=== PATIENT | female | born 1945 | race Caucasian/White ===

== ENCOUNTER → 2017-10-22 | Outpatient (CLI) | payer MEDICARE, OTHER, SELFPAY | PROVIDERS: Visit Provider Nurse Practitioner Family | DX: R53.83 Other fatigue (principal); E11.9 Type 2 diabetes mellitus without complications; Z79.899 Other long term (current) drug therapy; E55.9 Vitamin D deficiency, unspecified | CPT/HCPCS: 80061; 80305; 82306; 82607; 82746; 83036; 84439; 84443; 85025 ==

== ENCOUNTER 2017-11-12 12:08 | Emergency (ER) | payer MEDICARE, OTHER, SELFPAY ==
[2017-11-12 12:21] VITALS: BP 167/82; PULSE 106; RESP 18; TEMP 37.7; O2SAT 95; BMI 38.7
[2017-11-12 12:31] VITALS: BP 167/82; PULSE 106; RESP 18; TEMP 37.7; O2SAT 95; BMI 39.9
--- NOTE | 2017-11-12 13:51 | CT_ITS ---
CT head/brain wo con Ordering Physician: Sharmin Lai MD Patient Age: 72 years: Female HISTORY: ITS.REASON: FELL AND HIT HEAD . Headache. Head trauma. TECHNIQUE: Axial standard CT head. Bone and brain windows performed and submitted to PACS COMPARISON :. None available FINDINGS No acute intracranial findings. No hemorrhage. No mass. No subdural collection. No extra-axial findings. Mild diffuse cerebral atrophy age-appropriate . Vague low-density in the deep white matter cerebral hemispheres bilateral reflecting small vessel deep white matter ischemic changes of aging brain. Vague deep white matter low density. Vague low-density Deep white matter changes are most notable along the anterior aspect left basal ganglia as well as extending superior from the left basal ganglia. Minimal, physiologic calcification ganglia bilaterally. Not uncommon in aging brain Large dense calcified pineal measuring up to 11 mm x 9 mm. Upper normal size calcified pineal The posterior fossa shows no discrete acute findings. CP angles clear. The skull intact. No prominent scalp hematoma. The paranasal sinuses are clear mastoid air cells middle air and IACs unremarkable. Globes unremarkable. IMPRESSION-------- 1. No acute intracranial findings. 2. Chronic small vessel deep white matter ischemic changes slightly more evident at the left cerebral hemisphere . 3. Mild cerebral atrophy age-appropriate. 4. Prominent calcified pineal. Upper normal in size. Most likely normal but if any progressive headache or neurological findings this may warrant follow-up in 3-4 months.
--- NOTE | 2017-11-12 13:51 | XR_ITS ---
XR chest portable HISTORY: Cough and congestion ITS.REASON: POSSIBLE PNEUMONIA ORDERING PHYSICIAN: Sharmin Lai MD PATIENT AGE: 72 years COMPARISON: 06/03/2013 FINDINGS: The cardiomediastinal silhouette and pulmonary vascularity are within normal limits. The lungs are clear without infiltrates, suspicious nodules, or pleural effusions. There are low lung volumes with slightly elevated right hemidiaphragm. No acute bony abnormalities. IMPRESSION: No acute finding
--- NOTE | 2017-11-12 14:08 | PC.NURSE ---
RAD at BS for portable xray
[2017-11-12 14:19] LABS: Basophils # 0.1 K/mm3 (0-0.2); Basophils % 0.8 % (0.1-2.0); Eosinophils # 0.1 K/mm3 (0.0-0.4); Eosinophils % 0.9 % (0.1-12.0); Hematocrit 42.7 % (37.0-47.0); Hemoglobin 13.9 g/dL (12.2-16.2); Lymphocytes # 1.3 K/mm3 (0.7-4.5); Lymphocytes % 13.7 K/mm3 (10-50); Mean Corpuscular HGB Conc 32.7 g/dL (31.8-35.4); Mean Corpuscular Hemoglobin 28.5 pg (27.0-31.2); Mean Corpuscular Volume 87.4 fl (81-99); Mean Platelet Volume 9.1 fl (7.4-10.4); Monocytes # 0.6 K/mm3 (0.1-1.0); Monocytes % 6.5 % (1.7-9.3); Neutrophils # 7.6 K/mm3 (1.8-7.8); Neutrophils % 78.1 % (37.0-80.0); Platelet Count 209 K/mm3 (142-424); Red Blood Count 4.88 M/mm3 (4.20-5.40); Red Cell Distribution Width 13.4 % (11.5-17.5); White Blood Count 9.7 K/mm3 (4.8-10.8)
[2017-11-12 14:34] LABS: Alanine Aminotransferase 42 U/L (12-78); Albumin Level 3.6 gm/dL (3.4-5.0); Albumin/Globulin Ratio 0.9 (1.1-1.8); Alkaline Phosphatase 102 U/L (46-116); Aspartate Amino Transferase 57 U/L (15-37); Bilirubin,Total 0.7 mg/dL (0.2-1.0); Blood Urea Nitrogen 14 mg/dL (7-18); Calcium 8.7 mg/dL (8.5-10.1); Carbon Dioxide 28 mmol/L (21.0-32.0); Chloride 101 mmol/L (98-107); Creatinine Clearance Estimated 79 mL/min (0-300); Creatinine,Serum 1.07 mg/dL (0.55-1.02); Estimated Glomerular Filt Rate 50 ml/min (>60); GFR (African American) 61 ML/MIN (>60); Globulin 4.1 gm/dl (1.3-3.2); Glucose 148 mg/dL (74-106); Sodium 138 mmol/L (136-145); Total Protein,Serum 7.7 gm/dL (6.4-8.2)
[2017-11-12 14:38] LABS: Lactic Acid 1.1 mmol/L (0.4-2.0)
[2017-11-12 14:39] VITALS: BP 170/91; PULSE 89; RESP 20; TEMP 37.6; O2SAT 98
--- NOTE | 2017-11-12 15:09 | [facility].EDSYNC ---
ED Disposition Clinical Impression: Cough Syncope Qualifiers: Syncope type: unspecified Qualified Code(s): R55 - Syncope and collapse Disposition: Home, Self-Care Condition on Discharge: Good Instructions: Cough, DI for Syncope in Adults (Fainting) Additional Instructions: See your care provider in 1-3 days for recheck. Rx for Medrol Dosepak. And bedside commode to avoid falls in the middle of the night when going to restroom. Prescriptions: methylPREDNISolone [Medrol] 4 mg PO DAILY #1 tab.ds.pk Referrals: Jeff Jang MD [Primary Care Provider] - Time of Disposition: 16:48 - Critical Care Critical Care Time: No Attestation: On 11/12/17, the high probability of a clinically significant, sudden or life threatening deterioration of the following system(s) required my full and direct attention, intervention and personal management. The time I documented below is in addition to time spent performing reported procedures but includes the following listed in this critical care notation. Medical Decision Making Vital Signs: 11/12/17 12:21 11/12/17 12:31 11/12/17 14:39 Temperature 99.8 F H 99.8 F H 99.6 F Temperature Source Oral Oral Oral Pulse Rate Pulse Rate [Right Brachial] 106 H 106 H 89 Respiratory Rate 18 18 20 Blood Pressure Blood Pressure [Right Arm] 167/82 167/82 170/91 Blood Pressure Mean [Right Arm] 110 110 117 Blood Pressure Source Blood Pressure Source [Right Arm] Automatic Cuff Automatic Cuff Automatic Cuff Blood Pressure Position Blood Pressure Position [Right Arm] Sitting Supine Supine 02 Sat by Pulse Oximetry 95 95 98 Oxygen Delivery Method Room Air Room Air Room Air 11/12/17 16:30 11/12/17 16:32 Temperature 99.3 F 99.3 F Temperature Source Oral Oral Pulse Rate 82 Pulse Rate [Right Brachial] 82 Respiratory Rate 20 20 Blood Pressure 172/86 Blood Pressure [Right Arm] 172/86 Blood Pressure Mean [Right Arm] 114 Blood Pressure Source Automatic Cuff Blood Pressure Source [Right Arm] Automatic Cuff Blood Pressure Position Supine Blood Pressure Position [Right Arm] Supine 02 Sat by Pulse Oximetry 92 L Oxygen Delivery Method Room Air Room Air - Lab Data Lab results reviewed: Yes: I reviewed the patient's lab results. Lab Results 11/12/17 14:01: Sodium 138, Potassium 4.0, Chloride 101, Carbon Dioxide 28, Anion Gap 13.0, BUN 14, Creatinine 1.07 H, Estimated Creat Clear 79, Estimated GFR 50 L, Est GFR ( Amer) 61, Glucose 148 H, Calcium 8.7, Total Bilirubin 0.7, AST 57 H, ALT 42, Alkaline Phosphatase 102, Total Protein 7.7, Albumin 3.6, Globulin 4.1 H, Albumin/Globulin Ratio 0.9 L 11/12/17 14:05: WBC 9.7, RBC 4.88, Hgb 13.9, Hct 42.7, MCV 87.4, MCH 28.5, MCHC 32.7, RDW 13.4, Plt Count 209, MPV 9.1, Neut % (Auto) 78.1, Lymph % (Auto) 13.7, [place] % (Auto) 6.5, Eos % (Auto) 0.9, Baso % (Auto) 0.8, Neut # (Auto) 7.6, Lymph # (Auto) 1.3, [place] # (Auto) 0.6, Eos # (Auto) 0.1, Baso # (Auto) 0.1 11/12/17 14:05: Lactic Acid 1.1 11/12/17 15:40: Troponin I < 0.02 11/12/17 15:40: Influenza Type A Ag Negative, Influenza Type B Ag Negative Result diagrams: 11/12/17 14:05 11/12/17 14:01 Orders (Tests/Meds): ED MEDICATIONS Discontinued Medications Generic Name Dose Route Start Last Admin Trade Name Freq PRN Reason Stop Dose Admin Ibuprofen 600 mg 11/12/17 15:45 11/12/17 15:46 Motrin 600mg Tablet PO 11/12/17 15:46 600 mg ONCE ONE Administration Ketorolac Tromethamine 15 mg 11/12/17 15:42 11/12/17 15:49 Toradol 30mg/Ml Vial IV 11/12/17 15:43 Not Given ONCE ONE ORDERS Category Date Time Status Blood Culture Stat Micro 11/12/17 14:05 Received ECG Request by /Diego Stat Y 11/12/17 13:51 Ordered - Radiology Data #1 Image(s): Chest Image Reviewed: Yes I reviewed the patient's radiology results, Yes I have reviewed radiologist's interpretation Preliminary Findings: Normal/NAD, No Infiltrates Seen, Normal Lung Inflation
--- NOTE | 2017-11-12 15:12 | ED_ITS ---
ED Disposition Clinical Impression: Cough Syncope Qualifiers: Syncope type: unspecified Qualified Code(s): R55 - Syncope and collapse Disposition: Home, Self-Care Condition on Discharge: Good Instructions: Cough, DI for Syncope in Adults (Fainting) Additional Instructions: See your care provider in 1-3 days for recheck. Rx for Medrol Dosepak. And bedside commode to avoid falls in the middle of the night when going to restroom. Prescriptions: methylPREDNISolone [Medrol] 4 mg PO DAILY #1 tab.ds.pk Referrals: Jeff Jang MD [Primary Care Provider] - Time of Disposition: 16:48 - Critical Care Critical Care Time: No Attestation: On 11/12/17, the high probability of a clinically significant, sudden or life threatening deterioration of the following system(s) required my full and direct attention, intervention and personal management. The time I documented below is in addition to time spent performing reported procedures but includes the following listed in this critical care notation. Medical Decision Making Vital Signs: 11/12/17 12:21 11/12/17 12:31 11/12/17 14:39 Temperature 99.8 F H 99.8 F H 99.6 F Temperature Source Oral Oral Oral Pulse Rate Pulse Rate [Right Brachial] 106 H 106 H 89 Respiratory Rate 18 18 20 Blood Pressure Blood Pressure [Right Arm] 167/82 167/82 170/91 Blood Pressure Mean [Right Arm] 110 110 117 Blood Pressure Source Blood Pressure Source [Right Arm] Automatic Cuff Automatic Cuff Automatic Cuff Blood Pressure Position Blood Pressure Position [Right Arm] Sitting Supine Supine 02 Sat by Pulse Oximetry 95 95 98 Oxygen Delivery Method Room Air Room Air Room Air 11/12/17 16:30 11/12/17 16:32 Temperature 99.3 F 99.3 F Temperature Source Oral Oral Pulse Rate 82 Pulse Rate [Right Brachial] 82 Respiratory Rate 20 20 Blood Pressure 172/86 Blood Pressure [Right Arm] 172/86 Blood Pressure Mean [Right Arm] 114 Blood Pressure Source Automatic Cuff Blood Pressure Source [Right Arm] Automatic Cuff Blood Pressure Position Supine Blood Pressure Position [Right Arm] Supine 02 Sat by Pulse Oximetry 92 L Oxygen Delivery Method Room Air Room Air - Lab Data Lab results reviewed: Yes: I reviewed the patient's lab results. Lab Results 11/12/17 14:01: Sodium 138, Potassium 4.0, Chloride 101, Carbon Dioxide 28, Anion Gap 13.0, BUN 14, Creatinine 1.07 H, Estimated Creat Clear 79, Estimated GFR 50 L, Est GFR ( Amer) 61, Glucose 148 H, Calcium 8.7, Total Bilirubin 0.7, AST 57 H, ALT 42, Alkaline Phosphatase 102, Total Protein 7.7, Albumin 3.6, Globulin 4.1 H, Albumin/Globulin Ratio 0.9 L 11/12/17 14:05: WBC 9.7, RBC 4.88, Hgb 13.9, Hct 42.7, MCV 87.4, MCH 28.5, MCHC 32.7, RDW 13.4, Plt Count 209, MPV 9.1, Neut % (Auto) 78.1, Lymph % (Auto) 13.7 , [place] % (Auto) 6.5, Eos % (Auto) 0.9, Baso % (Auto) 0.8, Neut # (Auto) 7.6, Lymph # (Auto) 1.3, [place] # (Auto) 0.6, Eos # (Auto) 0.1, Baso # (Auto) 0.1 11/12/17 14:05: Lactic Acid 1.1 11/12/17 15:40: Troponin I < 0.02 11/12/17 15:40: Influenza Type A Ag Negative, Influenza Type B Ag Negative Result diagrams: 11/12/17 14:05 11/12/17 14:01 Orders (Tests/Meds): ED MEDICATIONS Discontinued Medications Generic Name Dose Route Start Last Admin Trade Na
--- NOTE | 2017-11-12 15:41 | PC.NURSE ---
lab at to draw repeat troponin
[2017-11-12 16:07] LABS: Troponin I < 0.02 ng/ml (0.00-0.06)
[2017-11-12 16:30] VITALS: BP 172/86; PULSE 82; RESP 20; TEMP 37.4; O2SAT 92
[2017-11-12 16:32] VITALS: BP 172/86; PULSE 82; RESP 20; TEMP 37.4; O2SAT 92
[2017-11-12 16:51] VITALS: BP 172/86; RESP 18; O2SAT 98
== END 2017-11-12 16:53 | disposition home or self-care (01) ==
PROVIDERS: Emergency Provider Emergency Medicine; Family Provider Emergency Medicine; PCP Emergency Medicine
DX: R05 Cough (principal); R55 Syncope and collapse; E11.65 Type 2 diabetes mellitus with hyperglycemia; Z79.84 Long term (current) use of oral hypoglycemic drugs; Z79.899 Other long term (current) drug therapy; W01.0XXA Fall on same level from slipping, tripping and stumbling without subsequent striking against object, initial encounter; Y92.019 Unspecified place in single-family (private) house as the place of occurrence of the external cause
CPT/HCPCS: 36415; 70450; 71045; 80053; 83605; 84484; 85025; 87040; 87275; 87276; 93005; 93041; 99284

== ENCOUNTER → 2018-03-27 08:40 | Outpatient (CLI) | payer MEDICARE, OTHER, SELFPAY ==
--- NOTE | 2018-03-27 08:56 | XR_ITS ---
XR knee LT 3V, XR knee RT 3V Ordering Physician: Riley Reza Patient Age: 72 years: Female HISTORY: ITS.REASON: pain Bilateral knee pain bilateral knee replacements 9 years ago TECHNIQUE: Left knee: 3 view left knee Right knee: 3 views COMPARISON : Prior Left and right knee radiograph from June 2016 ======== LEFT KNEE: 3 VIEW: Left TKA again noted and appears stable.. The components appear to be well seated with no fracture nor loosening. Grossly satisfactory stable appearance. No joint effusion When compared to 2016 is been no significant interval change at the prosthesis. Suspect there is been some weight gain by patient... RIGHT KNEE: 3 VIEWS Right TKA again noted and appear stable since 2016. Period The components appear stable with no fracture or loosening evident. Grossly Satisfactory appearance of prosthetic elements No joint effusion. Bones well mineralized bilateral. IMPRESSION: Right and left TKA , which appear stable & since 2016. Period
--- NOTE | 2018-03-27 08:56 | XR_ITS ---
XR lumbar spine 2-3V Ordering Physician: Riley Reza Patient Age: 72 years: Female HISTORY: ITS.REASON: Back Painlow back pain 5 years TECHNIQUE: 5 view lumbar spine series COMPARISON :Low back pain 5 years gradually worsening FINDINGS The lumbar vertebral bodies are intact. No compression fractures. Degenerative disc space narrowing most pronounced at at L3/4 to the right and associated with levoscoliosis of the spine in part due to disc space narrowing to the right..] Reactive Endplate Changes and marginal osteophytes most notable at this level. Mild posterior hypertrophic ridging suggested at this level may narrow spinal canal. There is also mild disc space narrowing at L4/5 with marginal osteophytes most evident to the right . Slight disc space Narrowing of L5/S1. Disc spaces throughout upper L-spine appears intact. Marginal osteophytes are seen throughout the lower thoracic spine. Also L2/3. Sacrum and SI joints unremarkable pedicles transverse processes satisfactory. AP view of hips included unremarkable IMPRESSION: Degenerative changes lower L-spine . Degenerative disc space narrowing & changes most evident rightward at L3/4.. Associated levoscoliosis Mild Degenerative disc space narrowing also seen at L4/5 & L5/S1
[2018-03-27 08:57] LABS: Basophils # 0.1 K/mm3 (0-0.2); Basophils % 0.5 % (0.1-2.0); Eosinophils # 0.6 K/mm3 (0.0-0.4); Eosinophils % 5.6 % (0.1-12.0); Hematocrit 46.9 % (37.0-47.0); Hemoglobin 14.8 g/dL (12.2-16.2); Lymphocytes # 3.4 K/mm3 (0.7-4.5); Lymphocytes % 33.9 K/mm3 (10-50); Mean Corpuscular HGB Conc 31.5 g/dL (31.8-35.4); Mean Corpuscular Hemoglobin 27.6 pg (27.0-31.2); Mean Corpuscular Volume 87.7 fl (81-99); Mean Platelet Volume 8.9 fl (7.4-10.4); Monocytes # 0.4 K/mm3 (0.1-1.0); Monocytes % 4.5 % (1.7-9.3); Neutrophils # 5.5 K/mm3 (1.8-7.8); Neutrophils % 55.5 % (37.0-80.0); Platelet Count 220 K/mm3 (142-424); Red Blood Count 5.35 M/mm3 (4.20-5.40); White Blood Count 9.9 K/mm3 (4.8-10.8)
[2018-03-27 09:11] LABS: Hemoglobin A1C 6.8 % (0.0-7.0)
[2018-03-27 10:14] LABS: Alanine Aminotransferase 36 U/L (12-78); Albumin/Globulin Ratio 1.1 (1.1-1.8); Alkaline Phosphatase 103 U/L (46-116); Anion Gap 12.7 mEq/L (5-15); Aspartate Amino Transferase 42 U/L (15-37); Bilirubin,Total 0.9 mg/dL (0.2-1.0); Blood Urea Nitrogen 24 mg/dL (7-18); Calcium 9.7 mg/dL (8.5-10.1); Carbon Dioxide 30 mmol/L (21.0-32.0); Chloride 102 mmol/L (98-107); Cholesterol 206 mg/dL (140-200); Creatinine,Serum 1.06 mg/dL (0.55-1.02); Estimated Glomerular Filt Rate 51 ml/min (>60); GFR (African American) 61 ML/MIN (>60); Globulin 3.6 gm/dl (1.3-3.2); Glucose 167 mg/dL (74-106); HDL Cholesterol 52 mg/dL (29-89); LDL Cholesterol 127 mg/dL (0-130); Potassium 3.7 mmoL/L (3.5-5.1); Sodium 141 mmol/L (136-145); T4 (Thyroxine) 9.8 ug/dl (4.7-13.3); Thyroid Stimulating Hormone 29.97 uIU/ml (0.358-3.740); Total Protein,Serum 7.6 gm/dL (6.4-8.2); Triglycerides 133 mg/dL (30-200); VLDL Cholesterol 27 mg/dL (0-40)
== END ==
PROVIDERS: Visit Provider Nurse Practitioner Family
DX: I10 Essential (primary) hypertension (principal); E11.9 Type 2 diabetes mellitus without complications; M54.9 Dorsalgia, unspecified; R53.83 Other fatigue; M25.569 Pain in unspecified knee
CPT/HCPCS: 36415; 72100; 73562; 80053; 80061; 82652; 83036; 84436; 84443; 85025

== ENCOUNTER → 2018-03-31 08:11 | Outpatient (CLI) | payer MEDICARE, OTHER, SELFPAY ==
--- NOTE | 2018-03-31 08:13 | MM_ITS ---
MM Dig screening mamm BI w/CAD CAD Screening ORDERING PHYSICIAN : Riley Reza PATIENT AGE: 72 years GENDER: Female HISTORY. Routine screening. No hormones. No new complaints. Family history. Sister with breast cancer age 58 COMPARISON: Previous mammograms: April 2011 and February 2013. TECHNIQUE: Standard CC and MLO images were obtained. R2 CAD reviewed. FINDINGS: Low-density breast with generalized fatty replacement. No dominant mass nor significant suspicious calcifications in either breast. No architectural distortion RIGHT BREAST:No significant new findings. Scattered small benign-appearing calcifications. LEFT BREAST: We again see some small benign-appearing secretory or skin calcifications or at medial left breast more so than right. On these additional slight progression but can be followed. No suspicious or branching forms. IMPRESSION: No significant new findings. . benign-appearing calcifications most evident at the medial/inferior left breast ultrasound be followed safely. Bilateral follow-up in one year recommended BI-RADS Category: 2 Benign Finding(s) RECOMMENDED FOLLOW-UP: 1YR - 1 YEAR FOLLOW-UP (A letter has been sent to the patient regarding results of the study.)
== END ==
PROVIDERS: Family Provider Emergency Medicine; PCP Nurse Practitioner Family; Visit Provider Nurse Practitioner Family
DX: Z12.31 Encounter for screening mammogram for malignant neoplasm of breast (principal)
CPT/HCPCS: 77067

== ENCOUNTER 2018-04-14 16:27 | Observation (INO) ==
--- NOTE | 2018-04-14 17:12 | Emergency Department Note ---
ED Disposition Clinical Impression: Hypokalemia, Strep tonsillitis Disposition: Still a Patient Condition on Discharge: Fair Referrals: Jeff Jang MD [Primary Care Provider] - - Critical Care Critical Care Time: No Attestation: On 04/14/18, the high probability of a clinically significant, sudden or life threatening deterioration of the following system(s) required my full and direct attention, intervention and personal management. The time I documented below is in addition to time spent performing reported procedures but includes the following listed in this critical care notation. Medical Decision Making - Bob Inquiry Pt receiving controlled substance: No Vital Signs: 04/14/18 16:36 Temperature 99.7 F H Temperature Source Oral Pulse Rate [Right Radial] 96 H Respiratory Rate 18 Blood Pressure [Right Arm] 154/77 Blood Pressure Mean [Right Arm] 102 Blood Pressure Source [Right Arm] Automatic Cuff Blood Pressure Position [Right Arm] Sitting 02 Sat by Pulse Oximetry 96 Oxygen Delivery Method Room Air - Lab Data Lab Results 04/14/18 16:57: Group A Strep Rapid Positive A 04/14/18 17:30: WBC 18.4 H, RBC 5.36, Hgb 14.6, Hct 45.2, MCV 84.3, MCH 27.3, MCHC 32.4, RDW 13.8, Plt Count 179, MPV 8.9, Neut % (Auto) 77.8, Lymph % (Auto) 15.6, [place] % (Auto) 6.1, Eos % (Auto) 0.1, Baso % (Auto) 0.4, Neut # (Auto) 14.3 H, Lymph # (Auto) 2.9, [place] # (Auto) 1.1 H, Eos # (Auto) 0.0, Baso # (Auto ) 0.1, Total Counted 100, Neutrophils % (Manual) 78 H, Lymphocytes % (Manual) 6 L, Atypical Lymphs % 9.0, Monocytes % (Manual) 7, Platelet Estimate Normal, RBC Morphology Normal 04/14/18 17:30: Sodium 140, Potassium 2.7 L*, Chloride 98, Carbon Dioxide 33 H, Anion Gap 11.7, BUN 17, Creatinine 1.08 H, Estimated Creat Clear 76, Estimated GFR 50 L, Est GFR ( Amer) 60, Glucose 156 H, Calcium 9.4 04/14/18 17:30: Lactic Acid 1.0 Result diagrams: 04/14/18 17:30 04/14/18 17:30 Orders (Tests/Meds): ED MEDICATIONS Generic Name Dose Route Start Last Admin Trade Name Freq PRN Reason Stop Dose Admin Potassium Chloride/Water 20 meq 04/14/18 17:58 Potassium Chloride 20meq/100ml Ivpb IV 04/14/18 17:59 ONCE ONE Discontinued Medications Generic Name Dose Route Start Last Admin Trade Name Freq PRN Reason Stop Dose Admin Ceftriaxone Sodium 1 gm/ 50 mls @ 100 mls/hr 04/14/18 17:53 04/14/18 18:14 Sodium Chloride IV 04/14/18 18:22 100 mls/hr ONCE ONE Administration Protocol Ibuprofen 800 mg 04/14/18 17:17 Motrin 400mg Tablet PO 04/14/18 17:18 ONCE ONE Potassium Chloride 40 meq 04/14/18 17:58 04/14/18 18:14 Klor-Con 20meq Tablet PO 04/14/18 17:59 40 meq ONCE ONE Administration Sodium Chloride 1,000 ml 04/14/18 17:17 04/14/18 17:51 Sod Chlor 0.9% 1000ml Bag IV 04/14/18 17:18 1,000 ml BOLUS ONE Administration ORDERS Category Date Time Status Chest XR 2 view (NOT portable) [XR chest 2V] Stat Exams 04/14/18 17:17 Taken UA [Urinalysis and Microscopic] Stat Lab 04/14/18 16:47 Ordered - Radiology Data #2 Image(s): Chest Image Reviewed: Yes I reviewed the patient's radiology image Elevated right diaphragm. No acute process. - Physician Consults Physician Consulted: Riley Reza NP for Dr. Jang Time: 18:50 Reason -: Admission Comment/Response: Agrees to admit the patient to the hospital. We discussed the patient's clinical information, including history, exam, laboratory and radiology results and ED course. Per hospital procedure, I will write temporary bridge inpatient orders on the patient. Specific orders requested by the admitting physician: Rocephin, IV fluids with potassium, recheck chemistry profile in the morning General Adult HPI - General Chief complaint: Headache Stated complaint: sob,sORE tHROAT,wolfe Time Seen by Provider: 04/14/18 17:00 Mode of Arrival: Ambulatory Limitations: No Limitations Description of Symptoms (Recalled from ER Triage Doc. by RN): headache, fever - History of Present Illness HPI narrative: 2 day history of sore throat, fever, bitemporal headache, productive cough, generalized weakness and malaise, poor appetite. Ears feel plugged. Rhinorrhea. Also had an episode of difficulty breathing which she describes is just feels short of air. States voice is not affected. Took ibuprofen this morning. - Related Data Home Medications Medication Instructions Recorded Confirmed Pravastatin Sodium [Pravachol 40mg 40 mg PO DAILY 11/12/17 11/12/17 Tablet] Previous Rx's Medication Instructions Recorded methylPREDNISolone [Medrol] 4 mg PO DAILY #1 tab.ds.pk 11/12/17 benzonatate 100 mg capsule 100 mg PO BIDP PRN #14 cap 11/13/17 levothyroxine 175 mcg tablet 175 mcg PO DAILY #30 tab 03/23/18 losartan 100 1 tab PO DAILY 30 Days #30 tab 03/23/18 mg-hydrochlorothiazide 25 mg tablet oxycodone 5 mg tablet 5 mg PO DAILY PRN #7 tab 03/27/18 pregabalin 25 mg capsule See Label Instructions PO DAILY 03/27/18 #14 cap Allergies Allergy/AdvReac Type Severity Reaction Status Date / Time acetaminophen [From TYLENOL] Allergy Unknown Verified 04/14/18 16:45 tramadol [TRAMADOL] Allergy Unknown Verified 04/14/18 16:45 [facility] History I have reviewed the patient's past medical history: Yes Medical History: Reports:: Diabetes Mellitus Type 2 Other Medical History: Reports: Arthritis, Thyroid Disease Laterality Cases: Bilateral: Arthroscopy Knee Other Surgeries: Yes: Other Amputation: No Fractures: No - Social History Educational Level: Completed High School Smoking Status: Never smoker Alcohol Intake: never Substance Use Type: denies use Occupational Status: retired Housing: house Household Members: family - Psychiatric History Expresses thoughts of harming self/others: None Suicide Plan Description: No Plan Family Hx:: Hypertension, Diabetes ROS Obtained: Yes All systems reviewed & no additional complaints - Constitutional Constitutional: Reports fatigue, Reports fever(s), Reports malaise, Reports weakness - ENT Ears, Nose, Mouth, and Throat: Reports nasal discharge, Reports sore throat - Respiratory Respiratory: Yes cough, Yes dyspnea, Yes excessive phlegm production - Neurologic Neurologic: Reports headache(s) Physical Exam - General General appearance: alert, in no apparent distress - Head Head exam: atraumatic, normocephalic, normal inspection - Eye Eye exam: Present: normal appearance, PERRL, EOMI - ENT ENT exam: Present: mucous membranes moist - Expanded ENT Exam Comment: Left tympanic membrane erythematous Sinuses nontender. Pharynx shows moderately enlarged tonsils with exudate. Erythema and edema of oropharynx including uvula, soft palate, and tonsils. Voice normal. No stridor. No drooling. - Neck Neck exam: Present: normal inspection, full ROM, trachea midline. Absent: meningismus, lymphadenopathy - Chest Chest inspection: Present: normal inspection, symmetric chest wall rise. Absent : tenderness - Respiratory Respiratory exam: Present: normal lung sounds bilaterally. Absent: respiratory distress - Cardiovascular Cardiovascular exam: Present: regular rate, normal rhythm. Absent: JVD - Abdominal Exam Abdominal exam: Present: soft, normal bowel sounds. Absent: distention, tenderness, guarding - Extremities Exam Extremities exam: Present: normal inspection, full ROM, normal capillary refill. Absent: calf tenderness - Back Exam Back exam: Present: normal inspection. Absent: tenderness - Neurological Exam Neurological exam: Present: alert, oriented X3 - Psychiatric Psychiatric exam: Present: normal affect, normal mood - Skin Skin exam: Present: warm, dry, intact, normal color - Lymphatic Lymphatic Findings: no adenopathy
[2018-04-14 17:52] LABS: Basophils # 0.1 K/mm3 (0-0.2); Basophils % 0.4 % (0.1-2.0); Eosinophils % 0.1 % (0.1-12.0); Hematocrit 45.2 % (37.0-47.0); Hemoglobin 14.6 g/dL (12.2-16.2); Lymphocytes # 2.9 K/mm3 (0.7-4.5); Lymphocytes % 15.6 K/mm3 (10-50); Mean Corpuscular HGB Conc 32.4 g/dL (31.8-35.4); Mean Corpuscular Hemoglobin 27.3 pg (27.0-31.2); Mean Corpuscular Volume 84.3 fl (81-99); Mean Platelet Volume 8.9 fl (7.4-10.4); Monocytes # 1.1 K/mm3 (0.1-1.0); Monocytes % 6.1 % (1.7-9.3); Neutrophils # 14.3 K/mm3 (1.8-7.8); Neutrophils % 77.8 % (37.0-80.0); Platelet Count 179 K/mm3 (142-424); Red Blood Count 5.36 M/mm3 (4.20-5.40); Red Cell Distribution Width 13.8 % (11.5-17.5); White Blood Count 18.4 K/mm3 (4.8-10.8)
[2018-04-14 17:54] LABS: Anion Gap 11.7 mEq/L (5-15); Calcium 9.4 mg/dL (8.5-10.1)
[2018-04-14 17:55] LABS: Potassium 2.7 mmoL/L (3.5-5.1)
[2018-04-14 18:24] LABS: Lymphocytes % 6 % (10-50); Monocytes % 7 % (2-9); Neutrophils % 78 % (42-76); RBC Morphology Normal; Total Cells Counted 100
[2018-04-14 19:28] LABS: Microscopic, Urine URINE MICROSCOPIC (MICROSCOPIC)
[2018-04-14 19:31] LABS: Appearance,Urine CLEAR (Clear); Bilirubin,Urine Negative (Negative); Blood, Urine TRACE-I (Negative); Color,Urine YELLOW (Yellow); Glucose,Urine (UA) Negative (Negative); Ketones,Urine Negative (Negative); Leukocyte Esterase,Urine 1+ (Negative); Protein,Urine Negative (Negative); Urobilinogen,Urine 0.2 EU/dl (0.2)
[2018-04-14 19:45] LABS: Bacteria,Urine 1+ /lpf
--- NOTE | 2018-04-14 20:40 | History & Physical Report ---
*Admission Date: 04/14/18 *Chief complaint: weakness *History of present illness: 72-year-old female presents to the ER with complaints of 2 day history of sore throat, fever, bitemporal headache, productive cough, generalized weakness, malaise, Rhinorrhea,poor appetite and ears feel plugged. Pt states she also had an episode of difficulty breathing which she describes is just feels short of air. Patient diagnosed with strep throat and hypokalemia patient admitted for potassium replacement. [facility] History I have reviewed the patient's past medical history: Yes Medical History: Reports:: Diabetes Mellitus Type 2 Other Medical History: Reports: Arthritis, Thyroid Disease Laterality Cases: Bilateral: Arthroscopy Knee Other Surgeries: Yes: Other Amputation: No Fractures: No - *Social History Educational Level: Completed High School Smoking Status: Never smoker Alcohol Intake: never Substance Use Type: denies use Occupational Status: retired Housing: house Household Members: family - Psychiatric History Expresses thoughts of harming self/others: None Suicide Plan Description: No Plan *Family Hx:: Hypertension, Diabetes Review of Systems - Constitutional Reports fever(s), Reports headache(s), Reports lack of energy, Reports malaise, Reports weakness - Eyes Denies blurry vision - ENT Reports ear pain, Reports sore throat, Denies bleeding gums, Denies throat swelling - *Cardiovascular Reports shortness of breath, Denies chest pain at rest - *Respiratory Reports chest congestion, Reports shortness of breath - *Gastrointestinal Reports nausea, Denies abdominal pain - *Genitourinary Denies abnormal vaginal bleeding, Denies urinary urgency - *Musculoskeletal Denies joint pain, Denies decreased muscle mass - Integumentary/Breasts Denies bleeding lesions - *Neurologic Reports headache(s), Reports weakness, Denies localized weakness - Psychiatric Denies anxiety - Endocrine Denies excessive sweating - Hematologic/Lymphatic Denies enlarged lymph nodes - Allergic/Immunologic Denies lip swelling Meds Home Medications Medication Instructions Recorded Confirmed Type Pravastatin Sodium [Pravachol 40mg 40 mg PO DAILY 11/12/17 11/12/17 History Tablet] Allergies Allergy/AdvReac Type Severity Reaction Status Date / Time acetaminophen [From TYLENOL] Allergy Unknown Verified 04/14/18 16:45 tramadol [TRAMADOL] Allergy Unknown Verified 04/14/18 16:45 Exam Vital signs and Labs for Last 24 Hours: Temp Pulse Resp BP Pulse Ox 99.7 F H 82 20 138/77 96 04/14/18 19:31 04/14/18 19:31 04/14/18 19:31 04/14/18 19:31 04/14/18 19:31 Laboratory Results - last 24 hr 04/14/18 16:57: Group A Strep Rapid Positive A 04/14/18 17:30: WBC 18.4 H, RBC 5.36, Hgb 14.6, Hct 45.2, MCV 84.3, MCH 27.3, MCHC 32.4, RDW 13.8, Plt Count 179, MPV 8.9, Neut % (Auto) 77.8, Lymph % (Auto) 15.6, [place] % (Auto) 6.1, Eos % (Auto) 0.1, Baso % (Auto) 0.4, Neut # (Auto) 14.3 H, Lymph # (Auto) 2.9, [place] # (Auto) 1.1 H, Eos # (Auto) 0.0, Baso # (Auto ) 0.1, Total Counted 100, Neutrophils % (Manual) 78 H, Lymphocytes % (Manual) 6 L, Atypical Lymphs % 9.0, Monocytes % (Manual) 7, Platelet Estimate Normal, RBC Morphology Normal 04/14/18 17:30: Sodium 140, Potassium 2.7 L*, Chloride 98, Carbon Dioxide 33 H, Anion Gap 11.7, BUN 17, Creatinine 1.08 H, Estimated Creat Clear 76, Estimated GFR 50 L, Est GFR ( Amer) 60, Glucose 156 H, Calcium 9.4 04/14/18 17:30: Lactic Acid 1.0 04/14/18 19:22: Urine Color Yellow, Urine Appearance Clear, Urine pH 6.0, Ur Specific [place] 1.010, Urine Protein Negative, Urine Glucose (UA) Negative, Urine Ketones Negative, Urine Blood Trace-i, Urine Nitrate Negative, Urine Bilirubin Negative, Urine Urobilinogen 0.2, Ur Leukocyte Esterase 1+ A, Urine RBC None, Urine WBC 10-20, Ur Squamous Epith Cells 10-20, Ur Transition Epith Cell 3-5, Urine Bacteria 1+ I & O for Last 24 hours: Intake & Output 04/12/18 04/13/18 04/14/18 04/15/18 11:59 11:59 11:59 11:59 Intake Total 1100 / 1100 Output Total 100 / 100 Balance 1000 / 1000 Weight 231 lb - Constitutional no acute distress - *Routine HEENT Exam Head: Present: normocephalic Eye: Present: PERRL ENT: Present: mucous membranes moist Comments: Redness with white patches on pharynx - *Routine Neck Exam Present: supple, full ROM - *Routine Respiratory Exam Present: CTA bilaterally - *Routine Cardiovascular Exam Present: RRR - *Routine Extremities Exam Present: full ROM - *Routine Skin Exam Present: intact - *Routine Neurological Exam Present: alert, oriented X3, CN II-XII intact - Routine Psychiatric Exam Present: normal affect, normal thought process H&P: Result - Labs Labs: Short CBC 04/14/18 Range/Units 17:30 WBC 18.4 H (4.8-10.8) K/mm3 Hgb 14.6 (12.2-16.2) g/dL Hct 45.2 (37.0-47.0) % Plt Count 179 (142-424) K/mm3 BMP 04/14/18 17:30 Sodium 140 Potassium 2.7 L* Chloride 98 Carbon Dioxide 33 H BUN 17 Creatinine 1.08 H Glucose 156 H Calcium 9.4 Urine 04/14/18 Range/Units 19:22 Urine Color Yellow (Yellow) Urine Appearance Clear (Clear) Urine pH 6.0 (5.0-8.5) Ur Specific [place] 1.010 (1.005-1.030) Urine Protein Negative (Negative) Urine Glucose (UA) Negative (Negative) Assessment and Plan - Assessment and plan all Dx Assessment and Plan for all problems:: Dr lai will round later, all orders per joelle
[2018-04-15 06:30] LABS: Calcium 8.7 mg/dL (8.5-10.1)
[2018-04-15 06:37] LABS: Basophils # 0.1 K/mm3 (0-0.2); Basophils % 0.3 % (0.1-2.0); Eosinophils # 0.1 K/mm3 (0.0-0.4); Eosinophils % 0.5 % (0.1-12.0); Lymphocytes # 2.7 K/mm3 (0.7-4.5); Lymphocytes % 15.2 K/mm3 (10-50); Mean Corpuscular HGB Conc 31.8 g/dL (31.8-35.4); Mean Corpuscular Hemoglobin 27.2 pg (27.0-31.2); Mean Corpuscular Volume 85.7 fl (81-99); Mean Platelet Volume 9.8 fl (7.4-10.4); Monocytes % 5.9 % (1.7-9.3); Neutrophils # 13.7 K/mm3 (1.8-7.8); Neutrophils % 78.1 % (37.0-80.0); Platelet Count 148 K/mm3 (142-424); Red Blood Count 4.77 M/mm3 (4.20-5.40); White Blood Count 17.5 K/mm3 (4.8-10.8)
[2018-04-15 06:43] LABS: Hematocrit 40.3 % (37.0-47.0); Hemoglobin 12.9 g/dL (12.2-16.2)
--- NOTE | 2018-04-15 08:38 | Pharmacy Consult Notes ---
[facility] Pharmacy VTE Monitoring - Patient Demographics Admission date: 04/14/18 Report Date: 04/15/18 Time: 08:38 Allergies/Adverse Reactions: Patient Allergies acetaminophen [From TYLENOL] Allergy (Unknown, Verified 04/14/18 16:45) tramadol [TRAMADOL] Allergy (Unknown, Verified 04/14/18 16:45) Height: 1.65 m Weight: 104.78 kg Patient Problems: Current Active Problems Hypokalemia (Acute) Strep tonsillitis (Acute) - VTE Risk Labs: VTE Related Lab Results Hgb 12.9 g/dL (12.2-16.2) D 04/15/18 05:20 Hct 40.3 % (37.0-47.0) 04/15/18 05:20 Plt Count 148 K/mm3 (142-424) 04/15/18 05:20 BUN 14 mg/dL (7-18) 04/15/18 05:20 Creatinine 0.93 mg/dL (0.55-1.02) 04/15/18 05:20 Estimated Creat Clear 82 mL/min (0-300) 04/15/18 05:20 Was VTE Risk Assessment Performed: Yes VTE Risk Level: Very Low Risk Clinical Trial Participant: No - Prophylaxis VTE Prophylaxis Ordered?: Yes Types of VTE Prophylaxis: TEDS Knee High
[2018-04-15 08:49] LABS: Eosinophils % 1 % (0-3); Lymphocytes % 14 % (10-50); Monocytes % 6 % (2-9); Neutrophils % 79 % (42-76); RBC Morphology Normal; Total Cells Counted 100
--- NOTE | 2018-04-15 12:04 | Progress Note ---
Internal Medicine - PN: Subj *Date: 04/15/18 *Time: 12:01 Interval history: pt with weakness and not feeling well with acute throat infection and low k Exam Vital signs and Labs for Last 24 Hours: Temp Pulse Resp BP Pulse Ox 99.3 F 79 20 148/87 95 04/15/18 11:10 04/15/18 11:10 04/15/18 11:10 04/15/18 11:10 04/15/18 11:10 Laboratory Results - last 24 hr 04/14/18 16:57: Group A Strep Rapid Positive A 04/14/18 17:30: WBC 18.4 H, RBC 5.36, Hgb 14.6, Hct 45.2, MCV 84.3, MCH 27.3, MCHC 32.4, RDW 13.8, Plt Count 179, MPV 8.9, Neut % (Auto) 77.8, Lymph % (Auto) 15.6, [place] % (Auto) 6.1, Eos % (Auto) 0.1, Baso % (Auto) 0.4, Neut # (Auto) 14.3 H, Lymph # (Auto) 2.9, [place] # (Auto) 1.1 H, Eos # (Auto) 0.0, Baso # (Auto ) 0.1, Total Counted 100, Neutrophils % (Manual) 78 H, Lymphocytes % (Manual) 6 L, Atypical Lymphs % 9.0, Monocytes % (Manual) 7, Platelet Estimate Normal, RBC Morphology Normal 04/14/18 17:30: Sodium 140, Potassium 2.7 L*, Chloride 98, Carbon Dioxide 33 H, Anion Gap 11.7, BUN 17, Creatinine 1.08 H, Estimated Creat Clear 76, Estimated GFR 50 L, Est GFR ( Amer) 60, Glucose 156 H, Calcium 9.4 04/14/18 17:30: Lactic Acid 1.0 04/14/18 19:22: Urine Color Yellow, Urine Appearance Clear, Urine pH 6.0, Ur Specific [place] 1.010, Urine Protein Negative, Urine Glucose (UA) Negative, Urine Ketones Negative, Urine Blood Trace-i, Urine Nitrate Negative, Urine Bilirubin Negative, Urine Urobilinogen 0.2, Ur Leukocyte Esterase 1+ A, Urine RBC None, Urine WBC 10-20, Ur Squamous Epith Cells 10-20, Ur Transition Epith Cell 3-5, Urine Bacteria 1+ 04/14/18 20:29: POC Glucose 188 H 04/15/18 05:20: WBC 17.5 H, RBC 4.77, Hgb 12.9 D, Hct 40.3, MCV 85.7, MCH 27.2 , MCHC 31.8, RDW 14.0, Plt Count 148, MPV 9.8, Neut % (Auto) 78.1, Lymph % (Auto ) 15.2, [place] % (Auto) 5.9, Eos % (Auto) 0.5, Baso % (Auto) 0.3, Neut # (Auto) 13.7 H, Lymph # (Auto) 2.7, [place] # (Auto) 1.0, Eos # (Auto) 0.1, Baso # (Auto) 0.1, Total Counted 100, Neutrophils % (Manual) 79 H, Lymphocytes % (Manual) 14, Monocytes % (Manual) 6, Eosinophils % (Manual) 1, Platelet Estimate Normal, RBC Morphology Normal 04/15/18 05:20: Sodium 140, Potassium 3.0 L, Chloride 102, Carbon Dioxide 27, Anion Gap 14.0, BUN 14, Creatinine 0.93, Estimated Creat Clear 82, Estimated GFR 59, Est GFR ( Amer) 71, Glucose 169 H, Calcium 8.7 04/15/18 06:38: POC Glucose 174 H 04/15/18 09:39: ESR 85 H 04/15/18 09:39: Potassium 3.0 L 04/15/18 10:41: POC Glucose 160 H I & O for Last 24 hours: Intake & Output 04/13/18 04/14/18 04/15/18 04/16/18 11:59 11:59 11:59 11:59 Intake Total 2446 / 2446 Output Total 100 / 100 Balance 2346 / 2346 Weight 231 lb - Constitutional no acute distress - *Routine HEENT Exam Head: Present: normocephalic Eye: Present: EOMI, PERRL ENT: Present: mucous membranes dry Comments: reddned post pharynx - *Routine Neck Exam Present: supple - *Routine Respiratory Exam Present: CTA bilaterally - *Routine Cardiovascular Exam Present: RRR - *Routine Abdominal Exam Present: soft - *Routine Extremities Exam Absent: calf tenderness - *Routine Skin Exam Present: intact - *Routine Neurological Exam Present: alert, oriented X3, CN II-XII intact - Routine Psychiatric Exam Present: normal affect Assessment and Plan (1) Elevated erythrocyte sedimentation rate Current visit: Yes Status: Acute Category: Medical Code(s): R70.0 - Elevated erythrocyte sedimentation rate (2) Hypokalemia Current visit: Yes Status: Acute Category: Medical Code(s): E87.6 - Hypokalemia (3) Strep tonsillitis Current visit: Yes Status: Acute Category: Medical Code(s): J03.00 - Acute streptococcal tonsillitis, unspecified
[2018-04-16 07:12] LABS: Basophils % 0.1 % (0.1-2.0); Hematocrit 35.6 % (37.0-47.0); Hemoglobin 12.9 g/dL (12.2-16.2); Lymphocytes # 1.9 K/mm3 (0.7-4.5); Mean Corpuscular HGB Conc 36.4 g/dL (31.8-35.4); Mean Corpuscular Hemoglobin 31.3 pg (27.0-31.2); Mean Platelet Volume 9.9 fl (7.4-10.4); Monocytes # 0.4 K/mm3 (0.1-1.0); Monocytes % 2.7 % (1.7-9.3); Neutrophils # 13.2 K/mm3 (1.8-7.8); Neutrophils % 85.2 % (37.0-80.0); Platelet Count 155 K/mm3 (142-424); Red Blood Count 4.13 M/mm3 (4.20-5.40); Red Cell Distribution Width 13.9 % (11.5-17.5); White Blood Count 15.5 K/mm3 (4.8-10.8)
[2018-04-16 07:16] LABS: Anion Gap 14.5 mEq/L (5-15); Calcium 9.4 mg/dL (8.5-10.1); Potassium 3.5 mmoL/L (3.5-5.1)
[2018-04-16 08:30] LABS: Lymphocytes % 18 % (10-50); Monocytes % 4 % (2-9); Neutrophils % 78 % (42-76); Total Cells Counted 100
[2018-04-16 08:31] LABS: RBC Morphology Normal
--- NOTE | 2018-04-16 10:07 | Discharge Summary ---
General - General Admission date:: 04/14/18 Discharge date: 04/16/18 HPI HPI: 72-year-old female presents to the ER with complaints of 2 day history of sore throat, fever, bitemporal headache, productive cough, generalized weakness, malaise, Rhinorrhea,poor appetite and ears feel plugged. Pt states she also had an episode of difficulty breathing which she describes is just feels short of air. Patient diagnosed with strep throat and hypokalemia patient admitted for potassium replacement. Hospital Course Hospital Course: Hypokalemia-potassium replacement Strep-antibiotics Patient is to follow-up in the office in 1 week and have potassium rechecked. Today's patient sitting on the side of the bed states she feels better will discharge home. Objective Vital signs: Temp Pulse Resp BP Pulse Ox 98.5 F 86 16 173/98 93 L 04/16/18 08:00 04/16/18 08:00 04/16/18 08:00 04/16/18 08:00 04/16/18 08:00 no acute distress - *Routine HEENT Exam Head: Present: normocephalic Eye: Present: PERRL ENT: Present: mucous membranes moist - *Routine Neck Exam Present: full ROM - *Routine Respiratory Exam Present: CTA bilaterally - *Routine Cardiovascular Exam Present: RRR - *Routine Abdominal Exam Present: soft, normoactive bowel sounds - *Routine Extremities Exam Present: full ROM - *Routine Skin Exam Present: intact - *Routine Neurological Exam Present: alert, oriented X3, CN II-XII intact - Routine Psychiatric Exam Present: normal affect, normal thought process Results Labs on day of discharge: Labs from last 24 hours 04/16/18 04/16/18 04/16/18 06:32 06:32 05:50 WBC 15.5 H RBC 4.13 L Hgb 12.9 Hct 35.6 L MCV 86.0 MCH 31.3 H MCHC 36.4 H RDW 13.9 Plt Count 155 MPV 9.9 Neut % (Auto) 85.2 H Lymph % (Auto) 12.0 [place] % (Auto) 2.7 Eos % (Auto) 0.0 L Baso % (Auto) 0.1 Neut # (Auto) 13.2 H Lymph # (Auto) 1.9 [place] # (Auto) 0.4 Eos # (Auto) 0.0 Baso # (Auto) 0.0 Total Counted 100 Neutrophils % (Manual) 78 H Lymphocytes % (Manual) 18 Monocytes % (Manual) 4 Platelet Estimate Normal RBC Morphology Normal ESR Sodium 138 Potassium 3.5 Chloride 102 Carbon Dioxide 25 Anion Gap 14.5 BUN 18 D Creatinine 0.92 Estimated Creat Clear 82 Estimated GFR 60 Est GFR ( Amer) 72 Glucose 239 H POC Glucose 233 H Calcium 9.4 04/15/18 04/15/18 04/15/18 20:41 16:44 10:41 WBC RBC Hgb Hct MCV MCH MCHC RDW Plt Count MPV Neut % (Auto) Lymph % (Auto) [place] % (Auto) Eos % (Auto) Baso % (Auto) Neut # (Auto) Lymph # (Auto) [place] # (Auto) Eos # (Auto) Baso # (Auto) Total Counted Neutrophils % (Manual) Lymphocytes % (Manual) Monocytes % (Manual) Platelet Estimate RBC Morphology ESR Sodium Potassium Chloride Carbon Dioxide Anion Gap BUN Creatinine Estimated Creat Clear Estimated GFR Est GFR ( Amer) Glucose POC Glucose 328 H* 267 H 160 H Calcium 04/15/18 04/15/18 09:39 09:39 WBC RBC Hgb Hct MCV MCH MCHC RDW Plt Count MPV Neut % (Auto) Lymph % (Auto) [place] % (Auto) Eos % (Auto) Baso % (Auto) Neut # (Auto) Lymph # (Auto) [place] # (Auto) Eos # (Auto) Baso # (Auto) Total Counted Neutrophils % (Manual) Lymphocytes % (Manual) Monocytes % (Manual) Platelet Estimate RBC Morphology ESR 85 H Sodium Potassium 3.0 L Chloride Carbon Dioxide Anion Gap BUN Creatinine Estimated Creat Clear Estimated GFR Est GFR ( Amer) Glucose POC Glucose Calcium - Additional Comments Rounded with Dr. Jang all orders per Suhail DS: Diagnosis - Discharge Diagnosis (1) Elevated erythrocyte sedimentation rate Status: Acute (2) Hypokalemia Status: Acute (3) Strep tonsillitis Status: Acute Discharge Plan - Patient Discharge Instructions ACTIVITY: Continue current activity DIET: continue same diet Patient Instructions: Strep Throat, Hypokalemia - Follow up Plan Follow up with: Promise Tavares APRN [Nurse Practitioner] - 04/20/18 Disposition: Home, Self-Prison Medications: Home Medications Medication Instructions Recorded Confirmed Type Pravastatin Sodium [Pravachol 40mg 40 mg PO HS 01/10/18 06/13/18 History Tablet] Levothyroxine Sodium 175 mcg PO HS 04/15/18 04/15/18 History [Levothyroxine 175mcg (0.175mg) Tab] Losartan/Hydrochlorothiazide 1 tab PO HS 04/15/18 04/15/18 History [Losartan-Hctz 100-25 mg Tab] Pregabalin [Pregabalin 25mg 25 mg PO HS 04/15/18 04/15/18 History Capsule] Prescriptions/Medication Reconciliation: New Azithromycin [Zithromax 250mg tab] 250 mg PO DIRECTED #6 tab Continue Pregabalin [Pregabalin 25mg Capsule] 25 mg PO HS Losartan/Hydrochlorothiazide [Losartan-Hctz 100-25 mg Tab] 1 tab PO HS Pravastatin Sodium [Pravachol 40mg Tablet] 40 mg PO HS Levothyroxine Sodium [Levothyroxine 175mcg (0.175mg) Tab] 175 mcg PO HS
== END 2018-04-16 10:47 | disposition home or self-care (01) ==
LOC: ER 16:27 → 2ND 16:27
PROVIDERS: ADMIT Emergency Medicine; ATTEND Emergency Medicine
CPT/HCPCS: 36415; 70491; 71020; 71046; 80048; 81001; 82962; 83605; 84132; 85007; 85025; 85651; 87040; 87086; 87430; 96365; 96367; 99284; G0378; Q9967

== ENCOUNTER → 2018-04-20 15:32 | Outpatient (REF) | payer MEDICARE, OTHER, SELFPAY ==
[2018-04-20 18:16] LABS: Alanine Aminotransferase 46 U/L (12-78); Albumin Level 3.8 gm/dL (3.4-5.0); Alkaline Phosphatase 94 U/L (46-116); Anion Gap 13.9 mEq/L (5-15); Aspartate Amino Transferase 36 U/L (15-37); Bilirubin,Total 0.7 mg/dL (0.2-1.0); Blood Urea Nitrogen 27 mg/dL (7-18); Calcium 9.6 mg/dL (8.5-10.1); Carbon Dioxide 30 mmol/L (21.0-32.0); Chloride 103 mmol/L (98-107); Creatinine,Serum 1.44 mg/dL (0.55-1.02); Estimated Glomerular Filt Rate 36 ml/min (>60); GFR (African American) 43 ML/MIN (>60); Globulin 3.7 gm/dl (1.3-3.2); Glucose 125 mg/dL (74-106); Potassium 3.9 mmoL/L (3.5-5.1); Sodium 143 mmol/L (136-145); Total Protein,Serum 7.5 gm/dL (6.4-8.2)
== END ==
LOC: LAB 15:32
PROVIDERS: Visit Provider Nurse Practitioner Family
DX: E87.6 Hypokalemia (principal)
CPT/HCPCS: 80053

== ENCOUNTER → 2018-04-30 15:18 | Outpatient (REF) | payer MEDICARE, OTHER, SELFPAY ==
[2018-05-02 09:22] LABS: Creatinine, Urine 366.8 mg/dL (Not Estab.); Microalbumin, Urine 24.7 ug/mL (Not Estab.)
== END ==
LOC: LAB 15:18
PROVIDERS: Visit Provider Nurse Practitioner Family
DX: E11.9 Type 2 diabetes mellitus without complications (principal)
CPT/HCPCS: 82043; 82570

== ENCOUNTER → 2018-09-04 09:42 | Outpatient (CLI) | payer MEDICARE, OTHER, SELFPAY ==
[2018-09-04 11:06] LABS: Basophils # 0.1 K/mm3 (0-0.2); Basophils % 0.7 % (0.1-2.0); Eosinophils # 0.4 K/mm3 (0.0-0.4); Eosinophils % 4.2 % (0.1-12.0); Hematocrit 45.4 % (37.0-47.0); Hemoglobin 14.4 g/dL (12.2-16.2); Lymphocytes # 4.1 K/mm3 (0.7-4.5); Lymphocytes % 39.6 K/mm3 (10-50); Mean Corpuscular HGB Conc 31.8 g/dL (31.8-35.4); Mean Corpuscular Hemoglobin 28.1 pg (27.0-31.2); Mean Corpuscular Volume 88.4 fl (81-99); Mean Platelet Volume 9.7 fl (7.4-10.4); Monocytes # 0.5 K/mm3 (0.1-1.0); Monocytes % 4.3 % (1.7-9.3); Neutrophils # 5.3 K/mm3 (1.8-7.8); Neutrophils % 51.2 % (37.0-80.0); Platelet Count 215 K/mm3 (142-424); Red Blood Count 5.13 M/mm3 (4.20-5.40); Red Cell Distribution Width 14.5 % (11.5-17.5); White Blood Count 10.4 K/mm3 (4.8-10.8)
[2018-09-04 13:18] LABS: Alanine Aminotransferase 27 U/L (12-78); Albumin Level 3.9 gm/dL (3.4-5.0); Albumin/Globulin Ratio 1.1 (1.1-1.8); Alkaline Phosphatase 119 U/L (46-116); Anion Gap 12.4 mEq/L (5-15); Aspartate Amino Transferase 33 U/L (15-37); Bilirubin,Total 0.7 mg/dL (0.2-1.0); Blood Urea Nitrogen 21 mg/dL (7-18); Calcium 9.1 mg/dL (8.5-10.1); Carbon Dioxide 32 mmol/L (21.0-32.0); Chloride 100 mmol/L (98-107); Chol/HDL Ratio 3.5 (1-3.5); Cholesterol 191 mg/dL (140-200); Creatinine,Serum 1.01 mg/dL (0.55-1.02); Estimated Glomerular Filt Rate 53 ml/min (>60); GFR (African American) 65 ML/MIN (>60); Globulin 3.7 gm/dl (1.3-3.2); Glucose 147 mg/dL (74-106); HDL Cholesterol 55 mg/dL (29-89); LDL Cholesterol 113 mg/dL (0-130); Potassium 3.4 mmoL/L (3.5-5.1); Sodium 141 mmol/L (136-145); T4 (Thyroxine) 11.7 ug/dl (4.7-13.3); Thyroid Stimulating Hormone 2.67 uIU/ml (0.358-3.740); Total Protein,Serum 7.6 gm/dL (6.4-8.2); Triglycerides 114 mg/dL (30-200); VLDL Cholesterol 23 mg/dL (0-40)
[2018-09-05 18:44] LABS: Vitamin D 25 Hydroxy 28.2 ng/mL (30.0-100.0)
== END ==
PROVIDERS: Visit Provider Nurse Practitioner Family
DX: R53.83 Other fatigue (principal); I10 Essential (primary) hypertension; Z29.9 Encounter for prophylactic measures, unspecified
CPT/HCPCS: 36415; 80053; 80061; 82652; 84436; 84443; 85025

== ENCOUNTER → 2018-10-30 18:14 | Outpatient (CLI) | payer MEDICARE, OTHER, SELFPAY ==
[2018-10-30 18:46] LABS: Amphetamine/Metha Screen,Urine Negative ng/mL (<1000); Barbiturates Screen,Urine Negative ng/mL (<200); Benzodiazepines Screen,Urine Negative ng/mL (<200); Cannabinoid Screen,Urine Negative ng/mL (<50); Cocaine Screen,Urine Negative ng/mL (<300); Methadone Screen,Urine Negative ng/mL (<300); Opiate Screen,Urine Negative ng/mL (<300); Phencyclidine Screen,Urine Negative ng/mL (<25)
== END ==
PROVIDERS: Visit Provider Nurse Practitioner Family
DX: Z79.899 Other long term (current) drug therapy (principal); R82.998 Other abnormal findings in urine
CPT/HCPCS: 80305; 87086

== ENCOUNTER → 2021-01-24 13:31 | Outpatient (CLI) | payer MEDICARE, OTHER, SELFPAY ==
[2021-01-24 13:33] LABS: Microscopic, Urine URINE MICROSCOPIC (MICROSCOPIC)
[2021-01-24 13:43] LABS: Basophils # 0.1 K/mm3 (0-0.2); Basophils % 0.6 % (0.1-2.0); Eosinophils # 0.3 K/mm3 (0.0-0.4); Hematocrit 45.3 % (37.0-47.0); Hemoglobin 14.8 g/dL (12.2-16.2); Lymphocytes # 3.7 K/mm3 (0.7-4.5); Lymphocytes % 26.6 % (10-50); Mean Corpuscular HGB Conc 32.6 g/dL (31.8-35.4); Mean Corpuscular Hemoglobin 27.9 pg (27.0-31.2); Mean Corpuscular Volume 85.4 fl (81-99); Mean Platelet Volume 10.4 fl (7.4-10.4); Monocytes # 0.7 K/mm3 (0.1-1.0); Monocytes % 4.7 % (1.7-9.3); Neutrophils # 9.1 K/mm3 (1.8-7.8); Platelet Count 218 K/mm3 (142-424); Red Cell Distribution Width 14.5 % (11.5-17.5); White Blood Count 13.7 K/mm3 (4.8-10.8)
[2021-01-24 13:48] LABS: Appearance,Urine CLEAR (Clear); Blood, Urine TRACE-I (Negative); Color,Urine YELLOW (Yellow); Glucose,Urine (UA) Negative (Negative); Ketones,Urine Negative (Negative); Leukocyte Esterase,Urine 1+ (Negative); Nitrate,Urine POSITIVE (Negative); PH,Urine 5.5 (5.0-8.5); Protein,Urine TRACE (Negative); Specific Gravity, Urine >= 1.030 (1.005-1.030)
[2021-01-24 13:49] LABS: Bilirubin,Urine 1+ (Negative)
[2021-01-24 13:51] LABS: Alanine Aminotransferase 19 U/L (12-78); Albumin Level 4.3 g/dl (3.5-5.0); Albumin/Globulin Ratio 1.2 (1.1-1.8); Alkaline Phosphatase 124 U/L (38-126); Anion Gap 14.2 mEq/L (5-15); Aspartate Amino Transferase 32 U/L (14-36); Bilirubin,Total 0.8 mg/dl (0.2-1.3); Blood Urea Nitrogen 22 mg/dl (7-17); Calcium 9.7 mg/dl (8.4-10.2); Carbon Dioxide 28 mmol/L (22.0-30.0); Chloride 102 mmol/L (98-107); Chol/HDL Ratio 5.2 (1-3.5); Cholesterol 270 mg/dl (140-200); Estimated Glomerular Filt Rate 54 ml/min (>60); GFR (African American) 65 ML/MIN (>60); Globulin 3.5 g/dL (1.3-3.2); Glucose 143 mg/dl (74-100); HDL Cholesterol 52 mg/dl (40-60); Potassium 4.2 mmoL/L (3.5-5.1); Sodium 140 mmol/L (136-145); Total Protein,Serum 7.8 g/dl (6.3-8.2); Triglycerides 139 mg/dl (30-150); VLDL Cholesterol 28 mg/dL (0-40)
[2021-01-24 14:03] LABS: Direct LDL Cholesterol 190.24 mg/dL (100-129)
[2021-01-24 14:07] LABS: Free T4 (Free Thyroxine) 1.07 ng/dl (0.78-2.19)
[2021-01-24 14:09] LABS: 25-OH Vitamin D, Total 15.5 ng/mL (30-100)
[2021-01-24 14:13] LABS: Creatinine,Urine Random 291 mg/dL (Not Estab.)
[2021-01-24 14:18] LABS: Bacteria,Urine 1+ /lpf
[2021-01-24 14:32] LABS: Hemoglobin A1C 7.2 % (4.0-6.0)
[2021-01-24 14:40] LABS: Vitamin B12 446 pg/mL (239-931)
[2021-01-24 14:47] LABS: Erythrocyte Sedimentation Rate 19 mm/hr (0-30)
== END ==
PROVIDERS: Visit Provider Emergency Medicine
DX: E11.9 Type 2 diabetes mellitus without complications (principal); E55.9 Vitamin D deficiency, unspecified; R82.79 Other abnormal findings on microbiological examination of urine
CPT/HCPCS: 80053; 80061; 81001; 82043; 82306; 82570; 82607; 83036; 84439; 84443; 85025; 85651; 87086; 87088; 87186

== ENCOUNTER → 2021-01-31 13:44 | Outpatient (CLI) | payer MEDICARE, OTHER, SELFPAY ==
--- NOTE | 2021-01-31 13:45 | US_ITS ---
APPROVED REPORT Exam Type: Lower Extremity Segmental Pressures Hospital Educator: Nicole Miller RVT Indications Claudication: Bilaterally Numbness/Tingling Risk Factors Hypertension Diabetes Pressures/Indices Right Indices Left Indices Brachial 161.00 mmHg Brachial 166.00 mmHg Low Thigh 163.00 mmHg 0.98 Low Thigh 169.00 mmHg 1.02 Calf 163.00 mmHg 0.98 Calf 186.00 mmHg 1.12 Ankle(PT) 163.00 mmHg 0.98 Ankle(PT) 148.00 mmHg 0.89 Ankle(DP) 130.00 mmHg 0.78 Ankle(DP) 117.00 mmHg 0.70 Digit 90.00 mmHg 0.54 Digit 68.00 mmHg 0.41 Findings RT ELHAM:0.98 LT [place]:0.89 RT TBI:0.54 LT TBI:0.41 NORMAL PULSES BILATERAL NORMAL WAVEFORMS BILATERAL Conclusion RT [place]:0.98 LT [place]:0.89 RT TBI:0.54 LT TBI:0.41 NORMAL PULSES BILATERAL NORMAL WAVEFORMS BILATERAL Normal right and mild left arterial disease Electronically signed by : Luis Felipe Brito MD 02/05/2021 16:10:25
--- NOTE | 2021-01-31 13:49 | XR_ITS ---
PROCEDURE: XR LUMBAR SPINE 2-3V CLINICAL INDICATION: back pain COMPARISON: CR SPLUMBLM XR lumbar spine 2-3V from 03/27/2018 FINDINGS: Minor levoscoliosis of the lumbar spine. Multilevel degenerative changes with endplate sclerosis, loss of disc height and facet joint arthropathy is noted. Mild osteopenia is noted. No acute fractures or traumatic subluxation. Vascular calcification of the abdominal aorta and its branches are noted. IMPRESSION: No acute fractures or traumatic subluxation. Degenerative changes of the visualized lumbar spine. Dictated by: Arminda Santos 01/31/2021 16:46 Arminda Santos in [facility] 01/31/2021 16:46
--- NOTE | 2021-01-31 13:49 | XR_ITS ---
PROCEDURE: XR THORACIC SPINE 3V CLINICAL INDICATION: back pain COMPARISON: No exams were available for comparison FINDINGS: Multilevel degenerative changes of the thoracic spine with endplate sclerosis, loss of disc height and facet joint arthropathy is noted. Mild osteopenia is noted. No acute fractures or traumatic subluxation. Paravertebral soft tissues are unremarkable. Vascular calcification is noted. Multiple surgical clips in the right upper quadrant. IMPRESSION: Degenerative changes of the thoracic spine. No acute fractures or traumatic subluxation. Dictated by: Arminda Santos 01/31/2021 16:47 Arminda Santos in [facility] 01/31/2021 16:47
== END ==
PROVIDERS: PCP Emergency Medicine; Visit Provider Emergency Medicine
DX: I73.9 Peripheral vascular disease, unspecified (principal); M54.9 Dorsalgia, unspecified
CPT/HCPCS: 72072; 72100; 93923

== ENCOUNTER → 2021-02-22 08:14 | Outpatient (CLI) | payer MEDICARE, OTHER, SELFPAY ==
--- NOTE | 2021-02-22 08:20 | MM_ITS ---
PROCEDURE INFORMATION: Exam: MG Screening 3D Mammography Exam date and time: 02/22/2021 8:20 AM Age: 75 years old Clinical indication: Screening exam; Family history of breast cancer; Additional info: Breast CA screening TECHNIQUE: Imaging protocol: Screening tomosynthesis and 2D mammography including computer-aided detection (CAD) when performed. COMPARISON: 02/18/2013. 04/25/2011. 10/10/2009. FINDINGS: MAMMOGRAPHY: Breast composition: There are scattered areas of fibroglandular density. Mass: No new suspicious masses. Architectural distortion: No suspicious distortion. Calcifications: No suspicious calcifications. Asymmetric density: None. Skin thickening: None. Axillary adenopathy: None. IMPRESSION: No mammographic evidence of malignancy. Annual screening is recommended unless otherwise clinically indicated. ASSESSMENT: BI-RADS Category 1: Negative
--- NOTE | 2021-02-22 08:20 | XR_ITS ---
PROCEDURE: XR DEXA AXIAL SKELETON CLINICAL HISTORY: back pain COMPARISON: No exams were available for comparison FINDINGS: The right hip BMD is 0.589 with a T-score of -2.3. The left hip BMD is 0.527 with a T-score of -2.9. The lumbar spine BMD is 1.079 with a T-score of 0.3. IMPRESSION: This patient is considered osteoporotic according to the World Health Organization criteria. Fracture risk is high. Treatment is advised. Based on these results a follow-up exam is recommended in 1 year. Dictated by: Luis Felipe Brito MD 02/23/2021 08:23 Luis Felipe Brito MD in [facility] 02/23/2021 08:23
== END ==
PROVIDERS: PCP Nurse Practitioner Family; Visit Provider Nurse Practitioner Family
DX: Z12.31 Encounter for screening mammogram for malignant neoplasm of breast (principal); M54.9 Dorsalgia, unspecified; M81.0 Age-related osteoporosis without current pathological fracture
CPT/HCPCS: 77063; 77067; 77080

== ENCOUNTER → 2021-02-23 08:00 | Outpatient (CLI) | payer SELFPAY ==
--- NOTE | 2021-02-23 08:10 | CT_ITS ---
PROCEDURE: CT HEART W CALCIUM SCORE CLINICAL HISTORY: dyspnea COMPARISON: No exams were available for comparison TECHNIQUE: Axial images obtained with sagittal and coronal reformats. All CT scans at the facility use one or more dose reduction, viz: automated exposure control, ma/kV adjustment per patient size (including targeted exams where dose is matched to indication, i.e. head), or iterative reconstruction technique. FINDINGS: The coronary artery calcium score is 1304. Calcification noted within the left main, lad, circumflex, and RCA. Coronary arteries arise from the aorta in the usual location. Extensive calcific plaque burden with very high cardiovascular disease risk. There is volume loss in the right middle lobe with atelectatic changes in the lower lobes IMPRESSION: Extensive calcific plaque burden with very high cardiovascular disease risk Dictated by: Luis Felipe Brito MD 02/23/2021 19:14 Luis Felipe Brito MD in [facility] 02/23/2021 19:14
[2021-02-23 08:42] LABS: Chloride 101 mmol/L (98-107); Sodium 138 mmol/L (136-145)
[2021-02-23 08:45] LABS: Blood Urea Nitrogen 20 mg/dl (7-17); Calcium 9.5 mg/dl (8.4-10.2); Carbon Dioxide 28 mmol/L (22.0-30.0); Estimated Glomerular Filt Rate 48 ml/min (>60); GFR (African American) 58 ML/MIN (>60); Glucose 184 mg/dl (74-100)
[2021-02-23 08:54] LABS: NT Pro Brain Natriuretic Pep. 58.7 pg/mL (0-450)
== END ==
PROVIDERS: PCP Nurse Practitioner Family; Visit Provider Internal Medicine Cardiovascular Disease
DX: Z13.6 Encounter for screening for cardiovascular disorders (principal); E11.69 Type 2 diabetes mellitus with other specified complication; E78.5 Hyperlipidemia, unspecified; I10 Essential (primary) hypertension; I73.9 Peripheral vascular disease, unspecified; R06.00 Dyspnea, unspecified; R68.89 Other general symptoms and signs; R94.31 Abnormal electrocardiogram [ECG] [EKG]
CPT/HCPCS: 36415; 75571; 80048; 83880; Q9967

== ENCOUNTER → 2021-02-23 08:02 | Outpatient (CLI) | payer MEDICARE, OTHER, SELFPAY ==
--- NOTE | 2021-02-23 08:11 | CT_ITS ---
Procedure: CT ANGIO ABDOMEN/FEMORAL CLINICAL HISTORY: abnormal [place]HAM, claudication Tingling left leg Hx of knee surgery Mild left, normal right COMPARISON: No exams were available for comparison TECHNIQUE: IV Contrast: 100ml Isovue 370 Axial images obtained with sagittal and coronal reformats. All CT scans at the facility use one or more dose reduction, viz: automated exposure control, ma/kV adjustment per patient size (including targeted exams where dose is matched to indication, i.e. head), or iterative reconstruction technique. FINDINGS: Mild atherosclerotic plaque involves the aorta and iliac vessels with no significant stenosis. The celiac and SMA are unremarkable. The JACQUES is patent. The renal arteries have an unremarkable appearance aside from some minimal calcific plaque without significant stenosis. The common femoral arteries are unremarkable. Scattered nonocclusive plaque is present involving the and superficial femoral arteries with no significant stenosis. The popliteal arteries are obscured by artifact from the patient's total knee prosthesis. The distal aspect of the popliteal arteries are patent. On the initial runoff images there is 2 vessel runoff. Delayed images show three-vessel filling of the lower extremities on both sides.. The anterior tibial artery on both sides is very small and poorly opacified. This could even be due to a collateral vessel There is diffuse fatty liver. There is mild right renal scarring. Colonic diverticulosis is present. No evidence of diverticulitis. There are degenerative changes in the lumbar spine. Mild osteoarthritic changes are present in the hips. Bilateral knee prosthesis noted IMPRESSION: No significant stenosis of the aorta, iliacs, common femoral or femoral arteries. Popliteal arteries are obscured by artifact from the knees. Lower popliteal arteries have an unremarkable appearance. There is tibial peroneal patency to the ankle. Anterior tibial artery initially is not identified to the ankle and is a very small vessel. Generalized atherosclerotic changes are present. Dictated by: Luis Felipe Brito MD 02/24/2021 13:33 Luis Felipe Brito MD in [facility] 02/24/2021 13:33
== END ==
PROVIDERS: PCP Nurse Practitioner Family; Visit Provider Internal Medicine Cardiovascular Disease
DX: E11.69 Type 2 diabetes mellitus with other specified complication (principal); E78.5 Hyperlipidemia, unspecified; I10 Essential (primary) hypertension; R06.00 Dyspnea, unspecified; R06.83 Snoring; R68.89 Other general symptoms and signs; R94.31 Abnormal electrocardiogram [ECG] [EKG]; I70.213 Atherosclerosis of native arteries of extremities with intermittent claudication, bilateral legs; Z79.84 Long term (current) use of oral hypoglycemic drugs
CPT/HCPCS: 36415; 75571; 75635; 80048; 83880; Q9967

== ENCOUNTER → 2021-02-26 11:17 | Outpatient (CLI) | payer MEDICARE, OTHER, SELFPAY ==
--- NOTE | 2021-02-26 11:20 | CA_ITS ---
APPROVED REPORT EXAM: Comprehensive 2D, Doppler, and color-flow Echocardiogram Chemical Laboratory Tester: Nicole Miller RVT Ht: 5 ft 4 in Wt: 227lbs BSA: 2.06 BP: 214/98 mmHg Indications: SOA,HTN,OBESITY,FATIGUE,EDEMA,HLD,DM TDS 2D Dimensions LVOT 1.69 cm (M/F) 1.5-2.5 LA Volume 41.90 mL LA Volume Index 20.33 mL/m2 (M/F) 16-34 M-Mode Dimensions RVDd 3.93 cm (0.9-2.6) LA Diam 4.74 cm (1.9-4.0) LVDd 4.11 cm (3.5-5.7) Ao Diam 2.92 cm (2.0-3.7) LVDs 2.73 cm (3.5-5.7) IVSd 0.98 cm (0.6-1.1) PWd 0.85 cm (0.6-1.1) EF (Teich) 62.80% FS 33.60% EDV (Teich) 74.70 mL TAPSE 2.14 (<1.7) ESV (Teich) 27.80 mL LV Diastology E Decel Time 200.00 (160-240 msec) E/A Ratio 0.9 MED E' 6.30 (< 7 cm/sec) E'/MED E' Ratio 10.56 (>14) LAT E' 7.40 (<10 cm/sec) E/LAT E' Ratio 8.99 (>14) Mitral Valve MV E Max Matthias. 66.00 (40-130 cm/s) MV A Velocity 73.00 (40-130 cm/s) E/A Ratio 0.91 MV Decel. Time 200.00 (160-240 ms) MV PHT 59.00 ms Pulmonary Valve PV Peak Velocity 109.00 (50-150 cm/s) Tricuspid Valve TR P. Velocity 336.00 cm/s RAP Estimate 10.00 mmHg RVSP 55.10 mmHg Left Ventricle Left atrium is mildly enlarged, left ventricle is normal size, mild concentric left ventricular hypertrophy, visually estimated ejection fraction 55% with no regional wall motion abnormality grade 1 diastolic dysfunction seen without tissue Doppler evidence of raise left atrial pressure. Right Ventricle Right atrium and right ventricle are mildly enlarged with normal contractility. Aortic Valve Aortic valve is minimally thickened and fibrosed, there is no aortic stenosis or aortic insufficiency. Mitral Valve Mitral valve is grossly normal, there is trace mitral regurgitation. Tricuspid Valve Tricuspid grossly normal, there is trace tricuspid regurgitation, tricuspid regurgitation jet velocity is inadequate for calculation of the right ventricular systolic pressure. Pulmonic Valve Pulmonic valve is poorly visualized. Great Vessels Aortic root is normal size. Pericardium No significant pericardial effusion noted. Conclusion 1. Mild biatrial enlargement, normal left ventricular size, mild concentric left ventricular hypertrophy, visually estimated ejection fraction 55% with no regional wall motion abnormality, grade 1 diastolic dysfunction seen without tissue Doppler evidence of raise left atrial pressure. 2. Mildly enlarged right ventricle with normal contractility. 3. Trace mitral and tricuspid regurgitation. 4. No significant pericardial effusion noted. Electronically signed by : Carlos Duarte, 02/26/2021 19:39:46
--- NOTE | 2021-02-26 11:20 | CA_ITS ---
APPROVED REPORT Exam: Pharmacologic Technologist: Chyna Isaacs, Ht: 5 ft 4 in Wt: 227 lbs BSA: 2.06 m2 HR: 82 bpm BP: 193/110 mmHg Medical History Medical History: HTN, Hyperlipidemia Medications: Levothyroxine,,,,, Aspirin,,,,, Metformin,,,,, Gabapentin,,,,, Losartan,,,,, Protonix,,,,, Aldactone,,,,, AtorvaASTATIN,,,,, CyclobenAPRINE,,,,, Stress Test Details Test: LEXISCAN HR Resting HR: 83 bpm Max Heart Rate (APMHR): 143 bpm Max HR Achieved: 101 bpm Target HR (85% APMHR): 121 bpm % of APMHR: 70 Recovery HR: 93 bpm BP Resting BP: 193/110 mmHg Max BP: 206/87 mmHg Recovery BP: 177.0/91.0 mmHg ECG Clinical Exercise duration: 04:36 min Highest Stage Achieved: Exercise capacity: 1.0 METs Stress ECG Conclusion During lexiscan pt experinced mild SOA, no chest pain. Arrhymias/ectopy: isolated PVC. <1.5mm ST segment changes. Electronically signed by : Carlos Duarte, 02/26/2021 19:22:25
--- NOTE | 2021-02-26 11:24 | NM_ITS ---
APPROVED REPORT Exam: Nuclear Stress Test Indication: Abnormal EKG, SOB, Fatigue, HTN, DM, High cholesterol, Family history Patient Location: Outpatient Stress Tech: Patricia Stiles [place] Tech:Alondra Ordaz, ARRT, RT (R)(N) Ht: 5 ft 2 in Wt: 222 lbs Bra Size: 42D HR: 82 bpm BP: 193/110 mmHg BSA: 2.00 m2 BMI: 40.5 History: Abnormal EKG, SOB, Fatigue, HTN, DM, High cholesterol, Family history Procedure: Patient received a 0.4 mg of intravenous Lexiscan, resting heart rate 82 bpm, resting blood pressure 193/110 mmHg, with Lexiscan maximum heart rate achived was 100 bpm which is Less than 85 % of the maximum predicted heart rate and blood pressure was 189/88 mmHg. With Lexiscan, patient denied any complaint of chest pain. Electrocardiogram Resting electrocardiogram showed sinus rhythm, with Lexiscan there is less than 1.[address] segment depression noted from the baseline EKG. The EKG portion of the Lexiscan is nondiagnostic. Cardiac Stress and Resting SPECT Images: Cardiac Stress and Resting SPECT images were obtained using technetium 99m Myoview 31.3 mCi stress and 10.01 mCi at rest. Gated SPECT for analysis of segmental wall motion and calculation of the ejection fraction also done, prone images were also obtained. Cardiac stress and resting SPECT images show uniform myocardial activity without segmental perfusion abnormality, computer derived ejection fraction is over 65% with no regional wall motion abnormality, right ventricle is normal size and contractility. Conclusion: 1. The EKG portion of the Lexiscan is nondiagnostic. 2. No scintigraphic evidence of reversible ischemia seen, computer derived ejection fraction is over 65% with no regional wall motion abnormality, right ventricle is normal size and contractility. 3. Normal Lexiscan Myoview study. Electronically signed by : Carlos Duarte, 02/26/2021 19:29:37
--- NOTE | 2021-02-26 13:19 | HMH.ITSHM ---
Current Home Medications as stated by this patient Aretha Villalta or support representative. []SPIRONOLACTONE PANTOPRAZOLE METFORMIN LOSARTAN LEVOTHYROXINE GABAPENTIN CYCLOBENZAPRINE ATORVASTATIN ASA
== END ==
PROVIDERS: PCP Nurse Practitioner Family; Visit Provider Internal Medicine Cardiovascular Disease
DX: E11.69 Type 2 diabetes mellitus with other specified complication (principal); E78.5 Hyperlipidemia, unspecified; I10 Essential (primary) hypertension; I73.9 Peripheral vascular disease, unspecified; R06.00 Dyspnea, unspecified; R68.89 Other general symptoms and signs; R94.31 Abnormal electrocardiogram [ECG] [EKG]
CPT/HCPCS: 78452; 93017; 93306; A9502; J2785

== ENCOUNTER → 2021-03-02 13:05 | Outpatient (CLI) | payer MEDICARE, OTHER, SELFPAY | PROVIDERS: PCP Nurse Practitioner Family; Visit Provider Internal Medicine Cardiovascular Disease | DX: G47.33 Obstructive sleep apnea (adult) (pediatric) (principal); R40.0 Somnolence; R06.83 Snoring | CPT/HCPCS: G0399 ==

== ENCOUNTER → 2021-03-08 17:18 | Outpatient (CLI) | payer MEDICARE, OTHER, SELFPAY ==
[2021-03-08 21:21] LABS: Barbiturates Screen,Urine Negative ng/ml (<200)
[2021-03-08 21:22] LABS: Benzodiazepines Screen,Urine Negative ng/ml (<200)
[2021-03-08 21:23] LABS: Amphetamine/Metha Screen,Urine Negative ng/ml (<1000); Cannabinoid Screen,Urine Negative ng/ml (<50)
[2021-03-08 21:24] LABS: Cocaine Screen,Urine Negative ng/ml (<300); Methadone Screen,Urine Negative ng/ml (<300)
[2021-03-08 21:25] LABS: Opiate Screen,Urine Negative ng/ml (<300)
[2021-03-08 21:26] LABS: Phencyclidine Screen,Urine Negative ng/ml (<25)
== END ==
PROVIDERS: Visit Provider Nurse Practitioner Family
DX: G62.9 Polyneuropathy, unspecified (principal); R40.0 Somnolence; Z79.899 Other long term (current) drug therapy
CPT/HCPCS: 80305

== ENCOUNTER 2021-06-29 08:49 | Day surgery (SDC) | payer MEDICARE, OTHER, SELFPAY ==
[2021-06-29] VITALS (11 sets, daily range): BP systolic 74–181; BP diastolic 44–102; PULSE 76–136; RESP 18; O2SAT 92–99; BMI 38.4
--- NOTE | 2021-06-29 07:11 | IR_ITS ---
APPROVED REPORT Patient Location: Outpatient Locksmith Helper: LIOR Mora RT (R) PROCEDURES Left heart catheterization Left ventriculogram Selective coronary INDICATION Worsening angina pectoris Informed consent was obtained prior to the procedure. COMPLICATIONS None Estimated Blood Loss: Less than 10 mls TECHNIQUE One percent lidocaine used to anesthetize the right anterior aspect of the wrist. The right radial artery was accessed via the Seldinger technique. A 6 Frisian sheath was placed in the right radial artery. 2.5 mg of verapamil, 800 mcg of nitroglycerin, 1mg Lidocaine and 5000 U Heparin were given through the arterial sheath. The trap catheter was also used to perform left heart catheterization, left ventriculogram and selective coronary angiogram. At the end of the procedure the sheath was removed good hemostasis was achieved using Traclet band, patient was transferred to the postop holding area in stable condition. ANGIOGRAPHIC RESULTS The left main artery Normal The left anterior descending artery Has proximal 10% luminal irregularities followed by a concentric 40% stenosis in the mid LAD and a vessel 2.25 mm in diameter The circumflex artery Is a nondominant yet still large vessel with proximal 10% stenoses with a 30% stenosis in the large second obtuse marginal artery and 10% stenosis in the large third obtuse marginal artery The right coronary artery Is a dominant vessel with diffuse proximal mid vessel and distal 20% stenoses The COOK ventriculogram reveals Hyperdynamic 75% The left ventricular end-diastolic pressure 15 mmHg IMPRESSION Coronary artery disease as described above Hyperdynamic ventricle Borderline elevated LVEDP New onset atrial fibrillation PLAN 1. At this point I strongly favor medical management. I believe patient's angina pectoris most likely stems from paroxysmal atrial fibrillation with rapid ventricular response. During the cardiac catheterization patient was in atrial fibrillation and mildly tachycardic. Medicines will be adjusted and Xarelto will be started. 2. Also because of the chest pain I recommend a CTA of the pulmonary arteries to evaluate for possible pulmonary embolism 3. Risk factor modification 4. Antianginal medications with attention paid on rate control 5. LDL less than 55 Electronically signed by : Danyel Luna MD 06/29/2021 10:53:29
[2021-06-29 09:37] LABS: Coronavirus 19, PCR Not Detected (NotDetected); Influenza A, PCR Not Detected (NotDetected); Influenza B, PCR Not Detected (NotDetected)
[2021-06-29 09:39] LABS: Basophils # 0.1 K/mm3 (0-0.2); Basophils % 1.1 % (0.1-2.0); Eosinophils # 0.8 K/mm3 (0.0-0.4); Eosinophils % 6.2 % (0.1-12.0); Hematocrit 45.6 % (37.0-47.0); Hemoglobin 14.9 g/dL (12.2-16.2); Lymphocytes # 4.8 K/mm3 (0.7-4.5); Lymphocytes % 36.2 % (10-50); Mean Corpuscular HGB Conc 32.7 g/dL (31.8-35.4); Mean Corpuscular Hemoglobin 28.5 pg (27.0-31.2); Mean Corpuscular Volume 87.1 fl (81-99); Mean Platelet Volume 9.6 fl (7.4-10.4); Monocytes # 0.8 K/mm3 (0.1-1.0); Monocytes % 6.2 % (1.7-9.3); Neutrophils # 6.6 K/mm3 (1.8-7.8); Neutrophils % 50.4 % (37.0-80.0); Platelet Count 270 K/mm3 (142-424); Red Blood Count 5.24 M/mm3 (4.20-5.40); White Blood Count 13.1 K/mm3 (4.8-10.8)
[2021-06-29 09:45] LABS: Chloride 105 mmol/L (98-107); Potassium 4.2 mmoL/L (3.5-5.1); Sodium 142 mmol/L (136-145)
[2021-06-29 09:48] LABS: Anion Gap 16.2 mEq/L (5-15); Blood Urea Nitrogen 15 mg/dl (7-17); Calcium 9.4 mg/dl (8.4-10.2); Carbon Dioxide 25 mmol/L (22.0-30.0); Creatinine Clearance Estimated 76 mL/min (50-200); Estimated Glomerular Filt Rate 70 ml/min (>60); GFR (African American) 84 ML/MIN (>60); Glucose 157 mg/dl (74-100)
== END 2021-06-29 13:11 | disposition home or self-care (01) ==
LOC: CATHLAB 08:53
PROVIDERS: PCP Emergency Medicine; Visit Provider Internal Medicine
DX: E78.5 Hyperlipidemia, unspecified (principal); I10 Essential (primary) hypertension; I25.118 Atherosclerotic heart disease of native coronary artery with other forms of angina pectoris; I73.9 Peripheral vascular disease, unspecified; R53.83 Other fatigue; R93.1 Abnormal findings on diagnostic imaging of heart and coronary circulation; Z79.01 Long term (current) use of anticoagulants; E11.9 Type 2 diabetes mellitus without complications; Z79.84 Long term (current) use of oral hypoglycemic drugs; I48.0 Paroxysmal atrial fibrillation; E03.9 Hypothyroidism, unspecified; Z20.822 Contact with and (suspected) exposure to COVID-19
CPT/HCPCS: 80048; 85025; 93458; 99152; C1725; C1769; J1644; Q9967; U0003

== ENCOUNTER 2021-12-10 15:43 | Emergency (ER) | payer MEDICARE, OTHER, SELFPAY ==
[2021-12-10 15:45] VITALS: BP 171/92; PULSE 91; RESP 18; TEMP 37.7; O2SAT 95; BMI 34.3
--- NOTE | 2021-12-10 16:06 | HMH.EDGENADL ---
ED Disposition Clinical Impression: Atypical pneumonia Disposition: Home, Self-Care Condition on Discharge: Good Instructions: Atypical Pneumonia Additional Instructions: follow up PCP next week, return for worse or any concerns Prescriptions: Azithromycin [Zithromax 500mg Tab Tri-Gray] 500 mg PO DAILY #3 tab Transmission Status: Pending to [facility] #[id number] Referrals: Riley Reza APRN [Primary Care Provider] - - Critical Care Critical Care Time: No Attestation: On 12/10/21, the high probability of a clinically significant, sudden or life threatening deterioration of the following system(s) required my full and direct attention, intervention and personal management. The time I documented below is in addition to time spent performing reported procedures but includes the following listed in this critical care notation. Medical Decision Making - Medical Records Medical records reviewed: Yes: I reviewed the patient's medical records. - Bob Inquiry Pt receiving controlled substance: No General Adult HPI - General Stated complaint: Cough,Sob,Diarrhea,Weakness Time Seen by Provider: 12/10/21 16:15 - History of Present Illness HPI narrative: c/o cough productive several weks, concerned for pneumonia Onset (ago): week(s) Radiation: non-radiation Severity: moderate Consistency: constant, intermittent Relieving factors: none Exacerbating factors: none Associated symptoms: cough, fever/chills - Related Data Home Medications Medication Instructions Recorded Confirmed losartan 100 1 tab PO DAILY tab 02/15/21 12/03/21 mg-hydrochlorothiazide 25 mg tablet metformin 500 mg tablet,extended 500 mg PO DAILY tab 03/08/21 12/03/21 release 24 hr blood sugar diagnostic See Rx Instructions .ROUTE 05/31/21 12/03/21 .MEDSUPPLY #10 each Alendronate Sodium [Fosamax 70mg 70 mg PO WEEKLY 06/29/21 12/03/21 Tablet] Atorvastatin Calcium [Lipitor 40mg 40 mg PO DAILY 06/29/21 12/03/21 Tab] Cholecalciferol (Vitamin D3) 25 mcg PO DAILY 06/29/21 12/03/21 [Vitamin D3 1,000 Unit Tab] Cholecalciferol (Vitamin D3) 1,250 mcg PO WEEKLY 06/29/21 12/03/21 [Vitamin D3 50,000 unit Cap] Flash Glucose Scanning [place] See Rx Instructions * .MEDSUPPLY 06/29/21 12/03/21 [FreeStyle Mag 14 Day [place]] Flash Glucose Sensor [FreeStyle See Rx Instructions * .MEDSUPPLY 06/29/21 12/03/21 Mag 14 Day Sensor] Levothyroxine Sodium 200 mcg PO DAILY 06/29/21 12/03/21 [Levothyroxine 200mcg (0.2mg) Tab] Pantoprazole Sodium 40 mg PO DAILY 06/29/21 12/03/21 Rivaroxaban [Xarelto 20mg Tablet*] 20 mg PO DAILY 06/29/21 12/03/21 Spironolactone [Spironolactone 25 mg PO DAILY 06/29/21 12/03/21 25mg Tablet] dilTIAZem HCl [Diltiazem 240mg 240 mg PO DAILY 06/29/21 12/03/21 24Hr ER Cap] Previous Rx's Medication Instructions Recorded aspirin 81 mg tablet,delayed See Rx Instructions .ROUTE 07/19/21 release .COMPLEX #30 tablet carvedilol 6.25 mg tablet 6.25 mg PO BID #180 tab 11/30/21 albuterol sulfate 2.5 mg/0.5 mL 2.5 mg INHALATION Q6H PRN #30 each 12/03/21 solution for nebulization albuterol sulfate 90 mcg/actuation 1 puff INHALATION Q6H #6.7 g 12/03/21 aerosol inhaler gabapentin 100 mg capsule 100 mg PO DAILY #30 cap 12/03/21 umeclidinium 62.5 mcg-vilanterol 1 inh INHALATION DAILY #60 each 12/03/21 25 mcg/actuation powdr for inhalation Azithromycin [Zithromax 500mg Tab 500 mg PO DAILY #3 tab 12/10/21 Tri-Gray] Allergies Allergy/AdvReac Type Severity Reaction Status Date / Time acetaminophen [From TYLENOL] Allergy Unknown Verified 12/03/21 14:07 tramadol [TRAMADOL] Allergy Unknown Verified 12/03/21 14:[address] [facility] History - Hepatitis A Screen Attestation statement:: This patient has been screened for Hepatitis A risk factors. Medical History: Reports:: Diabetes Mellitus Type 2, Hyperlipidemia, Hypertension Denies:: Cancer, Internal Pacemaker, MRSA, Seizures Other Medical History
[2021-12-10 16:45] VITALS: BP 142/88; PULSE 90; RESP 18; TEMP 37.7; O2SAT 95
== END 2021-12-10 16:50 | disposition home or self-care (01) ==
PROVIDERS: Emergency Provider Emergency Medicine; PCP Nurse Practitioner Family
DX: U07.1 COVID-19 (principal); J12.82 Pneumonia due to coronavirus disease 2019; E78.5 Hyperlipidemia, unspecified; I10 Essential (primary) hypertension; E03.9 Hypothyroidism, unspecified
CPT/HCPCS: 99282; C9803; U0003; U0005

== ENCOUNTER 2023-05-21 23:16 | Inpatient (IN) | payer OTHER, MEDICARE, SELFPAY ==
--- NOTE | 2023-05-21 23:25 | ECG_ITS ---
APPROVED REPORT Exam: Resting ECG HR:70 bpm ECG Measurements Heart Rate 70 AXES OR 205 P 76 QRSd 81 QRS 23 QT 393 T 17 QTc 413 Conclusion SINUS RHYTHM LOW QRS VOLTAGE IN PRECORDIAL LEADS [QRS DEFLECTION < 1.0 mV IN CHEST LEADS] NONSPECIFIC T-WAVE ABNORMALITY BORDERLINE ECG UNCONFIRMED REPORT Electronically signed by : Froilan Sawyer MD 05/22/2023 21:24:53
[2023-05-21 23:30] VITALS: BP 200/118; PULSE 74; RESP 16; TEMP 36.7; O2SAT 96; BMI 34.3
--- NOTE | 2023-05-21 23:39 | HMH.EDGENADL ---
Discharge Plan Disposition Patient Disposition: Admitted as Observation Clinical Impressions Clinical Impression: Weakness, Right leg weakness, Stenosis of left middle cerebral artery Discharge ED Provider: Joesph Lopez General Adult HPI General Chief complaint: Extremity Problem,Nontraumatic Stated complaint: Right leg numbness Time Seen by Provider: 05/21/23 23:20 Mode of Arrival: Ambulatory Source of Information: Patient Limitations: No Limitations Description of Symptoms (Recalled from ER Triage Doc. by RN): pt states around 1630 she stood up and her R leg gave out. pt states she is having numbness in in her RLE and pt is unable to bear weight. History of Present Illness HPI narrative: This is a 77-year-old female with history of hypertension, hyperlipidemia, COPD, PAD, diabetes with neuropathy presenting with right lower extremity weakness. Notably, patient denies taking any medications to control chronic symptoms at this time. Patient states that around 1530, 8 hours prior to arrival, on 05/21, she had right lower extremity weakness that was acute in onset. She states that she was sitting on the toilet, had bowel movement, then stood up and realized that her right leg was weak. She was unable to bear weight immediately, but was able brace herself on the sink. Because it did not resolve after few hours, she came to the ER for further evaluation by family. Denies bowel or bladder dysfunction, left lower extremity deficits, right upper extremity deficits, or any other deficits in her body. States that it is a bum leg, denies anything like this in the past. Denies any back pain, saddle anesthesia, chest pain, shortness of breath, abdominal pain, nausea or vomiting, vision changes, or any other concerns at this time. Related Data Home Medications Medication Instructions Recorded Confirmed No Known Home Medications 05/22/23 05/22/23 Allergies Allergy/AdvReac Type Severity Reaction Status Date / Time acetaminophen [From TYLENOL] Allergy Unknown Verified 05/21/23 23:35 tramadol [TRAMADOL] Allergy Unknown Verified 05/21/23 23:35 [facility] Disclaimer: The information contained in this section may have been updated after the patient was seen, as this information can be updated by other users. Medical History (Updated 05/22/23 @ 03:20 by Joaquin Mcgrath APRN) Abnormal ankle brachial index (ELHAM) Abnormal EKG Atypical angina Claudication COPD (chronic obstructive pulmonary disease) Daytime somnolence Diabetes Dyspnea HLD (hyperlipidemia) Hypertension Neuropathy Snoring Surgical History History of cholecystectomy History of total left knee replacement History of total right knee replacement History of tubal ligation Hx of appendectomy Family History (Updated 05/22/23 @ 03:10 by Shirin Wang RN) Father Diabetes Brother Brain cancer Daughter No problems noted. Sister Breast cancer Social History (Updated 05/22/23 @ 03:11 by Shirin Wang RN) Smoking Status: Never smoker second hand exposure: No alcohol intake: former substance use type: denies use current occupational status: retired Travel in the last 8 weeks: None household members: children housing: house current occupational exposures/hazards: No caffeine: No ROS Obtained: Yes All systems reviewed & no additional complaints except as documented Physical Exam General General appearance: alert and in no apparent distress Head Head exam: atraumatic and normocephalic Eye Eye exam: Present normal appearance Neck Neck exam: Present normal inspection and full ROM Chest Chest inspection: Present normal inspection and symmetric chest wall rise Respiratory Respiratory exam: Present normal lung sounds bilaterally; Absent respiratory distress, wheezes or stridor Cardiovascular Cardiovascular exam: Present regular rate and normal rhythm;
[2023-05-21 23:46] LABS: Basophils # 0.1 K/mm3 (0-0.2); Basophils % 0.6 % (0.1-2.0); Eosinophils # 0.3 K/mm3 (0.0-0.4); Eosinophils % 3.1 % (0.1-12.0); Hematocrit 41.4 % (37.0-47.0); Hemoglobin 13.2 g/dL (12.2-16.2); Lymphocytes # 4.3 K/mm3 (0.7-4.5); Lymphocytes % 38.8 % (10-50); Mean Corpuscular HGB Conc 31.9 g/dL (31.8-35.4); Mean Corpuscular Volume 87.8 fl (81-99); Mean Platelet Volume 8.3 fl (7.4-10.4); Monocytes # 0.8 K/mm3 (0.1-1.0); Monocytes % 7.2 % (1.7-9.3); Neutrophils # 5.5 K/mm3 (1.8-7.8); Neutrophils % 50.4 % (37.0-80.0); Platelet Count 213 K/mm3 (142-424); Red Blood Count 4.71 M/mm3 (4.20-5.40); Red Cell Distribution Width 14.3 % (11.5-17.5)
[2023-05-21 23:56] LABS: Alanine Aminotransferase 22 U/L (12-78); Albumin Level 4.3 g/dl (3.5-5.0); Albumin/Globulin Ratio 1.3 (1.1-1.8); Alkaline Phosphatase 80 U/L (38-126); Aspartate Amino Transferase 33 U/L (14-36); Bilirubin,Total 0.5 mg/dl (0.2-1.3); Blood Urea Nitrogen 22 mg/dl (7-17); Carbon Dioxide 28 mmol/L (22.0-30.0); Chloride 105 mmol/L (98-107); Chol/HDL Ratio 5.4 (1-3.5); Cholesterol 265 mg/dl (140-200); Creatinine Clearance Estimated 59 mL/min (50-200); Estimated Glomerular Filt Rate 48 ml/min (>60); GFR (African American) 58 ML/MIN (>60); Globulin 3.2 g/dL (1.3-3.2); Glucose 185 mg/dl (74-100); HDL Cholesterol 49 mg/dl (40-60); Sodium 141 mmol/L (136-145); Total Protein,Serum 7.5 g/dl (6.3-8.2); Triglycerides 197 mg/dl (30-150); VLDL Cholesterol 39 mg/dL (0-40)
[2023-05-22] VITALS (10 sets, daily range): BP systolic 149–225; BP diastolic 75–114; PULSE 68–87; RESP 16–20; TEMP 36.5–36.8; O2SAT 96–98; BMI 35.2
--- NOTE | 2023-05-22 | XR_ITS ---
PROCEDURE INFORMATION: Exam: XR Chest Exam date and time: 05/22/2023 12:22 AM Age: 77 years old Clinical indication: Other: Rle weak TECHNIQUE: Imaging protocol: Radiologic exam of the chest. Views: 1 view. COMPARISON: CR CXR2V XR chest 2V 04/14/2018 5:27 PM FINDINGS: Lungs: Unremarkable. No consolidation. There is no focal mass. Pleural spaces: Unremarkable. No pleural effusion. No pneumothorax. Heart/Mediastinum: Unremarkable. No cardiomegaly. Bones/joints: Unremarkable. There is no acute fracture present. IMPRESSION: No evidence for acute cardiac or pulmonary process.
--- NOTE | 2023-05-22 | CT_ITS ---
PROCEDURE INFORMATION: Exam: CTA Head With Contrast, Arteriography Exam date and time: 05/22/2023 12:20 AM Age: 77 years old Clinical indication: Weakness; Additional info: Rle numbness and weakness TECHNIQUE: Imaging protocol: Computed tomographic angiography of the head with contrast. Exam focused on the arteries. 3D rendering (Not supervised by radiologist): MIP and/or 3D reconstructed images were created by the technologist. Radiation optimization: All CT scans at this facility use at least one of these dose optimization techniques: automated exposure control; mA and/or kV adjustment per patient size (includes targeted exams where dose is matched to clinical indication); or iterative reconstruction. Contrast material: ISOVUE; Contrast volume: 100 ml; Contrast route: INTRAVENOUS (IV); REPORTING DATA: Count of CT and Cardiac NM exams in prior 12 months: This patient has received 0 known CTs and 0 known cardiac nuclear medicine studies in the 12 months prior to the current study. COMPARISON: CT HEAD/BRAIN WO CON 05/22/2023 12:17 AM FINDINGS: ANTERIOR CIRCULATION: Right internal carotid artery: Intracranial segment is patent with no significant stenosis. No aneurysm. Right middle cerebral artery: No occlusion or significant stenosis. No aneurysm. Right anterior cerebral artery: No occlusion or significant stenosis. No aneurysm. Left internal carotid artery: Intracranial segment is patent with no significant stenosis. No aneurysm. Left middle cerebral artery: Severe narrowing of the distal left sided M1 segment of the middle cerebral artery with stenosis measuring 80%. There is distal flow. Left anterior cerebral artery: No occlusion or significant stenosis. No aneurysm. POSTERIOR CIRCULATION: Right vertebral artery: No occlusion or significant stenosis. No aneurysm. Left vertebral artery: No occlusion or significant stenosis. No aneurysm. Basilar artery: No occlusion or significant stenosis. No aneurysm. Right posterior cerebral artery: No occlusion or significant stenosis. No aneurysm. Left posterior cerebral artery: No occlusion or significant stenosis. No aneurysm. Brain: No definite mass, mass effect, or midline shift. Cerebral ventricles: No ventriculomegaly. Bones/joints: Unremarkable. No acute fracture. Soft tissues: Unremarkable. IMPRESSION: 1. Severe narrowing of the distal left sided M1 segment of the middle cerebral artery with stenosis measuring 80%. There is distal flow. This is likely a cause of the patient's symptoms. 2. The remainder of the vascular structures are unremarkable. There is no other significant stenosis. There is no occlusion or aneurysm.
--- NOTE | 2023-05-22 | PC.NURSE ---
notified ER MD of critical potassium 3.0
--- NOTE | 2023-05-22 | CT_ITS ---
PROCEDURE INFORMATION: Exam: CTA Neck With Contrast Exam date and time: 05/22/2023 12:20 AM Age: 77 years old Clinical indication: Weakness; Additional info: Rle numbness and weakness TECHNIQUE: Imaging protocol: Computed tomographic angiography of the neck with contrast. 3D rendering (Not supervised by radiologist): MIP and/or 3D reconstructed images were created by the technologist. Radiation optimization: All CT scans at this facility use at least one of these dose optimization techniques: automated exposure control; mA and/or kV adjustment per patient size (includes targeted exams where dose is matched to clinical indication); or iterative reconstruction. Contrast material: ISOVUE; Contrast volume: 100 ml; Contrast route: INTRAVENOUS (IV); REPORTING DATA: Count of CT and Cardiac NM exams in prior 12 months: This patient has received 0 known CTs and 0 known cardiac nuclear medicine studies in the 12 months prior to the current study. COMPARISON: NECKW CT soft tissue neck w con 04/15/2018 5:06 PM FINDINGS: Right common carotid artery: No stenosis. No dissection or occlusion. Right internal carotid artery: No significant stenosis. No dissection or occlusion. Right external carotid artery: No occlusion or stenosis of the origin. Left common carotid artery: No stenosis. No dissection or occlusion. Left internal carotid artery: No significant stenosis. No dissection or occlusion. Left external carotid artery: No occlusion or stenosis of the origin. Right vertebral artery: No stenosis. No dissection or occlusion. Left vertebral artery: No stenosis. No dissection or occlusion. Soft tissues: Normal. No significant soft tissue swelling. Bones/joints: No acute fracture. IMPRESSION: Unremarkable examination with no significant stenosis, dissection, or occlusion. REFERENCES: NASCET CRITERIA. The degree of stenosis in the cervical segment of the internal carotid artery is based on NASCET criteria. Normal is no stenosis. Mild is less than 50% stenosis. Moderate is 50-69% stenosis. Severe is 70% to 99% stenosis. Total occlusion is no detectable patent lumen.
--- NOTE | 2023-05-22 | CT_ITS ---
PROCEDURE INFORMATION: Exam: CT Head Without Contrast Exam date and time: 05/22/2023 12:17 AM Age: 77 years old Clinical indication: Weakness, extremity; Right; Additional info: Rle weak and numb TECHNIQUE: Imaging protocol: Computed tomography of the head without contrast. Radiation optimization: All CT scans at this facility use at least one of these dose optimization techniques: automated exposure control; mA and/or kV adjustment per patient size (includes targeted exams where dose is matched to clinical indication); or iterative reconstruction. REPORTING DATA: Count of CT and Cardiac NM exams in prior 12 months: This patient has received 0 known CTs and 0 known cardiac nuclear medicine studies in the 12 months prior to the current study. COMPARISON: HEADWO CT head/brain wo con 11/12/2017 2:10 PM FINDINGS: Brain: Mild periventricular white matter disease. There is no area of intraparenchymal or extra-axial hemorrhage present. There is no focal mass. There is no midline shift. The lundberg-white matter junction is intact. Cerebral ventricles: No ventriculomegaly. Paranasal sinuses: Visualized sinuses are unremarkable. No fluid levels. Mastoid air cells: Visualized mastoid air cells are well aerated. Bones/joints: Unremarkable. No acute fracture. Soft tissues: The soft tissues are unremarkable. IMPRESSION: 1. Mild periventricular white matter disease. 2. Otherwise unremarkable examination of the brain. There is no acute intracranial abnormality.
[2023-05-22 00:07] LABS: Direct LDL Cholesterol 142.99 mg/dL (100-129)
[2023-05-22 00:11] LABS: Troponin I < 0.01 ng/ml (0.00-0.034)
[2023-05-22 00:17] LABS: POC Glucose,Bedside 196 (70-110)
[2023-05-22 00:49] LABS: Hemoglobin A1C 6.5 % (4.0-6.0)
--- NOTE | 2023-05-22 00:52 | PC.NURSE ---
Dr. Lopez at [facility] to update pt
--- NOTE | 2023-05-22 01:01 | PC.NURSE ---
[facility] on the phone at this time.
--- NOTE | 2023-05-22 01:19 | PC.NURSE ---
Dr. Lopez speaking with Dr. Brumfield
--- NOTE | 2023-05-22 01:29 | PC.NURSE ---
speaking with [facility]
--- NOTE | 2023-05-22 01:36 | PC.NURSE ---
PATIENT ADMITTED TO [facility] TO [facility]ICE [facility] THE HOSPITAL[facility] WITH DX OF RIGHT LOWER EXTREMITY WEAKNESS.
--- NOTE | 2023-05-22 02:37 | PC.NURSE ---
report given to Shantell NATION
--- NOTE | 2023-05-22 02:56 | P.HP_ITS ---
Ms. Villalta is a 77 year old female with a past medical history htn, hld, t2dm, who discontinued all her medications on her own accord approximately 2 years ago. She presented with acute onset of RLE weakness at around 3:30PM on 05/21. CTA head/neck revealed 80% stenosis of MCA M1. Brain MRI: Focus of restricted diffusion in the posterior left centrum semiovale, likely a focus of acute ischemia. Nonspecific T2 abnormality within the periventricular and subcortical white matter, and dee. Differential considerations include changes of chronic small vessel ischemia and demyelinating disease. #Acute CVA, Left centrum semiovale #intracranial stenosis, 80% stenosis of L MCA M1 #htn #hld #t2dm Will continue permissive htn until 3:30PM today, at which point will start lisinopril and norvasc. Spoke with [facility] Dr. Shipley. She believed etiology of CVA was either small vessel disease or symptomatic intracranial stenosis. Recommended treatment of DAPT x 3 months followed by aspirin indefinitely, high intensity statin, and risk factor modification, and follow up with Neurology in 2-3 months. Will order PT/OT, am lipid panel, and am a1c. History of Present Illness *Admission Date: 05/22/23 *Reason for visit:: right lower leg weakness *History of present illness: This is a 77-year-old female with history of hypertension, hyperlipidemia, COPD, PAD, diabetes with neuropathy presenting with right lower extremity weakness. Notably, patient denies taking any medications to control chronic symptoms at this time. Patient stated has not been seen with For a long time. patient states that around 1530, 8 hours prior to arrival, on 05/21, she had right lower extremity weakness that was acute in onset. She states that she was sitting on the toilet, had bowel movement, then stood up and realized that her right leg was weak. After few hours of not improving patient decided to come to the ER for evaluation per family recommendation. admitted for further work up. [facility] Disclaimer: The information contained in this section may have been updated after the patient was seen, as this information can be updated by other users. Medical History (Updated 05/22/23 @ 03:38 by Joaquin Mcgrath APRN) Abnormal ankle brachial index (ELHAM) Abnormal EKG Atypical angina Claudication COPD (chronic obstructive pulmonary disease) Daytime somnolence Diabetes Dyspnea HLD (hyperlipidemia) Hypertension Neuropathy Snoring Surgical History History of cholecystectomy History of total left knee replacement History of total right knee replacement History of tubal ligation Hx of appendectomy Family History (Updated 05/22/23 @ 03:10 by Shirin Wang RN) Father Diabetes Brother Brain cancer Daughter No problems noted. Sister Breast cancer Social History (Updated 05/22/23 @ 03:11 by Shirin Wang RN) Smoking Status: Never smoker second hand exposure: No alcohol intake: former substance use type: denies use current occupational status: retired Travel in the last 8 weeks: None household members: children housing: house current occupational exposures/hazards: No caffeine: No Review of Systems Review of Systems Review of systems:: pertinent systems reviewed and negative unless documented below Meds Home Medications and Allergies Home Medications Medication Instructions Recorded Confirmed Type No Known Home Medicati
--- NOTE | 2023-05-22 02:56 | EXP.HP ---
History of Present Illness *Admission Date: 05/22/23 *Reason for visit:: right lower leg weakness *History of present illness: This is a 77-year-old female with history of hypertension, hyperlipidemia, COPD, PAD, diabetes with neuropathy presenting with right lower extremity weakness. Notably, patient denies taking any medications to control chronic symptoms at this time. Patient stated has not been seen with For a long time. patient states that around 1530, 8 hours prior to arrival, on 05/21, she had right lower extremity weakness that was acute in onset. She states that she was sitting on the toilet, had bowel movement, then stood up and realized that her right leg was weak. After few hours of not improving patient decided to come to the ER for evaluation per family recommendation. admitted for further work up. [facility] Disclaimer: The information contained in this section may have been updated after the patient was seen, as this information can be updated by other users. Medical History (Updated 05/22/23 @ 03:38 by Joaquin Mcgrath APRN) Abnormal ankle brachial index (ELHAM) Abnormal EKG Atypical angina Claudication COPD (chronic obstructive pulmonary disease) Daytime somnolence Diabetes Dyspnea HLD (hyperlipidemia) Hypertension Neuropathy Snoring Surgical History History of cholecystectomy History of total left knee replacement History of total right knee replacement History of tubal ligation Hx of appendectomy Family History (Updated 05/22/23 @ 03:10 by Shirin Wang RN) Father Diabetes Brother Brain cancer Daughter No problems noted. Sister Breast cancer Social History (Updated 05/22/23 @ 03:11 by Shirin Wang RN) Smoking Status: Never smoker second hand exposure: No alcohol intake: former substance use type: denies use current occupational status: retired Travel in the last 8 weeks: None household members: children housing: house current occupational exposures/hazards: No caffeine: No Review of Systems Review of Systems Review of systems:: pertinent systems reviewed and negative unless documented below Meds Home Medications and Allergies Home Medications Medication Instructions Recorded Confirmed Type No Known Home Medications 05/22/23 05/22/23 History New Prescriptions to Start Prescriptions: Allergies Allergy/AdvReac Type Severity Reaction Status Date / Time acetaminophen [From TYLENOL] Allergy Unknown Verified 05/21/23 23:35 tramadol [TRAMADOL] Allergy Unknown Verified 05/21/23 23:35 Exam Data for Last 24 hours Vital signs and Labs for Last 24 Hours: Temp Pulse Resp BP Pulse Ox O2 Del Method 98.1 F 74 16 203/102 H 97 Room Air 05/22/23 02:38 05/22/23 02:38 05/22/23 02:38 05/22/23 02:38 05/22/23 00:32 05/22/23 00:32 Laboratory Results - last 24 hr 05/21/23 23:22: POC Glucose 196 H 05/21/23 23:25: WBC 11.0 H, RBC 4.71, Hgb 13.2, Hct 41.4, MCV 87.8, MCH 28.0, MCHC 31.9, RDW 14.3, Plt Count 213, MPV 8.3, Neut % (Auto) 50.4, Lymph % (Auto) 38.8, Kent % (Auto) 7.2, Eos % (Auto) 3.1, Baso % (Auto) 0.6, Neut # (Auto) 5.5, Lymph # (Auto) 4.3, Kent # (Auto) 0.8, Eos # (Auto) 0.3, Baso # (Auto) 0.1, Sodium 141, Potassium 3.0 L, Chloride 105, Carbon Dioxide 28, Anion Gap 11.0, BUN 22 H, Creatinine 1.10 H, Estimated Creat Clear 59, Estimated GFR 48 L, Est GFR ( Amer) 58 L, Glucose 185 H, Hemoglobin A1c 6.5 H, Calcium 9.0, Total Bilirubin 0.5, AST 33, ALT 22, Alkaline Phosphatase 80, Troponin I < 0.01, Total Protein 7.5, Albumin 4.3, Globulin 3.2, Albumin/Globulin Ratio 1.3, Triglycerides 197 H, Cholesterol 265 H, LDL Cholesterol Direct 142.99 H, VLDL Cholesterol 39, HDL Cholesterol 49, Cholesterol/HDL Ratio 5.4 H I & O for Last 24 hours: Intake & Output 05/19/23 05/20/23 05/21/23 05/22/23 23:59 23:59 23:59 23:59 Intake Total 1000 / 1000 Messi
--- NOTE | 2023-05-22 03:21 | PC.NURSE ---
Notified Aroldo Mcgrath NP of BP 202/101. NNO at this time.
--- NOTE | 2023-05-22 03:24 | PC.NURSE ---
pt arrived via wheelchair @[id number]
[2023-05-22 03:27] LABS: Troponin I < 0.01 ng/ml (0.00-0.034)
[2023-05-22 06:39] LABS: Troponin I < 0.01 ng/ml (0.00-0.034)
[2023-05-22 07:43] LABS: Alanine Aminotransferase 17 U/L (12-78); Albumin Level 3.8 g/dl (3.5-5.0); Albumin/Globulin Ratio 1.4 (1.1-1.8); Alkaline Phosphatase 87 U/L (38-126); Anion Gap 10.6 mEq/L (5-15); Aspartate Amino Transferase 25 U/L (14-36); Bilirubin,Total 0.4 mg/dl (0.2-1.3); Blood Urea Nitrogen 18 mg/dl (7-17); Calcium 8.6 mg/dl (8.4-10.2); Carbon Dioxide 27 mmol/L (22.0-30.0); Chloride 107 mmol/L (98-107); Creatinine Clearance Estimated 67 mL/min (50-200); Estimated Glomerular Filt Rate 60 ml/min (>60); GFR (African American) 73 ML/MIN (>60); Globulin 2.7 g/dL (1.3-3.2); Glucose 146 mg/dl (74-100); Potassium 3.6 mmoL/L (3.5-5.1); Sodium 141 mmol/L (136-145); Total Protein,Serum 6.5 g/dl (6.3-8.2)
--- NOTE | 2023-05-22 07:58 | MR_ITS ---
FINAL REPORT TECHNIQUE: Multiplanar and multisequence imaging of the brain was obtained without contrast. CLINICAL HISTORY: RIGHT LOWER EXTREMITY WEAKNESS. stroke FINDINGS: There is global atrophy. There is no mass effect or midline shift. Small foci of periventricular and subcortical white matter are nonspecific. There is also abnormal T2 signal in the dee. The ventricles are symmetric without hydrocephalus. The cerebellum and brainstem have an unremarkable appearance. There is a focus of restricted diffusion in the posterior left centrum semiovale, likely a focus of acute ischemia. Soft tissues are without acute abnormality. IMPRESSION: Focus of restricted diffusion in the posterior left centrum semiovale, likely a focus of acute ischemia. Nonspecific T2 abnormality within the periventricular and subcortical white matter, and dee. Differential considerations include changes of chronic small vessel ischemia and demyelinating disease. Reviewed, Interpreted and Dictated by Lizette Ornelas MD Transcribed by Dianna Hernandez Authenticated and [facility]
[2023-05-22 09:03] LABS: Hemoglobin 13.2 g/dL (12.2-16.2); Mean Corpuscular Hemoglobin 28.3 pg (27.0-31.2); Mean Corpuscular Volume 85.8 fl (81-99); Platelet Count 156 K/mm3 (142-424); Red Blood Count 4.66 M/mm3 (4.20-5.40); Red Cell Distribution Width 14.1 % (11.5-17.5)
[2023-05-22 09:04] LABS: Basophils % 0.3 % (0.1-2.0); Eosinophils # 0.2 K/mm3 (0.0-0.4); Eosinophils % 2.1 % (0.1-12.0); Lymphocytes # 3.3 K/mm3 (0.7-4.5); Mean Platelet Volume 12.8 fl (7.4-10.4); Monocytes # 0.8 K/mm3 (0.1-1.0); Monocytes % 8.3 % (1.7-9.3); Neutrophils # 5.8 K/mm3 (1.8-7.8); Neutrophils % 57.2 % (37.0-80.0)
--- NOTE | 2023-05-22 10:24 | PC.NURSE ---
Courtesy Round Patient sleeping with visitor at bedside. Trash and linens checked . Ice water refused by visitor at bedside stating patient doesnt like water general. Call light within reach
[2023-05-22 10:39] LABS: White Blood Count 10.2 K/mm3 (4.8-10.8)
--- NOTE | 2023-05-22 11:02 | HMH.PHAINT1 ---
Pharmacy Intervention Comments: Patient claims to have no at home medications, last pharmacy fill documented was albuterol on 12/27/21. -Christofer Wren, Pharm student
--- NOTE | 2023-05-22 13:56 | HMH.OTEV ---
OT Inpatient Evaluation Rehab OT IP Evaluation Start: 05/22/23 12:29 Freq: ONCE Status: Active Protocol: Document 05/22/23 13:49 REYNALDO (Rec: 05/22/23 13:56 REYNALDO [id number]) Rehab OT IP Assessment Subjective History Ms. Villalta is a 77 year old female with a past medical history htn, hld, t2dm, who discontinued all her medications on her own accord approximately 2 years ago. She presented with acute onset of RLE weakness at around 3:30PM on 05/21. CTA head/neck revealed 80% stenosis of MCA M1. Brain MRI: Focus of restricted diffusion in the posterior left centrum semiovale, likely a focus of acute ischemia. Nonspecific T2 abnormality within the periventricular and subcortical white matter, and dee. Differential considerations include changes of chronic small vessel ischemia and demyelinating disease. #Acute CVA, Left centrum semiovale #intracranial stenosis, 80% stenosis of L MCA M1 #htn #hld #t2dm Will continue permissive htn until 3:30PM today, at which point will start lisinopril and norvasc. Spoke with Neurology Dr. Shipley. She believed etiology of CVA was either small vessel disease or symptomatic intracranial stenosis. Recommended treatment of DAPT x 3 months followed by aspirin indefinitely, high intensity statin, and risk factor modification, and follow up with Neurology in 2-3 months. Will order PT/OT, am lipid panel, and am a1c.
--- NOTE | 2023-05-22 14:00 | SW/DCPLANNER ---
Addendum entered by Abigail Calvert 05/23/23 13:48: Patient has decided to discharge home and return to [facility] outpatient Rehab. Patient will discharge home today. Addendum entered by Abigail Calvert 05/23/23 12:51: [facility] is still reviewing patient information at this time. Original Note: I spoke with this patient regarding plans once medically stable for discharge. PT/OT evaluated patient and stated that she could return home or acute care rehab. Patient and daughter felt that patient will need rehab prior to returning home. Patient has been to [facility] in the past and would prefer to return their at time of discharge. Patient information has been faxed to [facility]. Dr Johnson stated that pending no setbacks patient will be medically stable for discharge tomorrow.
[2023-05-22 14:13] LABS: Magnesium 1.7 mg/dl (1.6-2.3)
--- NOTE | 2023-05-22 15:29 | HMH.PTEV ---
Physical Therapy Evaluation Rehab PT IP Evaluation Start: 05/22/23 12:29 Freq: ONCE Status: Active Protocol: Document 05/22/23 13:30 PHORNE (Rec: 05/22/23 15:29 PHORNE [id number]) Subjective/History History History 77 yowf adm to [facility] with sudden onset R LE weakness. She has hx of uncontrolled HTN, DM, COPD, PAD, HLD and has not been to see an MD for many years. She reports she lives with her son, 3 steps to enter the home, and she generally is independent with all mobility at baseline. Subjective Subjective She reports no c/o pain at this time and only numbness in her L hand, which has been present for many years. Rehab PT IP Eval Objective Appearance Patient Behavior Appropriate Patient Orientation Person,Place,Time Difficulty following instructions none Speech Pattern Clear Ambulation Patient Able to Ambulate Yes Ambulation Observation IP General Gait Pattern Observation Wide Based Gait,Ataxic Gait, Decrease Stride Lngth (R) Ambulation Distance (feet) 20 Ambulation Assistive Device None Ambulation Ability Minimal x 2 (25% assist) Balance Ability to Arise Able, uses arms to help Sitting Balance Steady, safe Standing Balance Unsteady Dynamic Sitting Balance Ability Good Dynamic Standing Balance Ability Poor Transfers Bed Transfer Ability Contact Guard/Hand Hold Chair Transfer Ability Minimal x 2 (25% assist) Sit to Stand Bed Transfer Ability Minimal x 2 (25% assist) Sit to Stand Chair Transfer Ability Minimal x 2 (25% assist) ROM All Extremities PT ROM Status WFL MMT RLE PT MMT ABN Abnormal MMT Grade grossly 4/5 throughout except HIP FLEX 3/5 Rehab PT IP prob,goals,plan Problems Date of Evaluation: 05/22/23 PT IP Problems Bed Mobility,Transfers,Gait Rehab Potential Rehab Potential Good Equipment Needs Assistive Devices Rolling / Wheeled Walker Plan PT Intervention Plan Bed Mobility,Transfers,Gait, Therapeutic Exercise PT Plan Frequency Daily Duration LOS Discharge Goals Bed Transfer Ability Supervision/Stand by Sit to Stand Chair Transfer Ability Minimal x 1 (25% assist) Ambulation Assistive Device
[2023-05-22 15:37] LABS: POC Glucose,Bedside 122 (70-110)
[2023-05-22 17:26] LABS: POC Glucose,Bedside 141 (70-110)
--- NOTE | 2023-05-22 19:51 | PC.NURSE ---
VS stable and patient remained on room air. Weakness noted in right lower extremity but improved per patient since admission. Patient able to ambulate with one assist. No other changes noted.
[2023-05-22 20:43] LABS: POC Glucose,Bedside 159 (70-110)
[2023-05-23] VITALS: BP 134/64; PULSE 80; PULSE 82; RESP 18; TEMP 36.8; O2SAT 93
[2023-05-23 04:00] VITALS: BP 146/80; PULSE 70; PULSE 78; RESP 18; TEMP 36.7; O2SAT 94; BMI 35.7
[2023-05-23 05:36] LABS: POC Glucose,Bedside 140 (70-110)
[2023-05-23 08:00] VITALS: BP 160/83; PULSE 66; PULSE 67; RESP 18; TEMP 36.6; O2SAT 97
[2023-05-23 11:18] VITALS: BP 144/72; PULSE 65; RESP 18; TEMP 37.2; O2SAT 97
[2023-05-23 11:29] LABS: POC Glucose,Bedside 180 (70-110)
--- NOTE | 2023-05-23 13:35 | EXP.DC.SUM ---
General Admission date:: 05/22/23 Discharge date: 05/23/23 HPI HPI HPI: This is a 77-year-old female with history of hypertension, hyperlipidemia, COPD, PAD, diabetes with neuropathy presenting with right lower extremity weakness. Notably, patient denies taking any medications to control chronic symptoms at this time. Patient stated has not been seen with For a long time. patient states that around 1530, 8 hours prior to arrival, on 05/21, she had right lower extremity weakness that was acute in onset. She states that she was sitting on the toilet, had bowel movement, then stood up and realized that her right leg was weak. After few hours of not improving patient decided to come to the ER for evaluation per family recommendation. admitted for further work up. Hospital Course Hospital Course Hospital Course: Ms. Villalta is a 77 year old female with a past medical history htn, hld, t2dm, who discontinued all her medications on her own accord approximately 2 years ago. She presented with acute onset of RLE weakness at around 3:30PM on 05/21. CTA head/neck revealed 80% stenosis of MCA M1. Brain MRI: Focus of restricted diffusion in the posterior left centrum semiovale, likely a focus of acute ischemia. Nonspecific T2 abnormality within the periventricular and subcortical white matter, and dee. Differential considerations include changes of chronic small vessel ischemia and demyelinating disease. #Acute CVA, Left centrum semiovale #intracranial stenosis, 80% stenosis of L MCA M1 #htn #hld #t2dm Spoke with [facility] Dr. Shipley. She believed etiology of CVA was either small vessel disease or symptomatic intracranial stenosis. Recommended treatment of DAPT x 3 months followed by aspirin indefinitely, high intensity statin, and risk factor modification, and follow up with Neurology in 2-3 months. We continued permissive hypertension for 24hrs from symptom onset. Subsequently we started lisinopril and norvasc. Lipid panel revealed to chol 265, triglycerides 197, ldl 142 hgb a1c was 6.5. we started metformin Strength in her RLE increased and by the day of discharge she was ambulating alone with a rolling walker. PT/OT saw her and recommended Rehab but the patient declined. She decided to go home and is to receive outpatientt physical therapy for her right lower extremity weakness. She will need to establish care with PCP in 1 week. Recommended establishing care with Neurology in 2-3 months. Exam Data for Last 24 hours Vital signs and Labs for Last 24 Hours: Temp Pulse Resp BP Pulse Ox O2 Del Method 98.9 F 65 18 144/72 H 97 Room Air 05/23/23 11:18 05/23/23 11:18 05/23/23 11:18 05/23/23 11:18 05/23/23 11:18 05/23/23 11:18 Laboratory Results - last 24 hr 05/22/23 05:50: Magnesium 1.7 05/22/23 11:51: POC Glucose 122 H 05/22/23 16:54: POC Glucose 141 H 05/22/23 20:36: POC Glucose 159 H 05/23/23 05:22: POC Glucose 140 H 05/23/23 11:18: POC Glucose 180 H I & O for Last 24 hours: Intake & Output 05/20/23 05/21/23 05/22/23 05/23/23 23:59 23:59 23:59 23:59 Intake Total 1840 / 1840 1270 / 1270 Output Total 1700 / 1700 0 / 0 Balance 140 / 140 1270 / 1270 Weight 90.718 kg 93.621 kg 94.886 kg Constitutional Constitutional: no acute distress *Routine HEENT Exam Head: Present normocephalic Eye: Present EOMI and PERRL ENT: Present mucous membranes moist *Routine Neck Exam Neck: Present supple; Absent lymphadenopathy *Routine Respiratory Exam Respiratory: Present CTA bilaterally *Routine Cardiovascular Exam Cardiovascular: Present RRR *Routine Abdominal Exam Abdominal: Present soft and normoactive bowel sounds; Absent tenderness *Routine Extremities Exam Extremities: Absent cyanosis, clubbing or edema *Routine Skin Exam Skin: Present warm; Absent rash *Routine Neurological Exam Neurological: Present alert, oriented X3, CN II-XII intact, sensory deficit (numbness in RLE) and motor deficit (strength 4/5
--- NOTE | 2023-05-23 13:53 | HMH.PHAINT1 ---
Pharmacy Intervention Comments: Discharge medications were reviewed and verified with patient and patient's family members. -amlodipine ( told to watch for peripheral edema) -aspirin (told to watch for bleeding and bruising ) -atorvastatin (told to watch for muscle pain) - lisinopril (told to watch for headaches and dizziness) - metformin (told to watch for stomach pain and N/V/D) -clopidogrel (told to watch for bleeding and bruising) Víctor Cox, PharmD student
--- NOTE | 2023-05-26 13:43 | CARE MANAGER ---
Spoke with patient daughter for post-discharge phone interview, no issues noted.
== END 2023-05-23 14:59 | disposition home or self-care (01) | DRG 65 ==
LOC: ER 23:38 → 2ND 05-22 02:39
PROVIDERS: Nurse Practitioner Family; Admitting Provider Internal Medicine; Emergency Provider Emergency Medicine; PCP Emergency Medicine; Visit Provider Internal Medicine
DX: I63.9 Cerebral infarction, unspecified (principal); N17.9 Acute kidney failure, unspecified; R29.898 Other symptoms and signs involving the musculoskeletal system; I66.02 Occlusion and stenosis of left middle cerebral artery; E87.6 Hypokalemia; I16.0 Hypertensive urgency; E11.65 Type 2 diabetes mellitus with hyperglycemia; G62.9 Polyneuropathy, unspecified; E78.5 Hyperlipidemia, unspecified; E66.9 Obesity, unspecified; Z91.199 Patient's noncompliance with other medical treatment and regimen due to unspecified reason; J44.9 Chronic obstructive pulmonary disease, unspecified; E11.40 Type 2 diabetes mellitus with diabetic neuropathy, unspecified; E11.51 Type 2 diabetes mellitus with diabetic peripheral angiopathy without gangrene; Z96.653 Presence of artificial knee joint, bilateral; Z68.35 Body mass index [BMI] 35.0-35.9, adult
CPT/HCPCS: 36415; 70450; 70496; 70498; 70551; 71045; 80053; 80061; 82962; 83036; 83735; 84484; 85025; 87081; 93005; 93041; 97163; 97165; 97530; 99285; Q9967

== ENCOUNTER 2023-06-27 15:00 | Outpatient (RCR) | payer MEDICARE, OTHER, SELFPAY ==
--- NOTE | 2023-05-28 18:01 | HMH.PTOPEV ---
PT Outpatient Evaluation Rehab PT Outpatient Evaluation Start: 05/28/23 17:43 Freq: Status: Active Protocol: Document 05/28/23 17:43 MONY (Rec: 05/28/23 18:01 MONY [id number]) E-signed By Kenneht Connor, PT Outpatient Therapy Subjective History Subjective History Patient is a 77 year old female presenting to outpatient PT with reports of acute RLE weakness S/P CVA . Patient reports that initially after the CVA the RLE was completely flacid, while now she has some volitional control of RLE. No reports of pain. Patient reports intermittent NT with sit to stand transfers. Comorbidities include hx of diabetes, B SIM, HL, HTN, L hip tumor revmoval, rodolfo and appy. Chief Complaint Pain,Weakness Symptom Type Throb Symptoms Relieved By Rest/Positioning,Prescription Meds Symptoms Aggravated By Standing,Physical Activity, Walking Prior Functional Limitations Standing,Walking Current Functional Limitations Housework,Standing,Walking, Balance Symptom Description Intermittent Level of pain today (0-10) 0 Pain scale - at its best (0-10) 0 Pain scale - at its worst (0-10) 6 Balance Eval Subjective Hx of Complaint Comment RLE weakness Prior Functional Limitations Prior Functional [place] Level Independent with all standing/ ambulatory activities and ADL' s. No AD required for ambulation. Current Functional Limitations Comment Difficulty with standing/ ambulatory activities. Hx of Falls Hx Falls No Timed Up and Go Test 1. Is the Timed Up and Go test result > yes or = to 12 seconds? Dynamic Gait Index Test Protocol Gait Level Surface Mild Impairment Query Text: Instructions: Walk at your normal speed from here to the next linda (20'). Grading: Linda the lowest category that applies. Change in Gait Speed Mild Impairment Query Text: Instructions: Begin walking at your normal pace (for 5'), when I tell you go , walk as fast as you can (for 5'). When I tell you slow , walk as slowly
== END 2023-06-27 15:05 | disposition home or self-care (01) ==
LOC: PT 15:00
PROVIDERS: PCP Emergency Medicine; Visit Provider Internal Medicine
DX: R53.1 Weakness (principal)
CPT/HCPCS: 97110; 97163; 97530

== ENCOUNTER 2023-07-17 15:08 | Observation (INO) | payer MEDICARE, OTHER, SELFPAY ==
[2023-07-17] VITALS (8 sets, daily range): BP systolic 100–145; BP diastolic 55–87; PULSE 61–103; RESP 16–21; TEMP 36.4–36.8; O2SAT 95–98; BMI 34.2; BMI 33.7
--- NOTE | 2023-07-17 15:10 | ECG_ITS ---
APPROVED REPORT Exam: Resting ECG HR:96 bpm ECG Measurements Heart Rate 96 AXES QRSd 78 QRS 61 QT 366 T 45 QTc 419 Conclusion ATRIAL FIBRILLATION ABNORMAL RHYTHM ECG UNCONFIRMED REPORT Electronically signed by : Froilan Sawyer MD 07/18/2023 16:01:34
--- NOTE | 2023-07-17 15:15 | XR_ITS ---
FINAL REPORT CLINICAL HISTORY: palpitations, afib COMPARISON: 04/14/2018 FINDINGS: SINGLE-VIEW CHEST The heart size is normal. There is elevation of the right hemidiaphragm. There is mild right base atelectasis. There is no pneumothorax. IMPRESSION: Mild right base atelectasis. Reviewed, Interpreted and Dictated by Doug Mariano III, MD Transcribed by Mona Nieto Authenticated and [facility]
[2023-07-17 15:28] LABS: Basophils # 0.1 K/mm3 (0-0.2); Basophils % 0.6 % (0.1-2.0); Eosinophils # 0.4 K/mm3 (0.0-0.4); Eosinophils % 3.2 % (0.1-12.0); Hematocrit 47.7 % (37.0-47.0); Hemoglobin 15.2 g/dL (12.2-16.2); Lymphocytes # 3.6 K/mm3 (0.7-4.5); Lymphocytes % 31.9 % (10-50); Mean Corpuscular HGB Conc 31.9 g/dL (31.8-35.4); Mean Corpuscular Hemoglobin 28.6 pg (27.0-31.2); Mean Corpuscular Volume 89.5 fl (81-99); Mean Platelet Volume 9.3 fl (7.4-10.4); Monocytes # 0.6 K/mm3 (0.1-1.0); Monocytes % 5.3 % (1.7-9.3); Neutrophils # 6.7 K/mm3 (1.8-7.8); Neutrophils % 59.1 % (37.0-80.0); Platelet Count 246 K/mm3 (142-424); Red Blood Count 5.33 M/mm3 (4.20-5.40); Red Cell Distribution Width 14.6 % (11.5-17.5); White Blood Count 11.3 K/mm3 (4.8-10.8)
[2023-07-17 15:34] LABS: Activated Partial Thrombo Time 28.8 seconds (22.8-30.6); INR 0.99 (0.9-1.1); Prothrombin Time 10.7 seconds (10.1-12.5)
--- NOTE | 2023-07-17 15:42 | HMH.EDGENADL ---
Discharge Plan Disposition Patient Disposition: Admitted Condition: Good Clinical Impressions Clinical Impression: Atrial fibrillation, new onset Discharge ED Provider: Nadia Raman General Adult HPI General Chief complaint: Arrhythmia/Palpitations Stated complaint: arrythmia Time Seen by Provider: 07/17/23 15:13 Mode of Arrival: Wheelchair Source of Information: Patient Limitations: No Limitations Description of Symptoms (Recalled from ER Triage Doc. by RN): Presents to ED from [facility] for a-fib. Patient reported going to the office today for a FU appt. for a stroke she had in June where they did an EKG that showed a-fib RVR and was instructed to come to the ED. Patient denies hx of a-fib. Patient only reports having bilateral lower extermity weakness but reports this is not new. History of Present Illness HPI narrative: This patient is a 77-year-old female with a history of hypertension, PAD, CAD, hyperlipidemia, prior CVA on aspirin and Plavix, and diabetes presenting to the emergency department for evaluation with concern for atrial flutter with RVR noted on EKG. Patient denies any history of A-fib. She reports that she has been feeling weak lately, but there is been nothing out of the ordinary. She denies any fevers, chills, chest pain, shortness of breath, cough, congestion, abdominal pain, nausea, vomiting, changes in bowel movements, rashes, or swelling. She notes that she previously had issues with lower extremity swelling, however it has been significantly improved lately. On medical record review, she was sent here from PCP office after being evaluated today for routine follow-up. She reports that her doctor spoke with Dr. Luna, who sent her over. She is not currently on anticoagulation. Related Data Previous Rx's Medication Instructions Recorded amlodipine 5 mg tablet 5 mg PO DAILY #30 tabs 05/23/23 aspirin 81 mg chewable tablet 81 mg PO DAILY #90 tabs 05/23/23 atorvastatin 40 mg tablet 40 mg PO HS #30 tabs 05/23/23 clopidogrel 75 mg tablet 75 mg PO DAILY #90 tabs 05/23/23 lisinopril 10 mg tablet 10 mg PO DAILY #30 tabs 05/23/23 metformin 500 mg tablet 500 mg PO BID #60 tabs 05/23/23 Allergies Allergy/AdvReac Type Severity Reaction Status Date / Time acetaminophen [From TYLENOL] Allergy Unknown Verified 07/17/23 13:18 tramadol [TRAMADOL] Allergy Unknown Verified 07/17/23 13:18 [facility] Disclaimer: The information contained in this section may have been updated after the patient was seen, as this information can be updated by other users. Medical History Abnormal ankle brachial index (ELHAM) Abnormal EKG Atypical angina Claudication COPD (chronic obstructive pulmonary disease) Daytime somnolence Diabetes Dyspnea HLD (hyperlipidemia) Hypertension Neuropathy Snoring Surgical History History of cholecystectomy History of total left knee replacement History of total right knee replacement History of tubal ligation Hx of appendectomy Family History Father Diabetes Brother Brain cancer Daughter No problems noted. Sister Breast cancer Social History Smoking Status: Never smoker second hand exposure: No alcohol intake: former substance use type: denies use current occupational status: retired Travel in the last 8 weeks: None household members: children housing: house current occupational exposures/hazards: No caffeine: No ROS Obtained: Yes All systems reviewed & no additional complaints except as documented Physical Exam General General appearance: alert and in no apparent distress Head Head exam: atraumatic and normocephalic Eye Eye exam: Present normal appearance, PERRL and EOMI ENT ENT exam: Present normal exam, normal
[2023-07-17 15:56] LABS: Alanine Aminotransferase 65 U/L (12-78); Albumin Level 4.4 g/dl (3.5-5.0); Albumin/Globulin Ratio 1.2 (1.1-1.8); Alkaline Phosphatase 105 U/L (38-126); Anion Gap 16.4 mEq/L (5-15); Aspartate Amino Transferase 77 U/L (14-36); Blood Urea Nitrogen 21 mg/dl (7-17); Calcium 9.5 mg/dl (8.4-10.2); Carbon Dioxide 25 mmol/L (22.0-30.0); Chloride 104 mmol/L (98-107); Creatinine Clearance Estimated 63 mL/min (50-200); Estimated Glomerular Filt Rate 53 ml/min (>60); GFR (African American) 65 ML/MIN (>60); Globulin 3.8 g/dL (1.3-3.2); Glucose 142 mg/dl (74-100); Magnesium 1.7 mg/dl (1.6-2.3); Potassium 4.4 mmoL/L (3.5-5.1); Sodium 141 mmol/L (136-145); Total Protein,Serum 8.2 g/dl (6.3-8.2)
[2023-07-17 16:09] LABS: NT Pro Brain Natriuretic Pep. 828 pg/mL (0-450)
[2023-07-17 16:14] LABS: T4 (Thyroxine) 7.6 ug/dl (5.53-11.0); Troponin I < 0.01 ng/ml (0.00-0.034)
--- NOTE | 2023-07-17 16:14 | PC.NURSE ---
V/O for 2 5mg/5mL Metoprolol IVP per
--- NOTE | 2023-07-17 16:15 | PC.NURSE ---
and RN @ BS. 1615: 1st dose of Metoprolol Tartrate 5mg IVP V/S: BP- 108/76 HR-82 irregular O2-95% RR-16 1620: 2nd dose of Metoprolol Tartrate 5mg IVP V/S: BP- 121/74 HR-77 [id number]% RR-18 1625: 3rd dose of Metoprolol Tartrate 5mg IVP V/S: BP-119/64 HR-71 irregular O2-95% RR-17
[2023-07-17 16:26] LABS: Thyroid Stimulating Hormone 6.84 uIU/mL (0.465-4.68)
--- NOTE | 2023-07-17 16:33 | ECG_ITS ---
APPROVED REPORT Exam: Resting ECG HR:78 bpm ECG Measurements Heart Rate 78 AXES QRSd 80 QRS 56 QT 397 T 46 QTc 430 Conclusion ATRIAL FIBRILLATION ABNORMAL RHYTHM ECG UNCONFIRMED REPORT Electronically signed by : Froilan Sawyer MD 07/18/2023 15:58:47
--- NOTE | 2023-07-17 16:33 | PC.NURSE ---
Repeat EKG performed per Dr. Raman request
--- NOTE | 2023-07-17 16:40 | PC.NURSE ---
on the phone with
--- NOTE | 2023-07-17 16:50 | PC.NURSE ---
Rounded on patient and family nothing needed at this time. Call light within reach
--- NOTE | 2023-07-17 17:36 | PC.NURSE ---
Rounded on patient and family; updated on plan of care. Call saavedra within reach of patient
--- NOTE | 2023-07-17 18:31 | PC.NURSE ---
Pt. on the floor at 18:30.
[2023-07-17 19:29] LABS: Troponin I < 0.01 ng/ml (0.00-0.034)
--- NOTE | 2023-07-17 19:48 | EXP.HP ---
History of Present Illness *Admission Date: 07/17/23 *Reason for visit:: afib with RVR *History of present illness: This is a 77-year-old female with PMHx of hypertension, PAD, CAD, hyperlipidemia, prior CVA with left lower leg weakness, on aspirin and Plavix, and diabetes presenting to the emergency department for evaluation with concern for atrial fibrillation with RVR noted on EKG. Patient went to PCP for follow up after recent hospitalization due to CVA. Patient was referred to hospital for abnormal EKG. Patient denies any history of A-fib. She reports that she has been feeling weak lately, but there is been nothing out of the ordinary. She denied any fevers, chills, chest pain, shortness of breath, cough, congestion, abdominal pain, nausea, vomiting, changes in bowel movements, rashes, or swelling. Admitted for observation and management. [facility] Disclaimer: The information contained in this section may have been updated after the patient was seen, as this information can be updated by other users. Medical History Abnormal ankle brachial index (ELHAM) Abnormal EKG Atypical angina Claudication COPD (chronic obstructive pulmonary disease) Daytime somnolence Diabetes Dyspnea HLD (hyperlipidemia) Hypertension Neuropathy Snoring Surgical History History of cholecystectomy History of total left knee replacement History of total right knee replacement History of tubal ligation Hx of appendectomy Family History Father Diabetes Brother Brain cancer Daughter No problems noted. Sister Breast cancer Social History (Updated 07/17/23 @ 18:43 by Benjamin Campos RN) Smoking Status: Never smoker second hand exposure: No alcohol intake: former substance use type: denies use current occupational status: retired Travel in the last 8 weeks: None household members: children housing: house current occupational exposures/hazards: No caffeine: No Review of Systems Review of Systems Review of systems:: pertinent systems reviewed and negative unless documented below Meds Home Medications and Allergies Home Medications Medication Instructions Recorded Confirmed Type amlodipine 5 mg tablet 5 mg PO DAILY BP 07/17/23 07/17/23 History aspirin 81 mg chewable tablet 81 mg PO DAILY HEART HEALTH 07/17/23 07/17/23 History atorvastatin 40 mg tablet 40 mg PO HS Cholesterol 07/17/23 07/17/23 History clopidogrel 75 mg tablet 75 mg PO DAILY HEART HEALTH 07/17/23 07/17/23 History lisinopril 10 mg tablet 10 mg PO DAILY BP 07/17/23 07/17/23 History metformin 500 mg tablet 500 mg PO BID DM 07/17/23 07/17/23 History New Prescriptions to Start Prescriptions: Allergies Allergy/AdvReac Type Severity Reaction Status Date / Time acetaminophen [From TYLENOL] Allergy Unknown Verified 07/17/23 13:18 tramadol [TRAMADOL] Allergy Unknown Verified 07/17/23 13:18 Exam Data for Last 24 hours Vital signs and Labs for Last 24 Hours: Temp Pulse Resp BP Pulse Ox O2 Del Method 97.6 F 72 16 115/65 97 Room Air 07/17/23 18:56 07/17/23 18:56 07/17/23 18:56 07/17/23 18:56 07/17/23 18:56 07/17/23 18:47 Laboratory Results - last 24 hr 07/17/23 15:14: WBC 11.3 H, RBC 5.33, Hgb 15.2, Hct 47.7 H, MCV 89.5, MCH 28.6, MCHC 31.9, RDW 14.6, Plt Count 246, MPV 9.3, Neut % (Auto) 59.1, Lymph % (Auto) 31.9, [place] % (Auto) 5.3, Eos % (Auto) 3.2, Baso % (Auto) 0.6, Neut # (Auto) 6.7, Lymph # (Auto) 3.6, [place] # (Auto) 0.6, Eos # (Auto) 0.4, Baso # (Auto) 0.1, PT 10.7, INR 0.99, APTT 28.8, Sodium 141, Potassium 4.4, Chloride 104, Carbon Dioxide 25, Anion Gap 16.4 H, BUN 21 H, Creatinine 1.00, Estimated Creat Clear 63, Estimated GFR 53 L, Est GFR ( Amer) 65, Glucose 142 H, Calcium 9.5, Magnesium 1.7, Total Bilirubin 1.0, AST 77 H, ALT 65, Alkaline Phosph
[2023-07-17 20:49] LABS: POC Glucose,Bedside 144 (70-110)
[2023-07-17 21:47] LABS: Troponin I < 0.01 ng/ml (0.00-0.034)
[2023-07-18] VITALS: BP 122/74; PULSE 80; PULSE 85; RESP 16; TEMP 36.3; O2SAT 94
[2023-07-18 04:00] VITALS: BP 114/71; PULSE 70; RESP 18; TEMP 36.8; O2SAT 98; BMI 34.2
--- NOTE | 2023-07-18 05:17 | PC.NURSE ---
Patient has rested well through the night. Has not complained of any issues. Patient has been NPO since midnight in preparation for Cardiac consult
[2023-07-18 06:00] LABS: POC Glucose,Bedside 153 (70-110)
[2023-07-18 06:05] VITALS: PULSE 60
[2023-07-18 07:00] LABS: Basophils # 0.1 K/mm3 (0-0.2); Basophils % 0.6 % (0.1-2.0); Eosinophils # 0.4 K/mm3 (0.0-0.4); Eosinophils % 4.5 % (0.1-12.0); Hematocrit 42.7 % (37.0-47.0); Hemoglobin 13.7 g/dL (12.2-16.2); Lymphocytes # 3.5 K/mm3 (0.7-4.5); Lymphocytes % 37.3 % (10-50); Mean Corpuscular Hemoglobin 28.7 pg (27.0-31.2); Mean Corpuscular Volume 89.6 fl (81-99); Mean Platelet Volume 9.4 fl (7.4-10.4); Monocytes # 0.6 K/mm3 (0.1-1.0); Monocytes % 6.7 % (1.7-9.3); Neutrophils # 4.8 K/mm3 (1.8-7.8); Platelet Count 231 K/mm3 (142-424); Red Blood Count 4.77 M/mm3 (4.20-5.40); Red Cell Distribution Width 14.8 % (11.5-17.5); White Blood Count 9.4 K/mm3 (4.8-10.8)
[2023-07-18 07:11] LABS: Alanine Aminotransferase 52 U/L (12-78); Albumin Level 3.6 g/dl (3.5-5.0); Albumin/Globulin Ratio 1.2 (1.1-1.8); Alkaline Phosphatase 77 U/L (38-126); Anion Gap 12.4 mEq/L (5-15); Aspartate Amino Transferase 55 U/L (14-36); Bilirubin,Total 0.5 mg/dl (0.2-1.3); Blood Urea Nitrogen 23 mg/dl (7-17); Calcium 8.9 mg/dl (8.4-10.2); Carbon Dioxide 25 mmol/L (22.0-30.0); Chloride 108 mmol/L (98-107); Chol/HDL Ratio 4.8 (1-3.5); Cholesterol 144 mg/dl (140-200); Creatinine Clearance Estimated 65 mL/min (50-200); Estimated Glomerular Filt Rate 69 ml/min (>60); GFR (African American) 84 ML/MIN (>60); Glucose 137 mg/dl (74-100); HDL Cholesterol 30 mg/dl (40-60); Magnesium 1.6 mg/dl (1.6-2.3); Potassium 3.4 mmoL/L (3.5-5.1); Sodium 142 mmol/L (136-145); Total Protein,Serum 6.6 g/dl (6.3-8.2); Triglycerides 147 mg/dl (30-150); VLDL Cholesterol 29 mg/dL (0-40)
[2023-07-18 07:21] LABS: Direct LDL Cholesterol 80.68 mg/dL (100-129)
[2023-07-18 07:47] VITALS: O2SAT 97
[2023-07-18 08:00] VITALS: BP 135/80; PULSE 80; PULSE 84; RESP 18; TEMP 36.7; O2SAT 95
--- NOTE | 2023-07-18 08:30 | EXP.PN ---
Subjective *Date: 07/18/23 *Time: 10:36 Interval history: The patient is seen and examined at bedside today. I am accompanied by nursing staff. They report that she remains afebrile with improved heart rate stable blood pressures and saturating appropriately on room air. She reports that she is feeling better. Her daughter is at bedside. Her morning labs have been reviewed, discussed and personally interpreted as follows: CBC which is normal, low potassium with normal sodium and low magnesium. Normal creatinine. Her 2020 echocardiogram identified EF 55%. She is tolerating her medication therapy with no adverse events and cardiology is due to see the patient. Exam Data for Last 24 hours Vital signs and Labs for Last 24 Hours: Temp Pulse Resp BP Pulse Ox O2 Del Method 98.1 F 84 18 135/80 95 Room Air 07/18/23 08:00 07/18/23 08:00 07/18/23 08:00 07/18/23 08:00 07/18/23 08:00 07/18/23 08:00 Laboratory Results - last 24 hr 07/17/23 15:14: WBC 11.3 H, RBC 5.33, Hgb 15.2, Hct 47.7 H, MCV 89.5, MCH 28.6, MCHC 31.9, RDW 14.6, Plt Count 246, MPV 9.3, Neut % (Auto) 59.1, Lymph % (Auto) 31.9, [place] % (Auto) 5.3, Eos % (Auto) 3.2, Baso % (Auto) 0.6, Neut # (Auto) 6.7, Lymph # (Auto) 3.6, [place] # (Auto) 0.6, Eos # (Auto) 0.4, Baso # (Auto) 0.1, PT 10.7, INR 0.99, APTT 28.8, Sodium 141, Potassium 4.4, Chloride 104, Carbon Dioxide 25, Anion Gap 16.4 H, BUN 21 H, Creatinine 1.00, Estimated Creat Clear 63, Estimated GFR 53 L, Est GFR ( Amer) 65, Glucose 142 H, Calcium 9.5, Magnesium 1.7, Total Bilirubin 1.0, AST 77 H, ALT 65, Alkaline Phosphatase 105, Troponin I < 0.01, NT-Pro-B Natriuret Pep 828 H, Total Protein 8.2 D, Albumin 4.4, Globulin 3.8 H, Albumin/Globulin Ratio 1.2, TSH 6.84 H, Thyroxine (T4) 7.6 07/17/23 18:45: Troponin I < 0.01 07/17/23 20:27: POC Glucose 144 H 07/17/23 21:15: Troponin I < 0.01 07/18/23 05:51: POC Glucose 153 H 07/18/23 06:19: WBC 9.4, RBC 4.77, Hgb 13.7, Hct 42.7, MCV 89.6, MCH 28.7, MCHC 32.0, RDW 14.8, Plt Count 231, MPV 9.4, Neut % (Auto) 51.0, Lymph % (Auto) 37.3, [place] % (Auto) 6.7, Eos % (Auto) 4.5, Baso % (Auto) 0.6, Neut # (Auto) 4.8, Lymph # (Auto) 3.5, [place] # (Auto) 0.6, Eos # (Auto) 0.4, Baso # (Auto) 0.1, Sodium 142, Potassium 3.4 L D, Chloride 108 H, Carbon Dioxide 25, Anion Gap 12.4, BUN 23 H, Creatinine 0.80, Estimated Creat Clear 65, Estimated GFR 69, Est GFR ( Amer) 84 D, Glucose 137 H, Calcium 8.9, Magnesium 1.6, Total Bilirubin 0.5, AST 55 H D, ALT 52, Alkaline Phosphatase 77, Total Protein 6.6, Albumin 3.6 D, Globulin 3.0, Albumin/Globulin Ratio 1.2, Triglycerides 147, Cholesterol 144, LDL Cholesterol Direct 80.68 L, VLDL Cholesterol 29, HDL Cholesterol 30 L, Cholesterol/HDL Ratio 4.8 H I & O for Last 24 hours: Intake & Output 07/15/23 07/16/23 07/17/23 07/18/23 23:59 23:59 23:59 23:59 Output Total 0 / 0 Balance 0 / 0 Weight 89.018 kg 90.917 kg Constitutional Constitutional: no acute distress and cooperative *Routine HEENT Exam Head: Present normocephalic *Routine Neck Exam Neck: Present supple *Routine Respiratory Exam Respiratory: Present rhonchi, normal respiratory effort and symmetric chest movement *Routine Cardiovascular Exam Cardiovascular: Present RRR *Routine Extremities Exam Extremities: Present full ROM; Absent edema *Routine Skin Exam Skin: Present warm *Routine Neurological Exam Neurological: Present alert, oriented X3, moving all extremities, vision grossly intact, hearing grossly intact and normal speech; Absent sensory deficit or motor deficit Routine Psychiatric Exam Psychiatric: Present normal affect, normal thought process, cooperative, good insight and good judgment Assessment and Plan *Assessment and plan (1) Atrial fibrillation, new onset: Status: Acute Category: Medical Code(s): I48.91 - Unspecified atrial fibrillation (2) CVA (cerebral vascular accident): Status: Acute Qualifiers: CVA
--- NOTE | 2023-07-18 08:38 | CA_ITS ---
APPROVED REPORT EXAM: Comprehensive 2D, Doppler, and color-flow Echocardiogram Licensing Officer: GORDON Arevalo, RVS Ht: 5 ft 4 in Wt: 200lbs BSA: 1.96 BP: 115/65 mmHg Indications: CAD, PAD, Afib, Murmur, COPD, prior CVA Lt sided weakness Echo Enhancing Agent Comments: Limited windows due body habitus and lung impedence 2D Dimensions Aortic Root 2.79 cm F: 2.7 - 3.3 LA Volume 69.50 mL Left Atrium 4.17 cm F: 2.7 - 3.8 LA Volume Index 35.46 mL/m2 (M/F) 16-34 LVOT 2.13 cm (M/F) 1.5-2.5 M-Mode Dimensions RVDd 4.21 cm (0.9-2.6) LA Diam 4.56 cm (1.9-4.0) LVDd 4.12 cm (3.5-5.7) Ao Diam 2.98 cm (2.0-3.7) LVDs 3.06 cm (3.5-5.7) IVSd 1.02 cm (0.6-1.1) PWd 0.72 cm (0.6-1.1) EF (Teich) 51.10% EPSs 0.43 cm FS 25.70% EDV (Teich) 75.10 mL TAPSE 1.37 (<1.7) ESV (Teich) 36.70 mL LV Diastology E Decel Time 180.00 (160-240 msec) E/A Ratio 2.14 MED E' 7.50 (< 7 cm/sec) MED A' 3.30 cm/s E'/MED E' Ratio 10.93 (>14) LAT E' 12.00 (<10 cm/sec) LAT A' 2.70 cm/s E/LAT E' Ratio 6.83 (>14) Aortic Valve LVOT Max 78.00 (70-110 cm/s) LVOT VTI 15.87 cm AoV Peak Matthias. 118.00 (50-130 cm/s) AO Peak GR. 5.60 mmHg AO Mean GR. 2.90 (<5 mmHg) AO VTI 21.50 (18-25 cm) WILIAN (VTI) 2.63 (2.5-4.5 cm2) Mitral Valve MV A Velocity 38.00 (40-130 cm/s) E/A Ratio 2.14 MV Decel. Time 180.00 (160-240 ms) Pulmonary Valve PV Peak Velocity 103.00 (50-150 cm/s) SC End VMAX 150.00 cm/s Left Ventricle The left ventricle is normal size. The left ventricular systolic function is normal. The left ventricular ejection fraction is within the normal range. There is normal left ventricular wall thickness. There is normal LV segmental wall motion. The left ventricular diastolic function is normal. LVEF is 60%. Right Ventricle The right ventricle is normal size. The right ventricular systolic function is normal. Atria The left atrium size mildly dilated. The right atrium size is normal. There is no Doppler evidence of interatrial shunt. Aortic Valve The aortic valve is mildly thickened. There is no aortic valvular stenosis. Trace aortic regurgitation. Mitral Valve The mitral valve is mildly thickened. No evidence of mitral valve stenosis. Mild mitral regurgitation. Tricuspid Valve The tricuspid valve leaflets are thin and pliable. Trace tricuspid regurgitation. There is insufficient TR jet to estimate RVSP. Pulmonic Valve The pulmonary valve is normal in structure. Trace pulmonic regurgitation. Great Vessels The aortic root is normal in size. The ascending aorta is normal in size. IVC is normal in size and collapses >50% with inspiration. Pericardium There is no pericardial effusion. Other Information Study Quality: Technically Difficult Conclusion This was a technically difficult study in the setting of poor acoustic windows. Normal biventricular systolic function. Mild LA enlargement. No significant valvular stenosis or regurgitation. Electronically signed by : Ce Estrada, 07/22/2023 20:40:53
--- NOTE | 2023-07-18 09:11 | EXP.CARD.CON ---
History of Present Illness History of Present Illness Consult date: 07/18/23 Requesting physician: Lawson Brewer Consult reason: atrial fibrillation Chief complaint: afib History of present illness: 77-year-old female with PMHx of hypertension, PAD, CAD, hyperlipidemia, prior CVA with left lower leg weakness, on aspirin and Plavix, and diabetes presenting to the emergency department for evaluation with concern for atrial fibrillation with RVR noted on EKG. Patient went to PCP for follow up after recent hospitalization due to CVA. Patient was referred to hospital for abnormal EKG. Patient denies any history of A-fib. She reports that she has been feeling weak lately, but there is been nothing out of the ordinary. She denied any fevers, chills, chest pain, shortness of breath, cough, congestion, abdominal pain, nausea, vomiting, changes in bowel movements, rashes, or swelling. Admitted for observation and management. Was given metoprolol and is currently A-fib rate controlled. Labs as follow: WBC 9.4, hemoglobin 13.7, sodium 142, potassium 3.4, creatinine 0.8, serial troponins negative. Chest x-ray shows right base atelectasis This morning patient remains in A-fib but rate controlled in the 70s with no complaints [facility] Disclaimer: The information contained in this section may have been updated after the patient was seen, as this information can be updated by other users. Medical History Abnormal ankle brachial index (ELHAM) Abnormal EKG Atypical angina Claudication COPD (chronic obstructive pulmonary disease) Daytime somnolence Diabetes Dyspnea HLD (hyperlipidemia) Hypertension Neuropathy Snoring Surgical History History of cholecystectomy History of total left knee replacement History of total right knee replacement History of tubal ligation Hx of appendectomy Family History Father Diabetes Brother Brain cancer Daughter No problems noted. Sister Breast cancer Social History (Updated 07/17/23 @ 18:43 by Benjamin Campos RN) Smoking Status: Never smoker second hand exposure: No alcohol intake: former substance use type: denies use current occupational status: retired Travel in the last 8 weeks: None household members: children housing: house current occupational exposures/hazards: No caffeine: No Review of Systems Review of Systems Review of systems:: pertinent systems reviewed and negative unless documented below *Cardiovascular Cardiovascular: Denies chest pain and Denies dyspnea *Respiratory Respiratory: Denies dyspnea Exam Data for Last 24 hours Vital signs and Labs for Last 24 Hours: Temp Pulse Resp BP Pulse Ox O2 Del Method 98.1 F 84 18 135/80 95 Room Air 07/18/23 08:00 07/18/23 08:00 07/18/23 08:00 07/18/23 08:00 07/18/23 08:00 07/18/23 08:00 Laboratory Results - last 24 hr 07/17/23 15:14: WBC 11.3 H, RBC 5.33, Hgb 15.2, Hct 47.7 H, MCV 89.5, MCH 28.6, MCHC 31.9, RDW 14.6, Plt Count 246, MPV 9.3, Neut % (Auto) 59.1, Lymph % (Auto) 31.9, [place] % (Auto) 5.3, Eos % (Auto) 3.2, Baso % (Auto) 0.6, Neut # (Auto) 6.7, Lymph # (Auto) 3.6, [place] # (Auto) 0.6, Eos # (Auto) 0.4, Baso # (Auto) 0.1, PT 10.7, INR 0.99, APTT 28.8, Sodium 141, Potassium 4.4, Chloride 104, Carbon Dioxide 25, Anion Gap 16.4 H, BUN 21 H, Creatinine 1.00, Estimated Creat Clear 63, Estimated GFR 53 L, Est GFR ( Amer) 65, Glucose 142 H, Calcium 9.5, Magnesium 1.7, Total Bilirubin 1.0, AST 77 H, ALT 65, Alkaline Phosphatase 105, Troponin I < 0.01, NT-Pro-B Natriuret Pep 828 H, Total Protein 8.2 D, Albumin 4.4, Globulin 3.8 H, Albumin/Globulin Ratio 1.2, TSH 6.84 H, Thyroxine (T4) 7.6 07/17/23 18:45: Troponin I < 0.01 07/17/23 20:27: POC Glucose 144 H 07/17/23 21:15: Troponin I < 0.01 07/18/23 05:51: POC Glucose 153 H 07/18/23 06
--- NOTE | 2023-07-18 10:09 | HMH.PTEV ---
Physical Therapy Evaluation Rehab PT IP Evaluation Start: 07/18/23 03:06 Freq: ONCE Status: Active Protocol: Document 07/18/23 10:07 CY (Rec: 07/18/23 10:09 CY [id number]) Subjective/History History History 77 yowf adm to [facility] with a-fib. Hx of CAD, PAD, HLD, CVA. She lives with family, 1 step to enter the home, and she is independent with all mobility using a RW. Subjective Subjective Pt with no c/o this am. Agrees to mobility assessment. New diagnosis of cancer in past 12 No months? Rehab PT IP Eval Objective Appearance Patient Behavior Appropriate Patient Orientation Person,Place,Time Difficulty following instructions none Speech Pattern Clear Ambulation Patient Able to Ambulate Yes Ambulation Observation IP General Gait Pattern Observation Wide Based Gait Ambulation Distance (feet) 50 Ambulation Assistive Device Rolling Walker Ambulation Ability Supervision/Stand by Balance Ability to Arise Able, uses arms to help Sitting Balance Steady, safe Standing Balance Steady, wide stance Dynamic Sitting Balance Ability Good Dynamic Standing Balance Ability Fair Transfers Bed Transfer Ability Supervision/Stand by Chair Transfer Ability Supervision/Stand by Sit to Stand Bed Transfer Ability Supervision/Stand by Sit to Stand Chair Transfer Ability Supervision/Stand by Rehab PT IP prob,goals,plan Problems Date of Evaluation: 07/18/23 Discharge Plan PT Discharge Plan Pt is appropriate to return hoem once medically stable for d/c. Eval Complexity Eval Charge Codes 05956 - High Complexity PHYSICIAN CERTIFICATION: I certify the specified therapy services for Aretha Villalta are required, authorized, and reviewed every 30 days.
--- NOTE | 2023-07-18 10:10 | HMH.OTEV ---
OT Inpatient Evaluation Rehab OT IP Evaluation Start: 07/18/23 03:06 Freq: ONCE Status: Active Protocol: Document 07/18/23 10:03 REYNALDO (Rec: 07/18/23 10:10 REYNALDO [id number]) Rehab OT IP Assessment Subjective History This is a 77-year-old female with PMHx of hypertension, PAD , CAD, hyperlipidemia, prior CVA with left lower leg weakness, on aspirin and Plavix, and diabetes presenting to the emergency department for evaluation with concern for atrial fibrillation with RVR noted on EKG. Patient went to PCP for follow up after recent hospitalization due to CVA. Patient was referred to hospital for abnormal EKG. Patient denies any history of A-fib. She reports that she has been feeling weak lately, but there is been nothing out of the ordinary. She denied any fevers, chills, chest pain , shortness of breath, cough, congestion, abdominal pain, nausea, vomiting, changes in bowel movements, rashes, or swelling. Admitted for observation and management. Patient lives with family in mobile home with 1STE. Patient uses a RW to ambulate within the home. Independent with all ADLs and fx'l mobility. Subjective Sadaf already been up to the bathroom. Instructed Patient on proper hand and foot placement to complete supine->sit @ EOB-> stand with usage of RW. Patient ambulated within the room and hallways >75ft with RW SBA. No LOB noted. Patient completed LB drsg I. Left Patient upright in bed with needs met at end of session. Objective Patient Orientation Person,Place,Age,Year Upper Extremity Gross ROM WFL Bed Mobility
--- NOTE | 2023-07-18 10:28 | HMH.PHAINT1 ---
Pharmacy Intervention Comments: MEDICATION RECONCILIATION COMPLETE USING EXTERNAL PHARMACY FILL HISTORY AND MOST RECENT MD OFFICE VISIT (07/2023).
--- NOTE | 2023-07-18 10:46 | EXP.DC.SUM ---
General Admission date:: 07/17/23 Discharge date: 07/18/23 HPI HPI HPI: This is a 77-year-old female with PMHx of hypertension, PAD, CAD, hyperlipidemia, prior CVA with left lower leg weakness, on aspirin and Plavix, and diabetes presenting to the emergency department for evaluation with concern for atrial fibrillation with RVR noted on EKG. Patient went to PCP for follow up after recent hospitalization due to CVA. Patient was referred to hospital for abnormal EKG. Patient denies any history of A-fib. She reports that she has been feeling weak lately, but there is been nothing out of the ordinary. She denied any fevers, chills, chest pain, shortness of breath, cough, congestion, abdominal pain, nausea, vomiting, changes in bowel movements, rashes, or swelling. Admitted for observation and management. Hospital Course Hospital Course Hospital Course: The patient was admitted to the telemetry unit with cardiology consultation. Her labs and inflammatory markers were trended. Problems addressed as follows: Atrial fibrillation RVR resolved Elevated CHADS2 score with previous history of stroke Telemetry monitoring Cardiology consult Beta-shweta therapy Eliquis 5 mg twice daily Coronary artery disease Telemetry monitoring P2Y12 inhibitor therapy Avoiding aspirin with age and concerns with triple anticoagulation therapy Beta-shweta therapy HUONG inhibitor therapy Statin therapy Diabetes Routine blood sugar monitoring Carbohydrate controlled diet Outpatient medications under reconciliation Hypertension Routine blood pressure monitoring Discontinue amlodipine Beta-shweta therapy HUONG inhibitor therapy Thiazide diuretic therapy Previous stroke with residual P2Y12 inhibitor therapy Statin therapy On discharge we discussed elevated LVEDP and low-dose hydrochlorothiazide added to regimen. She will discontinue amlodipine and continue with HUONG inhibitor therapy, beta-shweta therapy and HCTZ. The patient identified improvement and she was evaluated by cardiology. She received potassium and magnesium replacement therapy. Cardiology recommended an echocardiogram to compare to her previous echocardiogram 2020 which identified an EF of 55%. Cardiology recommended a 2-week event monitor to assess rhythm. Her medications were adjusted to include beta-shweta therapy and Eliquis therapy secondary to her elevated CHADS2 score and previous stroke. Her daughter was at bedside for discharge planning. The patient and her daughter voiced understanding concerning the importance of medication compliance, routine blood pressure evaluations and follow-up with consultants as scheduled. I spent 35 minutes in [id number] time with the patient, daughter at bedside and nursing staff concerning the discharge process. We discussed the admitting diagnoses and hospital course. We discussed identified improvement and the patient's desire to be discharged. We reviewed inpatient studies and imaging. 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 The patient plans to be compliant with the medication regimen prescribed and follow-up appointments. She understands that she can return to the emergency department with any sudden changes or concerns. Exam Data for Last 24 hours Vital signs and Labs for Last 24 Hours: Temp Pulse Resp BP Pulse Ox O2 Del Method 98.1 F 84 18 135/80 95 Room Air 07/18/23 08:00 07/18/23 08:00 07/18/23 08:00 07/18/23 08:00 07/18/23 08:00 07/18/23 08:00 Laboratory Results - last 24 hr 07/17/23 15:14: WBC 11.3 H, RBC 5.33, Hgb 15.2, Hct 47.7 H, MCV 89.5, MCH 28.6, MCHC 31.9, RDW 14.6, Plt Count 246, MPV 9.3, Neut % (Auto) 59.1, Lymph % (Auto) 31.9, [place] % (Auto) 5.3, Eos % (Auto) 3.2, Baso % (Auto) 0.6, Neut # (Auto) 6.7, Lymph # (Auto) 3.6, [place] # (Auto) 0.6, Eos # (Auto) 0.4, Baso # (Auto) 0.1, PT 10.7, INR 0.99, APTT 28.8, Sodium 141, Potassium 4.4, C
--- NOTE | 2023-07-21 15:09 | CARE MANAGER ---
Contacted patient's daughter related to hospital discharge. She states patient is weak but doing well. Denies questions or concerns. Picked up new medications and stopped others. Aware of follow up appointment. RIOS Chua
== END 2023-07-18 11:30 | disposition home or self-care (01) ==
LOC: ER 16:46 → 2ND 17:04
PROVIDERS: Nurse Practitioner Family; Admitting Provider Family Medicine; Emergency Provider Emergency Medicine; Visit Provider Family Medicine
DX: I48.91 Unspecified atrial fibrillation (principal); I25.10 Atherosclerotic heart disease of native coronary artery without angina pectoris; I10 Essential (primary) hypertension; E11.69 Type 2 diabetes mellitus with other specified complication; E78.5 Hyperlipidemia, unspecified; E66.9 Obesity, unspecified; I73.9 Peripheral vascular disease, unspecified; Z79.899 Other long term (current) drug therapy; I69.354 Hemiplegia and hemiparesis following cerebral infarction affecting left non-dominant side; R06.9 Unspecified abnormalities of breathing; Z79.84 Long term (current) use of oral hypoglycemic drugs
CPT/HCPCS: 36415; 71045; 80053; 80061; 82962; 83735; 83880; 84436; 84443; 84484; 85025; 85610; 85730; 93005; 93306; 97163; 97165; 99291; G0378; J3475

== ENCOUNTER → 2023-07-31 15:44 | Outpatient (CLI) | payer MEDICARE, OTHER, SELFPAY | PROVIDERS: PCP Family Medicine; Visit Provider Nurse Practitioner | DX: I48.91 Unspecified atrial fibrillation (principal) | CPT/HCPCS: 93270 ==

== ENCOUNTER 2023-11-30 23:40 | Inpatient (IN) | payer MEDICARE, OTHER, SELFPAY ==
--- NOTE | 2023-11-30 23:49 | XR_ITS ---
PROCEDURE INFORMATION: Exam: XR Chest Exam date and time: 11/30/2023 11:55 PM Age: 78 years old Clinical indication: Pain; Chest pressure; Additional info: Cp TECHNIQUE: Imaging protocol: Radiologic exam of the chest. Views: 1 view. COMPARISON: CR XR CHEST PORTABLE 07/17/2023 3:43 PM FINDINGS: Lungs: Lung volumes are low. Pleural spaces: Unremarkable. No pleural effusion. No pneumothorax. Heart/Mediastinum: Unremarkable. No cardiomegaly. Diaphragm: There is elevation of the right hemidiaphragm. Bones/joints: Unremarkable. IMPRESSION: Low lung volumes and elevation of the right hemidiaphragm. And
--- NOTE | 2023-11-30 23:52 | P.HP_ITS ---
History of Present Illness *Admission Date: 11/30/23 *Reason for visit:: CP/ Afib w/RVR. *History of present illness: This is a 78-year-old female with PMHx of hypertension, PAD, CAD, hyperlipidemia, prior CVA with left lower leg weakness, on aspirin and Plavix, and diabetes presenting to [facility] emergency department for evaluation of chest palpitation, that was documented as pain and SOB. Atrial fibrillation with RVR noted on EKG.Patient was referred to our hospital for cardiology evaluation and treatment. patient been admitted before for same reason. Upon arrival EKG was obtained, rhythm was confirm to still afib with RVR. Per report obatained form ED HR initially in the lowers 100s'. Metoprolol IV given. pain resolved. Patient's rhythms converted to SR. Patient hemodinamically stable. eleveted troponin. no chest pain. Discussed for admission. Cardiology consulted for further management. [facility] Disclaimer: The information contained in this section may have been updated after the patient was seen, as this information can be updated by other users. Medical History Abnormal ankle brachial index (ELHAM) Abnormal EKG Atypical angina Claudication COPD (chronic obstructive pulmonary disease) Daytime somnolence Diabetes Dyspnea HLD (hyperlipidemia) Hypertension Neuropathy Snoring Surgical History History of cholecystectomy History of total left knee replacement History of total right knee replacement History of tubal ligation Hx of appendectomy Family History Father Diabetes Brother Brain cancer Daughter No problems noted. Sister Breast cancer Social History Smoking Status: Never smoker second hand exposure: No alcohol intake: former substance use type: denies use current occupational status: retired Travel in the last 8 weeks: None household members: children housing: house current occupational exposures/hazards: No caffeine: No Review of Systems Review of Systems Review of systems:: pertinent systems reviewed and negative unless documented below Meds Home Medications and Allergies Home Medications Medication Instructions Recorded Confirmed Type atorvastatin 40 mg tablet 40 mg PO HS Cholesterol #30 tabs 09/17/23 12/01/23 Rx lisinopril 10 mg tablet 10 mg PO DAILY High Blood Pressure 09/17/23 12/01/23 Rx #30 tabs metformin 500 mg tablet 500 mg PO BID Diabetes #30 tabs 09/17/23 12/01/23 Rx apixaban 5 mg tablet (Eliquis) 5 mg PO BID Blood Thinner/Afib 12/01/23 12/01/23 History clopidogrel 75 mg tablet 75 mg PO DAILY Platelet Inhibitor 12/01/23 12/01/23 History hydrochlorothiazide 12.5 mg capsule 12.5 mg PO DAILY Fluid 12/01/23 12/01/23 History metoprolol succinate 25 mg 25 mg PO DAILY High Blood Pressure 12/01/23 12/01/23 History tablet,extended release 24 hr pantoprazole 40 mg tablet,delayed 40 mg PO DAILY Acid Reflux 12/01/23 12/01/23 History release New Prescriptions to Start Prescriptions: Allergies Allergy/AdvReac Type Severity Reaction Status Date / Time acetaminophen [From TYLENOL] Allergy Unknown Verified 07/31/23 15:12 tramadol [TRAMADOL] Allergy Unknown Verified 07/31/23 15:12 Exam Data for Last 24 hours Vital signs and Labs for Last 24 Hours: Temp Pulse Resp BP Pulse Ox O2 Del Method 97.6 F 72 16 115/65 97 Room Air 07/17/23 18:56 07/17/23 18:56 07/17/23 18:56 07/17/23 18:56 07/17/23 18:56 07/17/23 18:47 Laboratory Results - last 24 hr 07/17/23 15:14: WBC 11.3 H, RBC 5.33, Hgb 15.2, Hct 47.7 H, MCV 89.5, MCH 28.6, MCHC 31.9, RDW 14.6, Plt Count 246, MPV 9.3, Neut % (Auto) 59.1, Lymph % (Auto) 31.9, [place] % (Auto) 5.3, Eos % (Auto) 3.2, Baso % (Auto) 0.6, Neut # (Auto) 6.7, Lymph # (Auto) 3.6, [place] # (Auto) 0.6, Eos # (Auto) 0.4, Baso # (Auto) 0.1, PT 10.7, INR 0.99, APTT 28.8, Sodium 141, Potassium 4.4, Chloride 104, Carbon Dioxide 25, Anion Gap 16.4 H, BUN 21 H, Creatinine 1.00, Estimated Creat Clear 63, Estimated GFR 53 L, Est GFR ( Amer) 65, Glucose 142 H, Calcium 9.5, Magnesium 1.7, Total Bilirubin 1.0, AST 77 H, ALT 65, Alkaline Phosphatase 105, Troponin I < 0.01, NT-Pro-B Natriuret Pep 828 H, Total Protein 8.2 D, Albumin 4.4, Globulin 3.8 H, Albumin/Globulin Ratio 1.2, TSH 6.84 H, Thyroxine (T4) 7.6 07/17/23 18:45: Troponin I < 0.01 I & O for Last 24 hours: Intake & Output 07/14/23 07/15/23 07/16/23 07/17/23 23:59 23:59 23:59 23:59 Weight 89.018 kg Constitutional Constitutional: no acute distress and cooperative *Routine HEENT Exam Head: Present normocephalic and atraumatic Eye: Present EOMI, PERRL and normal accommodation ENT: Present mucous membranes moist *Routine Neck Exam Neck: Present supple, full ROM and trachea midline *Routine Respiratory Exam Respiratory: Present normal respiratory effort, able to speak in complete sentences and symmetric chest movement *Routine Cardiovascular Exam Cardiovascular: Present Normal S1, Normal S2, tachycardia and irregular rhythm *Routine Abdominal Exam Abdominal: Present soft, normoactive bowel sounds and obese; Absent organomegaly *Routine Rectal Exam Rectal:: other *Routine Genitalia Exam Genitalia:: other *Routine Extremities Exam Extremities: Present full ROM, pulses intact and normal capillary refill *Routine Skin Exam Skin: Present intact, dry and warm *Routine Neurological Exam Neurological: Present alert, oriented X3, normal reflexes, moving all extremities and normal speech Routine Psychiatric Exam Psychiatric: Present cooperative, good insight and good judgment H&P: Result Imaging and Cardiology EKG: Status: image reviewed by me and Preliminary report Chest x-ray: Status: image reviewed by me, Preliminary report and final report Assessment and Plan *Assessment and plan (1) Atrial fibrillation with RVR: Status: Acute Category: Medical Code(s): I48.91 - Unspecified atrial fibrillation (2) NSTEMI (non-ST elevated myocardial infarction): Status: Acute Category: Medical Code(s): I21.4 - Non-ST elevation (NSTEMI) myocardial infarction (3) CAD (coronary artery disease): Problem Comment: Coronary calcium score 1304 Status: Chronic Qualifiers: Associated angina: unspecified whether angina present Coronary Disease- Associated Artery/Lesion type: unspecified vessel or lesion type [place] vs. transplanted heart: [place] heart Qualified Code(s): I25.10 - Atherosclerotic heart disease of [place] coronary artery without angina pectoris Category: Medical Code(s): I25.10 - Atherosclerotic heart disease of [place] coronary artery without angina pectoris (4) NUZHAT (acute kidney injury): Status: Resolved Category: Medical Code(s): N17.9 - Acute kidney failure, unspecified (5) Leukocytosis: Status: Acute Qualifiers: Leukocytosis type: unspecified Qualified Code(s): D72.829 - Elevated white blood cell count, unspecified Category: Medical Code(s): D72.829 - Elevated white blood cell count, unspecified (6) Hypertension: Status: Chronic Qualifiers: Hypertension type: essential hypertension Qualified Code(s): I10 - Essential (primary) hypertension Category: Medical Code(s): I10 - Essential (primary) hypertension (7) Diabetes: Status: Chronic Qualifiers: Diabetes mellitus complication status: with other specified complication 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: without regional intermodal truck driver use Diabetes mellitus type: type 2 Qualified Code(s): E11.69 - Type 2 diabetes mellitus with other specified complication Category: Medical Code(s): E11.9 - Type 2 diabetes mellitus without complications (8) HLD (hyperlipidemia): Status: Acute Qualifiers: Hyperlipidemia type: unspecified Qualified Code(s): E78.5 - Hyperlipidemia, unspecified Category: Medical Code(s): E78.5 - Hyperlipidemia, unspecified (9) CVA (cerebral vascular accident): Status: Acute Qualifiers: CVA mechanism: occlusion Laterality of affected vessel: left Precerebral and cerebral artery: posterior cerebral artery Qualified Code(s): I63.532 - Cerebral infarction due to unspecified occlusion or stenosis of left posterior cerebral artery Category: Medical Code(s): I63.9 - Cerebral infarction, unspecified Plan 78-year-old female with PMHx of hypertension, PAD, CAD, hyperlipidemia, prior CVA with left lower leg weakness, on aspirin and Plavix, and diabetes presenting to [facility] emergency department for evaluation of chest palpitation that was documented as pain and SOB. Atrial fibrillation with RVR noted on EKG.Patient was referred to our hospital for cardiology evaluation and treatment. patient been admitted before for same reason. Upon arrival EKG was obtained, rhythm was confirmed went back to afib with RVR. Patient hemodinamically stable. eleveted troponin. no chest pain. Cardiology consulted for further management. Plan as follow: -Atrial fibrillation with RVR: Initially with RVR, coverted to SR after metoprolol 5mg IV push. Arriving with RVR. Admission for cardiac telemetry. Dispo stepdown cardizem 10mg IV push started on continuos infusion EKG was reviewed. CXR ordered Cardiology consult. We will continue monitor. CBC/CMP/troponin. PT/INR/ Lactic acid ordered -NSTEMI: elevated troponin. Cont serial drawn aspirin 325mg monitor for CP. nitro SL p.r.n last cath 2020. recommended medical management -Leukocytocis: CXR ordered showed elevated right hemidiaphram to rule out PNA started on ceft 2g IV BID D-dimer ordered -NUZHAT: Presumed CI-NUZHAT: continue IV hydration monitor CMP daily watch for Cr -Others chronic conditions: CAD, hypertension, hyperlipidemia. Suspected non complaint. Patient missed f/u appt for out patient cardiology. Stated does not recall it. records reviews shows she is on lisinopril. HTCZ, and amlodipine, metoprolol. patient stated that does know what she currently taking or not. nursing to reconcile medication -diabetes. reconcile and resume home meds. Home metformin previuos CVA. recovered on plavix; eliquis SCd for DVT ppx. on protonix for GI protection. Full code Rounded on patient after nurse practitioner. Personally examined and interviewed patient. Agree with exam findings and care plan as documented.
[2023-12-01] VITALS (21 sets, daily range): BP systolic 107–174; BP diastolic 58–99; PULSE 60–141; RESP 16–24; TEMP 36.4–37.6; O2SAT 91–99; BMI 34.0; BMI 34.2
--- NOTE | 2023-12-01 | ECG_ITS ---
APPROVED REPORT Exam: Resting ECG HR:135 bpm ECG Measurements Heart Rate 135 AXES QRSd 76 QRS 55 QT 320 T -3 QTc 399 Conclusion ATRIAL FIBRILLATION WITH RAPID VENTRICULAR RESPONSE NONSPECIFIC ST & T-WAVE ABNORMALITY ABNORMAL RHYTHM ECG UNCONFIRMED REPORT Electronically signed by : Froilan Sawyer MD 12/02/2023 16:43:07
[2023-12-01] MEDS: dilTIAZem HCL 100 MG in 0.9 % SODIUM CHLORIDE 100 ML 10 MG IV (00:13)
[2023-12-01] MEDS: dilTIAZem 25MG/5ML VIAL 10 MG IV (00:14)
[2023-12-01 00:33] LABS: POC Glucose,Bedside 148 (70-110)
[2023-12-01 00:49] LABS: Chloride 102 mmol/L (98-107); Potassium 3.8 mmoL/L (3.5-5.1); Sodium 137 mmol/L (136-145)
[2023-12-01 00:51] LABS: Blood Urea Nitrogen 19 mg/dl (7-17); Creatinine Clearance Estimated 51 mL/min (50-200); Estimated Glomerular Filt Rate 43 ml/min (>60); GFR (African American) 52 ML/MIN (>60)
[2023-12-01 00:52] LABS: Alanine Aminotransferase 20 U/L (12-78); Albumin Level 3.7 g/dl (3.5-5.0); Alkaline Phosphatase 102 U/L (38-126); Anion Gap 10.8 mEq/L (5-15); Aspartate Amino Transferase 31 U/L (14-36); Bilirubin,Total 0.8 mg/dl (0.2-1.3); Carbon Dioxide 28 mmol/L (22.0-30.0); Globulin 3.8 g/dL (1.3-3.2); INR 1.01 (0.9-1.1); Prothrombin Time 10.9 seconds (10.1-12.5); Total Protein,Serum 7.5 g/dl (6.3-8.2)
[2023-12-01 00:53] LABS: Calcium 8.5 mg/dl (8.4-10.2); Glucose 154 mg/dl (74-100); Lactic Acid 1.4 mmol/L (0.7-2.1)
[2023-12-01 00:57] LABS: Basophils # 0.1 K/mm3 (0-0.2); Basophils % 0.3 % (0.1-2.0); Eosinophils % 0.1 % (0.1-12.0); Hematocrit 41.9 % (37.0-47.0); Hemoglobin 14.2 g/dL (12.2-16.2); Lymphocytes # 2.6 K/mm3 (0.7-4.5); Mean Corpuscular HGB Conc 33.9 g/dL (31.8-35.4); Mean Corpuscular Hemoglobin 29.6 pg (27.0-31.2); Mean Corpuscular Volume 87.2 fl (81-99); Mean Platelet Volume 9.9 fl (7.4-10.4); Monocytes # 1.1 K/mm3 (0.1-1.0); Monocytes % 5.5 % (1.7-9.3); Neutrophils % 81.2 % (37.0-80.0); Platelet Count 250 K/mm3 (142-424); Red Cell Distribution Width 13.6 % (11.5-17.5); White Blood Count 19.7 K/mm3 (4.8-10.8)
[2023-12-01 00:58] LABS: MANUAL DIFFERENTIAL MANUAL DIFFERENTIAL (MANUAL DIFF)
[2023-12-01] MEDS: 0.9 % SODIUM CHLORIDE 1000ML 1,000 ML 50 ML IV ×2 (00:58→21:26)
[2023-12-01 01:08] LABS: Troponin I 0.06 ng/ml (0.00-0.034)
[2023-12-01 01:33] LABS: Lymphocytes % 23 % (10-50); Neutrophils % 77 % (42-76); Platelet Estimate Normal; RBC Morphology Normal; Total Cells Counted 100
[2023-12-01 03:51] LABS: Troponin I 0.05 ng/ml (0.00-0.034)
[2023-12-01] MEDS: NITROGLYCERIN 0.4MG SL TABLET 0.400000000000000022 MG SL ×3 (05:35→15:37)
[2023-12-01] MEDS: MORPHINE 2MG/ML SYRINGE 2 MG IV (05:38)
--- NOTE | 2023-12-01 05:41 | ECG_ITS ---
APPROVED REPORT Exam: Resting ECG HR:94 bpm ECG Measurements Heart Rate 94 AXES QRSd 86 QRS 48 QT 375 T -1 QTc 427 Conclusion ATRIAL FIBRILLATION LOW QRS VOLTAGE IN PRECORDIAL LEADS [QRS DEFLECTION < 1.0 mV IN CHEST LEADS] NONSPECIFIC T-WAVE ABNORMALITY ABNORMAL RHYTHM ECG UNCONFIRMED REPORT Electronically signed by : Froilan Sawyer MD 12/02/2023 16:43:01
--- NOTE | 2023-12-01 05:43 | PC.NURSE ---
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
[2023-12-01] MEDS: ASPIRIN 325MG TABLET 325 MG PO (05:50)
[2023-12-01] MEDS: CEFTRIAXONE SODIUM 2 GM in 0.9 % SODIUM CHLORIDE 100 ML IV (06:07)
--- NOTE | 2023-12-01 06:09 | PC.NURSE ---
@0550 PT STATED CHEST PAIN IS AT A 10 AGAIN; NITRO X1 GIVEN; CP IS NOW A 7
[2023-12-01 06:27] LABS: Basophils # 0.1 K/mm3 (0-0.2); Basophils % 0.5 % (0.1-2.0); Eosinophils # 0.1 K/mm3 (0.0-0.4); Eosinophils % 0.4 % (0.1-12.0); Hematocrit 41.4 % (37.0-47.0); Hemoglobin 13.9 g/dL (12.2-16.2); Lymphocytes % 22.2 % (10-50); Mean Corpuscular HGB Conc 33.5 g/dL (31.8-35.4); Mean Corpuscular Hemoglobin 29.1 pg (27.0-31.2); Mean Corpuscular Volume 86.9 fl (81-99); Mean Platelet Volume 9.8 fl (7.4-10.4); Monocytes # 1.4 K/mm3 (0.1-1.0); Monocytes % 7.6 % (1.7-9.3); Neutrophils # 12.5 K/mm3 (1.8-7.8); Neutrophils % 69.4 % (37.0-80.0); Platelet Count 256 K/mm3 (142-424); Red Blood Count 4.77 M/mm3 (4.20-5.40); Red Cell Distribution Width 13.7 % (11.5-17.5)
[2023-12-01 06:30] LABS: Cholesterol 156 mg/dl (140-200); HDL Cholesterol 31 mg/dl (40-60); Triglycerides 106 mg/dl (30-150); VLDL Cholesterol 21 mg/dL (0-40)
[2023-12-01 06:35] LABS: D-Dimer 0.77 ug/mL (0.0-0.5)
[2023-12-01 06:41] LABS: Direct LDL Cholesterol 91.48 mg/dL (100-129)
[2023-12-01 06:43] LABS: Troponin I 0.05 ng/ml (0.00-0.034)
--- NOTE | 2023-12-01 07:00 | CT_ITS ---
PROCEDURE INFORMATION: Exam: CTA Chest With Contrast Exam date and time: 12/01/2023 9:18 AM Age: 78 years old Clinical indication: Other: Chest pain; Additional info: Cp TECHNIQUE: Imaging protocol: Computed tomographic angiography of the chest with contrast. Exam focused on the arteries. 3D rendering (Not supervised by radiologist): MIP and/or 3D reconstructed images were created by the technologist. Radiation optimization: All CT scans at this facility use at least one of these dose optimization techniques: automated exposure control; mA and/or kV adjustment per patient size (includes targeted exams where dose is matched to clinical indication); or iterative reconstruction. Contrast material: ISOVUE; Contrast volume: 50 ml; Contrast route: INTRAVENOUS (IV); COMPARISON: CR XR CHEST PORTABLE 11/30/2023 11:55 PM FINDINGS: Pulmonary arteries: Normal. No pulmonary emboli. Aorta: Unremarkable. No aortic aneurysm. No aortic dissection. Thyroid: Bilateral thyroid nodules are identified which are unchanged when compared with the CT scan from 05/22/2023. Lungs: There is multifocal bibasilar atelectasis most notable in the right middle lobe. Pleural spaces: Unremarkable. No pneumothorax. No pleural effusion. Heart: Unremarkable. No cardiomegaly. No pericardial effusion. Coronary arteries: Moderate coronary artery calcifications are identified. Lymph nodes: Unremarkable. No enlarged lymph nodes. Bones/joints: Unremarkable. No acute fracture. Soft tissues: Unremarkable. IMPRESSION: 1. No evidence of pulmonary embolism. 2. Moderate coronary artery calcifications. 3. Multifocal bibasilar atelectasis.
--- NOTE | 2023-12-01 08:00 | HMH.PHAINT1 ---
Pharmacy Intervention Comments: MEDICATION RECONCILIATION COMPLETED ON PATIENT USING EXTERNAL FILL HISTORY FROM PHARMACY AND LIST FROM CARDIOLOGY. MOST MEDICATIONS LAST FILL WAS 09/17/23 FOR A 30 DAY SUPPLY. SUSPECT NON-COMPLIANCE. -JOSE HENNESSYD
[2023-12-01] MEDS: PANTOPRAZOLE 40MG TABLET 40 MG PO (08:31)
--- NOTE | 2023-12-01 08:55 | P.CONCA_ITS ---
History of Present Illness History of Present Illness Consult date: 12/01/23 Requesting physician: Preet Vee Consult reason: chest pain, atrial fibrillation and shortness of breath Chief complaint: SOA, chest pain Additional Medical History:: 1. History of atrial fibrillation, newly diagnosed at time of cardiac catheterization in 2020 A. Anticoagulation with Eliquis B. [id number] score of at least 8 2. CAD, mild, left heart catheterization, 2020 A. Medical therapy with Plavix, statin, metoprolol 3. PAD, medical therapy, 2020 4. Diabetes mellitus 5. Hyperlipidemia 6. CVA, 05/2023 A. Right lower extremity weakness 7. Hypertension A. Echocardiogram, 07/2023, normal biventricular systolic function with mild LAE. No significant valve disease. History of present illness: This is a 78-year-old female with PMHx of hypertension, PAD, CAD, hyperlipidemia, prior CVA with left lower leg weakness, on aspirin and Plavix, and diabetes presenting to [facility] emergency department for evaluation of chest palpitation, that was documented as pain and SOB. Atrial fibrillation with RVR noted on EKG.Patient was referred to our hospital for cardiology evaluation and treatment. patient been admitted before for same reason. Upon arrival EKG was obtained, rhythm was confirm to still afib with RVR. Per report obatained form ED HR initially in the lowers 100s'. Metoprolol IV given. pain resolved. Patient's rhythms converted to SR. Patient hemodinamically stable. eleveted troponin. no chest pain. Discussed for admission. Cardiology consulted for further management. The above per HEMANT Kaminski historian but confirms events as noted above. No complaints except some right sided chest, neck and upper back area discomfort worse with cough. Unsure of home meds. CTA of chest pending due to elevated D-Dimer. Heart rate currently controlled on IV diltiazem. Will start heparin gtt. Mild elevated troponin at 0.06, 0.05 and 0.05 [facility] Disclaimer: The information contained in this section may have been updated after the patient was seen, as this information can be updated by other users. Medical History Abnormal ankle brachial index (ELHAM) Abnormal EKG Atypical angina Claudication COPD (chronic obstructive pulmonary disease) Daytime somnolence Diabetes Dyspnea HLD (hyperlipidemia) Hypertension Neuropathy Snoring Surgical History History of cholecystectomy History of total left knee replacement History of total right knee replacement History of tubal ligation Hx of appendectomy Family History Father Diabetes Brother Brain cancer Daughter No problems noted. Sister Breast cancer Social History Smoking Status: Never smoker second hand exposure: No alcohol intake: former substance use type: denies use current occupational status: retired Travel in the last 8 weeks: None household members: children housing: house current occupational exposures/hazards: No caffeine: No Review of Systems Review of Systems Review of systems:: pertinent systems reviewed and negative unless documented below *Cardiovascular Cardiovascular: Reports chest pain and Reports dyspnea *Respiratory Respiratory: Reports dyspnea Exam Data for Last 24 hours Vital signs and Labs for Last 24 Hours: Temp Pulse Resp BP Pulse Ox O2 Del Method O2 Flow Rate 99.1 F 103 H 24 127/73 93 L Nasal Cannula 4 12/01/23 07:43 12/01/23 06:00 12/01/23 06:00 12/01/23 06:12 12/01/23 06:00 12/01/23 06:58 12/01/23 06:58 Laboratory Results - last 24 hr 11/30/23 00:15: Troponin I 0.06 H 12/01/23 00:15: WBC 19.7 H, RBC 4.80, Hgb 14.2, Hct 41.9, MCV 87.2, MCH 29.6, MCHC 33.9, RDW 13.6, Plt Count 250, MPV 9.9, Neut % (Auto) 81.2 H, Lymph % (Auto) 13.0, [place] % (Auto) 5.5, Eos % (Auto) 0.1, Baso % (Auto) 0.3, Neut # (Auto) 16.0 H, Lymph # (Auto) 2.6, [place] # (Auto) 1.1 H, Eos # (Auto) 0.0, Baso # (Auto) 0.1, Total Counted 100, Neutrophils % (Manual) 77 H, Lymphocytes % (Manual) 23, Platelet Estimate Normal, RBC Morphology Normal, PT 10.9, INR 1.01, Sodium 137, Potassium 3.8, Chloride 102, Carbon Dioxide 28, Anion Gap 10.8, BUN 19 H, Creatinine 1.20 H, Estimated Creat Clear 51, Estimated GFR 43 L, Est GFR ( Amer) 52 L, Glucose 154 H, Lactate 1.4, Calcium 8.5, Total Bilirubin 0.8, AST 31, ALT 20, Alkaline Phosphatase 102, Total Protein 7.5, Albumin 3.7, Globulin 3.8 H, Albumin/Globulin Ratio 1.0 L 12/01/23 00:16: POC Glucose 148 H 12/01/23 03:15: Troponin I 0.05 H 12/01/23 05:56: WBC 18.0 H, RBC 4.77, Hgb 13.9, Hct 41.4, MCV 86.9, MCH 29.1, MCHC 33.5, RDW 13.7, Plt Count 256, MPV 9.8, Neut % (Auto) 69.4, Lymph % (Auto) 22.2, [place] % (Auto) 7.6, Eos % (Auto) 0.4, Baso % (Auto) 0.5, Neut # (Auto) 12.5 H, Lymph # (Auto) 4.0, [place] # (Auto) 1.4 H, Eos # (Auto) 0.1, Baso # (Auto) 0.1, D-Dimer 0.77 H, Magnesium 2.0, Troponin I 0.05 H, Triglycerides 106, Cholesterol 156, LDL Cholesterol Direct 91.48 L, VLDL Cholesterol 21, HDL Cholesterol 31 L, Cholesterol/HDL Ratio 5.0 H I & O for Last 24 hours: Intake & Output 11/28/23 11/29/23 11/30/23 12/01/23 11:59 11:59 11:59 11:59 Intake Total 488.333 / 488.333 Output Total 0 / 0 Balance 488.333 / 488.333 Weight 193 lb Constitutional Constitutional: no acute distress *Routine Respiratory Exam Respiratory: Present decreased breath sounds and diminished air movement; Absent wheezes *Routine Cardiovascular Exam Cardiovascular: Present irregularly irregular; Absent murmur, gallop or rubs *Routine Extremities Exam Extremities: Absent edema *Routine Neurological Exam Neurological: Present alert, oriented X3 and CN II-XII intact Meds Home Medications and Allergies Home Medications Medication Instructions Recorded Confirmed Type atorvastatin 40 mg tablet 40 mg PO HS Cholesterol #30 tabs 09/17/23 12/01/23 Rx lisinopril 10 mg tablet 10 mg PO DAILY High Blood Pressure 09/17/23 12/01/23 Rx #30 tabs metformin 500 mg tablet 500 mg PO BID Diabetes #30 tabs 09/17/23 12/01/23 Rx apixaban 5 mg tablet (Eliquis) 5 mg PO BID Blood Thinner/Afib 12/01/23 12/01/23 History clopidogrel 75 mg tablet 75 mg PO DAILY Platelet Inhibitor 12/01/23 12/01/23 History hydrochlorothiazide 12.5 mg capsule 12.5 mg PO DAILY Fluid 12/01/23 12/01/23 History metoprolol succinate 25 mg 25 mg PO DAILY High Blood Pressure 12/01/23 12/01/23 History tablet,extended release 24 hr pantoprazole 40 mg tablet,delayed 40 mg PO DAILY Acid Reflux 12/01/23 12/01/23 History release New Prescriptions to Start Prescriptions: Allergies Allergy/AdvReac Type Severity Reaction Status Date / Time acetaminophen [From TYLENOL] Allergy Unknown Verified 07/31/23 15:12 tramadol [TRAMADOL] Allergy Unknown Verified 07/31/23 15:12 Assessment and Plan *Assessment and plan (1) Atrial fibrillation with RVR: Status: Acute Category: Medical Code(s): I48.91 - Unspecified atrial fibrillation (2) NSTEMI (non-ST elevated myocardial infarction): Status: Acute Category: Medical Code(s): I21.4 - Non-ST elevation (NSTEMI) myocardial infarction (3) Paroxysmal A-fib: Status: Acute Category: Medical Code(s): I48.0 - Paroxysmal atrial fibrillation (4) Nonadherence to medical treatment: Status: Acute Category: Medical Code(s): Z91.199 - Patient's noncompliance with other medical treatment and regimen due to unspecified reason (5) CVA (cerebral vascular accident): Status: Acute Qualifiers: CVA mechanism: occlusion Laterality of affected vessel: left Precerebral and cerebral artery: posterior cerebral artery Qualified Code(s): I63.532 - Cerebral infarction due to unspecified occlusion or stenosis of left posterior cerebral artery Category: Medical Code(s): I63.9 - Cerebral infarction, unspecified (6) Hypertensive urgency: Status: Acute Category: Medical Code(s): I16.0 - Hypertensive urgency (7) CAD (coronary artery disease): Problem Comment: Coronary calcium score 1304 Status: Chronic Qualifiers: Associated angina: unspecified whether angina present Coronary Disease- Associated Artery/Lesion type: unspecified vessel or lesion type [place] vs. transplanted heart: [place] heart Qualified Code(s): I25.10 - Atherosclerotic heart disease of [place] coronary artery without angina pectoris Category: Medical Code(s): I25.10 - Atherosclerotic heart disease of [place] coronary artery without angina pectoris (8) PAD (peripheral artery disease): Status: Chronic Category: Medical Code(s): I73.9 - Peripheral vascular disease, unspecified (9) Diabetes: Status: Chronic Qualifiers: Diabetes mellitus complication status: with other specified complication Diabetes mellitus correction insulin use: without welding pantograph operator use Diabetes mellitus type: type 2 Qualified Code(s): E11.69 - Type 2 diabetes mellitus with other specified complication Category: Medical Code(s): E11.9 - Type 2 diabetes mellitus without complications (10) HLD (hyperlipidemia): Status: Acute Qualifiers: Hyperlipidemia type: unspecified Qualified Code(s): E78.5 - Hyperlipidemia, unspecified Category: Medical Code(s): E78.5 - Hyperlipidemia, unspecified Plan 1. A-fib, RVR on admission -Improved control with combo of beta-shweta IV and IV diltiazem on admission -Continue heparin gtt for now -Restart oral metoprolol and continue IV diltiazem 2. Elevated D-dimer -CTA of the chest negative for PE 3. History of hypertension -Obtain limited echo to reassess LV function in setting of chest pain/non- STEMI with A-fib -resume oral metoprolol 4. Non-STEMI -Likely related to A-fib -Mild CAD by left heart catheterization 2020 -Resume Plavix therapy 5. Diabetes mellitus -defer to Dr. Vee 6. Elevated white count with infiltrates on CTA -On ceftriaxone 7. Peripheral arterial disease -Continue Plavix therapy 8. Hyperlipidemia -Restart statin therapy 9. Concern for medication noncompliance which will affect plan of care 10. History of CVA, 05/2023, with RLE weakness Consider JERRY with cardioversion in 1-2 days if WBC improving and clinically better if she doesn't convert prior. Limited echo today pending Pt admits to missing medication frequently. She is unable to commit to consistently taking meds as directed at this time. This limits options for treatment, like cardioversion and cardiac cath. Will pursue conservatively management at this time but will continue to encourage medication compliance. Will continue heparin gtt for now and switch to Xarelto prior to discharge. She states she can only remember to take meds once daily but still forgets at times.
--- NOTE | 2023-12-01 09:08 | CA_ITS ---
APPROVED REPORT EXAM: Limited 2D Echocardiogram [employer]: Micaela Alvarez CRT Ht: 5 ft 2 in Wt: 193lbs BSA: 1.88 BP: 127/73 mmHg Indications: Atrial Fibrillation I48.0, [place] STEMI I21.3 M-Mode Dimensions RVDd 4.40 cm (0.9-2.6) LA Diam 4.31 cm (1.9-4.0) LVDd 3.06 cm (3.5-5.7) LVDs 1.95 cm (3.5-5.7) IVSd 1.58 cm (0.6-1.1) PWd 1.01 cm (0.6-1.1) EF (Teich) 67.60% FS 36.30% EDV (Teich) 36.70 mL ESV (Teich) 11.90 mL Other Information Study Quality: Technically Difficult Conclusion This is a limited TTE to evaluate for LVEF. Limited windows were obtained. Techically difficult study due to poor accoustic windows. The left ventricle is normal in size. There is normal LV systolic function. There is mild hypokinesis of the basal inferoseptal LV wall. LVEF is 55-60%. The RV is normal in size and function. The AV and MV leaflets open well (cannot evaluate stenosis or regurgitation due to absence of color and spectral Doppler in this study). No pericardial effusions. Of note, the patient is in atrial fibrillation during the acquisition of the study images. Electronically signed by : Ce Estrada MD 12/02/2023 17:27:37
--- NOTE | 2023-12-01 09:16 | P.CONPHA_ITS ---
[facility] Pharmacy Heparin Dosing Demographic Data Admission date:: 11/30/23 Date: 12/01/23 Time: 09:16 Allergies Allergy/AdvReac Type Severity Reaction Status Date / Time acetaminophen [From TYLENOL] Allergy Unknown Verified 07/31/23 15:12 tramadol [TRAMADOL] Allergy Unknown Verified 07/31/23 15:12 Height: 1.6 m Weight: 87.543 kg Indication Medication therapy:: Heparin Current Indications:: NSTEMI - LOW DOSE PROTOCOL Current Active Problems (Updated 12/01/23 @ 06:03 by Joaquin Mcgrath APRN) Leukocytosis (Acute) NSTEMI (non-ST elevated myocardial infarction) (Acute) Atrial fibrillation with RVR (Acute) Paroxysmal A-fib (Acute) CVA (cerebral vascular accident) (Acute) Nonadherence to medical treatment (Acute) Hypertensive urgency (Acute) CAD (coronary artery disease) (Chronic) PAD (peripheral artery disease) (Chronic) HLD (hyperlipidemia) (Acute) Hypertension (Chronic) Diabetes (Chronic) CVA?: No Bleeding problem?: No Kidney disease?: No [place]?: Yes Additional History:: COPD, A FIB WITH RVR, CEREBRAL VASCULAR ACCIDENT, DIABETES, CORONARY ARTERY DISEASE, OBESITY, HYPERLIPIDEMIA Desired PTT range:: 50-75 seconds Labs Anticoagulation Lab Results:: 12/01/23 12/01/23 00:15 05:56 Hgb 14.2 13.9 Hct 41.9 41.4 Plt Count 250 256 Monitoring Dose Monitor 1: Date: 12/01/23 Time: 09:21 PTT Result:: 33.0 SECONDS Infusion Rate:: START HEPARIN DRIP AT 1000 UNITS/HOUR = 20 ML/HOUR AND BOLUS 4000 UNITS HEPARIN IV ONCE. Comment:: PLATELET COUNT = 256,000 Core Measures Is INR > or = 2 at discharge?: No Most Recent Labs:: Laboratory Results - last 24 hr 11/30/23 00:15: Troponin I 0.06 H 12/01/23 00:15: WBC 19.7 H, RBC 4.80, Hgb 14.2, Hct 41.9, MCV 87.2, MCH 29.6, MCHC 33.9, RDW 13.6, Plt Count 250, MPV 9.9, Neut % (Auto) 81.2 H, Lymph % (Auto) 13.0, [place] % (Auto) 5.5, Eos % (Auto) 0.1, Baso % (Auto) 0.3, Neut # (Auto) 16.0 H, Lymph # (Auto) 2.6, [place] # (Auto) 1.1 H, Eos # (Auto) 0.0, Baso # (Auto) 0.1, Total Counted 100, Neutrophils % (Manual) 77 H, Lymphocytes % (Manual) 23, Platelet Estimate Normal, RBC Morphology Normal, PT 10.9, INR 1.01, Sodium 137, Potassium 3.8, Chloride 102, Carbon Dioxide 28, Anion Gap 10.8, BUN 19 H, Creatinine 1.20 H, Estimated Creat Clear 51, Estimated GFR 43 L, Est GFR ( Amer) 52 L, Glucose 154 H, Lactate 1.4, Calcium 8.5, Total Bilirubin 0.8, AST 31, ALT 20, Alkaline Phosphatase 102, Total Protein 7.5, Albumin 3.7, Globulin 3.8 H, Albumin/Globulin Ratio 1.0 L 12/01/23 00:16: POC Glucose 148 H 12/01/23 03:15: Troponin I 0.05 H 12/01/23 05:56: WBC 18.0 H, RBC 4.77, Hgb 13.9, Hct 41.4, MCV 86.9, MCH 29.1, MCHC 33.5, RDW 13.7, Plt Count 256, MPV 9.8, Neut % (Auto) 69.4, Lymph % (Auto) 22.2, [place] % (Auto) 7.6, Eos % (Auto) 0.4, Baso % (Auto) 0.5, Neut # (Auto) 12.5 H, Lymph # (Auto) 4.0, [place] # (Auto) 1.4 H, Eos # (Auto) 0.1, Baso # (Auto) 0.1, D-Dimer 0.77 H, Magnesium 2.0, Troponin I 0.05 H, Triglycerides 106, Cholesterol 156, LDL Cholesterol Direct 91.48 L, VLDL Cholesterol 21, HDL Cholesterol 31 L, Cholesterol/HDL Ratio 5.0 H If INR was < than 2.0 why was therapy stopped?: CHANGED TO ELIQUIS Were Heparin and Warfarin started on the same day?: No If not, why?: STARTED ON ELIQUIS
[2023-12-01] MEDS: IOPAMIDOL-370 (76%);100ML BOTTLE 50 ML IV (09:33)
[2023-12-01] MEDS: 0.9 % SODIUM CHLORIDE 50 ML VIAL IV (09:33)
[2023-12-01] MEDS: SODIUM CHLORIDE 0.9% 10ML SYR (RAD ONLY) 10 ML IV (09:33)
[2023-12-01] MEDS: HEPARIN SODIUM,PORCINE/D5W 500 ML 20 UNIT IV (10:51)
[2023-12-01] MEDS: CLOPIDOGREL 75MG TAB 75 MG PO (10:52)
[2023-12-01] MEDS: METOPROLOL SUCCINATE XL 25MG TABLET 25 MG PO (10:52)
[2023-12-01] MEDS: HEPARIN SODIUM 5,000 UNIT/ML VIAL 4000 UNIT IV (10:53)
--- NOTE | 2023-12-01 11:42 | P.PN_ITS ---
Subjective *Date: 12/01/23 *Time: 18:44 Interval history: Patient with improving symptoms this morning. Denies any chest pain. Continuing to require oxygen weaning today, currently on 2 L this morning on rounds. Heart rate better controlled on diltiazem drip. No nausea or vomiting. Afebrile Medical Exam Vital signs and Labs for Last 24 Hours: Vital Signs Temp Pulse Pulse Resp BP Pulse Ox O2 Del Method 12/01/23 11:11 97.6 F 12/01/23 08:00 80 12/01/23 07:43 99.1 F 12/01/23 06:12 127/73 12/01/23 05:44 124/73 12/01/23 05:32 143/84 H 12/01/23 04:00 73 22 109/62 L Nasal Cannula 12/01/23 04:00 98.3 F 12/01/23 00:00 99.6 F 12/01/23 00:00 Room Air 12/01/23 01:00 Room Air 12/01/23 00:00 99.2 F 141 H 16 145/80 H 94 L Room Air 12/01/23 06:58 Nasal Cannula 12/01/23 06:00 103 H 24 155/82 H 93 L Nasal Cannula 12/01/23 05:00 Room Air 12/01/23 04:00 Room Air 12/01/23 03:00 Room Air 12/01/23 02:00 86 16 129/71 91 L Room Air O2 Flow Rate 12/01/23 11:11 12/01/23 08:00 12/01/23 07:43 12/01/23 06:12 12/01/23 05:44 12/01/23 05:32 12/01/23 04:00 2 12/01/23 04:00 12/01/23 00:00 12/01/23 00:00 12/01/23 01:00 12/01/23 00:00 12/01/23 06:58 4 12/01/23 06:00 4 12/01/23 05:00 12/01/23 04:00 12/01/23 03:00 12/01/23 02:00 Intake and Output 11/30/23 12/01/23 12/01/23 23:59 07:59 15:59 Intake Total 488.333 / 488.333 Output Total 0 / 0 Balance 488.333 / 488.333 Intake: Intake, Oral Amount 480 / 480 Intake, Total IV Amount 8.333 / 8.333 Output: Output, Urine Amount 0 / 0 Other: Number of Unmeasured Voids 1 Number of Bowel Movements 1 Weight 87.543 kg 87.543 kg Patient Weight 12/01/23 23:59 Weight 87.543 kg Laboratory Results - last 24 hr 11/30/23 00:15: Troponin I 0.06 H 12/01/23 00:15: WBC 19.7 H, RBC 4.80, Hgb 14.2, Hct 41.9, MCV 87.2, MCH 29.6, MCHC 33.9, RDW 13.6, Plt Count 250, MPV 9.9, Neut % (Auto) 81.2 H, Lymph % (Auto) 13.0, [place] % (Auto) 5.5, Eos % (Auto) 0.1, Baso % (Auto) 0.3, Neut # (Auto) 16.0 H, Lymph # (Auto) 2.6, [place] # (Auto) 1.1 H, Eos # (Auto) 0.0, Baso # (Auto) 0.1, Total Counted 100, Neutrophils % (Manual) 77 H, Lymphocytes % (Manual) 23, Platelet Estimate Normal, RBC Morphology Normal, PT 10.9, INR 1.01, Sodium 137, Potassium 3.8, Chloride 102, Carbon Dioxide 28, Anion Gap 10.8, BUN 19 H, Creatinine 1.20 H, Estimated Creat Clear 51, Estimated GFR 43 L, Est GFR ( Amer) 52 L, Glucose 154 H, Lactate 1.4, Calcium 8.5, Total Bilirubin 0.8, AST 31, ALT 20, Alkaline Phosphatase 102, Total Protein 7.5, Albumin 3.7, Globulin 3.8 H, Albumin/Globulin Ratio 1.0 L 12/01/23 00:16: POC Glucose 148 H 12/01/23 03:15: Troponin I 0.05 H 12/01/23 05:56: WBC 18.0 H, RBC 4.77, Hgb 13.9, Hct 41.4, MCV 86.9, MCH 29.1, MCHC 33.5, RDW 13.7, Plt Count 256, MPV 9.8, Neut % (Auto) 69.4, Lymph % (Auto) 22.2, [place] % (Auto) 7.6, Eos % (Auto) 0.4, Baso % (Auto) 0.5, Neut # (Auto) 12.5 H, Lymph # (Auto) 4.0, [place] # (Auto) 1.4 H, Eos # (Auto) 0.1, Baso # (Auto) 0.1, APTT 33.0, D-Dimer 0.77 H, Magnesium 2.0, Troponin I 0.05 H, Triglycerides 106, Cholesterol 156, LDL Cholesterol Direct 91.48 L, VLDL Cholesterol 21, HDL Cholesterol 31 L, Cholesterol/HDL Ratio 5.0 H I & O for Labs for Last 24 Hours: Intake & Output 11/28/23 11/29/23 11/30/23 12/01/23 23:59 23:59 23:59 23:59 Intake Total 488.333 / 488.333 Output Total 0 / 0 Balance 488.333 / 488.333 Weight 87.543 kg Constitutional: Present no acute distress, obese and chronically ill appearing Head: Present atraumatic and normocephalic ENT: Present normal exam Respiratory: Present normal respiratory effort; Absent rhonchi, wheezes or crackles Cardiac: Present Regular Rate Comment:: Irregular rhythm GI: Present soft and normal bowel sounds; Absent distention or tenderness Extremities: Present normal inspection and full ROM Skin: Present intact; Absent erythema Neuro: Present Grossly Intact, alert, awake, oriented x 3 and moves all extremities Assessment and Plan *Assessment and plan (1) Atrial fibrillation with RVR: Status: Acute Category: Medical Code(s): I48.91 - Unspecified atrial fibrillation (2) NSTEMI (non-ST elevated myocardial infarction): Status: Acute Category: Medical Code(s): I21.4 - Non-ST elevation (NSTEMI) myocardial infarction (3) Paroxysmal A-fib: Status: Acute Category: Medical Code(s): I48.0 - Paroxysmal atrial fibrillation (4) Nonadherence to medical treatment: Status: Acute Category: Medical Code(s): Z91.199 - Patient's noncompliance with other medical treatment and regimen due to unspecified reason (5) CVA (cerebral vascular accident): Status: Acute Qualifiers: CVA mechanism: occlusion Laterality of affected vessel: left Precerebral and cerebral artery: posterior cerebral artery Qualified Code(s): I63.532 - Cerebral infarction due to unspecified occlusion or stenosis of left posterior cerebral artery Category: Medical Code(s): I63.9 - Cerebral infarction, unspecified (6) Hypertensive urgency: Status: Acute Category: Medical Code(s): I16.0 - Hypertensive urgency (7) CAD (coronary artery disease): Problem Comment: Coronary calcium score 1304 Status: Chronic Qualifiers: Associated angina: unspecified whether angina present Coronary Disease- Associated Artery/Lesion type: unspecified vessel or lesion type [place] vs. transplanted heart: [place] heart Qualified Code(s): I25.10 - Atherosclerotic heart disease of [place] coronary artery without angina pectoris Category: Medical Code(s): I25.10 - Atherosclerotic heart disease of [place] coronary artery without angina pectoris (8) PAD (peripheral artery disease): Status: Chronic Category: Medical Code(s): I73.9 - Peripheral vascular disease, unspecified (9) Diabetes: Status: Chronic Qualifiers: Diabetes mellitus complication status: with other specified complication Diabetes mellitus group home insulin use: without buttermaker use Diabetes mellitus type: type 2 Qualified Code(s): E11.69 - Type 2 diabetes mellitus with other specified complication Category: Medical Code(s): E11.9 - Type 2 diabetes mellitus without complications (10) HLD (hyperlipidemia): Status: Acute Qualifiers: Hyperlipidemia type: unspecified Qualified Code(s): E78.5 - Hyperlipidemia, unspecified Category: Medical Code(s): E78.5 - Hyperlipidemia, unspecified (11) NUZHAT (acute kidney injury): Status: Resolved Category: Medical Code(s): N17.9 - Acute kidney failure, unspecified (12) Leukocytosis: Status: Acute Qualifiers: Leukocytosis type: unspecified Qualified Code(s): D72.829 - Elevated white blood cell count, unspecified Category: Medical Code(s): D72.829 - Elevated white blood cell count, unspecified Plan 78-year-old female with PMHx of hypertension, PAD, CAD, hyperlipidemia, prior CVA with left lower leg weakness, on aspirin and Plavix, and diabetes presenting to [facility] emergency department for evaluation of chest palpitation that was documented as pain and SOB. Atrial fibrillation with RVR noted on EKG.Patient was referred to our hospital for cardiology evaluation and treatment. patient been admitted before for same reason. Upon arrival EKG was obtained, rhythm was confirmed went back to afib with RVR. Patient hemodinamically stable. eleveted troponin. no chest pain. Cardiology consulted for further management. Rate controlled this morning on diltiazem drip. Continues to require inpatient management. Problems as follows: A-fib with RVR on admission Hypertension NSTEMI PAD Hyperlipidemia -Improved rate control with IV diltiazem drip. Initiate heparin drip -Cardiology consulted, appreciate their recommendations. Resume oral metoprolol. If patient continues to have chest pain, anticipate left heart cath tomorrow -Monitor on continuous telemetry -Troponin stable at 0.05 with serial monitoring. No ischemic changes on telemetry or EKGs, personally reviewed. -Monitor CBC, CMP, magnesium, PT/INR/PTT, labs ordered for the morning. -Nitro sublingual for chest pain -Loaded with aspirin, continue 81 mg daily -Plavix 75 mg daily; Lipitor 40 mg nightly -Echo obtained, results pending. Leukocytocis: - Chest x-ray with no focal consolidation, right hemidiaphragm elevated. CTA of the chest obtained, atelectasis right middle lobe but no focal consolidation, negative for PE. Differential includes pneumonia, viral illness, UTI. -Urinalysis abnormal with elevated leuk esterase and trace bacteria -Continue ceftriaxone 1 g daily, blood culture and urine culture pending. NUZHAT: Baseline appears to be 0.8-1. Above baseline at 1.2. Repeat labs in the morning. Caution with nephrotoxins. Diabetes: A1c pending, continue sliding scale insulin with fingersticks ACHS. History of CVA, 05/2023, with RLE weakness Full code Heparin drip Protonix, GI prophylaxis Cardiac diet, n.p.o. at midnight
[2023-12-01 12:31] LABS: POC Glucose,Bedside 126 (70-110)
--- NOTE | 2023-12-01 13:07 | SW/DCPLANNER ---
Addendum entered by Abigail Calvert 12/03/23 13:25: Kobi rogers/ [facility] stated that services will begin this week for this patient. Addendum entered by Abigail Calvert 12/03/23 11:25: Patient information/order has been faxed to Kobi rogers/ [employer] [facility]. The plan for this patient is to discharge home today. Original Note: I spoke w/ this patient regarding plans once medically stable for discharge. Dr Vee has recommended home health services for medication management for this patient. Patient is agreeable to home health services and prefers to use which agency will start the soonest. Patient is fine w/ using [facility]: patient information/order will be faxed at time of discharge. Discharge date is unknown at this time.
[2023-12-01] MEDS: dilTIAZem HCL 100 MG in 0.9 % SODIUM CHLORIDE 100 ML IV (14:15)
[2023-12-01 15:21] LABS: PTT Heparin (inpatient only) 64.1 Seconds (23.6-34.0)
[2023-12-01 15:35] LABS: Microscopic, Urine URINE MICROSCOPIC (MICROSCOPIC)
[2023-12-01 15:47] LABS: Appearance,Urine CLEAR (Clear); Bilirubin,Urine Negative (Negative); Blood, Urine Negative (Negative); Color,Urine YELLOW (Yellow); Glucose,Urine (UA) Negative (Negative); Ketones,Urine Negative (Negative); Leukocyte Esterase,Urine 1+ (Negative); Nitrate,Urine Negative (Negative); Protein,Urine Negative (Negative); Specific Gravity, Urine <= 1.005 (1.005-1.030)
--- NOTE | 2023-12-01 15:48 | PC.NURSE ---
1235 notified by hyacinth spivey and Dr Estrada to stop pt eiliquis, med to be changed to xarelto. notified hyacinth spivey that pt was currently still on heparin drip as new med had not been admin yet. per hyacinth spivey keep pt on heparin drip until this evening when xarelto is started. 1530 Assisted pt to restroom with help of SRNA. upon return to bed pt c/o pain in back of neck. upon further questioning, pt mentioned that pain was in same place as this am. including chest, back of neck and under right collar bone. pt states pain is 7/10 and makes her feel short of breath. notified hyacinth spivey of pt pain. pt medicated with nitro tablet. per hyacinth spivey, if pt responds to nitro and pain returns again, place 1 inch of nitro paste on pt. hyacinth spivey previously stated to this RN that pt was to start xarelto. addressed with michaela that new med had not been ordered as of yet. per hyacinth spivey pt has potential for heart cath. xarelto will not be ordered. reminded pt is currently on heparin drip at this time. asked for clarification if drip is to be stopped or continued. per hyacinth spivey continue/reorder heparin drip 1542 called and spoke with chris in pharmacy. notified that heparin drip is to be restarted. chris notified RN at this time that ptt results just returned. drip to be continued at current rate. 1000units/hr. pt/ptt to be drawn again at 1900.
--- NOTE | 2023-12-01 16:02 | PC.NURSE ---
4331 called and spoke with chris in pharmacy. notified PTT result of 33.0. heparin drip dosed by pharmacy.
[2023-12-01 16:03] LABS: RBC,Urine Occasional #/hpf (0-3); WBC,Urine Occasional #/hpf (0-3)
[2023-12-01 16:04] LABS: Bacteria,Urine Trace /lpf; Squamous Epithelial Cell,Urine Occasional #/hpf (0-5)
[2023-12-01 17:19] LABS: POC Glucose,Bedside 145 (70-110)
[2023-12-01] MEDS: NITROGLYCERIN 1 GM OINTMENT TD (18:09)
[2023-12-01 18:17] LABS: Coronavirus 19, PCR Not Detected (NotDetected); Influenza A, PCR Not Detected (NotDetected); Influenza B, PCR Not Detected (NotDetected)
[2023-12-01 19:05] LABS: Troponin I 0.04 ng/ml (0.00-0.034)
[2023-12-01 20:08] LABS: PTT Heparin (inpatient only) 107.7 Seconds (23.6-34.0)
[2023-12-01 21:19] LABS: POC Glucose,Bedside 142 (70-110)
[2023-12-01] MEDS: HEPARIN SODIUM,PORCINE/D5W 500 ML 15 UNIT IV (21:25)
[2023-12-01] MEDS: ATORVASTATIN 40MG TABLET 40 MG PO (21:26)
[2023-12-01 23:28] LABS: PTT Heparin (inpatient only) 44.6 Seconds (23.6-34.0)
[2023-12-02] VITALS (27 sets, daily range): BP systolic 135–168; BP diastolic 66–95; PULSE 70–112; RESP 14–28; TEMP 36.6–37.6; O2SAT 92–98; BMI 35.3
[2023-12-02] MEDS: HEPARIN SODIUM,PORCINE/D5W 500 ML 18 UNIT IV
--- NOTE | 2023-12-02 | IR_ITS ---
APPROVED REPORT Patient Location: Inpatient PROCEDURES Left heart catheterization Left ventriculogram Selective coronary angiogram INDICATION Acute non-ST elevation myocardial infarction Informed consent was obtained prior to the procedure. COMPLICATIONS None Estimated Blood Loss: Less than 10 mls TECHNIQUE One percent lidocaine used to anesthetize the right anterior aspect of the wrist. The right radial artery was accessed via the Seldinger technique. A 6 Sinhala sheath was placed in the right radial artery. 2.5 mg of Verapamil, 800 mcg of nitroglycerin, 1mg Lidocaine and 5000 U Heparin were given through the arterial sheath. The papa catheter was also used to perform left heart catheterization, left ventriculogram and selective coronary angiogram. At the end of the procedure the sheath was removed good hemostasis was achieved using Traclet band, patient was transferred to the postop holding area in stable condition. ANGIOGRAPHIC RESULTS The left main artery Normal The left anterior descending artery Is proximally normal and has mid vessel 20 to 30% atheromatous plaque with remaining vessel having 10 to 20% stenoses along tortuous bends. Distally the vessel tapers into a small caliber vessel. A large first diagonal artery has a proximal hazy 40% stenosis. The circumflex artery Is nondominant and has proximal and mid vessel 10 to 20% luminal irregularities The right coronary artery Is dominant and has proximal mid vessel and distal diffuse 20 to 30% stenoses The COOK ventriculogram reveals Normal 65% The left ventricular end-diastolic pressure 10 mmHg IMPRESSION Coronary disease as described above which is best managed medically Normal ejection fraction Normal LVEDP Patient likely experienced a type II myocardial infarction PLAN 1. Treatment of underlying lung disease 2. Treatment of atrial fibrillation 3. Risk factor modification Electronically signed by : Danyel Luna MD 12/02/2023 12:26:48
[2023-12-02] MEDS: NITROGLYCERIN 1 GM OINTMENT TD ×2 (01:58→10:53)
[2023-12-02 06:18] LABS: POC Glucose,Bedside 130 (70-110)
[2023-12-02 06:39] LABS: Basophils # 0.1 K/mm3 (0-0.2); Basophils % 0.4 % (0.1-2.0); Eosinophils # 0.2 K/mm3 (0.0-0.4); Hematocrit 39.8 % (37.0-47.0); Hemoglobin 13.5 g/dL (12.2-16.2); Lymphocytes # 3.3 K/mm3 (0.7-4.5); Lymphocytes % 23.2 % (10-50); Mean Corpuscular HGB Conc 33.8 g/dL (31.8-35.4); Mean Corpuscular Hemoglobin 29.4 pg (27.0-31.2); Mean Corpuscular Volume 86.9 fl (81-99); Mean Platelet Volume 10.6 fl (7.4-10.4); Monocytes % 7.3 % (1.7-9.3); Neutrophils # 9.7 K/mm3 (1.8-7.8); Neutrophils % 68.1 % (37.0-80.0); Platelet Count 250 K/mm3 (142-424); Red Blood Count 4.58 M/mm3 (4.20-5.40); Red Cell Distribution Width 13.8 % (11.5-17.5); White Blood Count 14.2 K/mm3 (4.8-10.8)
[2023-12-02 06:42] LABS: Alanine Aminotransferase 15 U/L (12-78); Albumin Level 3.2 g/dl (3.5-5.0); Albumin/Globulin Ratio 0.9 (1.1-1.8); Alkaline Phosphatase 85 U/L (38-126); Anion Gap 7.7 mEq/L (5-15); Aspartate Amino Transferase 24 U/L (14-36); Bilirubin,Total 0.6 mg/dl (0.2-1.3); Blood Urea Nitrogen 13 mg/dl (7-17); Calcium 8.2 mg/dl (8.4-10.2); Carbon Dioxide 28 mmol/L (22.0-30.0); Chloride 104 mmol/L (98-107); Creatinine Clearance Estimated 64 mL/min (50-200); Estimated Glomerular Filt Rate 60 ml/min (>60); GFR (African American) 73 ML/MIN (>60); Globulin 3.5 g/dL (1.3-3.2); Glucose 136 mg/dl (74-100); Potassium 3.7 mmoL/L (3.5-5.1); Sodium 136 mmol/L (136-145); Total Protein,Serum 6.7 g/dl (6.3-8.2)
[2023-12-02 07:16] LABS: PTT Heparin (inpatient only) 38.9 Seconds (23.6-34.0)
[2023-12-02] MEDS: HEPARIN SODIUM 5,000 UNIT/ML VIAL 4000 UNIT IV (07:28)
[2023-12-02] MEDS: PANTOPRAZOLE 40MG TABLET 40 MG PO (08:50)
[2023-12-02] MEDS: METOPROLOL SUCCINATE XL 25MG TABLET 25 MG PO ×2 (08:50→10:47)
[2023-12-02] MEDS: CEFTRIAXONE 1 GM 1 GM in 0.9 % SODIUM CHLORIDE 50 ML IV (08:50)
[2023-12-02 09:53] LABS: Hemoglobin A1C 6.1 % (4.0-6.0)
--- NOTE | 2023-12-02 10:38 | EXP.CARD.PN ---
Subjective Subjective Date: 12/02/23 Time: 10:38 Principal diagnosis: chest pain, CAD, A. fib Interval history: 78-year-old white female in bed in no acute distress. Still with productive cough along with upper chest, neck and shoulder discomfort. Initially some relief with nitroglycerin now on Nitropaste she is having recurrent symptoms. Long discussion with the patient and the daughters regarding need for compliance with medication if she were to receive coronary stenting and all have agreed to help the patient be more compliant with her medications. Heart rate is in the 80 and 90 bpm range. Blood pressure elevated in the 160s Will increase metoprolol to 50 mg daily and try to discontinue diltiazem IV. Telemetry still shows atrial fibrillation with controlled ventricular rate. Patient continues on heparin drip. Exam Data for Last 24 hours Vital signs and Labs for Last 24 Hours: Temp Pulse Resp BP Pulse Ox O2 Del Method O2 Flow Rate 98.6 F 86 16 167/83 H 94 L Nasal Cannula 2 12/02/23 07:44 12/02/23 10:00 12/02/23 10:00 12/02/23 10:00 12/02/23 10:00 12/02/23 10:00 12/02/23 10:00 Laboratory Results - last 24 hr 12/01/23 12:13: POC Glucose 126 H 12/01/23 15:00: APTT 64.1 H* 12/01/23 15:25: Urine Color Yellow, Urine Appearance Clear, Urine pH 6.0, Ur Specific [place] <= 1.005, Urine Protein Negative, Urine Glucose (UA) Negative, Urine Ketones Negative, Urine Blood Negative, Urine Nitrate Negative, Urine Bilirubin Negative, Urine Urobilinogen 1.0, Ur Leukocyte Esterase 1+ A, Urine RBC Occasional, Urine WBC Occasional, Ur Squamous Epith Cells Occasional, Urine Bacteria Trace 12/01/23 17:10: POC Glucose 145 H 12/01/23 18:08: SARS-CoV-2 (PCR) Not detected, Influenza A Untype (PCR) Not detected, Influenza Type B (PCR) Not detected 12/01/23 18:30: Troponin I 0.04 H 12/01/23 19:28: APTT 107.7 H* 12/01/23 21:11: POC Glucose 142 H 12/01/23 22:50: APTT 44.6 H 12/02/23 05:59: WBC 14.2 H, RBC 4.58, Hgb 13.5, Hct 39.8, MCV 86.9, MCH 29.4, MCHC 33.8, RDW 13.8, Plt Count 250, MPV 10.6 H, Neut % (Auto) 68.1, Lymph % (Auto) 23.2, [place] % (Auto) 7.3, Eos % (Auto) 1.0, Baso % (Auto) 0.4, Neut # (Auto) 9.7 H, Lymph # (Auto) 3.3, [place] # (Auto) 1.0, Eos # (Auto) 0.2, Baso # (Auto) 0.1, APTT 38.9 H, Sodium 136, Potassium 3.7, Chloride 104, Carbon Dioxide 28, Anion Gap 7.7, BUN 13 D, Creatinine 0.90 D, Estimated Creat Clear 64, Estimated GFR 60, Est GFR ( Amer) 73 D, Glucose 136 H, Hemoglobin A1c 6.1 H, Calcium 8.2 L, Magnesium 2.0, Total Bilirubin 0.6, AST 24, ALT 15, Alkaline Phosphatase 85, Total Protein 6.7, Albumin 3.2 L D, Globulin 3.5 H, Albumin/Globulin Ratio 0.9 L 12/02/23 06:00: POC Glucose 130 H I & O for Last 24 hours: Intake & Output 11/29/23 11/30/23 12/01/23 12/02/23 11:59 11:59 11:59 11:59 Intake Total 488.333 / 105.491 3100.833 / 2358.833 Output Total 0 / 0 600 / 600 Balance 488.333 / 543.236 8165.833 / 1758.833 Weight 192 lb 15.988 oz 199 lb 4.8 oz Constitutional Constitutional: no acute distress *Routine Respiratory Exam Respiratory: Present rhonchi *Routine Cardiovascular Exam Cardiovascular: Present irregularly irregular *Routine Extremities Exam Extremities: Absent edema *Routine Neurological Exam Neurological: Present alert and oriented X3 Progress Note: A&P Assessment and plan (1) Atrial fibrillation with RVR: Status: Acute (2) NSTEMI (non-ST elevated myocardial infarction): Status: Acute (3) Paroxysmal A-fib: Status: Acute (4) Nonadherence to medical treatment: Status: Acute (5) CVA (cerebral vascular accident): Status: Acute (6) Hypertensive urgency: Status: Acute (7) CAD (coronary artery disease): Problem details: Coronary calcium score 1304 Status: Chronic (8) PAD (peripheral artery disease): Status: Chronic (9) Diabetes: Status: Chronic (10) HLD (hyperlipidemia): Status: Acute (11) NUZHAT (acute kidney injury): Status: Resolved (12) Leukocytosis: Status: Acute Assessment and Plan Assessment and Plan for All Diagnoses:: 1. A-fib, RVR on admission -Now off diltiazem IV -Continue metoprolol succinate 50 mg daily -Will discontinue heparin and switch to Xarelto 20 mg daily 2. Elevated D-dimer -CTA of the chest negative for PE 3. History of hypertension -Echo results pending -increase metoprolol for BP and HR control 4. Non-STEMI -Likely related to A-fib -Mild CAD by left heart catheterization 2020 -Resume Plavix therapy 5. Diabetes mellitus -defer to Hospitalist 6. Elevated white count with infiltrates on CTA, Improving -On ceftriaxone 7. Peripheral arterial disease -Continue Plavix therapy 8. Hyperlipidemia -Restarted statin therapy 9. Concern for medication noncompliance which will affect plan of care -pt and family are now committing to help pt take meds as directed 10. History of CVA, 05/2023, with RLE weakness -On Plavix Proceed with [facility] today due to continued chest pain Switch to oral Xarelto 20 mg daily for A. fib after cath and discontinue heparin Discussed JERRY/cardioversion tomorrow. Patient and family are leaning towards not having this procedure performed and just going with medical therapy for rate control. Likely stable for discharge in AM from Cardiac standpoint.
[2023-12-02 11:08] LABS: POC Glucose,Bedside 174 (70-110)
--- NOTE | 2023-12-02 11:25 | P.PN_ITS ---
Subjective *Date: 12/02/23 *Time: 11:25 Interval history: patient was seen and evaluated at the bedside. No reported acute events overnight, denies chest pain, shortness of breath, nausea, vomiting, abdominal pain. Exam Data for Last 24 hours Vital signs and Labs for Last 24 Hours: Temp Pulse Resp BP Pulse Ox O2 Del Method O2 Flow Rate 98.6 F 86 16 167/83 H 94 L Nasal Cannula 2 12/02/23 07:44 12/02/23 10:00 12/02/23 10:00 12/02/23 10:00 12/02/23 10:00 12/02/23 11:00 12/02/23 11:00 Laboratory Results - last 24 hr 12/01/23 12:13: POC Glucose 126 H 12/01/23 15:00: APTT 64.1 H* 12/01/23 15:25: Urine Color Yellow, Urine Appearance Clear, Urine pH 6.0, Ur Specific [place] <= 1.005, Urine Protein Negative, Urine Glucose (UA) Negative, Urine Ketones Negative, Urine Blood Negative, Urine Nitrate Negative, Urine Bi lirubin Negative, Urine Urobilinogen 1.0, Ur Leukocyte Esterase 1+ A, Urine RBC Occasional, Urine WBC Occasional, Ur Squamous Epith Cells Occasional, Urine Bacteria Trace 12/01/23 17:10: POC Glucose 145 H 12/01/23 18:08: SARS-CoV-2 (PCR) Not detected, Influenza A Untype (PCR) Not detected, Influenza Type B (PCR) Not detected 12/01/23 18:30: Troponin I 0.04 H 12/01/23 19:28: APTT 107.7 H* 12/01/23 21:11: POC Glucose 142 H 12/01/23 22:50: APTT 44.6 H 12/02/23 05:59: WBC 14.2 H, RBC 4.58, Hgb 13.5, Hct 39.8, MCV 86.9, MCH 29.4, MCHC 33.8, RDW 13.8, Plt Count 250, MPV 10.6 H, Neut % (Auto) 68.1, Lymph % (Auto) 23.2, [place] % (Auto) 7.3, Eos % (Auto) 1.0, Baso % (Auto) 0.4, Neut # (Auto) 9.7 H, Lymph # (Auto) 3.3, [place] # (Auto) 1.0, Eos # (Auto) 0.2, Baso # (Auto) 0.1, APTT 38.9 H, Sodium 136, Potassium 3.7, Chloride 104, Carbon Dioxide 28, Anion Gap 7.7, BUN 13 D, Creatinine 0.90 D, Estimated Creat Clear 64, Estimated GFR 60, Est GFR ( Amer) 73 D, Glucose 136 H, Hemoglobin A1c 6.1 H, Calcium 8.2 L, Magnesium 2.0, Total Bilirubin 0.6, AST 24, ALT 15, A lkaline Phosphatase 85, Total Protein 6.7, Albumin 3.2 L D, Globulin 3.5 H, Albumin/Globulin Ratio 0.9 L 12/02/23 06:00: POC Glucose 130 H 12/02/23 10:53: POC Glucose 174 H I & O for Last 24 hours: Intake & Output 11/29/23 11/30/23 12/01/23 12/02/23 23:59 23:59 23:59 23:59 Intake Total 1944.166 / 1944.166 903 / 903 Output Total 300 / 300 300 / 300 Balance 1644.166 / 1644.166 603 / 603 Weight 87.543 kg 90.401 kg Constitutional Constitutional: no acute distress *Routine HEENT Exam Head: Present normocephalic Eye: Present EOMI and PERRL ENT: Present mucous membranes moist *Routine Neck Exam Neck: Present supple; Absent lymphadenopathy *Routine Respiratory Exam Respiratory: Present CTA bilaterally *Routine Cardiovascular Exam Cardiovascular: Present RRR *Routine Abdominal Exam Abdominal: Present soft and normoactive bowel sounds; Absent tenderness *Routine Extremities Exam Extremities: Absent cyanosis, clubbing or edema *Routine Skin Exam Skin: Present warm; Absent rash *Routine Neurological Exam Neurological: Present alert and oriented X3 Assessment and Plan *Assessment and plan (1) Atrial fibrillation with RVR: Status: Acute Category: Medical Code(s): I48.91 - Unspecified atrial fibrillation (2) NSTEMI (non-ST elevated myocardial infarction): Status: Acute Category: Medical Code(s): I21.4 - Non-ST elevation (NSTEMI) myocardial infarction (3) Paroxysmal A-fib: Status: Acute Category: Medical Code(s): I48.0 - Paroxysmal atrial fibrillation (4) Nonadherence to medical treatment: Status: Acute Category: Medical Code(s): Z91.199 - Patient's noncompliance with other medical treatment and regimen due to unspecified reason (5) CVA (cerebral vascular accident): Status: Acute Qualifiers: CVA mechanism: occlusion Precerebral and cerebral artery: posterior cerebral artery Laterality of affected vessel: left Qualified Code(s): I63.532 - Cerebral infarction due to unspecified occlusion or stenosis of left posterior cerebral artery Category: Medical Code(s): I63.9 - Cerebral infarction, unspecified (6) Hypertensive urgency: Status: Acute Category: Medical Code(s): I16.0 - Hypertensive urgency (7) CAD (coronary artery disease): Problem Comment: Coronary calcium score 1304 Status: Chronic Qualifiers: Coronary Disease-Associated Artery/Lesion type: unspecified vessel or lesion type [place] vs. transplanted heart: pala heart Associated angina: unspecified whether angina present Qualified Code(s): I25.10 - Atherosclerotic heart disease of [place] coronary artery without angina pectoris Category: Medical Code(s): I25.10 - Atherosclerotic heart disease of [place] coronary artery without angina pectoris (8) PAD (peripheral artery disease): Status: Chronic Category: Medical Code(s): I73.9 - Peripheral vascular disease, unspecified (9) Diabetes: Status: Chronic Qualifiers: Diabetes mellitus type: type 2 Diabetes mellitus [facility] insulin use: without [facility] use Diabetes mellitus complication status: with other specified complication Qualified Code(s): E11.69 - Type 2 diabetes mellitus with other specified complication Category: Medical Code(s): E11.9 - Type 2 diabetes mellitus without complications (10) HLD (hyperlipidemia): Status: Acute Qualifiers: Hyperlipidemia type: unspecified Qualified Code(s): E78.5 - Hyperlipidemia, unspecified Category: Medical Code(s): E78.5 - Hyperlipidemia, unspecified (11) NUZHAT (acute kidney injury): Status: Resolved Category: Medical Code(s): N17.9 - Acute kidney failure, unspecified (12) Leukocytosis: Status: Acute Qualifiers: Leukocytosis type: unspecified Qualified Code(s): D72.829 - Elevated white blood cell count, unspecified Category: Medical Code(s): D72.829 - Elevated white blood cell count, unspecified Plan 78-year-old female with PMHx of hypertension, PAD, CAD, hyperlipidemia, prior CVA with left lower leg weakness, on aspirin and Plavix, and diabetes presenting to [facility] emergency department for evaluation of chest palpitation that was documented as pain and SOB. Atrial fibrillation with RVR noted on EKG.Patient was referred to our hospital for cardiology evaluation and treatment. patient been admitted before for same reason. Upon arrival EKG was obtained, rhythm was confirmed went back to afib with RVR. Patient hemodinamically stable. eleveted troponin. no chest pain. Cardiology consulted for further management. Rate controlled this morning on diltiazem drip. A-fib with RVR on admission Hypertension NSTEMI PAD Hyperlipidemia -Improved rate control with IV diltiazem drip. Initiate heparin drip -Cardiology consulted, appreciate their recommendations. Resume oral metoprolol. Plan for Heart cath today per cardiology -Monitor on continuous telemetry - on IV heparin -Nitro sublingual for chest pain -Loaded with aspirin, continue 81 mg daily -Plavix 75 mg daily; Lipitor 40 mg nightly -Echo obtained Leukocytocis: - Chest x-ray with no focal consolidation, right hemidiaphragm elevated. - CTA of the chest obtained, atelectasis right middle lobe but no focal consolidation, negative for PE. Differential includes pneumonia, viral illness, UTI -Urinalysis abnormal with elevated leuk esterase and trace bacteria -Continue ceftriaxone 1 g daily, blood culture and urine culture pending. NUZHAT: Diabetes: A1c pending, continue sliding scale insulin with fingersticks ACHS. History of CVA, 05/2023, with RLE weakness Full code Heparin drip Protonix, GI prophylaxis Cardiac diet
[2023-12-02] MEDS: MORPHINE 2MG/ML SYRINGE 2 MG IV (11:28)
[2023-12-02 11:30] LABS: NT Pro Brain Natriuretic Pep. 3390 pg/mL (0-450)
--- NOTE | 2023-12-02 11:46 | PC.NURSE ---
Additional Metoprolol Succinate 25 mg administered. Diltiazem gtt stopped an hour after. 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
[2023-12-02] MEDS: LIDOCAINE 1% 10ML MDV 20 ML IJ (11:56)
[2023-12-02] MEDS: HEPARIN 1,000 UNITS/ML 10ML VIAL (CATH LAB) 10000 UNIT IV (11:56)
[2023-12-02] MEDS: HEPARIN 1,000 UNITS/500ML NS (CATH LAB) 3000 UNIT IV (11:56)
[2023-12-02] MEDS: 0.9 % SODIUM CHLORIDE 500 ML 25 ML IV (11:56)
[2023-12-02] MEDS: NITROGLYCERIN 800MCG/8ML SYR (CATH LAB) 800 MCG IA (11:57)
[2023-12-02] MEDS: VERAPAMIL 2.5MG/ML 2ML VIAL 2.5 MG IV (11:57)
[2023-12-02] MEDS: FENTANYL 100MCG/2ML VIAL 25 MCG IV (12:16)
[2023-12-02] MEDS: MIDAZOLAM HCL 1MG/1ML 5ML VIAL 1 MG IV (12:16)
[2023-12-02] MEDS: IOPAMIDOL-370 (76%);100ML BOTTLE 50 ML IV (12:41)
[2023-12-02 15:25] LABS: PTT Heparin (inpatient only) 157.2 Seconds (23.6-34.0)
[2023-12-02] MEDS: RIVAROXABAN 10MG TABLET 20 MG PO (16:42)
[2023-12-02 16:45] LABS: POC Glucose,Bedside 158 (70-110)
--- NOTE | 2023-12-02 18:10 | PC.NURSE ---
patient has had no issues since returning from the [facility], fluids discontinued per MD order. Radial band removed at 1550, no issues.
--- NOTE | 2023-12-02 18:37 | PC.NURSE ---
Pt c/o shoulder pain. MD Deras contacted. New order placed for toradol 15 mg IV once.
[2023-12-02] MEDS: KETOROLAC 30MG/ML VIAL 15 MG IV (18:47)
[2023-12-02] MEDS: ATORVASTATIN 40MG TABLET 40 MG PO (20:32)
[2023-12-03 00:13] VITALS: PULSE 68
[2023-12-03 04:00] VITALS: BP 143/69; PULSE 88; PULSE 93; RESP 20; TEMP 36.4; O2SAT 98; BMI 35.4
[2023-12-03 05:42] LABS: POC Glucose,Bedside 102 (70-110)
[2023-12-03 05:42] LABS: POC Glucose,Bedside 145 (70-110)
[2023-12-03 07:37] VITALS: BP 152/83; PULSE 119; RESP 20; TEMP 37.1; O2SAT 94
[2023-12-03 07:54] LABS: Alanine Aminotransferase 14 U/L (12-78); Albumin Level 3.2 g/dl (3.5-5.0); Albumin/Globulin Ratio 0.9 (1.1-1.8); Alkaline Phosphatase 63 U/L (38-126); Anion Gap 7.1 mEq/L (5-15); Aspartate Amino Transferase 28 U/L (14-36); Bilirubin,Total 0.5 mg/dl (0.2-1.3); Blood Urea Nitrogen 13 mg/dl (7-17); Calcium 8.2 mg/dl (8.4-10.2); Carbon Dioxide 28 mmol/L (22.0-30.0); Chloride 107 mmol/L (98-107); Creatinine Clearance Estimated 64 mL/min (50-200); Estimated Glomerular Filt Rate 60 ml/min (>60); GFR (African American) 73 ML/MIN (>60); Globulin 3.4 g/dL (1.3-3.2); Glucose 111 mg/dl (74-100); Potassium 4.1 mmoL/L (3.5-5.1); Sodium 138 mmol/L (136-145); Total Protein,Serum 6.6 g/dl (6.3-8.2)
[2023-12-03 08:00] VITALS: PULSE 100; O2SAT 95
[2023-12-03] MEDS: CLOPIDOGREL 75MG TAB 75 MG PO (08:26)
[2023-12-03] MEDS: METOPROLOL SUCCINATE XL 50MG TABLET 50 MG PO ×2 (08:26→10:34)
[2023-12-03] MEDS: PANTOPRAZOLE 40MG TABLET 40 MG PO (08:26)
[2023-12-03] MEDS: CEFTRIAXONE 1 GM 1 GM in 0.9 % SODIUM CHLORIDE 50 ML IV (08:27)
--- NOTE | 2023-12-03 09:07 | EXP.CARD.PN ---
Subjective Subjective Date: 12/03/23 Time: 09:07 Principal diagnosis: chest pain, CAD, A. fib Interval history: 78-year-old white female in bed in no acute distress. Still with productive cough. She has decided she does not want to proceed with cardioversion. Heart rate still around 100 at times with blood pressure still mildly elevated. Exam Data for Last 24 hours Vital signs and Labs for Last 24 Hours: Temp Pulse Resp BP Pulse Ox O2 Del Method O2 Flow Rate 98.8 F 119 H 20 152/83 H 94 L Room Air 2 12/03/23 07:37 12/03/23 07:37 12/03/23 07:37 12/03/23 07:37 12/03/23 07:37 12/03/23 07:37 12/03/23 07:00 Laboratory Results - last 24 hr 12/02/23 05:59: Hemoglobin A1c 6.1 H 12/02/23 06:59: NT-Pro-B Natriuret Pep 3390 H 12/02/23 10:53: POC Glucose 174 H 12/02/23 14:20: APTT 157.2 H* 12/02/23 16:37: POC Glucose 158 H 12/02/23 20:28: POC Glucose 145 H 12/03/23 05:34: POC Glucose 102 12/03/23 07:15: Sodium 138, Potassium 4.1, Chloride 107, Carbon Dioxide 28, Anion Gap 7.1, BUN 13, Creatinine 0.90, Estimated Creat Clear 64, Estimated GFR 60, Est GFR ( Amer) 73, Glucose 111 H, Calcium 8.2 L, Total Bilirubin 0.5, AST 28, ALT 14, Alkaline Phosphatase 63, Total Protein 6.6, Albumin 3.2 L, Globulin 3.4 H, Albumin/Globulin Ratio 0.9 L I & O for Last 24 hours: Intake & Output 11/30/23 12/01/23 12/02/23 12/03/23 11:59 11:59 11:59 11:59 Intake Total 488.333 / 606.663 8038.833 / 2358.833 721 / 721 Output Total 0 / 0 1000 / 1000 0 / 0 Balance 488.333 / 756.698 4940.833 / 1358.833 721 / 721 Weight 192 lb 15.988 oz 199 lb 4.8 oz 200 lb Constitutional Constitutional: no acute distress *Routine Respiratory Exam Respiratory: Present rhonchi *Routine Cardiovascular Exam Cardiovascular: Present tachycardia and irregularly irregular Progress Note: A&P Assessment and plan (1) Atrial fibrillation with RVR: Status: Acute (2) NSTEMI (non-ST elevated myocardial infarction): Status: Acute (3) Paroxysmal A-fib: Status: Acute (4) Nonadherence to medical treatment: Status: Acute (5) CVA (cerebral vascular accident): Status: Acute (6) Hypertensive urgency: Status: Acute (7) CAD (coronary artery disease): Problem details: Coronary calcium score 1304 Status: Chronic (8) PAD (peripheral artery disease): Status: Chronic (9) Diabetes: Status: Chronic (10) HLD (hyperlipidemia): Status: Acute (11) NUZHAT (acute kidney injury): Status: Resolved (12) Leukocytosis: Status: Acute Assessment and Plan Assessment and Plan for All Diagnoses:: 1. A-fib, RVR on admission -Continue metoprolol succinate but increase to 100 mg daily -On Xarelto 20 mg daily 2. Elevated D-dimer -CTA of the chest negative for PE 3. History of hypertension -Echo EF 55-60%. Mild hypokinesis of the basal inferoseptal LV wall. -increase metoprolol for BP and HR control 4. Non-STEMI -Likely related to A-fib -Mild CAD by left heart catheterization 2020 -Resume Plavix therapy 5. Diabetes mellitus -defer to Hospitalist 6. Elevated white count with infiltrates on CTA, Improving -On ceftriaxone 7. Peripheral arterial disease -Continue Plavix therapy 8. Hyperlipidemia -Restarted statin therapy 9. Concern for medication noncompliance which will affect plan of care -pt and family are now committing to help pt take meds as directed 10. History of CVA, 05/2023, with RLE weakness -On Plavix Clinically stable from a cardiac standpoint for discharge home. Home medication recommendations: Plavix 75 mg daily Xarelto 20 mg daily Metoprolol succinate 100 mg daily Lipitor 40 mg daily Follow-up in our office in 1 to 2 weeks
--- NOTE | 2023-12-03 10:40 | PC.NURSE ---
Pt requests to have new PCP from either [place] or [place].
--- NOTE | 2023-12-03 10:41 | HMH.PHAINT1 ---
Pharmacy Intervention Comments: DISCHARGE MEDICATION COUNSELING PROVIDED. DISCUSSED STOPPING METOPROLOL SUCCINATE 25 MG AND ELIQUIS. START THE FOLLOWING: -XARELTO (BLOOD THINNER, DAILY, TAKE WITH DINNER, BLEED/BRUISE RISK, BLEED LOCATION/APPEARANCE, BUMP HEAD = GO TO ER). 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 NO QUESTIONS AT THIS TIME.
--- NOTE | 2023-12-03 12:18 | P.DS_ITS ---
General Admission date:: 11/30/23 Discharge date: 12/03/23 HPI HPI HPI: This is a 78-year-old female with PMHx of hypertension, PAD, CAD, hyperlipidemia, prior CVA with left lower leg weakness, on aspirin and Plavix, and diabetes presenting to [facility] emergency department for evaluation of chest palpitation, that was documented as pain and SOB. Atrial fibrillation with RVR noted on EKG.Patient was referred to our hospital for cardiology evaluation and treatment. patient been admitted before for same reason. Upon arrival EKG was obtained, rhythm was confirm to still afib with RVR. Per report obatained form ED HR initially in the lowers 100s'. Metoprolol IV given. pain resolved. Patient's rhythms converted to SR. Patient hemodinamically stable. eleveted troponin. no chest pain. Discussed for admission. Cardiology consulted for further management. Hospital Course Hospital Course Hospital Course: Patient was seen and evaluated at the bedside on the day of discharge. Patient is stable for discharge. Patient wishes to be discharged. All patient questions were answered and patient was given time to ask questions. Patient was discharged in stable condition. Patient understands that she can return to ER in case of any sudden changes in health. Total time spent on DC - 38 mins 78-year-old female with PMHx of hypertension, PAD, CAD, hyperlipidemia, prior CVA with left lower leg weakness, on aspirin and Plavix, and diabetes presenting to [facility] emergency department for evaluation of chest palpitation that was documented as pain and SOB. Atrial fibrillation with RVR noted on EKG.Patient was referred to our hospital for cardiology evaluation and treatment. patient been admitted before for same reason. Upon arrival EKG was obtained, rhythm was confirmed went back to afib with RVR. Patient hemodinamically stable. eleveted troponin. no chest pain. Cardiology consulted for further management. Rate controlled this morning on diltiazem drip. A-fib with RVR on admission - improved Hypertension NSTEMI PAD Hyperlipidemia Leukocytocis: - Chest x-ray with no focal consolidation, right hemidiaphragm elevated. - CTA of the chest obtained, atelectasis right middle lobe but no focal consolidation, negative for PE. Differential includes pneumonia, viral illness, UTI -Urinalysis abnormal with elevated leuk esterase and trace bacteria -Continue ceftriaxone 1 g daily, blood culture and urine culture pending. DC on doxycycline NUZHAT: - resolved Exam Data for Last 24 hours Vital signs and Labs for Last 24 Hours: Temp Pulse Resp BP Pulse Ox O2 Del Method O2 Flow Rate 98.8 F 100 H 20 152/83 H 95 Room Air 2 12/03/23 07:37 12/03/23 08:00 12/03/23 07:37 12/03/23 07:37 12/03/23 08:00 12/03/23 09:00 12/03/23 07:00 Laboratory Results - last 24 hr 12/02/23 14:20: APTT 157.2 H* 12/02/23 16:37: POC Glucose 158 H 12/02/23 20:28: POC Glucose 145 H 12/03/23 05:34: POC Glucose 102 12/03/23 07:15: Sodium 138, Potassium 4.1, Chloride 107, Carbon Dioxide 28, Anion Gap 7.1, BUN 13, Creatinine 0.90, Estimated Creat Clear 64, Estimated GFR 60, Est GFR ( Amer) 73, Glucose 111 H, Calcium 8.2 L, Total Bilirubin 0.5, AST 28, ALT 14, Alkaline Phosphatase 63, Total Protein 6.6, Albumin 3.2 L, Globulin 3.4 H, Albumin/Globulin Ratio 0.9 L I & O for Last 24 hours: Intake & Output 11/30/23 12/01/23 12/02/23 12/03/23 23:59 23:59 23:59 23:59 Intake Total 1944.166 / 8272.602 0595 / 1624 Output Total 300 / 300 700 / 700 200 / 200 Balance 1644.166 / 1644.166 924 / 924 -200 / -200 Weight 87.543 kg 90.401 kg 90.718 kg Constitutional Constitutional: no acute distress *Routine HEENT Exam Head: Present normocephalic Eye: Present EOMI and PERRL ENT: Present mucous membranes moist *Routine Neck Exam Neck: Present supple; Absent lymphadenopathy *Routine Respiratory Exam Respiratory: Present CTA bilaterally *Routine Cardiovascular Exam Cardiovascular: Present RRR *Routine Abdominal Exam Abdominal: Present soft and normoactive bowel sounds; Absent tenderness *Routine Extremities Exam Extremities: Absent cyanosis, clubbing or edema *Routine Skin Exam Skin: Present warm; Absent rash *Routine Neurological Exam Neurological: Present alert and oriented X3 Results Data Completed and Pending Labs on day of discharge: Labs from last 24 hours 12/03/23 12/03/23 12/02/23 07:15 05:34 20:28 APTT Sodium 138 Potassium 4.1 Chloride 107 Carbon Dioxide 28 Anion Gap 7.1 BUN 13 Creatinine 0.90 Estimated Creat Clear 64 Estimated GFR 60 Est GFR ( Amer) 73 Glucose 111 H POC Glucose 102 145 H Calcium 8.2 L Total Bilirubin 0.5 AST 28 ALT 14 Alkaline Phosphatase 63 Total Protein 6.6 Albumin 3.2 L Globulin 3.4 H Albumin/Globulin Ratio 0.9 L 12/02/23 12/02/23 16:37 14:20 APTT 157.2 H* Sodium Potassium Chloride Carbon Dioxide Anion Gap BUN Creatinine Estimated Creat Clear Estimated GFR Est GFR ( Amer) Glucose POC Glucose 158 H Calcium Total Bilirubin AST ALT Alkaline Phosphatase Total Protein Albumin Globulin Albumin/Globulin Ratio DS: Diagnosis Discharge Diagnosis (1) Atrial fibrillation with RVR: Status: Acute Code(s): I48.91 - Unspecified atrial fibrillation (2) NSTEMI (non-ST elevated myocardial infarction): Status: Acute Code(s): I21.4 - Non-ST elevation (NSTEMI) myocardial infarction (3) Paroxysmal A-fib: Status: Acute Code(s): I48.0 - Paroxysmal atrial fibrillation (4) Nonadherence to medical treatment: Status: Acute Code(s): Z91.199 - Patient's noncompliance with other medical treatment and regimen due to unspecified reason (5) CVA (cerebral vascular accident): Status: Acute Code(s): I63.9 - Cerebral infarction, unspecified Qualifiers: CVA mechanism: occlusion Precerebral and cerebral artery: posterior cerebral artery Laterality of affected vessel: left Qualified Code(s): I63.532 - Cerebral infarction due to unspecified occlusion or stenosis of left posterior cerebral artery (6) Hypertensive urgency: Status: Acute Code(s): I16.0 - Hypertensive urgency (7) CAD (coronary artery disease): Status: Chronic Code(s): I25.10 - Atherosclerotic heart disease of [place] coronary artery without angina pectoris Qualifiers: Coronary Disease-Associated Artery/Lesion type: unspecified vessel or lesion type [place] vs. transplanted heart: [place] heart Associated angina: unspecified whether angina present Qualified Code(s): I25.10 - Atherosclerotic heart disease of [place] coronary artery without angina pectoris Problem details: Coronary calcium score 1304 (8) PAD (peripheral artery disease): Status: Chronic Code(s): I73.9 - Peripheral vascular disease, unspecified (9) Diabetes: Status: Chronic Code(s): E11.9 - Type 2 diabetes mellitus without complications Qualifiers: Diabetes mellitus type: type 2 Diabetes mellitus chcf insulin use: without oil heaterman use Diabetes mellitus complication status: with other specified complication Qualified Code(s): E11.69 - Type 2 diabetes mellitus with other specified complication (10) HLD (hyperlipidemia): Status: Acute Code(s): E78.5 - Hyperlipidemia, unspecified Qualifiers: Hyperlipidemia type: unspecified Qualified Code(s): E78.5 - Hyperlipidemia, unspecified (11) NUZHAT (acute kidney injury): Status: Resolved Code(s): N17.9 - Acute kidney failure, unspecified (12) Leukocytosis: Status: Acute Code(s): D72.829 - Elevated white blood cell count, unspecified Qualifiers: Leukocytosis type: unspecified Qualified Code(s): D72.829 - Elevated white blood cell count, unspecified Meds Home Medications and Allergies Home Medications Medication Instructions Recorded Confirmed Type atorvastatin 40 mg tablet 40 mg PO HS Cholesterol #30 tabs 09/17/23 12/01/23 Rx lisinopril 10 mg tablet 10 mg PO DAILY High Blood Pressure 09/17/23 12/01/23 Rx #30 tabs metformin 500 mg tablet 500 mg PO BID Diabetes #30 tabs 09/17/23 12/01/23 Rx clopidogrel 75 mg tablet 75 mg PO DAILY Platelet Inhibitor 12/01/23 12/01/23 History hydrochlorothiazide 12.5 mg capsule 12.5 mg PO DAILY Fluid 12/01/23 12/01/23 History pantoprazole 40 mg tablet,delayed 40 mg PO DAILY Acid Reflux 12/01/23 12/01/23 History release metoprolol succinate 100 mg 100 mg PO DAILY 30 days #30 tabs 12/03/23 Rx tablet,extended release 24 hr nicotine 21 mg/24 hr daily 21 mg transdermal DAILYP PRN 12/03/23 Rx transdermal patch Nicotine Cravings 30 days #30 ea rivaroxaban 10 mg tablet (Xarelto) 20 mg PO QPMWITHMEAL 30 days #60 01/31/24 Rx tabs New Prescriptions to Start Prescriptions: metoprolol succinate Loida Deras nicotine Braeden,Loida rivaroxaban [Xarelto] Loida Deras Allergies Allergy/AdvReac Type Severity Reaction Status Date / Time acetaminophen [From TYLENOL] Allergy Unknown Verified 07/31/23 15:12 tramadol [TRAMADOL] Allergy Unknown Verified 07/31/23 15:12 Discharge Plan Disposition Patient Disposition: Home Health Service Condition: Good Discharge Order Discharge Orders: Discharge Order (Routine); Ordered 12/03/23 Ordered By: Loida Deras Follow up Plan Follow up with: Danyel Luna MD [Staff Physician] - 12/09/23 10:45 am Rohan Evans MD [Primary Care Provider] - 12/12/23 1:15 pm Prescriptions/Medication Reconciliation: New metoprolol succinate 100 mg Tablet Extended Release 24 Hr 100 mg PO DAILY 30 Days Qty: 30 0RF Xarelto 10 mg Tablet 20 mg PO QPMWITHMEAL 30 Days Qty: 60 0RF nicotine 21 mg/24 hr Patch 24 Hour 21 mg transdermal DAILYP PRN (Reason: Nicotine Cravings) 30 Days Qty: 30 0RF Continued atorvastatin 40 mg tablet 40 mg PO HS Qty: 30 2RF lisinopril 10 mg tablet 10 mg PO DAILY Qty: 30 0RF metformin 500 mg tablet 500 mg PO BID Qty: 30 0RF clopidogrel 75 mg tablet 75 mg PO DAILY pantoprazole 40 mg tablet,delayed release (DR/EC) 40 mg PO DAILY hydrochlorothiazide 12.5 mg capsule 12.5 mg PO DAILY Discontinued metoprolol succinate 25 mg tablet extended release 24 hr 25 mg PO DAILY Eliquis 5 mg tablet 5 mg PO BID Problem Reconciliation Problems Reviewed?: Yes Patient Discharge Instructions ACTIVITY: Ambulate as tolerated DIET: advance to your usual diet Patient Instructions: DI for Heart Attack, DI for Cardiac Catheterization, DI for Atrial Fibrillation, DI for Surgical Site Infection Providers Primary Care Provider: Rohan Evans Admit Provider: Preet Vee Attending Provider: Preet Vee
--- NOTE | 2023-12-05 12:48 | CARE MANAGER ---
Contacted patient's daughter related to hospital discharge. She states she is doing well and denies any questions or concerns. RIOS Chua
== END 2023-12-03 12:09 | disposition home health service (06) | DRG 281 ==
PROVIDERS: Internal Medicine; Nurse Practitioner Family; Physician Assistant; Admitting Provider Internal Medicine Adolescent Medicine; PCP Family Medicine; Visit Provider Internal Medicine Adolescent Medicine
PROC: 4A023N7 Measurement of Cardiac Sampling and Pressure, Left Heart, Percutaneous Approach (ICD-10-PCS; principal; 2023-12-02 13:15)
DX: I21.4 Non-ST elevation (NSTEMI) myocardial infarction; I69.351 Hemiplegia and hemiparesis following cerebral infarction affecting right dominant side; N17.9 Acute kidney failure, unspecified; I48.0 Paroxysmal atrial fibrillation; I25.10 Atherosclerotic heart disease of native coronary artery without angina pectoris; I10 Essential (primary) hypertension; E78.5 Hyperlipidemia, unspecified; E11.40 Type 2 diabetes mellitus with diabetic neuropathy, unspecified; J44.9 Chronic obstructive pulmonary disease, unspecified; Z96.653 Presence of artificial knee joint, bilateral; Z79.01 Long term (current) use of anticoagulants; E11.51 Type 2 diabetes mellitus with diabetic peripheral angiopathy without gangrene; Z91.199 Patient's noncompliance with other medical treatment and regimen due to unspecified reason; I16.0 Hypertensive urgency; Z79.84 Long term (current) use of oral hypoglycemic drugs
CPT/HCPCS: 93452; 36415; 71045; 71275; 80053; 80061; 81001; 82962; 83036; 83605; 83735; 83880; 84484; 85007; 85025; 85378; 85610; 85730; 87040; 87086; 87636; 93005; 93308; 93458; 99152; C1725; C1769; J0696; J1644; Q9967

== ENCOUNTER 2024-04-22 21:38 | Emergency (ER) | payer MEDICARE, OTHER, SELFPAY ==
[2024-04-22 21:39] VITALS: BP 187/105; PULSE 105; RESP 16; TEMP 37; O2SAT 98; BMI 30.9
--- NOTE | 2024-04-22 21:44 | ED_ITS ---
<Statement entered by Octavia Ramires MD - 04/22/24 23:07> I was consulted by the RASHIDA, and we discussed the complexity of the problems being addressed. I approved the treatment and management plan for this patient's care in the emergency department, thus performing a substantive portion of the medical decision making. Octavia Ramires MD, VIOLETTA, FACEP Discharge Plan Disposition Patient Disposition: Home, Self-Care Condition: Good Prescriptions Prescriptions: No Action atorvastatin 40 mg tablet 40 mg PO HS Qty: 90 3RF clopidogrel 75 mg tablet 75 mg PO DAILY Qty: 90 3RF hydrochlorothiazide 12.5 mg capsule 12.5 mg PO DAILY Qty: 90 3RF lisinopril 10 mg tablet 10 mg PO DAILY Qty: 90 3RF metformin 500 mg tablet 500 mg PO BID Qty: 30 0RF metoprolol succinate 100 mg tablet extended release 24 hr 100 mg PO DAILY 30 Days Qty: 90 3RF pantoprazole 40 mg tablet,delayed release (DR/EC) 40 mg PO DAILY Qty: 90 3RF Xarelto 20 mg tablet 20 mg PO DAILY Qty: 90 3RF nicotine 21 mg/24 hr Patch 24 Hour 21 mg transdermal DAILYP PRN (Reason: Nicotine Cravings) 30 Days Qty: 30 0RF doxycycline hyclate 100 mg capsule 100 mg PO BID 5 Days Qty: 20 0RF Referrals Follow up/Referrals: Doug Landeros MD [Staff Physician] - See instructions Prem Saldaña MD [Primary Care Provider] - See instructions Activity Restrictions/Add. Instructions Additional Instructions/Restrictions: Please call make an appointment with the general surgeon tomorrow for follow-up of your breast abscess. Turn to ER for any worsening signs or symptoms as needed Clinical Impressions Clinical Impression: Abscess or cellulitis of chest wall Instructions Patient Instructions: DI for Skin Abscess Discharge ED Provider: Octavia Ramires General Adult HPI General Chief complaint: Skin/Abscess/Foreign Body Stated complaint: poss bite on chest Time Seen by Provider: 04/22/24 21:44 History of Present Illness HPI narrative: Patient presents for evaluation of a bug bite at the top of her left breast. Patient states that she was bit while she was sleeping at the top of her left breast 7 days ago. It has been itching and she has been scratching it and is continued to get bigger and more painful. She denies fever chills hemoptysis hematochezia melena nausea vomit diarrhea. She states the wound has not drained Related Data Previous Rx's Medication Instructions Recorded doxycycline hyclate 100 mg capsule 100 mg PO BID 5 days #20 caps 12/03/23 nicotine 21 mg/24 hr daily 21 mg transdermal DAILYP PRN 12/03/23 transdermal patch Nicotine Cravings 30 days #30 ea atorvastatin 40 mg tablet 40 mg PO HS Cholesterol #90 tabs 01/21/24 clopidogrel 75 mg tablet 75 mg PO DAILY Platelet Inhibitor 01/21/24 #90 tabs hydrochlorothiazide 12.5 mg capsule 12.5 mg PO DAILY Fluid #90 caps 01/21/24 lisinopril 10 mg tablet 10 mg PO DAILY High Blood Pressure 01/21/24 #90 tabs metformin 500 mg tablet 500 mg PO BID Diabetes #30 tabs 01/21/24 metoprolol succinate 100 mg 100 mg PO DAILY 30 days #90 tabs 01/21/24 tablet,extended release 24 hr pantoprazole 40 mg tablet,delayed 40 mg PO DAILY Acid Reflux #90 tabs 01/21/24 release rivaroxaban 20 mg tablet (Xarelto) 20 mg PO DAILY #90 tabs 01/21/24 Allergies Allergy/AdvReac Type Severity Reaction Status Date / Time acetaminophen [From TYLENOL] Allergy Unknown Verified 12/12/23 14:43 tramadol [TRAMADOL] Allergy Unknown Verified 12/12/23 14:43 [facility] Disclaimer: The information contained in this section may have been updated after the patient was seen, as this information can be updated by other users. Medical History Abnormal ankle brachial index (ELHAM) Abnormal EKG Acquired hammer toe of right foot Atrial fibrillation with RVR Atrial fibrillation, new onset Atypical angina CAD (coronary artery disease) Coronary calcium score 1304 Claudication COPD (chronic obstructive pulmonary disease) Coronary artery calcification seen on CAT scan CVA (cerebral vascular accident) Daytime somnolence Diabetes Diastolic dysfunction Dyspnea HLD (hyperlipidemia) Hypertension Hypertensive urgency Leukocytosis Neuropathy Nonadherence to medical treatment NSTEMI (non-ST elevated myocardial infarction) Obesity (BMI 30-39.9) Onychodystrophy PAD (peripheral artery disease) Pain in both feet Paroxysmal A-fib Snoring Uncontrolled diabetes mellitus Weakness of right lower extremity Surgical History History of cholecystectomy History of total left knee replacement History of total right knee replacement History of tubal ligation Hx of appendectomy Family History Father Diabetes Brother Brain cancer Daughter No problems noted. Sister Breast cancer Social History Smoking Status: Current every day smoker second hand exposure: No alcohol intake: former substance use type: denies use current occupational status: retired Travel in the last 8 weeks: None household members: children housing: house current occupational exposures/hazards: No caffeine: No ROS Obtained: Yes Systems reviewed as appropriate & no additional complaints except as documented Physical Exam General General appearance: alert and in no apparent distress Chest Chest inspection: Present symmetric chest wall rise, tenderness and abscess (12 o'clock position of the left breast); Absent normal inspection (Is an abscess at the 12 o'clock position of her left breast) Respiratory Respiratory exam: Present normal lung sounds bilaterally Cardiovascular Cardiovascular exam: Present regular rate Neurological Exam Neurological exam: Present alert and oriented X3 Expanded Skin Exam Type of lesion: Present abscess Distribution: chest (12 o'clock position left breast) Medical Decision Making Medical Records Medical records reviewed: Yes I reviewed the patient's medical records. Bob Inquiry Pt receiving controlled substance: No Vital Signs: 04/22/24 21:39 Temperature 98.6 F Temperature Source Oral Pulse Rate [Left] 105 H Respiratory Rate 16 Blood Pressure [Right Arm] 187/105 H Blood Pressure Mean [Right Arm] 132 02 Sat by Pulse Oximetry 98 Lab Data Lab results reviewed: Yes I reviewed the patient's lab results. Lab Results 04/22/24 21:54: WBC 9.2, RBC 4.63, Hgb 13.2, Hct 41.9, MCV 90.4, MCH 28.6, MCHC 31.6 L, RDW 14.3, Plt Count 299, MPV 9.3, Neut % (Auto) 64.8, Lymph % (Auto) 24.5, [place] % (Auto) 5.8, Eos % (Auto) 4.1, Baso % (Auto) 0.8, Neut # (Auto) 6.0, Lymph # (Auto) 2.3, [place] # (Auto) 0.5, Eos # (Auto) 0.4, Baso # (Auto) 0.1 04/22/24 21:54 Orders (Tests/Meds): ED MEDICATIONS Discontinued Medications Generic Name Dose Route Start Last Admin Trade Name Angelito PRN Reason Stop Dose Admin Dalbavancin 1,500 mg/ Dextrose 250 mls @ 500 mls/hr 04/22/24 21:50 04/22/24 22:22 IV 04/22/24 21:51 500 mls/hr ONCE ONE Administration Lidocaine HCl 5 ml 04/22/24 21:50 04/22/24 22:21 Lidocaine 1% 10ml Mdv SQ 04/22/24 21:51 5 ml ONCE ONE Administration ORDERS Category Date Time Status BMP [Basic Metabolic Panel] Stat Lab 04/22/24 21:54 Received CBC w/Auto Diff [Complete Blood Count Auto Diff] Stat Lab 04/22/24 21:54 Completed Magnesium Stat Lab 04/22/24 21:54 Received Trop I [Troponin I] Stat Lab 04/22/24 21:54 Received Troponin I Q3H Lab 04/23/24 01:00 Ordered Troponin I Q3H Lab 04/23/24 04:00 Ordered Wound Culture and Gram Stain Stat Micro 04/22/24 21:50 Ordered Medical Decision Narrative: In summary patient is a 78-year-old female who presents to the emergency department for evaluation of abscess. Patient is hypertensive with a rapid heart rate on arrival of 105 upon arrival, afebrile. Physical exam shows a fluctuant approximately 5 cm area at the 12 o'clock position of her left breast that looks ecchymotic in the center with a erythematous ring. It is not indurated. Nothing is expressed currently. Additionally patient was noted to have a fairly fast heart rate and given her previous history of A-fib was concerned that she would be in A-fib RVR. However at the time of her EKG her heart rate is only 93. She is chronically in A-fib and is chronically on anticoagulation. Remainder physical exam is nonfocal and unremarkable. Differential diagnosis includes superficial abscess versus deep breast abscess versus malignancy. Initial workup will be conducted with hematologic labs wound culture. Initial interventions include Toradol Tylenol and oxycodone. Initial workup reviewed by me shows her hematologic labs are nonactionable.. Upon repeat evaluation after I&D patient reports significant improvement in her discomfort.. Given this patient was given an infusion of Dalvance and discharge with referral to general surgery for follow-up of her abscess. Procedures Abscess I/D Site: chest (12 o'clock position left breast) Side (if applicable): left Local Anesthetic: lidocaine 1% Amount of anesthesia used (mL): 10 Technique: incised with #11 blade Amount of fluid expressed (mL): 5 Irrigation: Yes Packing used?: plain Critical Care Critical Care Time Critical Care Time: No
--- NOTE | 2024-04-22 22:01 | ECG_ITS ---
APPROVED REPORT Exam: Resting ECG HR:93 bpm ECG Measurements Heart Rate 93 AXES QRSd 80 QRS 53 QT 372 T 50 QTc 423 Conclusion ATRIAL FIBRILLATION LOW QRS VOLTAGE IN PRECORDIAL LEADS [QRS DEFLECTION < 1.0 mV IN CHEST LEADS] ABNORMAL RHYTHM ECG UNCONFIRMED REPORT Electronically signed by : Preet Ramires, 04/22/2024 23:14:49
[2024-04-22 22:14] LABS: Basophils # 0.1 K/mm3 (0-0.2); Basophils % 0.8 % (0.1-2.0); Eosinophils # 0.4 K/mm3 (0.0-0.4); Eosinophils % 4.1 % (0.1-12.0); Hematocrit 41.9 % (37.0-47.0); Hemoglobin 13.2 g/dL (12.2-16.2); Lymphocytes # 2.3 K/mm3 (0.7-4.5); Lymphocytes % 24.5 % (10-50); Mean Corpuscular HGB Conc 31.6 g/dL (31.8-35.4); Mean Corpuscular Hemoglobin 28.6 pg (27.0-31.2); Mean Corpuscular Volume 90.4 fl (81-99); Mean Platelet Volume 9.3 fl (7.4-10.4); Monocytes # 0.5 K/mm3 (0.1-1.0); Monocytes % 5.8 % (1.7-9.3); Neutrophils % 64.8 % (37.0-80.0); Platelet Count 299 K/mm3 (142-424); Red Blood Count 4.63 M/mm3 (4.20-5.40); Red Cell Distribution Width 14.3 % (11.5-17.5); White Blood Count 9.2 K/mm3 (4.8-10.8)
[2024-04-22] MEDS: LIDOCAINE 1% 10ML MDV 5 ML SQ (22:21)
[2024-04-22] MEDS: DALBAVANCIN HCL 1,500 MG in DEXTROSE 5 % IN WATER 250 ML 500 MG IV (22:22)
[2024-04-22 22:26] VITALS: BP 175/112; PULSE 85; RESP 18; O2SAT 95
--- NOTE | 2024-04-22 22:27 | PC.NURSE ---
No adverse reaction to current infusing medication
[2024-04-22 22:32] VITALS: BP 157/85; PULSE 83; RESP 18; O2SAT 97
[2024-04-22 22:34] LABS: Chloride 112 mmol/L (98-107); Potassium 3.6 mmoL/L (3.5-5.1); Sodium 144 mmol/L (136-145)
[2024-04-22 22:37] LABS: Anion Gap 12.6 mEq/L (5-15); Blood Urea Nitrogen 18 mg/dl (7-17); Calcium 9.2 mg/dl (8.4-10.2); Carbon Dioxide 23 mmol/L (22.0-30.0); Creatinine Clearance Estimated 48 mL/min (50-200); Estimated Glomerular Filt Rate 43 ml/min (>60); GFR (African American) 52 ML/MIN (>60); Glucose 132 mg/dl (74-100)
[2024-04-22 22:38] LABS: Magnesium 1.8 mg/dl (1.6-2.3)
[2024-04-22 22:55] LABS: Troponin I < 0.01 ng/ml (0.00-0.034)
[2024-04-22] MEDS: OXYCODONE 5MG IMMEDIATE RELEASE TABLET 5 MG PO (23:05)
[2024-04-22 23:16] VITALS: BP 174/86; PULSE 89; RESP 18; TEMP 36.6; O2SAT 95
--- NOTE | 2024-04-23 15:18 | PC.NURSE ---
DISCUSSED WOUND CULTURE WITH DR FRANCE, NO NEW ORDERS
--- NOTE | 2024-04-24 12:54 | PC.NURSE ---
reviewed wound culture with Herlinda, pt received lexvance; no action needed
== END 2024-04-22 23:16 | disposition home or self-care (01) ==
PROVIDERS: Physician Assistant; Emergency Provider Student in an Organized Health Care Education/Training Program; PCP Family Medicine
DX: L02.213 Cutaneous abscess of chest wall; B95.62 Methicillin resistant Staphylococcus aureus infection as the cause of diseases classified elsewhere; L03.313 Cellulitis of chest wall; F17.210 Nicotine dependence, cigarettes, uncomplicated; I48.0 Paroxysmal atrial fibrillation; Z79.01 Long term (current) use of anticoagulants; J44.9 Chronic obstructive pulmonary disease, unspecified; E11.9 Type 2 diabetes mellitus without complications; E78.5 Hyperlipidemia, unspecified; I73.9 Peripheral vascular disease, unspecified; I11.9 Hypertensive heart disease without heart failure; I25.119 Atherosclerotic heart disease of native coronary artery with unspecified angina pectoris; Z79.84 Long term (current) use of oral hypoglycemic drugs
CPT/HCPCS: 10060; 80048; 83735; 84484; 85025; 87070; 87077; 87186; 87205; 93005; 96374; 99284; J0875; J7060

== ENCOUNTER 2024-09-13 11:10 | Outpatient (CLI) | payer MEDICARE, OTHER, SELFPAY ==
[2024-09-13 18:40] LABS: Basophils # 0.1 K/mm3 (0-0.2); Basophils % 0.5 % (0.1-2.0); Eosinophils # 0.2 K/mm3 (0.0-0.4); Eosinophils % 2.1 % (0.1-12.0); Hematocrit 43.1 % (37.0-47.0); Hemoglobin 14.4 g/dL (12.2-16.2); Lymphocytes # 2.8 K/mm3 (0.7-4.5); Lymphocytes % 28.1 % (10-50); Mean Corpuscular HGB Conc 33.3 g/dL (31.8-35.4); Mean Corpuscular Hemoglobin 28.6 pg (27.0-31.2); Mean Corpuscular Volume 85.7 fl (81-99); Mean Platelet Volume 11.6 fl (7.4-10.4); Monocytes # 0.6 K/mm3 (0.1-1.0); Monocytes % 6.1 % (1.7-9.3); Neutrophils # 6.2 K/mm3 (1.8-7.8); Neutrophils % 63.2 % (37.0-80.0); Platelet Count 231 K/mm3 (142-424); Red Blood Count 5.03 M/mm3 (4.20-5.40); Red Cell Distribution Width 14.7 % (11.5-17.5); White Blood Count 9.8 K/mm3 (4.8-10.8)
[2024-09-13 19:16] LABS: Erythrocyte Sedimentation Rate 47 mm/hr (0-30)
[2024-09-13 19:55] LABS: Alanine Aminotransferase 13 U/L (12-78); Albumin Level 4.4 g/dl (3.5-5.0); Albumin/Globulin Ratio 1.5 (1.1-1.8); Alkaline Phosphatase 86 U/L (38-126); Anion Gap 15.4 mEq/L (5-15); Aspartate Amino Transferase 26 U/L (14-36); Blood Urea Nitrogen 19 mg/dl (7-17); Calcium 9.2 mg/dl (8.4-10.2); Carbon Dioxide 26 mmol/L (22.0-30.0); Chloride 104 mmol/L (98-107); Chol/HDL Ratio 3.8 (1-3.5); Cholesterol 248 mg/dl (140-200); Estimated Glomerular Filt Rate 60 ml/min (>60); GFR (African American) 73 ML/MIN (>60); Glucose 94 mg/dl (74-100); HDL Cholesterol 66 mg/dl (40-60); Potassium 4.4 mmoL/L (3.5-5.1); Sodium 141 mmol/L (136-145); Total Protein,Serum 7.4 g/dl (6.3-8.2); Triglycerides 78 mg/dl (30-150); Uric Acid 4.9 mg/dl (2.5-6.2); VLDL Cholesterol 16 mg/dL (0-40)
[2024-09-13 20:01] LABS: HIV (1&2) Antibody Rapid NONREACTIVE (NONREACTIVE)
[2024-09-13 20:05] LABS: Microalbumin/Creatinine Ratio 154.1
[2024-09-13 20:06] LABS: Creatinine,Urine Random 85 mg/dL (Not Estab.)
[2024-09-13 20:08] LABS: Direct LDL Cholesterol 172.25 mg/dL (100-129)
[2024-09-13 22:34] LABS: Hemoglobin A1C 6.3 % (4.0-6.0)
[2024-09-15 07:54] LABS: HCV Ab Non Reactive (Non Reactive)
[2024-09-15 08:21] LABS: RA Latex Turbid. 12.2 IU/mL (<14.0)
[2024-09-29 09:07] LABS: Antinuclear Antibodies, IFA POSITIVE
== END 2024-09-13 23:59 | disposition home or self-care (01) ==
LOC: LAB.DROPOF 09-14 09:22
PROVIDERS: PCP Nurse Practitioner; Visit Provider Nurse Practitioner
DX: E78.5 Hyperlipidemia, unspecified (principal); I10 Essential (primary) hypertension; E11.69 Type 2 diabetes mellitus with other specified complication; I25.10 Atherosclerotic heart disease of native coronary artery without angina pectoris; E66.9 Obesity, unspecified; J44.9 Chronic obstructive pulmonary disease, unspecified; K21.9 Gastro-esophageal reflux disease without esophagitis; Z13.0 Encounter for screening for diseases of the blood and blood-forming organs and certain disorders involving the immune mechanism; Z68.26 Body mass index [BMI] 26.0-26.9, adult
CPT/HCPCS: 80053; 80061; 82043; 82570; 83036; 84443; 84550; 85025; 85651; 86038; 86431; 86803; 87389

== ENCOUNTER 2024-09-27 08:21 | Outpatient (POV) | payer MEDICARE, OTHER, SELFPAY ==
[2024-09-27 08:56] VITALS: BP 108/71; PULSE 89; RESP 16; O2SAT 98; BMI 33.6
--- NOTE | 2024-09-27 09:21 | A.OFFVIS_ITS ---
HPI Data of Consult Patient: new to practice Consult date: 09/27/24 Requesting Physician: Nadia Benites APRN Primary Care Provider: Rohan Evans MD Consult Narrative Reason for consult: Bilateral knee pain, left shoulder pain, low back, right hip pain History of present illness: Ms. Villalta is a 79 year old female who presents today as a new patient. She is a referral from [facility] [place] in [place]. Today she rates her pain a 8 out of 10. Patient states that the bulk of her pain is related to her bilateral knees and that this is been going on for at least 2 years if not longer. Patient does say this is a constant throbbing sensation that is worse with increased activity or certain positions. She does state that she had both her knees replaced in the past and did have injection therapy in the past prior to her surgery that did help. Patient states that her left shoulder she has had injections from orthopedics and that that has helped. She does state the low back and right hip has just started over the last couple of days. Patient denies any recent falls or injuries. Patient has tried oral medications, heat and ice and multiple topicals including Voltaren with no additional improvement. Patient has also had physical therapy and continued at home stretching exercise for longer than 12 weeks with no additional relief. Patient does have a longstanding history of heart related issues, copd and diabetes.Patient is not on any scheduled medications her Bob has been reviewed and is appropriate. CC: Nadia Benites APRN [facility] Disclaimer: The information contained in this section may have been updated after the patient was seen, as this information can be updated by other users. Medical History (Updated 09/27/24 @ 09:25 by Nadia Benites APRN) MARYURI positive Acquired hypothyroidism Screening for blood disease COPD (chronic obstructive pulmonary disease) Obesity (BMI 30-39.9) CAD (coronary artery disease) HLD (hyperlipidemia) Hypertension Diabetes GERD (gastroesophageal reflux disease) Bilateral shoulder pain Bilateral knee pain Leukocytosis NSTEMI (non-ST elevated myocardial infarction) Atrial fibrillation with RVR Paroxysmal A-fib Atrial fibrillation, new onset CVA (cerebral vascular accident) Nonadherence to medical treatment Uncontrolled diabetes mellitus Hypertensive urgency Weakness of right lower extremity Atypical angina PAD (peripheral artery disease) Onychodystrophy Acquired hammer toe of right foot Pain in both feet Coronary artery calcification seen on CAT scan Diastolic dysfunction Daytime somnolence Snoring Dyspnea Abnormal ankle brachial index (ELHAM) Claudication Abnormal EKG Neuropathy Surgical History History of tubal ligation History of total left knee replacement History of total right knee replacement History of cholecystectomy Hx of appendectomy Family History Father Diabetes Brother Brain cancer Daughter No problems noted. Sister Breast cancer Social History Smoking Status: Current every day smoker second hand exposure: No alcohol intake: former substance use type: denies use current occupational status: retired household members: children housing: house current occupational exposures/hazards: No caffeine: No Review of Systems Review of Systems Review of systems:: pertinent systems reviewed and negative unless documented below Review of systems (narrative): Review of Systems: General: No recent weight changes, no fever, no sleep disturbances Respiratory: No cough, no shortness of air, no recurring pulmonary infections Cardiovascular/peripheral vascular: No chest pain, no palpitations, no edema, no shortness of breath Gastrointestinal: No new onset incontinence, normal bowel movements reported Genitourinary: No new onset incontinence Musculoskeletal: Low back pain, bilateral knee pain, left shoulder pain, right hip pain Psychiatric: [Normal mood/affect] Neurological: [Denies weakness in extremities], [denies balance issues] Meds Home Medications and Allergies Home Medications ?Medication ?Instructions ?Recorded ?Confirmed ?Type cetirizine 10 mg tablet 10 mg PO DAILY #30 tabs 09/13/24 09/27/24 Rx diclofenac sodium 75 mg 75 mg PO BID #60 tabs 09/13/24 09/27/24 Rx tablet,delayed release hydrochlorothiazide 12.5 mg capsule 12.5 mg PO DAILY Fluid #90 caps 09/13/24 09/27/24 Rx lisinopril 10 mg tablet 10 mg PO DAILY High Blood Pressure 09/13/24 09/27/24 Rx #90 tabs metformin 500 mg tablet 500 mg PO BID Diabetes #180 tabs 09/13/24 09/27/24 Rx metoprolol succinate 100 mg 100 mg PO DAILY #90 tabs 09/13/24 09/27/24 Rx tablet,extended release 24 hr pantoprazole 40 mg tablet,delayed 40 mg PO DAILY Acid Reflux #90 tabs 09/13/24 09/27/24 Rx release rivaroxaban 20 mg tablet (Xarelto) 20 mg PO DAILY #90 tabs 09/13/24 09/27/24 Rx blood sugar diagnostic #50 ea 09/14/24 09/27/24 Rx blood-glucose meter #1 ea 09/14/24 09/27/24 Rx lancets 31 gauge #100 ea 09/14/24 09/27/24 Rx atorvastatin 40 mg tablet 40 mg PO HS Cholesterol #90 tabs 09/17/24 09/27/24 Rx levothyroxine 50 mcg tablet 50 mcg PO DAILY #90 tabs 09/17/24 09/27/24 Rx New Prescriptions to Start Prescriptions: Allergies Allergy/AdvReac Type Severity Reaction Status Date / Time acetaminophen (From TYLENOL) Allergy Unknown Verified 09/13/24 09:30 tramadol (TRAMADOL) Allergy Unknown Verified 09/13/24 09:30 Objective Vital signs: Pulse Resp BP Pulse Ox O2 Del Method 89 16 108/71 L 98 Room Air 09/27/24 08:56 09/27/24 08:56 09/27/24 08:56 09/27/24 08:56 09/27/24 08:56 Narrative: Physical Exam: General: Alert and oriented x3, no acute distress, pleasant and cooperative Lungs: Respirations even and unlabored, symmetrical chest expansion Eyes: PERRL Musculoskeletal: Flexion and extension of bilateral knees somewhat guarded secondary to pain, [antalgic gait noted], point tenderness along right SI with a positive right Sky's Neurological: Speech clear, no gross sensory deficit Assessment and Plan *Assessment and plan (1) Bilateral knee pain: Status: Acute Category: Medical Code(s): M25.561 - Pain in right knee; M25.562 - Pain in left knee (2) Bilateral shoulder pain: Status: Acute Category: Medical Code(s): M25.511 - Pain in right shoulder; M25.512 - Pain in left shoulder (3) Low back pain: Status: Acute Category: Medical Code(s): M54.50 - Low back pain, unspecified (4) Sacroiliitis: Status: Acute Category: Medical Code(s): M46.1 - Sacroiliitis, not elsewhere classified Plan Patient is experiencing worsening pain in her bilateral knees with limited range of motion. Patient has had 2 previous knee replacements and cannot have intra- articular injections. I did discuss with the patient that I do believe she would benefit from bilateral infrapatellar nerve blocks. Risk and benefits were discussed with patient and she would like to proceed forward with this plan of care. Patient has tried and failed conservative therapy including continued at home stretching exercise for longer than 12 weeks. I will order the patient a compounded cream. I did also discuss with the patient that she did have a positive right SI exam during today's visit however since this is just started over the last couple of days I would wait and see if the knee injections do also provide improvement across the low back. Patient agrees with this plan of care. Patient will be scheduled for bilateral infrapatellar nerve blocks. Patient has been instructed to contact the clinic with any concerns before the next appointment. Dr. Freeman has reviewed this note and agrees with this plan of care. This note was dictated using voice recognition software and make contain errors or omissions. All injections are used with Lidocaine or Bupivacaine and Depo Medrol.
== END 2024-09-27 23:59 | disposition home or self-care (01) ==
LOC: SC.PAIN 08:23
PROVIDERS: PCP Family Medicine; Visit Provider Nurse Practitioner Family
DX: M25.561 Pain in right knee (principal); M25.562 Pain in left knee; M25.511 Pain in right shoulder; M25.512 Pain in left shoulder; M54.50 Low back pain, unspecified; M46.1 Sacroiliitis, not elsewhere classified; Z96.653 Presence of artificial knee joint, bilateral; F17.210 Nicotine dependence, cigarettes, uncomplicated; Z79.01 Long term (current) use of anticoagulants
CPT/HCPCS: 99202; G0463

== ENCOUNTER 2024-10-05 08:53 | Day surgery (SDC) | payer MEDICARE, OTHER, SELFPAY ==
[2024-10-05 09:09] VITALS: BP 173/106; PULSE 73; RESP 16; O2SAT 97; BMI 33.6
[2024-10-05] MEDS: methylPREDNISolone ACETATE 80MG/ML VIAL 80 MG (09:24)
[2024-10-05] MEDS: LIDOCAINE 1% 5ML PF VIAL 5 ML (09:24)
[2024-10-05] MEDS: BUPIVACAINE 0.25% 10ML INJ 25 MG IJ (09:24)
--- NOTE | 2024-10-05 09:30 | EXP.PAIN.PRO ---
Procedure Date: 10/05/24 Time: 09:15 Anesthesiologist:: Victor M Azul CRNA Complications:: None Pre-procedure Diagnosis:: Chronic bilateral knee pain. Patient status post bilateral TKA. Post-procedure Diagnosis:: Same. Indications for Procedure:: Patient is a very pleasant 79-year-old female who comes to clinic today for bilateral infrapatellar nerve block. Patient status post bilateral TKA. Patient reports having bilateral knee pain since surgery. She reports pain intensifies with ambulation. Standing increases pain. She rates her pain today 7/10. Procedure Details:: Details of the procedure explained to the patient. The patient taken procedure and placed in the sitting position. The area over the knees was cleansed using chlorhexidine as a cleansing solution. Using a 25-gauge inch and half needle the right infrapatellar nerve was located with ease. After negative aspiration 7 cc of 1% lidocaine and 40 mg of Depo-Medrol was injected. The same procedure was carried out over the left infrapatellar nerve. Patient tolerated procedure without difficulty. There are no complications. Plan and Disposition:: Patient was discharged without incident.
[2024-10-05 09:31] VITALS: BP 195/97; PULSE 97; RESP 16; O2SAT 98
--- NOTE | 2024-10-05 09:31 | PC.NURSE ---
0931- PT WAS ADVISED TO F/U WITH PCP FOR ELEVATED BP. PT DENIES ANY SYMPTOMS AND STATES HER BP IS NORMALLY FINE. PT WAS REEVALUATED PRIOR TO D/C
== END 2024-10-05 09:31 | disposition home or self-care (01) ==
PROVIDERS: PCP Family Medicine; Visit Provider Nurse Anesthetist, Certified Registered
DX: M25.561 Pain in right knee (principal); M25.562 Pain in left knee; G89.29 Other chronic pain; Z96.653 Presence of artificial knee joint, bilateral
CPT/HCPCS: 64450; J1010

== ENCOUNTER 2025-03-08 22:30 | Inpatient (IN) | payer OTHER, SELFPAY ==
[2025-03-08] VITALS (8 sets, daily range): BP systolic 165–229; BP diastolic 102–144; PULSE 80–138; RESP 14–24; TEMP 36.7; O2SAT 94–98; BMI 30.2
--- NOTE | 2025-03-08 22:45 | ECG_ITS ---
APPROVED REPORT Exam: Resting ECG HR:125 bpm ECG Measurements Heart Rate 125 AXES QRSd 79 QRS 67 QT 243 T 21 QTc 317 Conclusion ATRIAL FIBRILLATION WITH RAPID VENTRICULAR RESPONSE NONSPECIFIC ST & T-WAVE ABNORMALITY ABNORMAL RHYTHM ECG UNCONFIRMED REPORT Electronically signed by : JAMIA HARRIS, 03/10/2025 00:24:35
--- NOTE | 2025-03-08 22:59 | [facility].EDGENADL ---
Discharge Plan Disposition Patient Disposition: Admitted Chief Complaint: Neck Pain/Injury Prescriptions Prescriptions: No Action diclofenac sodium 75 mg tablet,delayed release (DR/EC) 75 mg PO BID Qty: 60 0RF hydrochlorothiazide 12.5 mg capsule 12.5 mg PO DAILY Qty: 90 3RF lisinopril 10 mg tablet 10 mg PO DAILY Qty: 90 3RF metformin 500 mg tablet 500 mg PO BID Qty: 180 3RF metoprolol succinate 100 mg tablet extended release 24 hr 100 mg PO DAILY Qty: 90 3RF pantoprazole 40 mg tablet,delayed release (DR/EC) 40 mg PO DAILY Qty: 90 3RF Xarelto 20 mg tablet 20 mg PO DAILY Qty: 90 3RF cetirizine 10 mg tablet 10 mg PO DAILY Qty: 30 5RF levothyroxine [Synthroid] 75 mcg tablet 75 mcg PO DAILY Qty: 90 3RF (DME) blood-glucose meter Kit See Rx Instructions .MEDSUPPLY Qty: 1 0RF Rx Instructions: Use to check blood sugar daily and prn (DME) blood sugar diagnostic Strip See Rx Instructions .MEDSUPPLY Qty: 50 3RF Rx Instructions: Use to check blood sugar daily and prn (DME) lancets 31 gauge misc See Rx Instructions .Route Qty: 100 0RF Rx Instructions: Use to check blood sugar daily and prn atorvastatin 40 mg tablet 40 mg PO HS Qty: 90 3RF Clinical Impressions Clinical Impression: Hypertensive emergency, Renal artery stenosis, Acute UTI Print Language Print Language: [place] Islander Discharge ED Provider: Erick Pugh General Adult HPI <Joesph Lopez MD - Last Filed: 03/08/25 23:06> General Chief complaint: Neck Pain/Injury Stated complaint: neck pain radiating up in back of head Time Seen by Provider: 03/08/25 22:38 Mode of Arrival: Ambulatory Source of Information: Patient and Relative Description of Symptoms (Recalled from ER Triage Doc. by RN): Pt presents with c/o neck pain that radiates into her head that began a couple days ago Pt denies any injury, denies chest pain, soa. Pt presents with family to report that patient is non compliant with her medication, known A-fib HX. Pt denies numbness or tingling to ext. History of Present Illness HPI narrative: Please note that above description of symptoms, in this electronic medical record under categorization of recalled from ER triage doctor by RN are reflective of an initial nursing assessment, however, is not reflective of my full history and physical exam that was personally taken and clarified. Consequentially, this preceding description of symptoms, which may include the patient's categorized chief complaint in the EMR, do not reflect my personal clinical impression, and the ultimate description of history of present illness and patient stated complaints should be deferred to this section of the note. Unless stated otherwise or congruent with this section of the note, additional signs, symptoms, or incongruence should be interpreted as inaccurate with my clinical impression. Related Data Previous Rx's ?Medication ?Instructions ?Recorded cetirizine 10 mg tablet 10 mg PO DAILY #30 tabs 09/13/24 diclofenac sodium 75 mg 75 mg PO BID #60 tabs 09/13/24 tablet,delayed release hydrochlorothiazide 12.5 mg capsule 12.5 mg PO DAILY Fluid #90 caps 09/13/24 lisinopril 10 mg tablet 10 mg PO DAILY High Blood Pressure 09/13/24 #90 tabs metformin 500 mg tablet 500 mg PO BID Diabetes #180 tabs 09/13/24 metoprolol succinate 100 mg 100 mg PO DAILY #90 tabs 09/13/24 tablet,extended release 24 hr pantoprazole 40 mg tablet,delayed 40 mg PO DAILY Acid Reflux #90 tabs 09/13/24 release rivaroxaban 20 mg tablet (Xarelto) 20 mg PO DAILY #90 tabs 09/13/24 blood sugar diagnostic #50 ea 09/14/24 blood-glucose meter #1 ea 09/14/24 lancets 31 gauge #100 ea 09/14/24 atorvastatin 40 mg tablet 40 mg PO HS Cholesterol #90 tabs 09/17/24 levothyroxine 75 mcg tablet 75 mcg PO DAILY #90 tabs 10/11/24 (Synthroid) Allergies Allergy/AdvReac Type Severity Reaction Status Date / Time acetaminophen (From TYLENOL) Allergy Unknown Verified 10/11/24 10:36 tramadol (TRAMADOL) Allergy Unknown Verified 10/11/24 10:36 [facility] <Joesph Lopez MD - Last Filed: 03/08/25 23:06> [facility] Disclaimer: The information contained in this section may have been updated after the patient was seen, as this information can be updated by other users. Medical History MARYURI positive Acquired hypothyroidism Screening for blood disease COPD (chronic obstructive pulmonary disease) Obesity (BMI 30-39.9) CAD (coronary artery disease) Coronary calcium score 1304 HLD (hyperlipidemia) Hypertension Diabetes GERD (gastroesophageal reflux disease) Bilateral shoulder pain Bilateral knee pain Leukocytosis NSTEMI (non-ST elevated myocardial infarction) Atrial fibrillation with RVR Paroxysmal A-fib Atrial fibrillation, new onset CVA (cerebral vascular accident) Nonadherence to medical treatment Uncontrolled diabetes mellitus Hypertensive urgency Weakness of right lower extremity Atypical angina PAD (peripheral artery disease) Onychodystrophy Acquired hammer toe of right foot Pain in both feet Coronary artery calcification seen on CAT scan Diastolic dysfunction Daytime somnolence Snoring Dyspnea Abnormal ankle brachial index (ELHAM) Claudication Abnormal EKG Neuropathy Surgical History History of tubal ligation History of total left knee replacement History of total right knee replacement History of cholecystectomy Hx of appendectomy Family History Brain cancer Brother Diabetes Father Breast cancer Sister Social History Smoking Status: Former smoker second hand exposure: No alcohol intake: former substance use type: denies use current occupational status: retired Travel in the last 8 weeks?: None household members: children housing: house current occupational exposures/hazards: No caffeine: No Have you lived/traveled outside [place] in past 30 days?: No Contact w/someone who lives/traveled outside US past 30 days?: No Exposure to someone with infectious disease in past 14 days?: No Do you have a fever (greater than 100.4 F or 38 C)?: No Have you tested positive for COVID-19?: No Exposed to someone with COVID-19 in past 14 days?: No Do you have a sore throat?: No Do you have a cough?: No Do you have any weakness?: No Do you have any diarrhea?: No Are you experiencing any unusual bleeding?: No Do you have any muscle aches/pain?: No Do you have any abdominal pain?: No Are you experiencing loss of taste or smell?: No Other Medical History Have you received the Flu Vaccine for this season: No Have you received the Pneumonia Vaccine: Yes <Joesph Lopez MD - Last Filed: 03/08/25 23:06> ROS Obtained: Yes All systems reviewed & no additional complaints except as documented Physical Exam <Joesph Lopez MD - Last Filed: 03/08/25 23:06> General General appearance: alert Head Head exam: atraumatic and normocephalic Eye Eye exam: Present normal appearance, PERRL and EOMI Neck Neck exam: Present trachea midline Chest Chest inspection: Present normal inspection and symmetric chest wall rise Respiratory Respiratory exam: Present normal lung sounds bilaterally; Absent respiratory distress, wheezes, stridor, accessory muscle use or prolonged expiratory phase Cardiovascular Cardiovascular exam: Present tachycardia, irregular rhythm and other (Pulses equal and symmetric in upper and lower extremities) Abdominal Exam Abdominal exam: Present soft; Absent distention, tenderness or pulsatile mass Extremities Exam Extremities exam: Present edema Neurological Exam Neurological exam: Present alert, oriented X3 and CN II-XII intact Skin Skin exam: Present warm and dry; Absent cyanosis, diaphoresis or pallor Medical Decision Making <Joesph Lopez MD - Last Filed: 03/08/25 23:06> Medical Records Medical records reviewed: Yes I reviewed the patient's medical records. Screening: Per USPSTF and CDC recommendations, given the prevalence of disease in our region, it is our hospital?s policy to screen for HIV and viral Hepatitis for all patients aged 18 and over and those with ongoing risk factors. Bob Inquiry Pt receiving controlled substance: No Bob was queried for this patient: No Vital Signs: 03/08/25 22:42 03/08/25 22:45 03/08/25 22:54 Temperature 98.1 F Temperature Source Oral Pulse Rate 138 H 132 H Pulse Rate [Radial] 126 H Respiratory Rate 16 34 H Blood Pressure 215/134 H 227/144 H Blood Pressure [Right Arm] 215/134 H Blood Pressure Mean [Right Arm] 161 Blood Pressure Source Blood Pressure Position [Right Arm] Sitting 02 Sat by Pulse Oximetry 95 95 96 Oxygen Delivery Method Room Air 03/08/25 23:02 03/08/25 23:19 03/08/25 23:25 Temperature Temperature Source Pulse Rate 120 H 89 Pulse Rate [Radial] Respiratory Rate 44 H 16 Blood Pressure 229/134 H 220/130 H 165/120 H Blood Pressure [Right Arm] Blood Pressure Mean [Right Arm] Blood Pressure Source Manual Cuff/ Auscultation Blood Pressure Position [Right Arm] 02 Sat by Pulse Oximetry 96 98 Oxygen Delivery Method 03/08/25 23:30 03/08/25 23:36 03/09/25 00:06 Temperature Temperature Source Pulse Rate 86 80 95 H Pulse Rate [Radial] Respiratory Rate 16 14 17 Blood Pressure 184/110 H 181/102 H 200/103 H Blood Pressure [Right Arm] Blood Pressure Mean [Right Arm] Blood Pressure Source Blood Pressure Position [Right Arm] 02 Sat by Pulse Oximetry 98 94 L 95 Oxygen Delivery Method 03/09/25 00:20 03/09/25 00:25 Temperature Temperature Source Pulse Rate 111 H 93 H Pulse Rate [Radial] Respiratory Rate 22 19 Blood Pressure 157/106 H 174/110 H Blood Pressure [Right Arm] Blood Pressure Mean [Right Arm] Blood Pressure Source Blood Pressure Position [Right Arm] 02 Sat by Pulse Oximetry 96 97 Oxygen Delivery Method Lab Data Lab Results 03/08/25 22:38: Lactate 1.0 03/08/25 22:55: WBC 11.6 H, RBC 5.19, Hgb 14.3, Hct 44.1, MCV 85.0, MCH 27.6, MCHC 32.4, RDW 14.4, Plt Count 212, MPV 11.6 H, Neut % (Auto) 68.4, Lymph % (Auto) 21.9, [place] % (Auto) 7.1, Eos % (Auto) 2.0, Baso % (Auto) 0.3, Neut # (Auto) 7.9 H, Lymph # (Auto) 2.5, [place] # (Auto) 0.8, Eos # (Auto) 0.2, Baso # (Auto) 0.0, PT 10.3, INR 0.91, APTT 27.1, Sodium 140, Potassium 3.6, Chloride 107, Carbon Dioxide 24, Anion Gap 12.6, BUN 20 H, Creatinine 0.90, Estimated Creat Clear 58, Estimated GFR 60, Est GFR ( Amer) 73, Glucose 142 H, Hemoglobin A1c 5.9, Calcium 9.1, Magnesium 1.6, Total Bilirubin 0.8, AST 28, ALT 14, Alkaline Phosphatase 94, Troponin I < 0.01, NT-Pro-B Natriuret Pep 2680 H, Total Protein 7.4, Albumin 4.3, Globulin 3.1, Albumin/Globulin Ratio 1.4, Triglycerides 116, Cholesterol 202 H, LDL Cholesterol Direct 111.92, VLDL Cholesterol 23, HDL Cholesterol 58, Cholesterol/HDL Ratio 3.5, TSH 12.00 H, Thyroxine (T4) 7.1 03/09/25 00:16: Urine Color Yellow, Urine Appearance Clear, Urine pH 6.0, Ur Specific [place] 1.015, Urine Protein 1+ A, Urine Glucose (UA) Negative, Urine Ketones Negative, Urine Blood Negative, Urine Nitrate Positive A, Urine Bilirubin Negative, Urine Urobilinogen 0.2, Ur Leukocyte Esterase Negative, Urine RBC 20-50, Urine WBC 10-20, Ur Squamous Epith Cells 3-5, Urine Bacteria 4+, Urine Opiates Screen Negative, Urine Methadone Screen Negative, Ur Barbituates Screen Negative, Ur Phencyclidine Scrn Negative, Ur Amphetamines Screen Negative, U Benzodiazepines Scrn Negative, Urine Cocaine Screen Negative, U Marijuana (THC) Screen Negative 03/08/25 22:55 03/08/25 22:55 Orders (Tests/Meds): ED MEDICATIONS Discontinued Medications Generic Name Dose Route Start Last Admin Trade Name Angelito PRN Reason Stop Dose Admin Aspirin 324 mg 03/08/25 23:19 03/08/25 23:23 Aspirin 81mg Chewable Tablet PO 03/08/25 23:20 324 mg ONCE ONE Administration Hydromorphone HCl 0.5 mg 03/08/25 23:00 03/08/25 23:09 Hydromorphone 2mg/Ml Syringe IV 03/08/25 23:01 0.5 mg ONCE ONE Administration Iopamidol 160 ml 03/09/25 00:06 03/09/25 00:08 Iopamidol-370 (76%);100ml Bottle IV 03/09/25 00:07 160 ml ONCE ONE Administration Metoprolol Tartrate 5 mg 03/08/25 23:00 03/08/25 23:09 Metoprolol Tartrate 5mg/5ml Vial IV 03/08/25 23:01 5 mg ONCE ONE Administration Ondansetron HCl 4 mg 03/08/25 23:00 03/08/25 23:09 Ondansetron 4mg/2ml Vial IV 03/08/25 23:01 4 mg ONCE ONE Administration Sodium Chloride 50 ml 03/09/25 00:06 03/09/25 00:08 0.9 % Sodium Chloride 50 Ml Vial IV 03/09/25 00:07 50 ml ONCE ONE Administration Sodium Chloride 10 ml 03/09/25 00:06 03/09/25 00:08 Sodium Chloride 0.9% 10ml Syr (Rad Only) IV 03/09/25 00:07 10 ml ONCE ONE Administration ORDERS Category Date Time Status CT angio abdomen pelvis Stat Cat Scan 03/08/25 23:[address] angio head Stat Cat Scan 03/08/25 23:[address] angio neck Stat Cat Scan 03/08/25 23:[address] head/brain wo con Stat Cat Scan 03/08/25 23:20 Completed CTA Chest [CT angio chest - dissection] Stat Cat Scan 03/08/25 23:20 Completed Cardiology Consult [Consult to Cardiology] [CONS] Cons 03/09/25 01:12 Active Routine XR chest portable Stat Exams 03/08/25 23:20 Completed Complete Blood Count Auto Diff Stat Lab 03/08/25 22:55 Completed Comprehensive Metabolic Panel Stat Lab 03/08/25 22:55 Completed Drug Screen,Urine Stat Lab 03/09/25 00:16 Completed Hemoglobin A1C Stat Lab 03/08/25 22:55 Completed Lactic Acid Stat Lab 03/08/25 22:38 Completed Lipid Panel Stat Lab 03/08/25 22:55 Completed Magnesium Stat Lab 03/08/25 22:55 Completed NT Pro Brain Natriuretic Pep. Stat Lab 03/08/25 22:55 Completed PT INR [Prothrombin Time INR] Stat Lab 03/08/25 22:55 Completed PTT [Activated Partial Thrombo Time] Stat Lab 03/08/25 22:55 Completed T4 (Thyroxine) Stat Lab 03/08/25 22:55 Completed TSH [Thyroid Stimulating Hormone] Stat Lab 03/08/25 22:55 Completed Troponin I Q3H Lab 03/09/25 02:30 Ordered Troponin I Q3H Lab 03/09/25 05:30 Ordered Troponin I Stat Lab 03/08/25 22:55 Completed Urinalysis and Microscopic Stat Lab 03/09/25 00:16 Completed Urine Culture Stat Micro 03/09/25 00:16 Received Medical Decision Narrative: Medically noncompliant 79-year-old female with history of hypertension, hyperlipidemia, atrial fibrillation, diabetes, hypothyroidism presenting with neck pain. States that she had not been taking her medications for months, pick them up a couple days ago and started taking them again, these include hydrochlorothiazide, atorvastatin, levothyroxine, lisinopril, metformin, metoprolol, rivaroxaban, among others. States that for the last day and a half she has had severe pain in the back of her neck that is been crescendo in nature. Bilateral, radiates upward toward her head. No vision changes. No weakness in arms or legs. Mentating appropriately, no confusion. No chest pain, shortness of breath, nausea, vomiting, diaphoresis, or any other changes from baseline she does state that she has had some swelling in her legs it has been getting a little worse, but other than that no symptoms. History was obtained via conversation with patient and family. On arrival, patient hemodynamically stable, alert, oriented x4, appropriate, GCS 15, moving all extremities spontaneously, pupils equal and reactive to light. Full physical exam performed and significant for hypertensive in no acute distress. Speaking full sentences, states that she mostly came at the behest of her family. Intermittently having what appear to be flareups of the pain in her neck and holding her neck. She is tachycardic with irregular rhythm, right upper sternal border murmur consistent with aortic stenosis. 1+ lower extremity pitting edema in bilateral legs. Abdomen is soft, nontender, nondistended. She is neurologically intact including cranial nerves, cerebellar, motor and sensory exams. She is also ambulatory. Differential includes medication noncompliance, hypertensive urgency, hypertensive emergency, aortic dissection, vertebral dissection, intracranial hemorrhage, among others. Patient placed on continuous cardiac monitoring and continuous pulse ox with initial blood pressure 215/134, heart rate 126, saturation 95% on room air. Independent interpretation of EKG shows atrial fibrillation with RVR. 125 bpm with QRS 79, QTc 317. Normal axis and no obvious acute ischemic change. She does have nonspecific ST and T wave changes with no reciprocal changes. Patient was given 5 IV metoprolol, 0.5 mg Dilaudid, Zofran for symptomatic management and correction of underlying abnormalities. Just after arrival and prior to workup, care handed off to oncoming physician. Health And Safety Trainer disclaimer Much of this encounter note is an electronic applied behavior science specialist spoken language to printed text. Electronic applied behavior science specialist of the spoken language may permit errors. Although I have reviewed the note, some errors may still exist. <Erick Pugh MD - Last Filed: 03/09/25 01:19> Vital Signs: 03/08/25 22:42 03/08/25 22:45 03/08/25 22:54 Temperature 98.1 F Temperature Source Oral Pulse Rate 138 H 132 H Pulse Rate [Radial] 126 H Respiratory Rate 16 34 H Blood Pressure 215/134 H 227/144 H Blood Pressure [Right Arm] 215/134 H Blood Pressure Mean [Right Arm] 161 Blood Pressure Source Blood Pressure Position [Right Arm] Sitting 02 Sat by Pulse Oximetry 95 95 96 Oxygen Delivery Method Room Air 03/08/25 23:02 03/08/25 23:19 03/08/25 23:25 Temperature Temperature Source Pulse Rate 120 H 89 Pulse Rate [Radial] Respiratory Rate 44 H 16 Blood Pressure 229/134 H 220/130 H 165/120 H Blood Pressure [Right Arm] Blood Pressure Mean [Right Arm] Blood Pressure Source Manual Cuff/ Auscultation Blood Pressure Position [Right Arm] 02 Sat by Pulse Oximetry 96 98 Oxygen Delivery Method 03/08/25 23:30 03/08/25 23:36 03/09/25 00:06 Temperature Temperature Source Pulse Rate 86 80 95 H Pulse Rate [Radial] Respiratory Rate 16 14 17 Blood Pressure 184/110 H 181/102 H 200/103 H Blood Pressure [Right Arm] Blood Pressure Mean [Right Arm] Blood Pressure Source Blood Pressure Position [Right Arm] 02 Sat by Pulse Oximetry 98 94 L 95 Oxygen Delivery Method 03/09/25 00:20 03/09/25 00:25 Temperature Temperature Source Pulse Rate 111 H 93 H Pulse Rate [Radial] Respiratory Rate 22 19 Blood Pressure 157/106 H 174/110 H Blood Pressure [Right Arm] Blood Pressure Mean [Right Arm] Blood Pressure Source Blood Pressure Position [Right Arm] 02 Sat by Pulse Oximetry 96 97 Oxygen Delivery Method Lab Data Lab Results 03/08/25 22:38: Lactate 1.0 03/08/25 22:55: WBC 11.6 H, RBC 5.19, Hgb 14.3, Hct 44.1, MCV 85.0, MCH 27.6, MCHC 32.4, RDW 14.4, Plt Count 212, MPV 11.6 H, Neut % (Auto) 68.4, Lymph % (Auto) 21.9, [place] % (Auto) 7.1, Eos % (Auto) 2.0, Baso % (Auto) 0.3, Neut # (Auto) 7.9 H, Lymph # (Auto) 2.5, [place] # (Auto) 0.8, Eos # (Auto) 0.2, Baso # (Auto) 0.0, PT 10.3, INR 0.91, APTT 27.1, Sodium 140, Potassium 3.6, Chloride 107, Carbon Dioxide 24, Anion Gap 12.6, BUN 20 H, Creatinine 0.90, Estimated Creat Clear 58, Estimated GFR 60, Est GFR ( Amer) 73, Glucose 142 H, Hemoglobin A1c 5.9, Calcium 9.1, Magnesium 1.6, Total Bilirubin 0.8, AST 28, ALT 14, Alkaline Phosphatase 94, Troponin I < 0.01, NT-Pro-B Natriuret Pep 2680 H, Total Protein 7.4, Albumin 4.3, Globulin 3.1, Albumin/Globulin Ratio 1.4, Triglycerides 116, Cholesterol 202 H, LDL Cholesterol Direct 111.92, VLDL Cholesterol 23, HDL Cholesterol 58, Cholesterol/HDL Ratio 3.5, TSH 12.00 H, Thyroxine (T4) 7.1 03/09/25 00:16: Urine Color Yellow, Urine Appearance Clear, Urine pH 6.0, Ur Specific [place] 1.015, Urine Protein 1+ A, Urine Glucose (UA) Negative, Urine Ketones Negative, Urine Blood Negative, Urine Nitrate Positive A, Urine Bilirubin Negative, Urine Urobilinogen 0.2, Ur Leukocyte Esterase Negative, Urine RBC 20-50, Urine WBC 10-20, Ur Squamous Epith Cells 3-5, Urine Bacteria 4+, Urine Opiates Screen Negative, Urine Methadone Screen Negative, Ur Barbituates Screen Negative, Ur Phencyclidine Scrn Negative, Ur Amphetamines Screen Negative, U Benzodiazepines Scrn Negative, Urine Cocaine Screen Negative, U Marijuana (THC) Screen Negative Orders (Tests/Meds): ED MEDICATIONS Discontinued Medications Generic Name Dose Route Start Last Admin Trade Name Freq PRN Reason Stop Dose Admin Aspirin 324 mg 03/08/25 23:19 03/08/25 23:23 Aspirin 81mg Chewable Tablet PO 03/08/25 23:20 324 mg ONCE ONE Administration Hydromorphone HCl 0.5 mg 03/08/25 23:00 03/08/25 23:09 Hydromorphone 2mg/Ml Syringe IV 03/08/25 23:01 0.5 mg ONCE ONE Administration Iopamidol 160 ml 03/09/25 00:06 03/09/25 00:08 Iopamidol-370 (76%);100ml Bottle IV 03/09/25 00:07 160 ml ONCE ONE Administration Metoprolol Tartrate 5 mg 03/08/25 23:00 03/08/25 23:09 Metoprolol Tartrate 5mg/5ml Vial IV 03/08/25 23:01 5 mg ONCE ONE Administration Ondansetron HCl 4 mg 03/08/25 23:00 03/08/25 23:09 Ondansetron 4mg/2ml Vial IV 03/08/25 23:01 4 mg ONCE ONE Administration Sodium Chloride 50 ml 03/09/25 00:06 03/09/25 00:08 0.9 % Sodium Chloride 50 Ml Vial IV 03/09/25 00:07 50 ml ONCE ONE Administration Sodium Chloride 10 ml 03/09/25 00:06 03/09/25 00:08 Sodium Chloride 0.9% 10ml Syr (Rad Only) IV 03/09/25 00:07 10 ml ONCE ONE Administration ORDERS Category Date Time Status CT angio abdomen pelvis Stat Cat Scan 03/08/25 23:[address] angio head Stat Cat Scan 03/08/25 23:[address] angio neck Stat Cat Scan 03/08/25 23:[address] head/brain wo con Stat Cat Scan 03/08/25 23:20 Completed CTA Chest [CT angio chest - dissection] Stat Cat Scan 03/08/25 23:20 Completed Cardiology Consult [Consult to Cardiology] [CONS] Cons 03/09/25 01:12 Active Routine XR chest portable Stat Exams 03/08/25 23:20 Completed Complete Blood Count Auto Diff Stat Lab 03/08/25 22:55 Completed Comprehensive Metabolic Panel Stat Lab 03/08/25 22:55 Completed Drug Screen,Urine Stat Lab 03/09/25 00:16 Completed Hemoglobin A1C Stat Lab 03/08/25 22:55 Completed Lactic Acid Stat Lab 03/08/25 22:38 Completed Lipid Panel Stat Lab 03/08/25 22:55 Completed Magnesium Stat Lab 03/08/25 22:55 Completed NT Pro Brain Natriuretic Pep. Stat Lab 03/08/25 22:55 Completed PT INR [Prothrombin Time INR] Stat Lab 03/08/25 22:55 Completed PTT [Activated Partial Thrombo Time] Stat Lab 03/08/25 22:55 Completed T4 (Thyroxine) Stat Lab 03/08/25 22:55 Completed TSH [Thyroid Stimulating Hormone] Stat Lab 03/08/25 22:55 Completed Troponin I Q3H Lab 03/09/25 02:30 Ordered Troponin I Q3H Lab 03/09/25 05:30 Ordered Troponin I Stat Lab 03/08/25 22:55 Completed Urinalysis and Microscopic Stat Lab 03/09/25 00:16 Completed Urine Culture Stat Micro 03/09/25 00:16 Received Medical Decision Narrative: Medically noncompliant 79-year-old female with history of hypertension, hyperlipidemia, atrial fibrillation, diabetes, hypothyroidism presenting with neck pain. States that she had not been taking her medications for months, pick them up a couple days ago and started taking them again, these include hydrochlorothiazide, atorvastatin, levothyroxine, lisinopril, metformin, metoprolol, rivaroxaban, among others. States that for the last day and a half she has had severe pain in the back of her neck that is been crescendo in nature. Bilateral, radiates upward toward her head. No vision changes. No weakness in arms or legs. Mentating appropriately, no confusion. No chest pain, shortness of breath, nausea, vomiting, diaphoresis, or any other changes from baseline she does state that she has had some swelling in her legs it has been getting a little worse, but other than that no symptoms. History was obtained via conversation with patient and family. On arrival, patient hemodynamically stable, alert, oriented x4, appropriate, GCS 15, moving all extremities spontaneously, pupils equal and reactive to light. Full physical exam performed and significant for hypertensive in no acute distress. Speaking full sentences, states that she mostly came at the behest of her family. Intermittently having what appear to be flareups of the pain in her neck and holding her neck. She is tachycardic with irregular rhythm, right upper sternal border murmur consistent with aortic stenosis. 1+ lower extremity pitting edema in bilateral legs. Abdomen is soft, nontender, nondistended. She is neurologically intact including cranial nerves, cerebellar, motor and sensory exams. She is also ambulatory. Differential includes medication noncompliance, hypertensive urgency, hypertensive emergency, aortic dissection, vertebral dissection, intracranial hemorrhage, among others. Patient placed on continuous cardiac monitoring and continuous pulse ox with initial blood pressure 215/134, heart rate 126, saturation 95% on room air. Independent interpretation of EKG shows atrial fibrillation with RVR. 125 bpm with QRS 79, QTc 317. Normal axis and no obvious acute ischemic change. She does have nonspecific ST and T wave changes with no reciprocal changes. Patient was given 5 IV metoprolol, 0.5 mg Dilaudid, Zofran for symptomatic management and correction of underlying abnormalities. Just after arrival and prior to workup, care handed off to oncoming physician. Health And Safety Trainer disclaimer Much of this encounter note is an electronic applied behavior science specialist spoken language to printed text. Electronic applied behavior science specialist of the spoken language may permit errors. Although I have reviewed the note, some errors may still exist. Lexy OLSEN: I assumed care of the patient at the time of handoff from the prior provider. On reassessment patient reports improvement in neck pain but it remains there. Patient's blood pressure was significantly improved after prior interventions, now in the 160s over 100s. Heart rate improved to the 80s, remains in A-fib on quality assurance monitor chassis. Labs independently turbid by me show normal renal function, no significant electrolyte derangement, negative initial troponin. Urinalysis with protein, micro was concerning for infection. CT head, CTA head and neck, CTA chest abdomen pelvis were obtained and independently interpreted by me, significant for right-sided renal artery stenosis at approximately 95%. Interactive succussion was had with clinique counter manager on-call who reports he will evaluate the patient for stenting. Interact discussion was had with the hospitalist on-call for admission. He reports he will put in medication for the urinary tract infection. Critical Care <Joesph Lopez MD - Last Filed: 03/08/25 23:06> Critical Care Time Critical Care Time: No <Erick Pugh MD - Last Filed: 03/09/25 01:19> Critical Care Time Critical Care Time: Yes Attestation: On 03/08/25, the high probability of a clinically significant, sudden or life threatening deterioration of the following system(s) required my full and direct attention, intervention and personal management. The time I documented below is in addition to time spent performing reported procedures but includes the following listed in this critical care notation. Total Time Total Critical Care Time: 40
[2025-03-08] MEDS: ONDANSETRON 4MG/2ML VIAL 4 MG IV (23:09)
[2025-03-08] MEDS: METOPROLOL TARTRATE 5MG/5ML VIAL 5 MG IV (23:09)
[2025-03-08] MEDS: HYDROMORPHONE 2MG/ML SYRINGE 0.5 MG IV (23:09)
--- NOTE | 2025-03-08 23:20 | XR_ITS ---
PROCEDURE INFORMATION: Exam: XR Chest Exam date and time: 03/09/2025 12:00 AM Age: 79 years old Clinical indication: Other: HTN, tachy; Additional info: HTN swelling, tachy TECHNIQUE: Imaging protocol: Radiologic exam of the chest. Views: 1 view. COMPARISON: CT ANGIO CHEST 03/08/2025 11:54 PM FINDINGS: Lungs: Unremarkable. No consolidation. Pleural spaces: Unremarkable. No pleural effusion. No pneumothorax. Heart/Mediastinum: Unremarkable. No cardiomegaly. Vasculature: The aorta is tortuous and calcified. Diaphragm: There is stable elevation of the right hemidiaphragm. Bones/joints: Degenerative changes at the left shoulder. IMPRESSION: No acute cardiopulmonary abnormality.
--- NOTE | 2025-03-08 23:20 | CT_ITS ---
PROCEDURE INFORMATION: Exam: CTA Neck With Contrast Exam date and time: 03/08/2025 11:50 PM Age: 79 years old Clinical indication: Pain; Headache; Additional info: HTN, BONILLA, murmur, rule out dissection TECHNIQUE: Imaging protocol: Computed tomographic angiography of the neck with contrast. Exam focused on the cervical segments of the vasculature. 3D rendering (Not supervised by radiologist): MIP and/or 3D reconstructed images were created by the technologist. Radiation optimization: All CT scans at this facility use at least one of these dose optimization techniques: automated exposure control; mA and/or kV adjustment per patient size (includes targeted exams where dose is matched to clinical indication); or iterative reconstruction. Contrast material: ISOVUE; Contrast volume: 80 ml; Contrast route: INTRAVENOUS (IV); COMPARISON: CT ANGIO NECK 05/22/2023 12:20 AM FINDINGS: Right common carotid artery: No stenosis. No dissection or occlusion. Right internal carotid artery: No stenosis of the extracranial segment. No dissection or occlusion. Right external carotid artery: No occlusion or stenosis of the origin. Left common carotid artery: No stenosis. No dissection or occlusion. Left internal carotid artery: No stenosis of the extracranial segment. No dissection or occlusion. Left external carotid artery: No occlusion or stenosis of the origin. Right vertebral artery: No stenosis. No dissection or occlusion. Left vertebral artery: Normal variant origin of the left vertebral artery from the aortic arch. The left vertebral artery is diffusely hypoplastic. Thyroid: There are cysts or nodules throughout the thyroid, measuring up to 1.8 cm on the left. Soft tissues: Normal. No significant soft tissue swelling. Bones/joints: No acute fracture. Lungs: Groundglass density throughout both upper lungs consistent with probable pulmonary edema versus pneumonitis. IMPRESSION: No acute vascular abnormality. Probable pulmonary edema versus pneumonitis in the upper lungs. Thyroid cysts or nodules. COMMENTS: Consistent with the [employer]'s Incidental Findings Committee white paper (J Am [employer]if[employer]io Radiol 2015): In patients aged 35 years and older with an incidental thyroid nodule equal to or greater than 1.[address], MRI or extrathyroidal US, further evaluation with dedicated thyroid US is recommended for patients with normal life expectancy and without comorbidities. For smaller nodules without suspicious features, no further evaluation or follow up is recommended. REFERENCES: NASCET CRITERIA. The degree of stenosis in the cervical segment of the internal carotid artery is based on NASCET criteria. Normal is no stenosis. Mild is less than 50% stenosis. Moderate is 50-69% stenosis. Severe is 70% to 99% stenosis. Total occlusion is no detectable patent lumen.
--- NOTE | 2025-03-08 23:20 | CT_ITS ---
PROCEDURE INFORMATION: Exam: CTA Chest With Contrast Exam date and time: 03/08/2025 11:54 PM Age: 79 years old Clinical indication: Other: HTN; Additional info: HTN, BONILLA, murmur, rule out dissection TECHNIQUE: Imaging protocol: Computed tomographic angiography of the chest with contrast. Exam focused on the arteries. 3D rendering (Not supervised by radiologist): MIP and/or 3D reconstructed images were created by the technologist. Radiation optimization: All CT scans at this facility use at least one of these dose optimization techniques: automated exposure control; mA and/or kV adjustment per patient size (includes targeted exams where dose is matched to clinical indication); or iterative reconstruction. Contrast material: ISOVUE; Contrast volume: 80 ml; Contrast route: INTRAVENOUS (IV); COMPARISON: CT ANGIO CHEST PE PROTOCOL 12/01/2023 9:18 AM FINDINGS: Pulmonary arteries: Normal. No pulmonary emboli. Aorta: Unremarkable. No aortic aneurysm. No aortic dissection. Lungs: Air trapping and atelectasis bilaterally. No consolidation. No masses. Pleural spaces: Unremarkable. No pneumothorax. No pleural effusion. Heart: Unremarkable. No cardiomegaly. No pericardial effusion. Lymph nodes: Unremarkable. No enlarged lymph nodes. Thyroid: Hypodense lesion in the left lobe of the thyroid 1.6 cm. Bones/joints: Unremarkable. No acute fracture. Soft tissues: Unremarkable. IMPRESSION: No acute cardiopulmonary findings. Thyroid lesion. Recommend outpatient nonemergent ultrasound
--- NOTE | 2025-03-08 23:20 | CT_ITS ---
PROCEDURE INFORMATION: Exam: CTA Head With Contrast, Arteriography Exam date and time: 03/08/2025 11:50 PM Age: 79 years old Clinical indication: Pain; Headache; Additional info: HTN, BONILLA, murmur, rule out dissection TECHNIQUE: Imaging protocol: Computed tomographic angiography of the head with contrast. Exam focused on the arteries. 3D rendering (Not supervised by radiologist): MIP and/or 3D reconstructed images were created by the technologist. Radiation optimization: All CT scans at this facility use at least one of these dose optimization techniques: automated exposure control; mA and/or kV adjustment per patient size (includes targeted exams where dose is matched to clinical indication); or iterative reconstruction. Contrast material: ISOVUE; Contrast volume: 80 ml; Contrast route: INTRAVENOUS (IV); COMPARISON: CT ANGIO HEAD 05/22/2023 12:20 AM FINDINGS: ANTERIOR CIRCULATION: Right internal carotid artery: Intracranial segment is patent with no significant stenosis. No aneurysm. Right middle cerebral artery: No occlusion or significant stenosis. No aneurysm. Right anterior cerebral artery: No occlusion or significant stenosis. No aneurysm. Left internal carotid artery: Intracranial segment is patent with no significant stenosis. No aneurysm. Left middle cerebral artery: No occlusion or significant stenosis. No aneurysm. Left anterior cerebral artery: No occlusion or significant stenosis. No aneurysm. POSTERIOR CIRCULATION: Right vertebral artery: No occlusion or significant stenosis. No aneurysm. Left vertebral artery: There is a PICA termination the left vertebral artery. Basilar artery: No occlusion or significant stenosis. No aneurysm. Right posterior cerebral artery: No occlusion or significant stenosis. No aneurysm. Left posterior cerebral artery: There is a origin left SERVICE COORDINATOR. No occlusion or significant stenosis. No aneurysm. Brain: No definite mass, mass effect, or midline shift. Cerebral ventricles: No ventriculomegaly. Bones/joints: Unremarkable. No acute fracture. Soft tissues: Unremarkable. IMPRESSION: No acute vascular abnormality.
--- NOTE | 2025-03-08 23:20 | CT_ITS ---
PROCEDURE INFORMATION: Exam: CT Head Without Contrast Exam date and time: 03/08/2025 11:48 PM Age: 79 years old Clinical indication: Pain; Headache; Additional info: HTN, BONILLA, murmur, rule out dissection TECHNIQUE: Imaging protocol: Computed tomography of the head without contrast. Radiation optimization: All CT scans at this facility use at least one of these dose optimization techniques: automated exposure control; mA and/or kV adjustment per patient size (includes targeted exams where dose is matched to clinical indication); or iterative reconstruction. COMPARISON: MR HEAD/BRAIN WO CON 05/22/2023 10:02 AM FINDINGS: Brain: Age appropriate atrophy and small vessel ischemic change. No evidence of intracranial hemorrhage, mass effect, midline shift or extra-axial fluid collections. Midline structures are normal. Fish-white matter differentiation is normal. Cerebral ventricles: No ventriculomegaly. Paranasal sinuses: Visualized sinuses are unremarkable. No fluid levels. Mastoid air cells: Visualized mastoid air cells are well aerated. Bones: Unremarkable. No acute fracture. Soft tissues: Unremarkable. Vasculature: Carotid and vertebral artery atherosclerotic calcification. IMPRESSION: No acute intracranial abnormality.
--- NOTE | 2025-03-08 23:20 | CT_ITS ---
PROCEDURE INFORMATION: Exam: CTA Abdomen and Pelvis With Contrast Exam date and time: 03/08/2025 11:54 PM Age: 79 years old Clinical indication: Pain; Other: R/O dissection; Additional info: HTN, BONILLA, murmur, rule out dissection TECHNIQUE: Imaging protocol: Computed tomographic angiography of the abdomen and pelvis with contrast. Exam focused on the arteries. 3D rendering (Not supervised by radiologist): MIP and/or 3D reconstructed images were created by the technologist. Radiation optimization: All CT scans at this facility use at least one of these dose optimization techniques: automated exposure control; mA and/or kV adjustment per patient size (includes targeted exams where dose is matched to clinical indication); or iterative reconstruction. Contrast material: ISOVUE; Contrast volume: 80 ml; Contrast route: INTRAVENOUS (IV); COMPARISON: CT ANGIO ABDOMEN/FEMORAL 02/23/2021 9:01 AM FINDINGS: Aorta: No aortic aneurysm. No aortic dissection. Celiac trunk and mesenteric arteries: No occlusion or significant stenosis. Renal arteries: No occlusion . High-grade stenosis proximal right renal artery. Right iliac arteries: No occlusion or significant stenosis. Left iliac arteries: No occlusion or significant stenosis. Liver: No mass. Gallbladder and biliary ducts: Cholecystectomy. No ductal dilation. Pancreas: Unremarkable. No mass. No ductal dilation. Spleen: Unremarkable. No splenomegaly. Adrenal glands: Unremarkable. No mass. Kidneys and ureters: Unremarkable. No solid mass. No hydronephrosis. Stomach and bowel: Diverticulosis in the rectosigmoid and descending colon without diverticulitis. No obstruction. No mucosal thickening. Appendix: No evidence of appendicitis. Intraperitoneal space: Unremarkable. No free air. No significant fluid collection. Lymph nodes: Unremarkable. No enlarged lymph nodes. Urinary bladder: Unremarkable. No mass. Reproductive: Unremarkable as visualized. Bones/joints: No acute fracture. Soft tissues: Unremarkable. IMPRESSION: High-grade stenosis proximal right renal artery greater than 95%. No occlusion. No aortic aneurysm or dissection Diverticulosis without diverticulitis.
[2025-03-08] MEDS: ASPIRIN 81MG CHEWABLE TABLET 324 MG PO (23:23)
[2025-03-08 23:27] LABS: Basophils % 0.3 % (0.1-2.0); Eosinophils # 0.2 Kmm3 (0.0-0.4); Hematocrit 44.1 % (37.0-47.0); Hemoglobin 14.3 g/dL (12.2-16.2); Immature Granulocytes # 0.03 10^3uL; Immature Granulocytes % 0.3 %; Lymphocytes # 2.5 K/mm3 (0.7-4.5); Lymphocytes % 21.9 % (10-50); Mean Corpuscular HGB Conc 32.4 g/dL (31.8-35.4); Mean Corpuscular Hemoglobin 27.6 pg (27.0-31.2); Mean Platelet Volume 11.6 fl (7.4-10.4); Monocytes # 0.8 K/mm3 (0.1-1.0); Monocytes % 7.1 % (1.7-9.3); Neutrophils # 7.9 K/mm3 (1.8-7.8); Neutrophils % 68.4 % (37.0-80.0); Nucleated Red Blood Cells # 0 10^3/uL; Nucleated Red Blood Cells % 0 %; Platelet Count 212 K/mm3 (142-424); Red Blood Count 5.19 M/mm3 (4.20-5.40); Red Cell Distribution Width 14.4 % (11.5-17.5); Red Cell Distribution Width-SD 44.7 fL; White Blood Count 11.6 K/mm3 (4.8-10.8)
[2025-03-08 23:32] LABS: Chloride 107 mmol/L (98-107); Potassium 3.6 mmoL/L (3.5-5.1); Sodium 140 mmol/L (136-145)
[2025-03-08 23:35] LABS: Activated Partial Thrombo Time 27.1 seconds (22.8-30.6); Alanine Aminotransferase 14 U/L (12-78); Alkaline Phosphatase 94 U/L (38-126); Anion Gap 12.6 mEq/L (5-15); Aspartate Amino Transferase 28 U/L (14-36); Bilirubin,Total 0.8 mg/dl (0.2-1.3); Blood Urea Nitrogen 20 mg/dl (7-17); Carbon Dioxide 24 mmol/L (22.0-30.0); Cholesterol 202 mg/dl (140-200); Creatinine Clearance Estimated 58 mL/min (50-200); Estimated Glomerular Filt Rate 60 ml/min (>60); GFR (African American) 73 ML/MIN (>60); HDL Cholesterol 58 mg/dl (40-60); Magnesium 1.6 mg/dl (1.6-2.3); Total Protein,Serum 7.4 g/dl (6.3-8.2); Triglycerides 116 mg/dl (30-150); VLDL Cholesterol 23 mg/dL (0-40)
[2025-03-08 23:36] LABS: Calcium 9.1 mg/dl (8.4-10.2); Glucose 142 mg/dl (74-100); INR 0.91 (0.9-1.1); Prothrombin Time 10.3 seconds (10.1-12.5)
--- NOTE | 2025-03-08 23:40 | PC.NURSE ---
lactic acid drawn and sent to the lab
--- NOTE | 2025-03-08 23:41 | PC.NURSE ---
Patient is gone to CT.
[2025-03-08 23:44] LABS: NT Pro Brain Natriuretic Pep. 2680 pg/mL (0-450)
[2025-03-08 23:47] LABS: Direct LDL Cholesterol 111.92 mg/dL (100-129)
[2025-03-08 23:50] LABS: Troponin I < 0.01 ng/ml (0.00-0.034)
[2025-03-08 23:53] LABS: T4 (Thyroxine) 7.1 ug/dl (5.53-11.0)
[2025-03-08 23:56] LABS: Albumin Level 4.3 g/dl (3.5-5.0); Albumin/Globulin Ratio 1.4 (1.1-1.8); Globulin 3.1 g/dL (1.3-3.2)
[2025-03-09] VITALS (31 sets, daily range): BP systolic 103–200; BP diastolic 60–120; PULSE 68–111; RESP 14–22; TEMP 36.7–37.1; O2SAT 90–100; BMI 32.1
--- NOTE | 2025-03-09 00:02 | PC.NURSE ---
pt back from scans
[2025-03-09 00:03] LABS: Hemoglobin A1C 5.9 % (4.0-6.0)
--- NOTE | 2025-03-09 00:04 | PC.NURSE ---
Patient is back from CT.
[2025-03-09] MEDS: 0.9 % SODIUM CHLORIDE 50 ML VIAL IV (00:08)
[2025-03-09] MEDS: SODIUM CHLORIDE 0.9% 10ML SYR (RAD ONLY) 10 ML IV (00:08)
[2025-03-09] MEDS: IOPAMIDOL-370 (76%);100ML BOTTLE 160 ML IV (00:08)
[2025-03-09 00:18] LABS: Chol/HDL Ratio 3.5 (1-3.5)
--- NOTE | 2025-03-09 00:20 | PC.NURSE ---
pt assisted to [facility] with assistance at this time. urine collected and sent to lab.
[2025-03-09 00:23] LABS: Microscopic, Urine URINE MICROSCOPIC (MICROSCOPIC)
[2025-03-09 00:43] LABS: Appearance,Urine CLEAR (Clear); Bilirubin,Urine Negative (Negative); Blood, Urine Negative (Negative); Color,Urine YELLOW (Yellow); Glucose,Urine (UA) Negative (Negative); Ketones,Urine Negative (Negative); Leukocyte Esterase,Urine Negative (Negative); Nitrate,Urine POSITIVE (Negative); Protein,Urine 1+ (Negative); Specific Gravity, Urine 1.015 (1.005-1.030); Urobilinogen,Urine 0.2 EU/dl (0.2)
[2025-03-09 00:54] LABS: RBC,Urine 20-50 #/hpf (0-3)
[2025-03-09 00:55] LABS: Bacteria,Urine 4+ /lpf
[2025-03-09 00:56] LABS: Benzodiazepines Screen,Urine Negative ng/ml (<200)
[2025-03-09 00:57] LABS: Amphetamine/Metha Screen,Urine Negative ng/ml (<1000); Barbiturates Screen,Urine Negative ng/ml (<200)
[2025-03-09 00:58] LABS: Cannabinoid Screen,Urine Negative ng/ml (<50); Cocaine Screen,Urine Negative ng/ml (<300)
[2025-03-09 00:59] LABS: Methadone Screen,Urine Negative ng/ml (<300)
[2025-03-09 01:00] LABS: Opiate Screen,Urine Negative ng/ml (<300); Phencyclidine Screen,Urine Negative ng/ml (<25)
--- NOTE | 2025-03-09 01:01 | PC.NURSE ---
MD Pugh spoke with MD Luna and Mack MARCOS. Pt being admitted to hospital for renal artery stenosis and hypertensive emergency
--- NOTE | 2025-03-09 01:25 | P.HP_ITS ---
<Statement entered by Raymond Perez MD - 03/12/25 13:00> I personally evaluated the patient and agree with the plan of care as outlined by the GAMING CASHIER. History of Present Illness *Admission Date: 03/09/25 *Reason for visit:: Neck pain *History of present illness: This is an 79-year-old female who has a past medical history significant for hypothyroidism, COPD, obesity, coronary artery disease, hyperlipidemia, hypertension, diabetes, GERD, leukocytosis, NSTEMI, atrial fibrillation with rapid ventricular response (currently prescribed Xarelto), CVA, angina, peripheral artery disease, diastolic dysfunction, and neuropathy who presents with a chief complaint of neck pain. Due to patient's symptoms, she presented to the emergency room for evaluation. While in the emergency room, patient's systolic blood pressure was greater than 200 and her diastolic blood pressure was greater than 120. Patient's heart rate was in the 130s and her presenting rhythm was atrial fibrillation with a rapid ventricular response. CT of the head and neck was negative for any acute vascular abnormality. CT scan of the head was negative for any acute intracranial process. CT scan of the abdomen and pelvis revealed high-grade stenosis proximal right renal artery greater than 95%, no aortic aneurysm or dissection, diverticulosis without diverticulitis. And CT scan of the chest revealed no evidence of pulmonary embolism, moderate coronary artery calcifications, and multifocal bibasilar atelectasis. Due to these findings, patient has been admitted for further management. During my evaluation of the patient, patient states she has been without her prescribed medications for greater than 8 months. Recently, approximately 1 week ago patient retrieved her prescriptions and resumed her medications. Approximately 2-3 days later she started to experience neck pain rated 10 out of 10 and with radiation to the occipital portion of the head. Since being in emergency room, patient states her neck pain has improved but it has been intermittent and not constant as it was before in the past. She is currently denying any chest pain, diplopia, blurry vision, lateral gaze deficit, slurring of speech, focal upper or lower extremity deficit, nausea, vomiting, shortness of breath, dyspnea, PND, orthopnea, burning with urination, painful urination, nuclear rigidity, frequency of urination, incontinence, or diarrhea. Additional pertinent labs obtained include a white blood cell count 11.6, BUN of 20, blood glucose 142, BNP of 2680, TSH of 12, T4 of 7.1, and nitrates were positive urinalysis/20-50 red blood cell/10-20 white blood cell/3-5 squamous epithelial cells/4+ bacteria PFSH PFS Disclaimer: The information contained in this section may have been updated after the patient was seen, as this information can be updated by other users. Medical History MARYURI positive Acquired hypothyroidism Screening for blood disease COPD (chronic obstructive pulmonary disease) Obesity (BMI 30-39.9) CAD (coronary artery disease) Coronary calcium score 1304 HLD (hyperlipidemia) Hypertension Diabetes GERD (gastroesophageal reflux disease) Bilateral shoulder pain Bilateral knee pain Leukocytosis NSTEMI (non-ST elevated myocardial infarction) Atrial fibrillation with RVR Paroxysmal A-fib Atrial fibrillation, new onset CVA (cerebral vascular accident) Nonadherence to medical treatment Uncontrolled diabetes mellitus Hypertensive urgency Weakness of right lower extremity Atypical angina PAD (peripheral artery disease) Onychodystrophy Acquired hammer toe of right foot Pain in both feet Coronary artery calcification seen on CAT scan Diastolic dysfunction Daytime somnolence Snoring Dyspnea Abnormal ankle brachial index (ELHAM) Claudication Abnormal EKG Neuropathy Surgical History History of tubal ligation History of total left knee replacement History of total right knee replacement History of cholecystectomy Hx of appendectomy Family History Brain cancer Brother Diabetes Father Breast cancer Sister Social History Smoking Status: Former smoker second hand exposure: No alcohol intake: former substance use type: denies use current occupational status: retired Travel in the last 8 weeks?: None household members: children housing: house current occupational exposures/hazards: No caffeine: No Have you lived/traveled outside [place] in past 30 days?: No Contact w/someone who lives/traveled outside US past 30 days?: No Exposure to someone with infectious disease in past 14 days?: No Do you have a fever (greater than 100.4 F or 38 C)?: No Have you tested positive for COVID-19?: No Exposed to someone with COVID-19 in past 14 days?: No Do you have a sore throat?: No Do you have a cough?: No Do you have any weakness?: No Do you have any diarrhea?: No Are you experiencing any unusual bleeding?: No Do you have any muscle aches/pain?: No Do you have any abdominal pain?: No Are you experiencing loss of taste or smell?: No Other Medical History Have you received the Flu Vaccine for this season: No Have you received the Pneumonia Vaccine: Yes Review of Systems Review of Systems Review of systems:: pertinent systems reviewed and negative unless documented below Constitutional Constitutional: Reports headache(s) Eyes Eyes: Reports system reviewed and no additional complaints, except as documented ENT Ears, Nose, Mouth, and Throat: Reports system reviewed and no additional complaints, except as documented and Reports headache(s) *Cardiovascular Cardiovascular: Reports system reviewed and no additional complaints, except as documented *Respiratory Respiratory: Reports system reviewed and no additional complaints, except as documented *Gastrointestinal Gastrointestinal: Reports system reviewed and no additional complaints, except as documented *Genitourinary Genitourinary: Reports system reviewed and no additional complaints, except as documented *Musculoskeletal Comments: - Neck pain close dentist Integumentary/Breasts Skin/Breast: Reports system reviewed and no additional complaints, except as documented *Neurologic Neurologic: Reports system reviewed and no additional complaints, except as documented and Reports headache(s) Psychiatric Psychiatric: Reports system reviewed and no additional complaints, except as documented Endocrine Endocrine: Reports system reviewed and no additional complaints, except as documented Hematologic/Lymphatic Hematologic/Lymphatic: Reports system reviewed and no additional complaints, except as documented Allergic/Immunologic Allergic/Immunologic: Reports system reviewed and no additional complaints, except as documented Meds Home Medications and Allergies Home Medications ?Medication ?Instructions ?Recorded ?Confirmed ?Type cetirizine 10 mg tablet 10 mg PO DAILY #30 tabs 09/13/24 10/05/24 Rx diclofenac sodium 75 mg 75 mg PO BID #60 tabs 09/13/24 10/05/24 Rx tablet,delayed release hydrochlorothiazide 12.5 mg capsule 12.5 mg PO DAILY Fluid #90 caps 09/13/24 10/05/24 Rx lisinopril 10 mg tablet 10 mg PO DAILY High Blood Pressure 09/13/24 10/05/24 Rx #90 tabs metformin 500 mg tablet 500 mg PO BID Diabetes #180 tabs 09/13/24 10/05/24 Rx metoprolol succinate 100 mg 100 mg PO DAILY #90 tabs 09/13/24 10/05/24 Rx tablet,extended release 24 hr pantoprazole 40 mg tablet,delayed 40 mg PO DAILY Acid Reflux #90 tabs 09/13/24 10/05/24 Rx release rivaroxaban 20 mg tablet (Xarelto) 20 mg PO DAILY #90 tabs 09/13/24 10/05/24 Rx blood sugar diagnostic #50 ea 09/14/24 10/05/24 Rx blood-glucose meter #1 ea 09/14/24 10/05/24 Rx lancets 31 gauge #100 ea 09/14/24 10/05/24 Rx atorvastatin 40 mg tablet 40 mg PO HS Cholesterol #90 tabs 09/17/24 10/05/24 Rx levothyroxine 75 mcg tablet 75 mcg PO DAILY #90 tabs 10/11/24 10/11/24 Rx (Synthroid) New Prescriptions to Start Prescriptions: Allergies Allergy/AdvReac Type Severity Reaction Status Date / Time acetaminophen (From TYLENOL) Allergy Unknown Verified 10/11/24 10:36 tramadol (TRAMADOL) Allergy Unknown Verified 10/11/24 10:36 Exam Data for Last 24 hours Vital signs and Labs for Last 24 Hours: Temp Pulse Resp BP Pulse Ox O2 Del Method 98.1 F 93 H 19 174/110 H 97 Room Air 03/08/25 22:45 03/09/25 00:25 03/09/25 00:25 03/09/25 00:25 03/09/25 00:25 03/08/25 22:45 Laboratory Results - last 24 hr 03/08/25 22:38: Lactate 1.0 03/08/25 22:55: WBC 11.6 H, RBC 5.19, Hgb 14.3, Hct 44.1, MCV 85.0, MCH 27.6, MCHC 32.4, RDW 14.4, Plt Count 212, MPV 11.6 H, Neut % (Auto) 68.4, Lymph % (Auto) 21.9, [place]herty % (Auto) 7.1, Eos % (Auto) 2.0, Baso % (Auto) 0.3, Neut # (Auto) 7.9 H, Lymph # (Auto) 2.5, [place] # (Auto) 0.8, Eos # (Auto) 0.2, Baso # (Auto) 0.0, PT 10.3, INR 0.91, APTT 27.1, Sodium 140, Potassium 3.6, Chloride 107, Carbon Dioxide 24, Anion Gap 12.6, BUN 20 H, Creatinine 0.90, Estimated Creat Clear 58, Estimated GFR 60, Est GFR ( Amer) 73, Glucose 142 H, Hemoglobin A1c 5.9, Calcium 9.1, Magnesium 1.6, Total Bilirubin 0.8, AST 28, ALT 14, Alkaline Phosphatase 94, Troponin I < 0.01, NT-Pro-B Natriuret Pep 2680 H, Total Protein 7.4, Albumin 4.3, Globulin 3.1, Albumin/Globulin Ratio 1.4, Triglycerides 116, Cholesterol 202 H, LDL Cholesterol Direct 111.92, VLDL Cholesterol 23, HDL Cholesterol 58, Cholesterol/HDL Ratio 3.5, TSH 12.00 H, Thyroxine (T4) 7.1 03/09/25 00:16: Urine Color Yellow, Urine Appearance Clear, Urine pH 6.0, Ur Specific [place] 1.015, Urine Protein 1+ A, Urine Glucose (UA) Negative, Urine Ketones Negative, Urine Blood Negative, Urine Nitrate Positive A, Urine Bilirubin Negative, Urine Urobilinogen 0.2, Ur Leukocyte Esterase Negative, Urine RBC 20-50, Urine WBC 10-20, Ur Squamous Epith Cells 3-5, Urine Bacteria 4+, Urine Opiates Screen Negative, Urine Methadone Screen Negative, Ur Barbituates Screen Negative, Ur Phencyclidine Scrn Negative, Ur Amphetamines Screen Negative, U Benzodiazepines Scrn Negative, Urine Cocaine Screen Negative, U Marijuana (THC) Screen Negative I & O for Last 24 hours: Intake & Output 03/06/25 03/07/25 03/08/25 03/09/25 23:59 23:59 23:59 23:59 Weight 82.554 kg Constitutional Constitutional: no acute distress and cooperative *Routine HEENT Exam Head: Present normocephalic and atraumatic Eye: Present EOMI and PERRL ENT: Present mucous membranes moist *Routine Neck Exam Neck: Present supple, full ROM and trachea midline *Routine Respiratory Exam Respiratory: Present wheezes and diminished air movement *Routine Cardiovascular Exam Cardiovascular: Present tachycardia and irregular rhythm *Routine Abdominal Exam Abdominal: Present soft and normoactive bowel sounds *Routine Rectal Exam Rectal:: deferred *Routine Genitalia Exam Genitalia:: deferred *Routine Extremities Exam Extremities: Present full ROM, pulses intact and normal capillary refill Routine Back/Spine/Pelvis Exam Back/Spine: Present full ROM *Routine Skin Exam Skin: Present intact, warm and normal turgor *Routine Neurological Exam Neurological: Present alert, oriented X3, CN II-XII intact, moving all extremities and normal speech Routine Psychiatric Exam Psychiatric: Present normal affect, normal thought process, cooperative, good insight and good judgment H&P: Result Impressions 79-year-old female who has known coronary artery disease presents with neck pain found to have severe renal artery stenosis and was in atrial fibrillation with rapid ventricular response coupled with blood pressures exceeding 200 systolically and 100 diastolically. Patient has been without her scheduled medications for greater than 8 months with recent starting of her medications approximately 1 weeks ago Assessment and Plan *Assessment and plan (1) Renal artery stenosis: Status: Acute Category: Medical Code(s): I70.1 - Atherosclerosis of renal artery (2) Hypertensive emergency: Status: Acute Category: Medical Code(s): I16.1 - Hypertensive emergency (3) Acute UTI: Status: Acute Category: Medical Code(s): N39.0 - Urinary tract infection, site not specified (4) CAD (coronary artery disease): Problem Comment: Coronary calcium score 1304 Status: Acute Qualifiers: Associated angina: unspecified whether angina present Coronary Disease- Associated Artery/Lesion type: unspecified vessel or lesion type Kaw vs. transplanted heart: craig heart Qualified Code(s): I25.10 - Atherosclerotic heart disease of craig coronary artery without angina pectoris Category: Medical Code(s): I25.10 - Atherosclerotic heart disease of craig coronary artery without angina pectoris (5) Afib: Status: Acute Qualifiers: Atrial fibrillation type: unspecified Qualified Code(s): I48.91 - Unspecified atrial fibrillation Category: Medical Code(s): I48.91 - Unspecified atrial fibrillation (6) Hyperglycemia due to diabetes mellitus: Status: Acute Category: Medical Code(s): E11.65 - Type 2 diabetes mellitus with hyperglycemia (7) Elevated brain natriuretic peptide (BNP) level: Status: Acute Category: Medical Code(s): R79.89 - Other specified abnormal findings of blood chemistry (8) Cervicalgia: Status: Acute Category: Medical Code(s): M54.2 - Cervicalgia (9) Noncompliance: Status: Acute Category: Medical Code(s): Z91.199 - Patient's noncompliance with other medical treatment and regimen due to unspecified reason Plan Assessment: Renal artery stenosis-incidental finding - Cardiology has been consulted for consideration of stenting - Once medication reconciliation has been updated we will continue patient's statin - Will keep patient n.p.o. until evaluated by senior enterprise architect Hypertensive emergency - Will give 20 mg of hydralazine IV push every 8 hours as needed systolic blood pressure greater than 180 or diastolic blood pressure greater than 110 - Will restart patient's home medications once medication reconciliation has been updated -Most likely in the setting of secondary causes of hypertension from renal artery stenosis Possible urinary tract infection - Patient is currently denying any urinary tract infection symptoms - Nonetheless we will start Rocephin IV daily - Will monitor patient's urine culture - Will obtain blood cultures x 2 - Obtain procalcitonin - Once culture sensitivity is posted we will tailor antibiotics geared towards sensitivity Coronary artery disease - GERD medication list is absent DAPT therapy -Patient may benefit from 81 mg aspirin daily and possible 75 mg of Plavix-May be discussed with cardiology given patient has new renal artery stenosis Atrial fibrillation with rapid ventricular response - Once medication reconciliation is updated we will continue patient's Xarelto -Will give 2.5 mg of metoprolol IV push as needed heart rate greater than 110 sustained Hyperglycemia - Sliding scale insulin every 6 hours with mild scale coverage -Will hold metformin since recent administration of IV contrast Elevated BNP -Patient does not appear to be hypervolemic Cervicalgia -Current imaging is without any acute findings - If patient continues to have neck pain will consider MRI of the brain without contrast and MRI of the cervical spine without contrast - Currently my suspicion is low for meningeal irritation-meningitis - However, will consider LP if symptomology worsens, patient has fever, or confusion Noncompliance - Discussed the importance of adhering to medication regimen as an outpatient with patient Plan: Admit patient to the stepdown unit in a observation status Cardiac monitoring Vital signs every 2 hours Consult cardiology Keep patient n.p.o. CBC/BMP daily Patient did receive 325 mg of aspirin while in the emergency room 30 mg of Toradol IV push every 6 hours as needed moderate pain 2 mg morphine IV push every 4 hours as needed severe pain 4 mg Zofran IV push. Hours pain nausea vomiting/full code I will discuss this case with attending physician Dr. Perez and I look forward to more input
--- NOTE | 2025-03-09 01:30 | PC.NURSE ---
report called to Audrey Hobbs RN
--- NOTE | 2025-03-09 01:46 | PC.NURSE ---
Patient arrived to floor via stretcher from ED at 01:45.
[2025-03-09] MEDS: MORPHINE 2MG/ML SYRINGE 2 MG IV (02:09)
[2025-03-09] MEDS: HYDRALAZINE 20MG/ML VIAL 20 MG IV ×2 (02:10→14:23)
[2025-03-09] MEDS: CEFTRIAXONE SODIUM 1 GM in 0.9 % SODIUM CHLORIDE 50 ML IV (02:52)
[2025-03-09 03:00] LABS: POC Glucose,Bedside 180 (70-110)
[2025-03-09] MEDS: humaLOG 100 UNITS/ML 10ML VIAL (SSI) SUBCUT ×2 (03:08→21:15)
[2025-03-09 03:48] LABS: Troponin I < 0.01 ng/ml (0.00-0.034)
[2025-03-09 05:53] LABS: Basophils % 0.3 % (0.1-2.0); Hematocrit 40.5 % (37.0-47.0); Immature Granulocytes # 0.05 10^3uL; Immature Granulocytes % 0.4 %; Lymphocytes # 1.5 K/mm3 (0.7-4.5); Lymphocytes % 10.9 % (10-50); Mean Corpuscular HGB Conc 31.6 g/dL (31.8-35.4); Mean Corpuscular Hemoglobin 27.4 pg (27.0-31.2); Mean Corpuscular Volume 86.7 fl (81-99); Mean Platelet Volume 12.8 fl (7.4-10.4); Monocytes # 0.6 K/mm3 (0.1-1.0); Monocytes % 4.3 % (1.7-9.3); Neutrophils # 11.2 K/mm3 (1.8-7.8); Neutrophils % 84.1 % (37.0-80.0); Nucleated Red Blood Cells # 0 10^3/uL; Nucleated Red Blood Cells % 0 %; Platelet Count 147 K/mm3 (142-424); Red Blood Count 4.67 M/mm3 (4.20-5.40); Red Cell Distribution Width 14.6 % (11.5-17.5); Red Cell Distribution Width-SD 46.5 fL; White Blood Count 13.4 K/mm3 (4.8-10.8)
[2025-03-09 05:56] LABS: Hemoglobin 12.9 g/dL (12.2-16.2)
[2025-03-09 06:02] LABS: Chloride 107 mmol/L (98-107); Potassium 3.8 mmoL/L (3.5-5.1); Sodium 135 mmol/L (136-145)
[2025-03-09 06:05] LABS: Anion Gap 9.8 mEq/L (5-15); Blood Urea Nitrogen 20 mg/dl (7-17); Calcium 8.7 mg/dl (8.4-10.2); Carbon Dioxide 22 mmol/L (22.0-30.0); Creatinine Clearance Estimated 61 mL/min (50-200); Estimated Glomerular Filt Rate 60 ml/min (>60); GFR (African American) 73 ML/MIN (>60); Glucose 139 mg/dl (74-100)
[2025-03-09 06:17] LABS: Troponin I < 0.01 ng/ml (0.00-0.034)
[2025-03-09 06:25] LABS: Procalcitonin 0.081 ng/mL (0.0-2.0)
[2025-03-09 08:44] LABS: Free T4 (Free Thyroxine) 0.82 ng/dl (0.78-2.19)
[2025-03-09] MEDS: LEVOTHYROXINE 50MCG (0.05MG) TAB 50 MCG PO (08:57)
--- NOTE | 2025-03-09 08:59 | IR_ITS ---
APPROVED REPORT Patient Location: Inpatient PROCEDURES Bilateral selective renal angiogram Bare-metal balloon mounted stent deployment to the ostial proximal right renal artery Bare-metal balloon mounted stent deployment to the ostial proximal left renal artery INDICATION Abnormal renal duplex, Critical renal artery stenosis, Malignant hypertension, Renovascular hypertension Informed consent was obtained prior to the procedure. COMPLICATIONS NONE Estimated Blood Loss: LESS THAN 10 ML TECHNIQUE 1% lidocaine used to anesthetize the right femoral groin. The right femoral artery was accessed via the Seldinger technique. A 4 Croatian sheath was placed in the right femoral artery. The JR4 catheter was used to selectively intubate each renal artery. At the end of the diagnostic angiogram 4 Croatian sheath was exchanged for a 6 Croatian sheath and a short ALLRED guide catheter was placed in the right renal artery followed by Choice PT extra-support wire. A 6 mm x 15 mm Herculink stent was deployed at 18 abdoluaye reducing the critical stenosis to 0%. This was repeated in the left renal artery using a 6 mm x 15 mm Herculink stent at 12 abdoulaye. After achieving excellent angiographic results the apparatus was removed the groin is reprepped closure change sheath was removed and hemostasis was achieved using Perclose device patient was transferred to the postop putting in stable condition ANGIOGRAPHIC RESULTS Right renal artery singular and has a proximal greater than 90% focal stenosis Left renal artery is singular and has a proximal 70% stenosis IMPRESSION Severe and critical bilateral renal artery stenosis Successful stenting of the bilateral renal arteries severe and critical disease reduced to 0% with 1 bare-metal balloon mounted stent placed in the ostial proximal segment of each renal artery PLAN 1. Plavix and aspirin is reasonable for the next month 2. Continue monitoring overnight watching for hypertension and hypotension 3. Chemistry panel in the morning 4. Evaluate for ischemic heart disease based on the critical nature of the renal artery stenosis 5. Also recommend carotid artery stenosis evaluation as the high correlation between renal artery disease and carotid artery disease exists 6. Treatment of hyperlipidemia with high intensity statin Electronically signed by : Danyel Luna MD 03/09/2025 10:50:00
--- NOTE | 2025-03-09 09:58 | PC.NURSE ---
pt going down to [employer] at this time.
[2025-03-09] MEDS: HEPARIN 1,000 UNITS/ML 10ML VIAL (CATH LAB) 5000 UNIT IV (10:32)
[2025-03-09] MEDS: diphenhydrAMINE 50MG/ML VIAL 50 MG IV (10:32)
[2025-03-09] MEDS: LIDOCAINE 1% 10ML MDV 10 ML IJ (10:32)
[2025-03-09] MEDS: MIDAZOLAM HCL 1MG/ML 5ML VIAL 1 MG IV (10:42)
[2025-03-09] MEDS: FENTANYL 100MCG/2ML VIAL 50 MCG IV (10:43)
[2025-03-09] MEDS: CLOPIDOGREL 300MG TABLET 600 MG PO (10:55)
[2025-03-09] MEDS: KETOROLAC 30MG/ML VIAL 30 MG IV ×2 (11:51→20:07)
--- NOTE | 2025-03-09 12:00 | PC.NURSE ---
Dr. Perez [facility] [place]. notified of pt's BP since return from [facility]. Pt treated per jan for neck pain and continue to watch BP.
--- NOTE | 2025-03-09 12:09 | EXP.CARD.CON ---
History of Present Illness History of Present Illness Consult date: 03/09/25 Requesting physician: Raymond Perez Chief complaint: neck pain History of present illness: This is an 79-year-old female who presented to the emergency department with complaints of neck pain. She has a past medical history of coronary artery disease, hypertension, hyperlipidemia, diabetes, GERD, atrial fibrillation,, CVA and peripheral arterial disease. Upon arrival to the emergency department the patient was found to have a systolic blood pressure greater than 200 mmHg and a diastolic blood pressure greater than 120 mmHg. She was also in atrial fibrillation with RVR, rate in the 130s. The patient has not taken any of her medications for approximately 8 months. She restarted her medicines about a week ago and then 2 to 3 days ago she started having severe neck pain. She rates this a 10 out of 10 in intensity. She states that it is a sharp pain and radiates to the occipital portion of her head. The patient states that the neck pain is intermittent and nothing really elicits the pain and just occurs randomly. She denies any chest pain or pressure. She denies any shortness of breath or edema. She denies any fever, chills, nausea, vomiting, diarrhea, PND or orthopnea. The patient had a CT of the abdomen pelvis and it revealed a high-grade stenosis of the right renal artery and she is scheduled to undergo renal angiogram today. This morning her blood pressure is ranging from 110-[address] [facility] Disclaimer: The information contained in this section may have been updated after the patient was seen, as this information can be updated by other users. Medical History MARYURI positive Acquired hypothyroidism Screening for blood disease COPD (chronic obstructive pulmonary disease) Obesity (BMI 30-39.9) CAD (coronary artery disease) Coronary calcium score 1304 HLD (hyperlipidemia) Hypertension Diabetes GERD (gastroesophageal reflux disease) Bilateral shoulder pain Bilateral knee pain Leukocytosis NSTEMI (non-ST elevated myocardial infarction) Atrial fibrillation with RVR Paroxysmal A-fib Atrial fibrillation, new onset CVA (cerebral vascular accident) Nonadherence to medical treatment Uncontrolled diabetes mellitus Hypertensive urgency Weakness of right lower extremity Atypical angina PAD (peripheral artery disease) Onychodystrophy Acquired hammer toe of right foot Pain in both feet Coronary artery calcification seen on CAT scan Diastolic dysfunction Daytime somnolence Snoring Dyspnea Abnormal ankle brachial index (ELHAM) Claudication Abnormal EKG Neuropathy Surgical History History of tubal ligation History of total left knee replacement History of total right knee replacement History of cholecystectomy Hx of appendectomy Family History Brain cancer Brother Diabetes Father Breast cancer Sister Social History (Updated 03/09/25 @ 02:28 by Maida Caal RN) Smoking Status: Former smoker second hand exposure: No alcohol intake: former substance use type: denies use current occupational status: retired Travel in the last 8 weeks?: None household members: children housing: house current occupational exposures/hazards: No caffeine: No Have you lived/traveled outside [place] in past 30 days?: No Contact w/someone who lives/traveled outside [place] past 30 days?: No Exposure to someone with infectious disease in past 14 days?: No Do you have a fever (greater than 100.4 F or 38 C)?: No Have you tested positive for COVID-19?: No Exposed to someone with COVID-19 in past 14 days?: No Do you have a sore throat?: No Do you have a cough?: No Do you have any weakness?: No Are you experiencing any nausea/vomitting?: No Do you have any diarrhea?: No Are you experiencing any unusual bleeding?: No Do you have any muscle aches/pain?: No Do you have any abdominal pain?: No Are you experiencing loss of taste or smell?: No Review of Systems Review of Systems Review of systems:: pertinent systems reviewed and negative unless documented below Constitutional Constitutional: Reports system reviewed and no additional complaints, except as documented and Reports headache(s) Eyes Eyes: Reports system reviewed and no additional complaints, except as documented and Denies blurry vision ENT Ears, Nose, Mouth, and Throat: Reports system reviewed and no additional complaints, except as documented, Reports headache(s) and Reports neck pain *Cardiovascular Cardiovascular: Reports system reviewed and no additional complaints, except as documented, Denies chest pain and Denies dyspnea *Respiratory Respiratory: Reports system reviewed and no additional complaints, except as documented and Denies dyspnea *Gastrointestinal Gastrointestinal: Reports system reviewed and no additional complaints, except as documented *Genitourinary Genitourinary: Reports system reviewed and no additional complaints, except as documented *Musculoskeletal Musculoskeletal: Reports system reviewed and no additional complaints, except as documented and Reports neck pain Integumentary/Breasts Skin/Breast: Reports system reviewed and no additional complaints, except as documented *Neurologic Neurologic: Reports system reviewed and no additional complaints, except as documented and Reports headache(s) Psychiatric Psychiatric: Reports system reviewed and no additional complaints, except as documented Endocrine Endocrine: Reports system reviewed and no additional complaints, except as documented Hematologic/Lymphatic Hematologic/Lymphatic: Reports system reviewed and no additional complaints, except as documented Allergic/Immunologic Allergic/Immunologic: Reports system reviewed and no additional complaints, except as documented Exam Data for Last 24 hours Vital signs and Labs for Last 24 Hours: Temp Pulse Resp BP Pulse Ox O2 Del Method O2 Flow Rate 98.8 F 95 H 18 190/102 H 94 L Room Air 6 03/09/25 04:00 03/09/25 12:00 03/09/25 12:00 03/09/25 12:00 03/09/25 12:00 03/09/25 12:00 03/09/25 10:57 Laboratory Results - last 24 hr 03/08/25 22:38: Lactate 1.0 03/08/25 22:55: WBC 11.6 H, RBC 5.19, Hgb 14.3, Hct 44.1, MCV 85.0, MCH 27.6, MCHC 32.4, RDW 14.4, Plt Count 212, MPV 11.6 H, Neut % (Auto) 68.4, Lymph % (Auto) 21.9, Stephens % (Auto) 7.1, Eos % (Auto) 2.0, Baso % (Auto) 0.3, Neut # (Auto) 7.9 H, Lymph # (Auto) 2.5, Stephens # (Auto) 0.8, Eos # (Auto) 0.2, Baso # (Auto) 0.0, PT 10.3, INR 0.91, APTT 27.1, Sodium 140, Potassium 3.6, Chloride 107, Carbon Dioxide 24, Anion Gap 12.6, BUN 20 H, Creatinine 0.90, Estimated Creat Clear 58, Estimated GFR 60, Est GFR ( Amer) 73, Glucose 142 H, Hemoglobin A1c 5.9, Calcium 9.1, Magnesium 1.6, Total Bilirubin 0.8, AST 28, ALT 14, Alkaline Phosphatase 94, Troponin I < 0.01, NT-Pro-B Natriuret Pep 2680 H, Total Protein 7.4, Albumin 4.3, Globulin 3.1, Albumin/Globulin Ratio 1.4, Triglycerides 116, Cholesterol 202 H, LDL Cholesterol Direct 111.92, VLDL Cholesterol 23, HDL Cholesterol 58, Cholesterol/HDL Ratio 3.5, TSH 12.00 H, Thyroxine (T4) 7.1 03/09/25 00:16: Urine Color Yellow, Urine Appearance Clear, Urine pH 6.0, Ur Specific Sylvester 1.015, Urine Protein 1+ A, Urine Glucose (UA) Negative, Urine Ketones Negative, Urine Blood Negative, Urine Nitrate Positive A, Urine Bilirubin Negative, Urine Urobilinogen 0.2, Ur Leukocyte Esterase Negative, Urine RBC 20-50, Urine WBC 10-20, Ur Squamous Epith Cells 3-5, Urine Bacteria 4+, Urine Opiates Screen Negative, Urine Methadone Screen Negative, Ur Barbituates Screen Negative, Ur Phencyclidine Scrn Negative, Ur Amphetamines Screen Negative, U Benzodiazepines Scrn Negative, Urine Cocaine Screen Negative, U Marijuana (THC) Screen Negative 03/09/25 02:07: POC Glucose 180 H 03/09/25 02:51: Troponin I < 0.01 03/09/25 05:21: WBC 13.4 H, RBC 4.67, Hgb 12.9, Hct 40.5, MCV 86.7, MCH 27.4, MCHC 31.6 L, RDW 14.6, Plt Count 147 D, MPV 12.8 H, Neut % (Auto) 84.1 H, Lymph % (Auto) 10.9, Stephens % (Auto) 4.3, Eos % (Auto) 0.0 L, Baso % (Auto) 0.3, Neut # (Auto) 11.2 H, Lymph # (Auto) 1.5, Stephens # (Auto) 0.6, Eos # (Auto) 0.0, Baso # (Auto) 0.0, Sodium 135 L, Potassium 3.8, Chloride 107, Carbon Dioxide 22, Anion Gap 9.8, BUN 20 H, Creatinine 0.90, Estimated Creat Clear 61, Estimated GFR 60, Est GFR ( Amer) 73, Glucose 139 H, Calcium 8.7, Troponin I < 0.01, Procalcitonin 0.081, Free T4 0.82 I & O for Last 24 hours: Intake & Output 03/06/25 03/07/25 03/08/25 03/09/25 23:59 23:59 23:59 23:59 Output Total 300 / 300 Balance -300 / -300 Weight 182 lb 192 lb 10.944 oz Microbiology Reports for the Last 24 Hours: Microbiology 03/09/25 00:16 Urine,Clean Catch Urine Culture - Preliminary Gram Negative Rods Constitutional Constitutional: no acute distress and average body habitus *Routine HEENT Exam Head: Present normocephalic and atraumatic ENT: Present mucous membranes moist *Routine Neck Exam Neck: Present supple, full ROM and normal carotid upstroke; Absent JVD, carotid bruit or lymphadenopathy *Routine Respiratory Exam Respiratory: Present CTA bilaterally, normal respiratory effort, able to speak in complete sentences and symmetric chest movement *Routine Cardiovascular Exam Cardiovascular: Present Normal S1, Normal S2 and irregularly irregular; Absent murmur or gallop *Routine Abdominal Exam Abdominal: Present soft and normoactive bowel sounds; Absent tenderness, distended or organomegaly *Routine Extremities Exam Extremities: Present full ROM, pulses intact and normal capillary refill; Absent cyanosis, clubbing or edema *Routine Skin Exam Skin: Present intact and warm; Absent erythema *Routine Neurological Exam Neurological: Present alert, oriented X3 and CN II-XII intact; Absent sensory deficit or motor deficit Routine Psychiatric Exam Psychiatric: Present normal affect Meds Home Medications and Allergies Home Medications ?Medication ?Instructions ?Recorded ?Confirmed ?Type cetirizine 10 mg tablet 10 mg PO DAILY #30 tabs 09/13/24 03/09/25 Rx hydrochlorothiazide 12.5 mg capsule 12.5 mg PO DAILY Fluid #90 caps 09/13/24 03/09/25 Rx lisinopril 10 mg tablet 10 mg PO DAILY High Blood Pressure 09/13/24 03/09/25 Rx #90 tabs rivaroxaban 20 mg tablet (Xarelto) 20 mg PO DAILY #90 tabs 09/13/24 03/09/25 Rx blood sugar diagnostic #50 ea 09/14/24 03/09/25 Rx blood-glucose meter #1 ea 09/14/24 03/09/25 Rx lancets 31 gauge #100 ea 09/14/24 03/09/25 Rx atorvastatin 40 mg tablet 40 mg PO HS 03/09/25 03/09/25 History levothyroxine 50 mcg tablet 50 mcg PO DAILY 03/09/25 03/09/25 History metformin 500 mg tablet 500 mg PO DAILY Diabetes 03/09/25 03/09/25 History New Prescriptions to Start Prescriptions: Allergies Allergy/AdvReac Type Severity Reaction Status Date / Time acetaminophen (From TYLENOL) Allergy Unknown Verified 10/11/24 10:36 tramadol (TRAMADOL) Allergy Unknown Verified 10/11/24 10:36 Assessment and Plan *Assessment and plan (1) Hypertensive emergency: Status: Acute Category: Medical Code(s): I16.1 - Hypertensive emergency (2) Renal artery stenosis: Status: Acute Category: Medical Code(s): I70.1 - Atherosclerosis of renal artery (3) Noncompliance: Status: Acute Category: Medical Code(s): Z91.199 - Patient's noncompliance with other medical treatment and regimen due to unspecified reason (4) Cervicalgia: Status: Acute Category: Medical Code(s): M54.2 - Cervicalgia (5) Elevated brain natriuretic peptide (BNP) level: Status: Acute Category: Medical Code(s): R79.89 - Other specified abnormal findings of blood chemistry (6) Afib: Status: Acute Qualifiers: Atrial fibrillation type: unspecified Qualified Code(s): I48.91 - Unspecified atrial fibrillation Category: Medical Code(s): I48.91 - Unspecified atrial fibrillation (7) CAD (coronary artery disease): Problem Comment: Coronary calcium score 1304 Status: Acute Qualifiers: Associated angina: unspecified whether angina present Coronary Disease-Associated Artery/Lesion type: unspecified vessel or lesion type [place] vs. 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 The patient presented to the emergency department with neck pain. She was found to have a blood pressure greater than 200 mmHg systolic and greater than 120 mmHg diastolic. The patient had a CT of the abdomen which showed high-grade stenosis of the right renal artery greater than 95%. The patient will undergo renal angiogram today for further evaluation of her renal artery stenosis due to her hypertensive emergency and renal artery stenosis on CT. 2. The patient has been educated on the risks and benefits of proceeding with renal angiogram with possible intervention. The patient verbalizes understanding and is agreeable in proceeding with the procedure. 3. The patient will be n.p.o. in preparation for renal angiogram. 4. The patient's blood pressure is acceptable at this time. Will discuss antihypertensive medications once she has undergone a renal angiogram with possible stenting. 5. The patient is medically noncompliant. She has not taken any of her medications for the last 8 months and just got her medications refilled approximately a week ago. I had a long discussion with the patient about being compliant with her medications and she verbalized understanding. 6. Coronary artery disease is present. She does have a negative troponin. No plans for left cardiac catheterization at this time. 7. Her LDL goal is less than 55. Her LDL is 111. Will restart her Lipitor today. 8. The patient is diabetic. She will need aggressive control of her diabetes. Will defer this to the hospitalist. 9. The patient does have a history of atrial fibrillation. On admission she was in A-fib with RVR. We will get her restarted on her beta-shweta for rate control. 10. She is on Xarelto for long-term anticoagulation secondary to her atrial fibrillation. 11. Further recommendations will be made pending the patient's response to treatment and the results of her renal angiogram today. Thank you for the opportunity to have participate in the care of this patient. The recommendations and orders are per Dr. Estrada. Addendum: [facility] shows: Severe and critical bilateral renal artery stenosis Successful stenting of the bilateral renal arteries severe and critical disease reduced to 0% with 1 bare-metal balloon mounted stent placed in the ostial proximal segment of each renal artery PLAN 1. Plavix and aspirin is reasonable for the next month 2. Continue monitoring overnight watching for hypertension and hypotension 3. Chemistry panel in the morning 4. Evaluate for ischemic heart disease based on the critical nature of the renal artery stenosis 5. Also recommend carotid artery stenosis evaluation as the high correlation between renal artery disease and carotid artery disease exists 6. Treatment of hyperlipidemia with high intensity statin Start nadolol 40 mg p.o. daily for better blood pressure control and to suppress her atrial fibrillation. Start Xarelto 20 mg p.o. nightly for anticoagulation secondary to atrial fibrillation. Lasix 20 mg IV x 1 dose due to pulmonary edema seen on chest x-ray and elevated BNP. Dual antiplatelet therapy with aspirin 81 mg daily and Plavix 75 mg daily due to bilateral renal stenting.
[2025-03-09 12:19] LABS: CATHL Activated Clotting Time 330 SEC (74-125)
--- NOTE | 2025-03-09 12:45 | PC.NURSE ---
purewick placed on patient while pt has to lay flat and receive Lasix.
[2025-03-09] MEDS: NADOLOL 20MG TABLET 40 MG PO (12:59)
[2025-03-09] MEDS: FUROSEMIDE 20 MG/2 ML VIAL IV (13:00)
--- NOTE | 2025-03-09 13:38 | PC.NURSE ---
physical therapy came to work with patient, pt refused.
[2025-03-09] MEDS: IOPAMIDOL-370 (76%);100ML BOTTLE 85 ML IV (14:05)
--- NOTE | 2025-03-09 14:35 | PC.NURSE ---
Dr. Perez at bedside.
--- NOTE | 2025-03-09 14:37 | PC.NURSE ---
bp recheck after Hydralazine 149/80, prior to Hydralazine 185/105.
[2025-03-09] MEDS: CYCLOBENZAPRINE 10MG TABLET 10 MG PO ×2 (15:07→21:15)
--- NOTE | 2025-03-09 15:07 | [facility].PTWOUND ---
Rehab Inpt Wound Evaluation Rehab IP Wound Evaluation Start: 03/09/25 07:49 Freq: ONCE Status: Active Protocol: Document 03/09/25 15:05 CY (Rec: 03/09/25 15:07 CY [id number]) Rehab PT Wound Assessment Subjective Subjective 79-year-old female who has a past medical history significant for hypothyroidism, COPD, obesity, coronary artery disease, hyperlipidemia, hypertension, diabetes, GERD, leukocytosis, NSTEMI, atrial fibrillation with rapid ventricular response (currently prescribed Xarelto), CVA, angina, peripheral artery disease, diastolic dysfunction, and neuropathy who presents with a chief complaint of neck pain. Based on pt with low Ashwin score upon admission a PT wound consult was entered per protocol. Pt has no current wounds and has no needs for PT inpatient wound care at this time. Nsg staff is performing pressure relief as appropriate at this time per hospital policy. Plan/Recommendation Comment No further wound care needs at this time. Thank you for involving the wound care team in the care of this patient. PHYSICIAN CERTIFICATION: I certify the specified therapy services for Aretha Villalta are required, authorized, and reviewed every 30 days.
[2025-03-09] MEDS: RIVAROXABAN 10MG TABLET 20 MG PO (17:00)
--- NOTE | 2025-03-09 17:14 | PC.NURSE ---
pt alert and oriented. pt lung sounds diminished. abdomen soft, nontender, bowel sounds active. pt went to cathlab this shift and got bilateral renal stents. pt has been resting since return to room. dressing noted to right groin, c/d/i no hematoma noted. pt did have medication changes this shift for heart rate and bp. pt has c/o neck pain when moving her neck and has been medicated per MD delphine aware. family at bedside. call light w/i reach. bed alarm in place.
--- NOTE | 2025-03-09 17:42 | PC.NURSE ---
report given to RIOS Doran
[2025-03-10] VITALS (7 sets, daily range): BP systolic 101–162; BP diastolic 56–81; PULSE 62–88; RESP 14–18; TEMP 36.2–37.1; O2SAT 92–99; BMI 32.6
[2025-03-10] MEDS: CEFTRIAXONE SODIUM 1 GM in 0.9 % SODIUM CHLORIDE 50 ML IV (01:25)
[2025-03-10 03:08] LABS: POC Glucose,Bedside 116 (70-110)
--- NOTE | 2025-03-10 05:31 | PC.NURSE ---
Pt. is alert and orientated x 4. Pt. is on room air. Pt. has done well this shift. Pt. has a purewick in place. draining well. Pt. recieved antibiotics per IV overnight. Pt,. c/o neck pain. Pain not too bad when laying still. neck hurts to move. Pt. was medicated per MAR for the pain. After medicating for pain, pt. fell asleep. Pt. slept well overnight. right groin with a gauze and tegaderm dressing is clean, dry, intact. During the night the patients purewick leaked, Pt. cleaned up and bed linens changed. Pt. states that she was feeling much better. Personal items and call saavedra in reach.
[2025-03-10 06:16] LABS: Basophils # 0.1 K/mm3 (0-0.2); Basophils % 0.6 % (0.1-2.0); Eosinophils # 0.2 Kmm3 (0.0-0.4); Eosinophils % 1.8 % (0.1-12.0); Hematocrit 38.9 % (37.0-47.0); Hemoglobin 12.4 g/dL (12.2-16.2); Immature Granulocytes # 0.03 10^3uL; Immature Granulocytes % 0.4 %; Lymphocytes # 2.1 K/mm3 (0.7-4.5); Lymphocytes % 25.1 % (10-50); Mean Corpuscular HGB Conc 31.9 g/dL (31.8-35.4); Mean Corpuscular Hemoglobin 27.7 pg (27.0-31.2); Mean Corpuscular Volume 86.8 fl (81-99); Mean Platelet Volume 11.6 fl (7.4-10.4); Monocytes # 0.8 K/mm3 (0.1-1.0); Monocytes % 9.2 % (1.7-9.3); Neutrophils # 5.3 K/mm3 (1.8-7.8); Neutrophils % 62.9 % (37.0-80.0); Nucleated Red Blood Cells # 0 10^3/uL; Nucleated Red Blood Cells % 0 %; Platelet Count 231 K/mm3 (142-424); Red Blood Count 4.48 M/mm3 (4.20-5.40); Red Cell Distribution Width-SD 48.3 fL; White Blood Count 8.4 K/mm3 (4.8-10.8)
[2025-03-10 06:27] LABS: Anion Gap 6.5 mEq/L (5-15); Blood Urea Nitrogen 26 mg/dl (7-17); Calcium 8.8 mg/dl (8.4-10.2); Carbon Dioxide 26 mmol/L (22.0-30.0); Chloride 108 mmol/L (98-107); Creatinine Clearance Estimated 48 mL/min (50-200); Estimated Glomerular Filt Rate 39 ml/min (>60); GFR (African American) 48 ML/MIN (>60); Glucose 97 mg/dl (74-100); Potassium 3.5 mmoL/L (3.5-5.1); Sodium 137 mmol/L (136-145)
[2025-03-10] MEDS: LEVOTHYROXINE 50MCG (0.05MG) TAB 50 MCG PO (07:10)
[2025-03-10] MEDS: NADOLOL 20MG TABLET 40 MG PO (08:31)
[2025-03-10] MEDS: ASPIRIN EC 81MG TABLET 81 MG PO (08:31)
[2025-03-10] MEDS: CLOPIDOGREL 75MG TAB 75 MG PO (08:31)
[2025-03-10] MEDS: CYCLOBENZAPRINE 10MG TABLET 10 MG PO (08:31)
[2025-03-10] MEDS: humaLOG 100 UNITS/ML 10ML VIAL (SSI) SUBCUT ×2 (08:43→14:36)
[2025-03-10 08:45] LABS: POC Glucose,Bedside 233 (70-110)
--- NOTE | 2025-03-10 10:42 | EXP.CARD.PN ---
Subjective Subjective Date: 03/10/25 Time: 08:30 Principal diagnosis: malignant HTN, CONCETTA Interval history: This is an 79-year-old female who presented to the emergency department complaints of neck pain. She was found to have a malignantly elevated blood pressure and had renal artery stenosis on CT. She underwent renal angiogram yesterday with stenting to the bilateral renal arteries. She tolerated the procedure well. She will be on aspirin and Plavix for dual antiplatelet therapy. This morning she states that her headache has resolved. She states that her neck pain is better and only hurting on the right side, the left side has resolved. She denies any chest pain or pressure. She denies any shortness of breath or edema. She denies any fever, chills, nausea, vomiting, diarrhea, PND orthopnea. She states that she is ready to be discharged home. Exam Data for Last 24 hours Vital signs and Labs for Last 24 Hours: Temp Pulse Resp BP Pulse Ox O2 Del Method O2 Flow Rate 98.4 F 79 16 128/67 93 L Room Air 6 03/10/25 08:00 03/10/25 08:00 03/10/25 08:00 03/10/25 08:00 03/10/25 08:00 03/10/25 09:00 03/09/25 10:57 Laboratory Results - last 24 hr 03/09/25 10:22: Activated Clotting Time 330 H* 03/10/25 03:01: POC Glucose 116 H 03/10/25 05:56: WBC 8.4 D, RBC 4.48, Hgb 12.4, Hct 38.9, MCV 86.8, MCH 27.7, MCHC 31.9, RDW 15.0, Plt Count 231 D, MPV 11.6 H, Neut % (Auto) 62.9, Lymph % (Auto) 25.1, [place] % (Auto) 9.2, Eos % (Auto) 1.8, Baso % (Auto) 0.6, Neut # (Auto) 5.3, Lymph # (Auto) 2.1, [place] # (Auto) 0.8, Eos # (Auto) 0.2, Baso # (Auto) 0.1, Sodium 137, Potassium 3.5, Chloride 108 H, Carbon Dioxide 26, Anion Gap 6.5, BUN 26 H D, Creatinine 1.30 H D, Estimated Creat Clear 48, Estimated GFR 39 L, Est GFR ( Amer) 48 L D, Glucose 97, Calcium 8.8 03/10/25 08:30: POC Glucose 233 H I & O for Last 24 hours: Intake & Output 03/07/25 03/08/25 03/09/25 03/10/25 23:59 23:59 23:59 23:59 Intake Total 290 / 340 320 / 320 Output Total 750 / 950 400 / 400 Balance -460 / -610 -80 / -80 Weight 182 lb 192 lb 10.944 oz 195 lb 15.855 oz Microbiology Reports for the Last 24 Hours: Microbiology 03/09/25 00:16 Urine,Clean Catch Urine Culture - Final Klebsiella pneumoniae 03/09/25 01:40 Blood Blood Culture - Preliminary NO GROWTH AFTER 24 HOURS 03/09/25 01:39 Blood Blood Culture - Preliminary NO GROWTH AFTER 24 HOURS Constitutional Constitutional: no acute distress and average body habitus *Routine HEENT Exam Head: Present normocephalic and atraumatic ENT: Present mucous membranes moist *Routine Neck Exam Neck: Present supple, full ROM and normal carotid upstroke; Absent JVD, carotid bruit or lymphadenopathy *Routine Respiratory Exam Respiratory: Present CTA bilaterally, normal respiratory effort, able to speak in complete sentences and symmetric chest movement *Routine Cardiovascular Exam Cardiovascular: Present Normal S1, Normal S2 and irregularly irregular; Absent murmur or gallop *Routine Abdominal Exam Abdominal: Present soft and normoactive bowel sounds; Absent tenderness, distended or organomegaly *Routine Extremities Exam Extremities: Present full ROM, pulses intact and normal capillary refill; Absent cyanosis, clubbing or edema *Routine Skin Exam Skin: Present intact and warm; Absent erythema *Routine Neurological Exam Neurological: Present alert, oriented X3 and CN II-XII intact; Absent sensory deficit or motor deficit Routine Psychiatric Exam Psychiatric: Present normal affect Progress Note: A&P Assessment and plan (1) Hypertensive emergency: Status: Acute (2) Renal artery stenosis: Status: Acute (3) Noncompliance: Status: Acute (4) Cervicalgia: Status: Acute (5) Elevated brain natriuretic peptide (BNP) level: Status: Acute (6) Afib: Status: Acute (7) CAD (coronary artery disease): Problem details: Coronary calcium score 1304 Status: Acute (8) HLD (hyperlipidemia): Status: Acute (9) Diabetes: Status: Acute (10) Hypertension: Status: Acute (11) Acute UTI: Status: Acute Assessment and Plan Assessment and Plan for All Diagnoses:: Plan: 1. The patient presented to the emergency department with neck pain. She was found to have a blood pressure greater than 200 mmHg systolic and greater than 120 mmHg diastolic. The patient had a CT of the abdomen which showed high-grade stenosis of the right renal artery greater than 95%. The patient underwent renal angiogram yesterday and was found to have critical renal artery stenosis. She had a bilateral renal artery stenting. She will remain on aspirin and Plavix for dual antiplatelet therapy. 2. Her blood pressure is under much better control today. Continue nadolol. 3. The patient is medically noncompliant. She has not taken any of her medications for the last 8 months and just got her medications refilled approximately a week ago. I had a long discussion with the patient about being compliant with her medications and she verbalized understanding. 4. Coronary artery disease is present. She does have a negative troponin. No plans for left cardiac catheterization at this time. 5. Her LDL goal is less than 55. Her LDL is 111. She is on a statin. 6. The patient is diabetic. She will need aggressive control of her diabetes. Will defer this to the hospitalist. 7. The patient does have a history of atrial fibrillation. On admission she was in A-fib with RVR. Today she is rate controlled. 8. She is on Xarelto for long-term anticoagulation secondary to her atrial fibrillation. 9. The patient can be discharged home today from a cardiac standpoint with follow-up in cardiology clinic next week. 10. The patient can be discharged on the following cardiac medications: Aspirin 81 mg daily, Plavix 75 mg daily, nadolol 40 mg daily, Xarelto 20 mg p.o. nightly, Lipitor 40 mg p.o. nightly Thank you for the opportunity to have participate in the care of this patient. The recommendations and orders are per Dr. Estrada.
[2025-03-10] MEDS: MORPHINE 2MG/ML SYRINGE 2 MG IV (13:23)
--- NOTE | 2025-03-10 14:08 | HMH.OTEV ---
OT Inpatient Evaluation Rehab OT IP Evaluation Start: 03/10/25 11:58 Freq: ONCE Status: Active Protocol: Document 03/10/25 14:03 RONY (Rec: 03/10/25 14:08 [facility] [id number]) Rehab OT IP Assessment Subjective History Pt oriented x 3 on arrival. Pt agreeable to engage in therapy evaluation. Pt admitted on 03/09/25 due to renal artery stenosis and hypertensive emergency. History and physical: This is an 79-year-old female who has a past medical history significant for hypothyroidism , COPD, obesity, coronary artery disease, hyperlipidemia , hypertension, diabetes, GERD , leukocytosis, NSTEMI, atrial fibrillation with rapid ventricular response ( currently prescribed Xarelto), CVA, angina, peripheral artery disease, diastolic dysfunction, and neuropathy who presents with a chief complaint of neck pain. Due to patient's symptoms, she presented to the emergency room for evaluation. While in the emergency room, patient's systolic blood pressure was greater than 200 and her diastolic blood pressure was greater than 120. Patient's heart rate was in the 130s and her presenting rhythm was atrial fibrillation with a rapid ventricular response. CT of the head and neck was negative for any acute vascular abnormality. CT scan of the head was negative for any acute intracranial process . CT scan of the abdomen and pelvis revealed high-grade stenosis proximal right renal artery greater than 95%, no aortic aneurysm or dissection, diverticulosis without diverticulitis. And CT scan of the chest revealed no evidence of pulmonary embolism , moderate coronary artery calcifications, and multifocal bibasilar atelectasis. Due to these findings, patient has been admitted for further management. During my evaluation of the patient, patient states she has been without her prescribed medications for greater than 8 months. Recently, approximately 1 week ago patient retrieved her prescriptions and resumed her medications. Approximately 2- 3 days later she started to experience neck pain rated 10 out of 10 and with radiation to the occipital portion of the head. Since being in emergency room, patient states her neck pain has improved but it has been intermittent and not constant as it was before in the past. She is currently denying any chest pain, diplopia, blurry vision, lateral gaze deficit, slurring of speech, focal upper or lower extremity deficit, nausea, vomiting, shortness of breath, dyspnea, PND, orthopnea, burning with urination, painful urination, nuclear rigidity, frequency of urination, incontinence, or diarrhea. Additional pertinent labs obtained include a white blood cell count 11.6, BUN of 20, blood glucose 142, BNP of 2680, TSH of 12, T4 of 7.1, and nitrates were positive urinalysis/20- 50 red blood cell/10-20 white blood cell/3-5 squamous epithelial cells/4+ bacteria Subjective I am having a lot of pain in my groin. Pt reports 8/10 pain in her groin area when she attempts to stand or sit up to eob. Prior to being in the hospital , pt lived with her son. Pt claims she is normally independent with all ADLs or IADLs. She does use a rolling walker in the community for safety with functional transfers. Pt did still drive intermittently. Objective Patient Orientation Person,Place,Birthday Right Upper Extremity Gross ROM WFL Left Upper Extremity Gross ROM WFL Bed Mobility bed mobility-scooting,bed mobility - supine/sit Assist Level Minimal x 1 (25% assist) Transfer Training Sit/Stand Transfer Assist Level Minimal x 1 (25% assist) Lower Body Dressing Ability Moderate Assistance Rehab OT IP prob,goals,plan Problems Date of Evaluation: 03/10/25 OT IP Problems Bed Mobility,Transfers,Balance ,Self care,Safety Rehab Potential Rehab Potential Good Equipment Needs Assistive Devices Rolling / Wheeled Walker Plan OT intervention Plan Bed Mobility,Transfers,Balance ,Self care,Safety,Therapeutic Exercise OT Plan Frequency Daily Duration LOS Discharge Goals Bed Mobility Ability Standby Assistance Sit to Stand Chair Transfer Ability Supervision/Stand by Chair Transfer Ability Supervision/Stand by Chair Transfer Technique Sit to/from Ambulatory Chair Transfer Assistive Devices Rolling Walker Feeding Ability Assist with Tray Set Up Lower Body Dressing Ability Minimal Assistance Upper Body Dressing Ability Contact Guard Bathing Ability Moderate Assistance Performing Toilet Hygiene Ability Minimal Assistance Overall Commode/Toilet Transfer Ability Contact Guard Commode/Toilet Transfer Technique Sit to/from Ambulatory Discharge Plan OT Discharge Plan Pt will continue to be seen for OT services while at [facility]. At this time, pt would benefit most from short term rehab at [facility]. However, if patients pain improves and she is able to complete functional transfers with more independence she could possibly return home. Continued skilled therapy is important in order for patient to improve strength, safety, endurance, ADL independence, and functional transfers to reach [facility]. Eval Complexity Eval Charge Codes 22918 - Moderate Complexity PHYSICIAN CERTIFICATION: I certify the specified therapy services for Aretha Khan Pawan are required, authorized, and reviewed every 30 days.
--- NOTE | 2025-03-10 14:19 | SW/DCPLANNER ---
Addendum entered by Abigail Calvert 03/11/25 14:36: Due to patient not having Med A she is not a candidate for SNF. Patient is not interested in [facility] placement. Patient and family prefer to return home w/ home health services. Patient has also requested a wheelchair from [facility]. Addendum entered by Abigail Calvert 03/11/25 13:46: Per patient is now requiring placement SNF level of care and will not discharge till tomorrow. Patient is agreeable to [facility]. I will fax patient information to both facilities today. Patient will be medically stable for discharge tomorrow pending placement. Addendum entered by Patricia Dixon 03/11/25 08:39: [facility] has accepted patient. Wade Lockhart Addendum entered by Patricia Dixon 03/10/25 15:10: Faxed patients info to [facility]. Will update when i hear back from [facility] if they can accept patient. Wade Lockhart Original Note: I spoke w/ this patient regarding plans once medically stable for discharge. PT/OT evaluated patient and recommended SNF level of care. I spoke w/ patient and her daughter regarding SNF. Per MD patient is medically stable for discharge today. Due to being ready for discharge patient will not have qualify stay for Medicare coverage of SNF. Patient does have Medicaid and benefit has been explained. I also offered home health services if interested. Patient is not interested in placement under Medicaid at this time. Patient prefers to return home w/ home health services (no preference) once medically stable for discharge. CM will arrange home health services. Patient stated that she has all appropriate DME at home.
[2025-03-10] MEDS: LIDOCAINE 5% TRANSDERMAL PATCH 1 EACH TD (14:27)
[2025-03-10 14:37] LABS: POC Glucose,Bedside 183 (70-110)
--- NOTE | 2025-03-10 14:43 | P.DS_ITS ---
General Admission date:: 03/09/25 HPI HPI HPI: This is an 79-year-old female who has a past medical history significant for hypothyroidism, COPD, obesity, coronary artery disease, hyperlipidemia, hypertension, diabetes, GERD, leukocytosis, NSTEMI, atrial fibrillation with rapid ventricular response (currently prescribed Xarelto), CVA, angina, peripheral artery disease, diastolic dysfunction, and neuropathy who presents with a chief complaint of neck pain. Due to patient's symptoms, she presented to the emergency room for evaluation. While in the emergency room, patient's systolic blood pressure was greater than 200 and her diastolic blood pressure was greater than 120. Patient's heart rate was in the 130s and her presenting rhythm was atrial fibrillation with a rapid ventricular response. CT of the head and neck was negative for any acute vascular abnormality. CT scan of the head was negative for any acute intracranial process. CT scan of the abdomen and pelvis revealed high-grade stenosis proximal right renal artery greater than 95%, no aortic aneurysm or dissection, diverticulosis without diverticulitis. And CT scan of the chest revealed no evidence of pulmonary embolism, moderate coronary artery calcifications, and multifocal bibasilar atelectasis. Due to these findings, patient has been admitted for further management. During my evaluation of the patient, patient states she has been without her prescribed medications for greater than 8 months. Recently, approximately 1 week ago patient retrieved her prescriptions and resumed her medications. Approximately 2-3 days later she started to experience neck pain rated 10 out of 10 and with radiation to the occipital portion of the head. Since being in emergency room, patient states her neck pain has improved but it has been intermittent and not constant as it was before in the past. She is currently denying any chest pain, diplopia, blurry vision, lateral gaze deficit, slurring of speech, focal upper or lower extremity deficit, nausea, vomiting, shortness of breath, dyspnea, PND, orthopnea, burning with urination, painful urination, nuclear rigidity, frequency of urination, incontinence, or diarrhea. Additional pertinent labs obtained include a white blood cell count 11.6, BUN of 20, blood glucose 142, BNP of 2680, TSH of 12, T4 of 7.1, and nitrates were positive urinalysis/20-50 red blood cell/10-20 white blood cell/3-5 squamous epithelial cells/4+ bacteria Hospital Course Hospital Course Hospital Course: PT recommended SNF, but patient opted for home health. Total time spent on discharge: 32 minutes on chart review, counseling, documentation, and direct care with patient. Exam Data for Last 24 hours Vital signs and Labs for Last 24 Hours: Temp Pulse Resp BP Pulse Ox O2 Del Method O2 Flow Rate 97.1 F L 85 18 162/81 H 92 L Room Air 6 03/10/25 12:00 03/10/25 12:00 03/10/25 12:00 03/10/25 12:00 03/10/25 12:00 03/10/25 12:00 03/09/25 10:57 Laboratory Results - last 24 hr 03/10/25 03:01: POC Glucose 116 H 03/10/25 05:56: WBC 8.4 D, RBC 4.48, Hgb 12.4, Hct 38.9, MCV 86.8, MCH 27.7, MCHC 31.9, RDW 15.0, Plt Count 231 D, MPV 11.6 H, Neut % (Auto) 62.9, Lymph % (Auto) 25.1, [place] % (Auto) 9.2, Eos % (Auto) 1.8, Baso % (Auto) 0.6, Neut # (Auto) 5.3, Lymph # (Auto) 2.1, [place] # (Auto) 0.8, Eos # (Auto) 0.2, Baso # (Auto) 0.1, Sodium 137, Potassium 3.5, Chloride 108 H, Carbon Dioxide 26, Anion Gap 6.5, BUN 26 H D, Creatinine 1.30 H D, Estimated Creat Clear 48, Estimated GFR 39 L, Est GFR ( Amer) 48 L D, Glucose 97, Calcium 8.8 03/10/25 08:30: POC Glucose 233 H 03/10/25 14:25: POC Glucose 183 H I & O for Last 24 hours: Intake & Output 03/07/25 03/08/25 03/09/25 03/10/25 23:59 23:59 23:59 23:59 Intake Total 290 / 340 440 / 440 Output Total 750 / 950 400 / 400 Balance -460 / -610 40 / 40 Weight 82.554 kg 87.4 kg 88.9 kg Microbiology Reports for the Last 24 Hours: Microbiology 03/09/25 00:16 Urine,Clean Catch Urine Culture - Final Klebsiella pneumoniae 03/09/25 01:40 Blood Blood Culture - Preliminary NO GROWTH AFTER 24 HOURS 03/09/25 01:39 Blood Blood Culture - Preliminary NO GROWTH AFTER 24 HOURS Results Data Completed and Pending Labs on day of discharge: Labs from last 24 hours 03/10/25 03/10/25 03/10/25 14:25 08:30 05:56 WBC 8.4 D RBC 4.48 Hgb 12.4 Hct 38.9 MCV 86.8 MCH 27.7 MCHC 31.9 RDW 15.0 Plt Count 231 D MPV 11.6 H Neut % (Auto) 62.9 Lymph % (Auto) 25.1 [place] % (Auto) 9.2 Eos % (Auto) 1.8 Baso % (Auto) 0.6 Neut # (Auto) 5.3 Lymph # (Auto) 2.1 [place] # (Auto) 0.8 Eos # (Auto) 0.2 Baso # (Auto) 0.1 Sodium 137 Potassium 3.5 Chloride 108 H Carbon Dioxide 26 Anion Gap 6.5 BUN 26 H D Creatinine 1.30 H D Estimated Creat Clear 48 Estimated GFR 39 L Est GFR ( Amer) 48 L D Glucose 97 POC Glucose 183 H 233 H Calcium 8.8 03/10/25 03:01 WBC RBC Hgb Hct MCV MCH MCHC RDW Plt Count MPV Neut % (Auto) Lymph % (Auto) [place] % (Auto) Eos % (Auto) Baso % (Auto) Neut # (Auto) Lymph # (Auto) [place] # (Auto) Eos # (Auto) Baso # (Auto) Sodium Potassium Chloride Carbon Dioxide Anion Gap BUN Creatinine Estimated Creat Clear Estimated GFR Est GFR ( Amer) Glucose POC Glucose 116 H Calcium Preliminary micro results at discharge 03/09/25 01:40 Blood Culture - Preliminary Blood NO GROWTH AFTER 24 HOURS 03/09/25 01:39 Blood Culture - Preliminary Blood NO GROWTH AFTER 24 HOURS DS: Diagnosis Discharge Diagnosis (1) Hypertensive emergency: Status: Acute Code(s): I16.1 - Hypertensive emergency (2) Renal artery stenosis: Status: Acute Code(s): I70.1 - Atherosclerosis of renal artery (3) Noncompliance: Status: Acute Code(s): Z91.199 - Patient's noncompliance with other medical treatment and regimen due to unspecified reason (4) Cervicalgia: Status: Acute Code(s): M54.2 - Cervicalgia (5) Elevated brain natriuretic peptide (BNP) level: Status: Acute Code(s): R79.89 - Other specified abnormal findings of blood chemistry (6) Afib: Status: Acute Code(s): I48.91 - Unspecified atrial fibrillation Qualifiers: Atrial fibrillation type: unspecified Qualified Code(s): I48.91 - Unspecified atrial fibrillation (7) CAD (coronary artery disease): Status: Acute Code(s): I25.10 - Atherosclerotic heart disease of [place] coronary artery without angina pectoris Qualifiers: Associated angina: unspecified whether angina present Coronary Disease- Associated Artery/Lesion type: unspecified vessel or lesion type [place] vs. transplanted heart: [place] heart Qualified Code(s): I25.10 - Atherosclerotic heart disease of [place] coronary artery without angina pectoris Problem details: Coronary calcium score 1304 (8) HLD (hyperlipidemia): Status: Acute Code(s): E78.5 - Hyperlipidemia, unspecified Qualifiers: Hyperlipidemia type: unspecified Qualified Code(s): E78.5 - Hyperlipidemia, unspecified (9) Diabetes: Status: Acute Code(s): E11.9 - Type 2 diabetes mellitus without complications Qualifiers: Diabetes mellitus complication status: with other specified complication Diabetes mellitus drug abuse social worker insulin use: without mcc use Diabetes mellitus type: type 2 Qualified Code(s): E11.69 - Type 2 diabetes mellitus with other specified complication (10) Hypertension: Status: Acute Code(s): I10 - Essential (primary) hypertension Qualifiers: Hypertension type: essential hypertension Qualified Code(s): I10 - Essential (primary) hypertension (11) Acute UTI: Status: Acute Code(s): N39.0 - Urinary tract infection, site not specified Meds Home Medications and Allergies Home Medications ?Medication ?Instructions ?Recorded ?Confirmed ?Type cetirizine 10 mg tablet 10 mg PO DAILY #30 tabs 09/13/24 03/09/25 Rx rivaroxaban 20 mg tablet (Xarelto) 20 mg PO DAILY #90 tabs 09/13/24 03/09/25 Rx blood sugar diagnostic #50 ea 09/14/24 03/09/25 Rx blood-glucose meter #1 ea 09/14/24 03/09/25 Rx lancets 31 gauge #100 ea 09/14/24 03/09/25 Rx atorvastatin 40 mg tablet 40 mg PO HS 03/09/25 03/09/25 History levothyroxine 50 mcg tablet 50 mcg PO DAILY 03/09/25 03/09/25 History metformin 500 mg tablet 500 mg PO DAILY Diabetes 03/09/25 03/09/25 History aspirin 81 mg tablet,delayed 81 mg PO DAILY 30 days #30 tabs 03/10/25 Rx release clopidogrel 75 mg tablet 75 mg PO DAILY 30 days #30 tabs 03/10/25 Rx cyclobenzaprine 10 mg tablet 5 mg (1/2 x 10 mg) PO BID PRN Neck 03/10/25 Rx pain 5 days #10 tabs nadolol 20 mg tablet 40 mg (2 x 20 mg) PO DAILY 30 days 03/10/25 Rx #60 tabs New Prescriptions to Start Prescriptions: aspirin Ana,Raymond clopidogrel Ana,Raymond cyclobenzaprine Ana,Raymond nadolol Ana,Raymond Allergies Allergy/AdvReac Type Severity Reaction Status Date / Time acetaminophen (From TYLENOL) Allergy Unknown Verified 10/11/24 10:36 tramadol (TRAMADOL) Allergy Unknown Verified 10/11/24 10:36 Discharge Plan Disposition Patient Disposition: Home Health Service Condition: Fair Discharge Order Discharge Orders: Discharge Order (Routine); Ordered 03/10/25 Ordered By: Raymond Perez Follow up Plan Follow up with: Rohan Evans MD [Primary Care Provider] - 03/18/25 9:20 am Prescriptions/Medication Reconciliation: New cyclobenzaprine 10 mg Tablet 5 mg PO BID PRN (Reason: Neck pain) 5 Days Qty: 10 0RF clopidogrel 75 mg Tablet 75 mg PO DAILY 30 Days Qty: 30 0RF aspirin 81 mg Tablet,Delayed Release (Dr/Ec) 81 mg PO DAILY 30 Days Qty: 30 0RF nadolol 20 mg Tablet 40 mg PO DAILY 30 Days Qty: 60 0RF Continued Xarelto 20 mg tablet 20 mg PO DAILY Qty: 90 3RF cetirizine 10 mg tablet 10 mg PO DAILY Qty: 30 5RF (DME) blood-glucose meter Kit See Rx Instructions .MEDSUPPLY Qty: 1 0RF Rx Instructions: Use to check blood sugar daily and prn (DME) blood sugar diagnostic Strip See Rx Instructions .MEDSUPPLY Qty: 50 3RF Rx Instructions: Use to check blood sugar daily and prn (DME) lancets 31 gauge misc See Rx Instructions .Route Qty: 100 0RF Rx Instructions: Use to check blood sugar daily and prn levothyroxine 50 mcg tablet 50 mcg PO DAILY atorvastatin 40 mg tablet 40 mg PO HS metformin 500 mg tablet 500 mg PO DAILY Discontinued hydrochlorothiazide 12.5 mg capsule 12.5 mg PO DAILY Qty: 90 3RF lisinopril 10 mg tablet 10 mg PO DAILY Qty: 90 3RF Problem Reconciliation Problems Reviewed?: Yes Patient Discharge Instructions Patient Instructions: DI for Urinary Tract Infection (UTI), DI for Surgical Site Infection, DI for Chest Pain Print Language: [place] Providers Primary Care Provider: Rohan Evans Admit Provider: Raymond Perez Attending Provider: Raymond Perez
--- NOTE | 2025-03-10 14:56 | HMH.PTEV ---
Physical Therapy Evaluation Rehab PT IP Evaluation Start: 03/10/25 11:58 Freq: ONCE Status: Active Protocol: Document 03/10/25 13:35 SOHEILAMADY (Rec: 03/10/25 14:56 PHOOFELIA [id number]) Subjective/History History History This is an 79-year-old female who presented to the emergency department complaints of neck pain. She was found to have a malignantly elevated blood pressure and had renal artery stenosis on CT. She underwent renal angiogram yesterday with stenting to the bilateral renal arteries. She currently lives at home with her son and is independent with all mobility with a RW at baseline. Subjective Subjective Pt presents resting supine in bed and is willing to participate with PT/OT this pm . Patient is currently complaining of intermittent 8/ 10 pain in her R groin at cath insertion site when she touches it or puts any weight through her R leg. She states that the pain in her L side of her neck is gone, but she is still having some R sided neck pain. [facility] How much help from another person do you currently need... Turning from your back to your side None while in a flat bed without using bedrails? Moving from lying on back to sitting on None the side of a flat bed without using bedrails? Moving to and from a bed to a chair ( A little including a wheelchair)? Standing up from a chair using your arms A little ? (e.g., wheelchair, bedside chair) Walking in hospital room? A lot Climbing 3-5 steps with a railing? A lot Mobility Score 18 Mobility Level [facility] Mobility Calculator Mobility 6 Walk 10 steps or more Rehab PT IP Eval Objective Appearance Patient Behavior Appropriate,Cooperative Patient Orientation Person,Place,Time Difficulty following instructions none Speech Pattern Clear,Appropriate Ambulation Patient Able to Ambulate No Balance Ability to Arise Able, uses arms to help Sitting Balance Steady, safe Standing Balance Steady, wide stance Dynamic Sitting Balance Ability Normal Dynamic Standing Balance Ability Normal Transfers Bed Transfer Ability Supervision/Stand by Chair Transfer Ability Minimal x 2 (25% assist) Sit to Stand Bed Transfer Ability Minimal x 2 (25% assist) Sit to Stand Chair Transfer Ability Minimal x 2 (25% assist) Pain Thigh Pain Intensity 8 Rehab PT IP prob,goals,plan Problems Date of Evaluation: 03/10/25 PT IP Problems Bed Mobility,Transfers,Gait, Safety Rehab Potential Rehab Potential Good Equipment Needs Assistive Devices Rolling / Wheeled Walker Plan PT Intervention Plan Bed Mobility,Transfers,Gait, Safety,Therapeutic Exercise PT Plan Frequency Daily Duration LOS Discharge Goals Bed Transfer Ability Independent Sit to Stand Chair Transfer Ability Contact Guard/Hand Hold Ambulation Assistive Device Rolling Walker Ambulation Distance (feet) 10 Discharge Plan PT Discharge Plan Patient is currently most appropriate for placement in a skilled rehab facility once medically stable for d/c. Due to her significant pain in her R groin, she was unable to put weight on her R leg during sit to stand transfer. She demonstrated good strength and stood at EOB ~1 minute, but was limited due to pain. Skilled acute therapy is currently indicated to improve proper transfer mechanics, weight bearing tolerance, and safety to return to [facility] with all ADLs and mobility. Eval Complexity Eval Charge Codes 62136 - High Complexity PHYSICIAN CERTIFICATION: I certify the specified therapy services for Aretha Villalta are required, authorized, and reviewed every 30 days.
[2025-03-10] MEDS: METHOCARBAMOL 500MG TABLET 500 MG PO (16:06)
[2025-03-10] MEDS: OXYCODONE 5MG IMMEDIATE RELEASE TABLET 5 MG PO (16:10)
--- NOTE | 2025-03-10 17:39 | XR_ITS ---
PROCEDURE INFORMATION: Exam: XR Right Femur Exam date and time: 03/10/2025 5:38 PM Age: 79 years old Clinical indication: Pain; Thigh; Right; Additional info: Right groin pain TECHNIQUE: Imaging protocol: Radiologic exam of the right femur. Views: 2 views. COMPARISON: CT ANGIO ABDOMEN/FEMORAL 02/23/2021 9:01 AM FINDINGS: Bones/joints: Total-knee arthroplasty device in place. No hardware complication. No acute fracture or dislocation. No acute fracture. Soft tissues: Unremarkable. IMPRESSION: No acute findings.
--- NOTE | 2025-03-10 17:39 | XR_ITS ---
PROCEDURE INFORMATION: Exam: XR Pelvis Exam date and time: 03/10/2025 5:38 PM Age: 79 years old Clinical indication: Hip pain; Right hip; Additional info: Right groin pain TECHNIQUE: Imaging protocol: Radiologic exam of the pelvis. Views: 1 or 2 view. COMPARISON: CT ANGIO ABDOMEN PELVIS 03/08/2025 11:54 PM FINDINGS: Bones/joints: Unremarkable. No acute fracture. Soft tissues: Unremarkable. IMPRESSION: No acute findings.
[2025-03-10] MEDS: RIVAROXABAN 10MG TABLET 20 MG PO (17:44)
--- NOTE | 2025-03-10 17:53 | PC.NURSE ---
PT RESTING SUPINE IN BED WITH DAUGHTERS AT BEDSIDE. PT HAS COMPLAINED OF NECK PAIN AND R INNER THIGH PAIN THROUGHOUT THE ENTIRE SHIFT. PT WAS UNABLE TO WORK VERY MUCH WITH PT/OT DUE TO PAIN WHEN BEARING WEIGHT ON R FOOT. PT DESCRIBES PAIN SHARP AND CONSTANT WHEN BEARING WEIGHT. PT MEDICATED WITH MULTIPLE MUSCLE RELAXERS, LIDOCAINE PATCH, AND PAIN MEDS PER JAN. HOSPITALIST AWARE. PT HAD DISCHARGE ORDER, BUT DUE TO INABILITY TO STAND/ WALK ORDER CANCELED. X RAY OF PELVIS AND FEMUR TAKEN. PT IS NOW RESTING SUPINE IN BED. NO NEEDS VOICED AT THIS TIME. CALL LIGHT WITHIN REACH.
[2025-03-10 20:45] LABS: POC Glucose,Bedside 140 (70-110)
--- NOTE | 2025-03-10 21:38 | EXP.PN ---
Subjective *Date: 03/10/25 *Time: 21:38 Interval history: Patient's neck pain is improving with cyclobenzaprine. Suspect malingering for right groin pain. Will monitor overnight and anticipate discharge in the morning. Exam Data for Last 24 hours Vital signs and Labs for Last 24 Hours: Temp Pulse Resp BP Pulse Ox O2 Del Method O2 Flow Rate 98.2 F 88 16 139/72 94 L Room Air 6 03/10/25 20:00 03/10/25 20:00 03/10/25 20:00 03/10/25 20:00 03/10/25 20:00 03/10/25 20:00 03/09/25 10:57 Laboratory Results - last 24 hr 03/10/25 03:01: POC Glucose 116 H 03/10/25 05:56: WBC 8.4 D, RBC 4.48, Hgb 12.4, Hct 38.9, MCV 86.8, MCH 27.7, MCHC 31.9, RDW 15.0, Plt Count 231 D, MPV 11.6 H, Neut % (Auto) 62.9, Lymph % (Auto) 25.1, [place] % (Auto) 9.2, Eos % (Auto) 1.8, Baso % (Auto) 0.6, Neut # (Auto) 5.3, Lymph # (Auto) 2.1, [place] # (Auto) 0.8, Eos # (Auto) 0.2, Baso # (Auto) 0.1, Sodium 137, Potassium 3.5, Chloride 108 H, Carbon Dioxide 26, Anion Gap 6.5, BUN 26 H D, Creatinine 1.30 H D, Estimated Creat Clear 48, Estimated GFR 39 L, Est GFR ( Amer) 48 L D, Glucose 97, Calcium 8.8 03/10/25 08:30: POC Glucose 233 H 03/10/25 14:25: POC Glucose 183 H 03/10/25 20:38: POC Glucose 140 H I & O for Last 24 hours: Intake & Output 03/07/25 03/08/25 03/09/25 03/10/25 23:59 23:59 23:59 23:59 Intake Total 290 / 340 680 / 680 Output Total 750 / 950 800 / 800 Balance -460 / -610 -120 / -120 Weight 82.554 kg 87.4 kg 88.9 kg Microbiology Reports for the Last 24 Hours: Microbiology 03/09/25 00:16 Urine,Clean Catch Urine Culture - Final Klebsiella pneumoniae 03/09/25 01:40 Blood Blood Culture - Preliminary NO GROWTH AFTER 24 HOURS 03/09/25 01:39 Blood Blood Culture - Preliminary NO GROWTH AFTER 24 HOURS Constitutional Constitutional: no acute distress *Routine HEENT Exam Head: Present normocephalic Eye: Present EOMI and PERRL ENT: Present mucous membranes moist *Routine Neck Exam Neck: Present supple; Absent lymphadenopathy *Routine Respiratory Exam Respiratory: Present CTA bilaterally *Routine Cardiovascular Exam Cardiovascular: Present RRR *Routine Abdominal Exam Abdominal: Present soft and normoactive bowel sounds; Absent tenderness *Routine Extremities Exam Extremities: Absent cyanosis, clubbing or edema *Routine Skin Exam Skin: Present warm; Absent rash *Routine Neurological Exam Neurological: Present alert and oriented X3 Assessment and Plan *Assessment and plan (1) Renal artery stenosis: Status: Acute Category: Medical Code(s): I70.1 - Atherosclerosis of renal artery (2) Hypertensive emergency: Status: Acute Category: Medical Code(s): I16.1 - Hypertensive emergency (3) Acute UTI: Status: Acute Category: Medical Code(s): N39.0 - Urinary tract infection, site not specified (4) CAD (coronary artery disease): Problem Comment: Coronary calcium score 1304 Status: Acute Qualifiers: Coronary Disease-Associated Artery/Lesion type: unspecified vessel or lesion type [place] vs. transplanted heart: [place] heart Associated angina: unspecified whether angina present Qualified Code(s): I25.10 - Atherosclerotic heart disease of [place] coronary artery without angina pectoris Category: Medical Code(s): I25.10 - Atherosclerotic heart disease of [place] coronary artery without angina pectoris (5) Afib: Status: Acute Qualifiers: Atrial fibrillation type: unspecified Qualified Code(s): I48.91 - Unspecified atrial fibrillation Category: Medical Code(s): I48.91 - Unspecified atrial fibrillation (6) Hyperglycemia due to diabetes mellitus: Status: Acute Category: Medical Code(s): E11.65 - Type 2 diabetes mellitus with hyperglycemia (7) Elevated brain natriuretic peptide (BNP) level: Status: Acute Category: Medical Code(s): R79.89 - Other specified abnormal findings of blood chemistry (8) Cervicalgia: Status: Acute Category: Medical Code(s): M54.2 - Cervicalgia (9) Noncompliance: Status: Acute Category: Medical Code(s): Z91.199 - Patient's noncompliance with other medical treatment and regimen due to unspecified reason Plan Aretha Villalta is a 79-year-old female with a medical history significant for medical nonadherence, hypertension, type 2 diabetes, hypothyroidism, A-fib who presented with intractable posterior neck pain and was incidentally found to have malignant hypertension in setting of pain, and bilateral renal artery stenosis. #Posterior neck pain ? Most consistent with neck strain. ? Improving with cyclobenzaprine. Decreased pain, increased range of motion. ? Low suspicion for infection, meningitis, herniation at this time given no fevers, leukocytosis, radiculopathy. ? Patient encouraged to stretch her neck as tolerated. ? Continue cyclobenzaprine 5 mg twice daily. #Apparent right groin pain ? Patient suddenly began having right groin pain when she was told she was ready for discharge today. ? No significant exam findings, traumatic events. Range of motion completely intact. ? Unable to bear weight apparently. ? Plain pelvic, femoral feels normal. ? Suspect catastrophization and wanting to stay in the hospital for another day, as patient jumped back into bed with a smile after she was told we will monitor overnight. ? Will monitor overnight due to high risk of readmission. #Bilateral renal artery stenosis ? Incidentally found in the setting of malignant hypertension. ? Cardiology consulted, s/p bare-metal stents x 2 to renal arteries. Patient tolerated procedure well. ? Aspirin 81 mg, Plavix 75 mg, atorvastatin 40 mg. #Atrial fibrillation #Hypertension ? Started nadolol, Xarelto 20 mg. ? Blood pressure, heart rate controlled. #Hypothyroidism ? Subtherapeutic TSH 12.0 in the setting of medical nonadherence. Free T4: Normal 0.82. ? Resume home levothyroxine 50 mcg. #Type 2 diabetes ? Hemoglobin A1c 5.9%. Well-controlled. Full code DVT prophylaxis: Xarelto 20 mg.
[2025-03-10] MEDS: CYCLOBENZAPRINE 10MG TABLET 5 MG PO (21:55)
[2025-03-10] MEDS: ATORVASTATIN 40MG TABLET 40 MG PO (21:55)
[2025-03-11] VITALS: BP 150/84; PULSE 80; PULSE 93; RESP 16; TEMP 36.7; O2SAT 94
[2025-03-11] MEDS: CEFTRIAXONE SODIUM 1 GM in 0.9 % SODIUM CHLORIDE 50 ML IV (02:29)
[2025-03-11 04:00] VITALS: BP 140/84; PULSE 81; RESP 16; TEMP 36.9; O2SAT 95; BMI 33.5
--- NOTE | 2025-03-11 04:59 | PC.NURSE ---
Pt denied pain. v/s, ox4. Pt tolerated IV ABX well. Family at bedside. Blood glucose monitored. No acute events to report. Plan of care ongoing.
[2025-03-11 05:19] LABS: POC Glucose,Bedside 117 (70-110)
[2025-03-11 06:16] LABS: Basophils # 0.1 K/mm3 (0-0.2); Basophils % 0.9 % (0.1-2.0); Eosinophils # 0.4 Kmm3 (0.0-0.4); Eosinophils % 4.6 % (0.1-12.0); Hematocrit 38.4 % (37.0-47.0); Hemoglobin 12.1 g/dL (12.2-16.2); Immature Granulocytes # 0.03 10^3uL; Immature Granulocytes % 0.3 %; Lymphocytes # 2.3 K/mm3 (0.7-4.5); Lymphocytes % 25.7 % (10-50); Mean Corpuscular HGB Conc 31.5 g/dL (31.8-35.4); Mean Corpuscular Hemoglobin 27.6 pg (27.0-31.2); Mean Corpuscular Volume 87.5 fl (81-99); Mean Platelet Volume 11.9 fl (7.4-10.4); Monocytes # 0.9 K/mm3 (0.1-1.0); Monocytes % 9.8 % (1.7-9.3); Neutrophils # 5.3 K/mm3 (1.8-7.8); Neutrophils % 58.7 % (37.0-80.0); Nucleated Red Blood Cells # 0 10^3/uL; Nucleated Red Blood Cells % 0 %; Platelet Count 226 K/mm3 (142-424); Red Blood Count 4.39 M/mm3 (4.20-5.40); Red Cell Distribution Width 15.1 % (11.5-17.5); Red Cell Distribution Width-SD 48.8 fL
[2025-03-11 06:24] LABS: Anion Gap 4.5 mEq/L (5-15); Blood Urea Nitrogen 29 mg/dl (7-17); Calcium 8.7 mg/dl (8.4-10.2); Carbon Dioxide 27 mmol/L (22.0-30.0); Chloride 107 mmol/L (98-107); Creatinine Clearance Estimated 58 mL/min (50-200); Estimated Glomerular Filt Rate 48 ml/min (>60); GFR (African American) 58 ML/MIN (>60); Glucose 106 mg/dl (74-100); Potassium 3.5 mmoL/L (3.5-5.1); Sodium 135 mmol/L (136-145)
[2025-03-11] MEDS: LEVOTHYROXINE 50MCG (0.05MG) TAB 50 MCG PO (06:51)
--- NOTE | 2025-03-11 07:41 | P.DS_ITS ---
General Admission date:: 03/09/25 Hospital Course Hospital Course Hospital Course: Aretha Villalta is a 79-year-old female with a medical history significant for medical nonadherence, hypertension, type 2 diabetes, hypothyroidism, A-fib who presented with intractable posterior neck pain and was incidentally found to have malignant hypertension in setting of pain, and bilateral renal artery stenosis. #Posterior neck pain ? Most consistent with neck strain. ? Improving with cyclobenzaprine. Decreased pain, increased range of motion. ? Low suspicion for infection, meningitis, herniation at this time given no fevers, leukocytosis, radiculopathy. ? Patient encouraged to stretch her neck as tolerated which is improving. ? Continue cyclobenzaprine 5 mg twice daily for 5 more days. #UTI ? Treated with ceftriaxone, urine culture growing Klebsiella pneumoniae that is pansensitive essentially. ? Discharged with cefdinir for 1 more day. #Apparent right groin pain ? About 3 inches inferior to cath site. No signs of infection, erythema, hematoma. Mild tenderness to deep palpation. ? Arterial study does not reveal hematoma. ? CTA shows mild PAD but without other significant findings. ? Initially unable to bear weight, but improved with Toradol. ? Discharged with Mobic and rolling walker. #Bilateral renal artery stenosis ? Incidentally found in the setting of malignant hypertension. ? Cardiology consulted, s/p bare-metal stents x 2 to renal arteries. Patient tolerated procedure well. ? Aspirin 81 mg, Plavix 75 mg, atorvastatin 40 mg. #Atrial fibrillation #Hypertension ? Started nadolol, Xarelto 20 mg. ? Blood pressure, heart rate controlled. #Hypothyroidism ? Subtherapeutic TSH 12.0 in the setting of medical nonadherence. Free T4 low normal 0.82. ? Resume home levothyroxine 50 mcg. #Type 2 diabetes ? Hemoglobin A1c 5.9%. Well-controlled. ? Continue metformin 500 mg daily. Total time spent on discharge: 40 minutes on chart review, counseling, documentation, and direct care with patient. Exam Data for Last 24 hours Vital signs and Labs for Last 24 Hours: Temp Pulse Resp BP Pulse Ox O2 Del Method O2 Flow Rate 98.5 F 81 16 140/84 95 Room Air 6 03/11/25 04:00 03/11/25 04:00 03/11/25 04:00 03/11/25 04:00 03/11/25 04:00 03/11/25 06:42 03/09/25 10:57 Laboratory Results - last 24 hr 03/10/25 08:30: POC Glucose 233 H 03/10/25 14:25: POC Glucose 183 H 03/10/25 20:38: POC Glucose 140 H 03/11/25 05:07: POC Glucose 117 H 03/11/25 05:47: WBC 9.0, RBC 4.39, Hgb 12.1 L, Hct 38.4, MCV 87.5, MCH 27.6, MCHC 31.5 L, RDW 15.1, Plt Count 226, MPV 11.9 H, Neut % (Auto) 58.7, Lymph % (Auto) 25.7, [place] % (Auto) 9.8 H, Eos % (Auto) 4.6, Baso % (Auto) 0.9, Neut # (Auto) 5.3, Lymph # (Auto) 2.3, [place] # (Auto) 0.9, Eos # (Auto) 0.4, Baso # (Auto) 0.1, Sodium 135 L, Potassium 3.5, Chloride 107, Carbon Dioxide 27, Anion Gap 4.5 L, BUN 29 H, Creatinine 1.10 H, Estimated Creat Clear 58, Estimated GFR 48 L, Est GFR ( Amer) 58 L D, Glucose 106 H, Calcium 8.7 I & O for Last 24 hours: Intake & Output 03/08/25 03/09/25 03/10/25 03/11/25 23:59 23:59 23:59 23:59 Intake Total 290 / 340 680 / 880 200 / 200 Output Total 750 / 950 800 / 1300 625 / 625 Balance -460 / -610 -120 / -420 -425 / -425 Weight 82.554 kg 87.4 kg 88.9 kg 91.2 kg Microbiology Reports for the Last 24 Hours: Microbiology 03/09/25 01:40 Blood Blood Culture - Preliminary NO GROWTH AFTER 48 HOURS 03/09/25 01:39 Blood Blood Culture - Preliminary NO GROWTH AFTER 48 HOURS 03/09/25 00:16 Urine,Clean Catch Urine Culture - Final Klebsiella pneumoniae Constitutional Constitutional: no acute distress *Routine HEENT Exam Head: Present normocephalic Eye: Present EOMI and PERRL ENT: Present mucous membranes moist *Routine Neck Exam Neck: Present supple; Absent lymphadenopathy *Routine Respiratory Exam Respiratory: Present CTA bilaterally *Routine Cardiovascular Exam Cardiovascular: Present RRR *Routine Abdominal Exam Abdominal: Present soft and normoactive bowel sounds; Absent tenderness *Routine Extremities Exam Extremities: Absent cyanosis, clubbing or edema *Routine Skin Exam Skin: Present warm; Absent rash *Routine Neurological Exam Neurological: Present alert and oriented X3 Results Data Completed and Pending Labs on day of discharge: Labs from last 24 hours 03/11/25 03/11/25 03/10/25 05:47 05:07 20:38 WBC 9.0 RBC 4.39 Hgb 12.1 L Hct 38.4 MCV 87.5 MCH 27.6 MCHC 31.5 L RDW 15.1 Plt Count 226 MPV 11.9 H Neut % (Auto) 58.7 Lymph % (Auto) 25.7 [place] % (Auto) 9.8 H Eos % (Auto) 4.6 Baso % (Auto) 0.9 Neut # (Auto) 5.3 Lymph # (Auto) 2.3 [place] # (Auto) 0.9 Eos # (Auto) 0.4 Baso # (Auto) 0.1 Sodium 135 L Potassium 3.5 Chloride 107 Carbon Dioxide 27 Anion Gap 4.5 L BUN 29 H Creatinine 1.10 H Estimated Creat Clear 58 Estimated GFR 48 L Est GFR ( Amer) 58 L D Glucose 106 H POC Glucose 117 H 140 H Calcium 8.7 03/10/25 03/10/25 14:25 08:30 WBC RBC Hgb Hct MCV MCH MCHC RDW Plt Count MPV Neut % (Auto) Lymph % (Auto) [place] % (Auto) Eos % (Auto) Baso % (Auto) Neut # (Auto) Lymph # (Auto) [place] # (Auto) Eos # (Auto) Baso # (Auto) Sodium Potassium Chloride Carbon Dioxide Anion Gap BUN Creatinine Estimated Creat Clear Estimated GFR Est GFR ( Amer) Glucose POC Glucose 183 H 233 H Calcium Preliminary micro results at discharge 03/09/25 01:40 Blood Culture - Preliminary Blood NO GROWTH AFTER 48 HOURS 03/09/25 01:39 Blood Culture - Preliminary Blood NO GROWTH AFTER 48 HOURS DS: Diagnosis Discharge Diagnosis (1) Renal artery stenosis: Status: Acute Code(s): I70.1 - Atherosclerosis of renal artery (2) Hypertensive emergency: Status: Acute Code(s): I16.1 - Hypertensive emergency (3) Acute UTI: Status: Acute Code(s): N39.0 - Urinary tract infection, site not specified (4) CAD (coronary artery disease): Status: Acute Code(s): I25.10 - Atherosclerotic heart disease of [place] coronary artery without angina pectoris Qualifiers: Associated angina: unspecified whether angina present Coronary Disease- Associated Artery/Lesion type: unspecified vessel or lesion type [place] vs. transplanted heart: [place] heart Qualified Code(s): I25.10 - Atherosclerotic heart disease of [place] coronary artery without angina pectoris Problem details: Coronary calcium score 1304 (5) Afib: Status: Acute Code(s): I48.91 - Unspecified atrial fibrillation Qualifiers: Atrial fibrillation type: unspecified Qualified Code(s): I48.91 - Unspecified atrial fibrillation (6) Hyperglycemia due to diabetes mellitus: Status: Acute Code(s): E11.65 - Type 2 diabetes mellitus with hyperglycemia (7) Elevated brain natriuretic peptide (BNP) level: Status: Acute Code(s): R79.89 - Other specified abnormal findings of blood chemistry (8) Cervicalgia: Status: Acute Code(s): M54.2 - Cervicalgia (9) Noncompliance: Status: Acute Code(s): Z91.199 - Patient's noncompliance with other medical treatment and regimen due to unspecified reason Meds Home Medications and Allergies Home Medications ?Medication ?Instructions ?Recorded ?Confirmed ?Type cetirizine 10 mg tablet 10 mg PO DAILY #30 tabs 09/13/24 03/09/25 Rx rivaroxaban 20 mg tablet (Xarelto) 20 mg PO DAILY #90 tabs 09/13/24 03/09/25 Rx blood sugar diagnostic #50 ea 09/14/24 03/09/25 Rx blood-glucose meter #1 ea 09/14/24 03/09/25 Rx lancets 31 gauge #100 ea 09/14/24 03/09/25 Rx atorvastatin 40 mg tablet 40 mg PO HS 03/09/25 03/09/25 History levothyroxine 50 mcg tablet 50 mcg PO DAILY 03/09/25 03/09/25 History metformin 500 mg tablet 500 mg PO DAILY Diabetes 03/09/25 03/09/25 History aspirin 81 mg tablet,delayed 81 mg PO DAILY 30 days #30 tabs 03/10/25 Rx release clopidogrel 75 mg tablet 75 mg PO DAILY 30 days #30 tabs 03/10/25 Rx cyclobenzaprine 10 mg tablet 5 mg (1/2 x 10 mg) PO BID PRN Neck 03/10/25 Rx pain 5 days #10 tabs nadolol 20 mg tablet 40 mg (2 x 20 mg) PO DAILY 30 days 03/10/25 Rx #60 tabs albuterol sulfate 90 mcg/actuation 1 inh inhalation QID PRN shortness 03/11/25 Rx aerosol inhaler of breath or wheezing #6.7 grams cefdinir 300 mg capsule 300 mg PO BID 1 day #2 caps 03/11/25 Rx meloxicam 7.5 mg tablet 7.5 mg PO DAILY #7 tabs 03/11/25 Rx New Prescriptions to Start Prescriptions: albuterol sulfate Ana,Raymond aspirin Ana,Raymond cefdinir Ana,Raymond clopidogrel Ana,Raymond cyclobenzaprine Ana,Raymond meloxicam Ana,Raymond nadolol Ana,Raymond Allergies Allergy/AdvReac Type Severity Reaction Status Date / Time acetaminophen (From TYLENOL) Allergy Unknown Verified 10/11/24 10:36 tramadol (TRAMADOL) Allergy Unknown Verified 10/11/24 10:36 Discharge Plan Disposition Patient Disposition: Home Health Service Condition: Fair Discharge Order Discharge Orders: Discharge Order (Routine); Ordered 03/11/25 Ordered By: Raymond Perez Follow up Plan Follow up with: Danyel Luna MD [Staff Physician] - 03/17/25 2:15 pm Rohan Evans MD [Primary Care Provider] - 03/18/25 9:20 am Prescriptions/Medication Reconciliation: New cyclobenzaprine 10 mg Tablet 5 mg PO BID PRN (Reason: Neck pain) 5 Days Qty: 10 0RF clopidogrel 75 mg Tablet 75 mg PO DAILY 30 Days Qty: 30 0RF aspirin 81 mg Tablet,Delayed Release (Dr/Ec) 81 mg PO DAILY 30 Days Qty: 30 0RF nadolol 20 mg Tablet 40 mg PO DAILY 30 Days Qty: 60 0RF cefdinir 300 mg capsule 300 mg PO BID 1 Days Qty: 2 0RF Rx Instructions: Start 03/12/25 meloxicam 7.5 mg tablet 7.5 mg PO DAILY Qty: 7 0RF albuterol sulfate 90 mcg/actuation HFA aerosol inhaler 1 inh inhalation QID PRN (Reason: shortness of breath or wheezing) Qty: 6.7 0RF Continued Xarelto 20 mg tablet 20 mg PO DAILY Qty: 90 3RF cetirizine 10 mg tablet 10 mg PO DAILY Qty: 30 5RF (DME) blood-glucose meter Kit See Rx Instructions .MEDSUPPLY Qty: 1 0RF Rx Instructions: Use to check blood sugar daily and prn (DME) blood sugar diagnostic Strip See Rx Instructions .MEDSUPPLY Qty: 50 3RF Rx Instructions: Use to check blood sugar daily and prn (DME) lancets 31 gauge misc See Rx Instructions .Route Qty: 100 0RF Rx Instructions: Use to check blood sugar daily and prn levothyroxine 50 mcg tablet 50 mcg PO DAILY atorvastatin 40 mg tablet 40 mg PO HS metformin 500 mg tablet 500 mg PO DAILY Discontinued hydrochlorothiazide 12.5 mg capsule 12.5 mg PO DAILY Qty: 90 3RF lisinopril 10 mg tablet 10 mg PO DAILY Qty: 90 3RF Other Ambulatory Orders: Basic Metabolic Panel (Routine) Timeframe: 1 Week Facility: [facility] - Location: Laboratory Ordered By: Raymond Perez Complete Blood Count Auto Diff (Routine) Timeframe: 1 Week Facility: [facility] - Location: Laboratory Ordered By: Raymond Perez Problem Reconciliation Problems Reviewed?: Yes Patient Discharge Instructions Patient Instructions: DI for Urinary Tract Infection (UTI), DI for Surgical Site Infection, DI for Chest Pain Print Language: [place] Providers Primary Care Provider: Rohan Evans Admit Provider: Raymond Perez Attending Provider: Raymond Perez
[2025-03-11 08:00] VITALS: BP 142/63; PULSE 69; RESP 18; O2SAT 96
--- NOTE | 2025-03-11 08:55 | CA_ITS ---
FINAL REPORT CLINICAL HISTORY: /Right groin pain, Cath 03/09/25 had Renal Stents placed. No bruising, no knot COMPARISON: None FINDINGS: Limited evaluation of including the right groin demonstrates no pseudoaneurysm. There is positive blood flow. No fluid collections are seen. IMPRESSION: Unremarkable exam. Reviewed, Interpreted and Dictated by Lizette Ornelas MD Transcribed by Jennifer Davis Authenticated and [facility]
[2025-03-11] MEDS: NADOLOL 20MG TABLET 40 MG PO (09:04)
[2025-03-11] MEDS: CYCLOBENZAPRINE 10MG TABLET 5 MG PO (09:04)
[2025-03-11] MEDS: ASPIRIN EC 81MG TABLET 81 MG PO (09:05)
[2025-03-11] MEDS: CLOPIDOGREL 75MG TAB 75 MG PO (09:05)
[2025-03-11 09:17] LABS: POC Glucose,Bedside 167 (70-110)
[2025-03-11 12:36] LABS: POC Glucose,Bedside 112 (70-110)
--- NOTE | 2025-03-11 13:11 | CT_ITS ---
FINAL REPORT TECHNIQUE: Postcontrast images of the pelvis and extremities were performed by computed tomography. Extensive 3-D reconstruction images were performed. A CTA was performed. This study was performed with techniques to keep radiation doses as low as reasonably achievable (ALARA). Individualized dose reduction techniques using automated exposure control or adjustment of mA and/or kV according to the patient's size were employed. CLINICAL HISTORY: intractable right medial, proximal femur pain COMPARISON: None FINDINGS: CTA RIGHT LOWER EXTREMITY: Contrast is identified from just below the aortic bifurcation to just below the knee. There is also signal dropout from the patient's knee arthroplasty. The right iliac vessels are unremarkable, other than mild calcification in the right common and internal iliac arteries. The femoral vessels are unremarkable. The SFA and profunda are without significant stenosis. Mild atherosclerotic disease is present in the superficial femoral artery. The popliteal artery is not visualized secondary to magnetic susceptibility artifact from the knee arthroplasty present in the right leg. The trifurcation is also not well-visualized. In the proximal calf, only a very small amount of contrast is noted in the proximal posterior tibial and peroneal arteries. IMPRESSION: Mild atherosclerotic disease in the superficial femoral artery without evidence of significant stenosis. Popliteal artery not visualized secondary to the adjacent knee arthroplasty. Below the knee only a very small amount of contrast is noted in the proximal posterior tibial and peroneal arteries. The exam was not continued inferior to this level. Reviewed, Interpreted and Dictated by Lizette Ornelas MD Transcribed by Dianna Hernandez Authenticated and [facility]
[2025-03-11] MEDS: 0.9 % SODIUM CHLORIDE 50 ML VIAL IV ×2 (13:48)
[2025-03-11] MEDS: IOPAMIDOL-370 (76%);100ML BOTTLE 20 ML IV (13:48)
[2025-03-11] MEDS: IOPAMIDOL-370 (76%);100ML BOTTLE 100 ML IV (13:48)
[2025-03-11] MEDS: SODIUM CHLORIDE 0.9% 10ML SYR (RAD ONLY) 10 ML IV (13:48)
[2025-03-11] MEDS: KETOROLAC 30MG/ML VIAL 30 MG IV (14:26)
--- NOTE | 2025-03-11 14:53 | PC.NURSE ---
patient is alert and oriented x4, remains on room air, tolerating well. patient has c/o R side neck pain and R inner thigh pain throughout shift. MD aware. pain treated per JAN. Ultrasound and CT taken due to continued inner thigh pain. patient describes the pain stating it feels like someone is burning a cigarette into that area. R inner thigh area is absent of erythema. patient stated that the pain makes her not want to ambulate. patient did pivot to chair from bed with x2 assistance. post cath site dressing to R groin is C/D/I. patient sitting up in bed resting, call light within reach, plan of care ongoing.
--- NOTE | 2025-03-11 15:04 | CARE MANAGER ---
Addendum entered by Adry Valenzuela RN 03/11/25 15:05: Patient has requested this come from [facility]. Information sent. Original Note: Patient is going to require the use of wheelchair to aide in getting to the bathroom within the home. She is too unsteady and unsafe to do this with cane or walker.
[2025-03-11 15:48] LABS: POC Glucose,Bedside 127 (70-110)
--- NOTE | 2025-03-14 10:33 | SW/DCPLANNER ---
Spoke with patient's daughter. Patient's daughter stated that patient is doing well. Keo's daughter stated that she is aware of her mothers upcoming appointments. Patient's daughter stated that she was able to get her mothers medicine picked up from clinic pharmacy. Patient's daughter stated that she has no concerns or questions at this time. Wade Lockhart
[2025-03-15 15:38] LABS: POC Glucose,Bedside 181 (70-110)
== END 2025-03-11 17:12 | disposition home health service (06) | DRG 674 ==
LOC: ER 03-09 00:07 → 2ND 03-09 01:16
PROVIDERS: Emergency Medicine; Internal Medicine; Nurse Practitioner Family; Admitting Provider Student in an Organized Health Care Education/Training Program; Emergency Provider Emergency Medicine; PCP Family Medicine; Visit Provider Student in an Organized Health Care Education/Training Program
PROC: B4181ZZ Fluoroscopy of Bilateral Renal Arteries using Low Osmolar Contrast (ICD-10-PCS; principal; 2025-03-09 12:00)
DX: I70.1 Atherosclerosis of renal artery (principal); I16.1 Hypertensive emergency; N39.0 Urinary tract infection, site not specified; M54.2 Cervicalgia; E11.51 Type 2 diabetes mellitus with diabetic peripheral angiopathy without gangrene; I48.91 Unspecified atrial fibrillation; E11.65 Type 2 diabetes mellitus with hyperglycemia; K21.9 Gastro-esophageal reflux disease without esophagitis; I25.10 Atherosclerotic heart disease of native coronary artery without angina pectoris; E78.5 Hyperlipidemia, unspecified; I10 Essential (primary) hypertension; B96.1 Klebsiella pneumoniae [K. pneumoniae] as the cause of diseases classified elsewhere; T38.1X6A Underdosing of thyroid hormones and substitutes, initial encounter; I25.2 Old myocardial infarction; E03.9 Hypothyroidism, unspecified; J44.9 Chronic obstructive pulmonary disease, unspecified; R74.8 Abnormal levels of other serum enzymes; Z80.8 Family history of malignant neoplasm of other organs or systems; Z80.3 Family history of malignant neoplasm of breast; Z83.3 Family history of diabetes mellitus; Z90.49 Acquired absence of other specified parts of digestive tract; Z87.891 Personal history of nicotine dependence; Z86.73 Personal history of transient ischemic attack (TIA), and cerebral infarction without residual deficits; Z88.6 Allergy status to analgesic agent; Z88.5 Allergy status to narcotic agent; Z91.199 Patient's noncompliance with other medical treatment and regimen due to unspecified reason
CPT/HCPCS: 36252; 36415; 37236; 37237; 70450; 70496; 70498; 71045; 71275; 72170; 73552; 73706; 74174; 80048; 80053; 80061; 80307; 81001; 82962; 83036; 83605; 83735; 83880; 84145; 84436; 84439; 84443; 84484; 85025; 85347; 85610; 85730; 87040; 87086; 87088; 87186; 93005; 93926; 97163; 97166; 97530; 99152; 99291; C1725; C1760; C1769; C1876; C1887; C1894; J0360; J0696; J1171; J1200; J1644; J1885; J1938; J2250; J2270; J2405; J3010; Q9967

== ENCOUNTER 2025-03-17 13:19 | Outpatient (CLI) | payer MEDICARE, OTHER, SELFPAY ==
[2025-03-17 14:12] LABS: Basophils # 0.1 K/mm3 (0-0.2); Basophils % 0.6 % (0.1-2.0); Eosinophils # 0.4 Kmm3 (0.0-0.4); Eosinophils % 3.4 % (0.1-12.0); Hematocrit 44.1 % (37.0-47.0); Hemoglobin 14.1 g/dL (12.2-16.2); Immature Granulocytes # 0.04 10^3uL; Immature Granulocytes % 0.4 %; Lymphocytes # 2.7 K/mm3 (0.7-4.5); Lymphocytes % 24.5 % (10-50); Mean Corpuscular Hemoglobin 27.5 pg (27.0-31.2); Mean Platelet Volume 12.1 fl (7.4-10.4); Monocytes # 0.7 K/mm3 (0.1-1.0); Monocytes % 6.5 % (1.7-9.3); Neutrophils % 64.6 % (37.0-80.0); Nucleated Red Blood Cells # 0 10^3/uL; Nucleated Red Blood Cells % 0 %; Platelet Count 287 K/mm3 (142-424); Red Blood Count 5.13 M/mm3 (4.20-5.40); Red Cell Distribution Width 14.6 % (11.5-17.5); Red Cell Distribution Width-SD 46.5 fL; White Blood Count 10.9 K/mm3 (4.8-10.8)
[2025-03-17 14:29] LABS: Chloride 106 mmol/L (98-107); Potassium 4.7 mmoL/L (3.5-5.1); Sodium 140 mmol/L (136-145)
[2025-03-17 14:31] LABS: Blood Urea Nitrogen 17 mg/dl (7-17); Estimated Glomerular Filt Rate 48 ml/min (>60); GFR (African American) 58 ML/MIN (>60)
[2025-03-17 14:32] LABS: Anion Gap 12.7 mEq/L (5-15); Calcium 9.2 mg/dl (8.4-10.2); Carbon Dioxide 26 mmol/L (22.0-30.0); Glucose 123 mg/dl (74-100)
== END 2025-03-17 23:59 | disposition home or self-care (01) ==
PROVIDERS: PCP Family Medicine; Visit Provider Student in an Organized Health Care Education/Training Program
DX: I70.1 Atherosclerosis of renal artery (principal)
CPT/HCPCS: 36415; 80048; 85025; 93270

== ENCOUNTER 2025-04-02 15:43 | Emergency (ER) | payer MEDICARE, OTHER, SELFPAY ==
[2025-04-02] VITALS (7 sets, daily range): BP systolic 138–161; BP diastolic 87–100; PULSE 60–113; RESP 18; TEMP 36.7–37.2; O2SAT 79–96; BMI 32.1
--- NOTE | 2025-04-02 16:25 | CT_ITS ---
PROCEDURE INFORMATION: Exam: CT Cervical Spine Without Contrast Exam date and time: 04/02/2025 5:55 PM Age: 79 years old Clinical indication: Neck pain; Additional info: Non traumatic pain TECHNIQUE: Imaging protocol: Computed tomography of the cervical spine without contrast. Radiation optimization: All CT scans at this facility use at least one of these dose optimization techniques: automated exposure control; mA and/or kV adjustment per patient size (includes targeted exams where dose is matched to clinical indication); or iterative reconstruction. COMPARISON: CT ANGIO NECK 04/07/2025 23:50 FINDINGS: Bones: No acute fracture. Normal alignment. No significant disc bulge or herniation. No severe spinal canal stenosis. No significant neural foraminal narrowing. Lungs: Lung apices are normal. Soft tissues: Possible 1.4 cm left thyroid nodule, which does not require follow-up. IMPRESSION: No acute fracture or malalignment of the cervical spine.
--- NOTE | 2025-04-02 16:25 | CT_ITS ---
PROCEDURE INFORMATION: Exam: CT Thoracic Spine Without Contrast Exam date and time: 04/02/2025 5:57 PM Age: 79 years old Clinical indication: Pain in thoracic spine; Additional info: Non traumatic pain TECHNIQUE: Imaging protocol: Computed tomography of the thoracic spine without contrast. Radiation optimization: All CT scans at this facility use at least one of these dose optimization techniques: automated exposure control; mA and/or kV adjustment per patient size (includes targeted exams where dose is matched to clinical indication); or iterative reconstruction. COMPARISON: CR XR THORACIC SPINE 3V 31/01/2021 13:56 FINDINGS: Bones/joints: No acute fracture. Normal alignment. No significant disc bulge or herniation. No severe spinal canal stenosis. No significant neural foraminal narrowing. Soft tissues: Unremarkable. Other findings: Please see separate report for CT chest. IMPRESSION: No acute fracture or malalignment of the thoracic spine.
--- NOTE | 2025-04-02 16:25 | CT_ITS ---
PROCEDURE INFORMATION: Exam: CTA Chest With Contrast Exam date and time: 04/02/2025 5:59 PM Age: 79 years old Clinical indication: Dyspnea; Additional info: Dyspnea pain in the back and right thoracic region TECHNIQUE: Imaging protocol: Computed tomographic angiography of the chest with contrast. Exam focused on the arteries. 3D rendering (Not supervised by radiologist): MIP and/or 3D reconstructed images were created by the technologist. Radiation optimization: All CT scans at this facility use at least one of these dose optimization techniques: automated exposure control; mA and/or kV adjustment per patient size (includes targeted exams where dose is matched to clinical indication); or iterative reconstruction. Contrast material: ISOVUE; Contrast volume: 70 ml; Contrast route: INTRAVENOUS (IV); COMPARISON: CT ANGIO CHEST 04/07/2025 23:54 FINDINGS: Pulmonary arteries: No pulmonary emboli. Aorta: The aorta demonstrates moderate to severe atherosclerotic disease. The left vertebral artery originates directly from the aorta. Thyroid: 1.5 cm left thyroid nodule. Follow-up for this is optional. Lungs: Mosaic attenuation of the lungs is nonspecific, but suggests small airway disease. Mild scarring and atelectasis in the lower lungs. Pleural spaces: Unremarkable. No pneumothorax. No pleural effusion. Heart: Cardiomegaly. Coronary arteries: Coronary artery calcifications. Lymph nodes: Unremarkable. No enlarged lymph nodes. Gallbladder and biliary ducts: Gallbladder is absent. Mild post cholecystectomy ectasia. Bones/joints: Unremarkable. No acute fracture. Soft tissues: Unremarkable. IMPRESSION: 1. No pulmonary emboli. 2. Mosaic attenuation of the lungs is nonspecific, but suggests small airway disease. Please correlate for evidence of asthma or bronchiolitis. COMMENTS: Consistent with the [employer]'s Incidental Findings Committee white paper (J Am Epifanio Radiol 2015): In patients aged 35 years and older with an incidental thyroid nodule equal to or greater than 1.[address], MRI or extrathyroidal US, further evaluation with dedicated thyroid US is recommended for patients with normal life expectancy and without comorbidities. For smaller nodules without suspicious features, no further evaluation or follow up is recommended.
--- NOTE | 2025-04-02 16:38 | HMH.EDGENADL ---
Discharge Plan Disposition Patient Disposition: Home, Self-Care Prescriptions Prescriptions: New azithromycin 250 mg tablet 250 mg PO DAILY 4 Days Qty: 4 0RF Rx Instructions: start on day 2 of therapy (day after ED visit) amoxicillin-pot clavulanate 875-125 mg tablet 1 tab PO BID 10 Days Qty: 20 0RF cyclobenzaprine 5 mg tablet 5 mg PO TID PRN (Reason: muscle spasm) 5 Days Qty: 15 0RF lidocaine 4 % adhesive patch,medicated 1 patch topical DAILY Qty: 5 0RF Rx Instructions: may leave on for up to 12 hrs No Action losartan 25 mg tablet 25 mg PO DAILY Qty: 30 2RF Xarelto 20 mg tablet 20 mg PO DAILY Qty: 90 3RF cetirizine 10 mg tablet 10 mg PO DAILY Qty: 30 5RF metoprolol succinate [Toprol XL] 50 mg tablet extended release 24 hr 50 mg PO DAILY Qty: 90 3RF (DME) blood-glucose meter Kit See Rx Instructions .MEDSUPPLY Qty: 1 0RF Rx Instructions: Use to check blood sugar daily and prn (DME) blood sugar diagnostic Strip See Rx Instructions .MEDSUPPLY Qty: 50 3RF Rx Instructions: Use to check blood sugar daily and prn (DME) lancets 31 gauge misc See Rx Instructions .Route Qty: 100 0RF Rx Instructions: Use to check blood sugar daily and prn oxycodone 5 mg tablet 5 mg PO DAILY PRN (Reason: pain) Qty: 30 0RF levothyroxine 50 mcg tablet 50 mcg PO DAILY atorvastatin 40 mg tablet 40 mg PO HS metformin 500 mg tablet 500 mg PO DAILY cyclobenzaprine 10 mg Tablet 5 mg PO BID PRN (Reason: Neck pain) 5 Days Qty: 10 0RF clopidogrel 75 mg Tablet 75 mg PO DAILY 30 Days Qty: 30 0RF aspirin 81 mg Tablet,Delayed Release (Dr/Ec) 81 mg PO DAILY 30 Days Qty: 30 0RF meloxicam 7.5 mg tablet 7.5 mg PO DAILY Qty: 7 0RF albuterol sulfate 90 mcg/actuation HFA aerosol inhaler 1 inh inhalation QID PRN (Reason: shortness of breath or wheezing) Qty: 6.7 0RF Referrals Follow up/Referrals: Rohan Evans MD [Primary Care Provider, Family Practice] - See instructions Activity Restrictions/Add. Instructions Additional Instructions/Restrictions: Overall your emergent evaluation was largely unremarkable. You have some swelling and redness of your distal right forearm which we will treat as a cellulitis and also had some atypical abnormalities of your lung tissue itself which could be an atypical pneumonia. Therefore antibiotics were given to cover both of those abnormalities. No other definitive emergent medical condition identified today. Please take your muscle relaxer for your neck and back pain as needed as well as your lidocaine. I also recommend you closely follow-up with your primary care doctor on Friday return to the ER with worsening shortness of breath high fevers or other concerns. Clinical Impressions Clinical Impression: Atypical pneumonia, Cellulitis of forearm, right, Back pain, Acute neck pain Print Language Print Language: Uzbek Discharge ED Provider: Octavia Ramires General Adult HPI General Chief complaint: PAIN Stated complaint: left side pain back pain and hands hurt, Time Seen by Provider: 04/02/25 16:03 History of Present Illness HPI narrative: Patient is an 79-year-old female with multiple comorbidities presents today with multiple complaints and states that she has pain all over. She articulates pain as being on bilateral lateral aspects of her neck her right upper extremity some swelling and redness over the distal right forearm and wrist right lateral aspect of her chest wall midline of her cervical spine and midline upper thoracic spine all from historical standpoint. She also states that she has a history of COPD may be mildly more short of breath than normal but does state that her pain in her thoracic region in particular is worse with any type of inspiration. No numbness weakness tingling or changes in neurologic function in her upper or lower extremities. No other neurologic complaints. No chest pain or exertional chest discomfort. No diaphoresis. Related Data Home Medications ?Medication ?Instructions ?Recorded ?Confirmed atorvastatin 40 mg tablet 40 mg PO HS 03/09/25 03/23/25 levothyroxine 50 mcg tablet 50 mcg PO DAILY 03/09/25 03/23/25 metformin 500 mg tablet 500 mg PO DAILY Diabetes 03/09/25 03/23/25 Previous Rx's ?Medication ?Instructions ?Recorded cetirizine 10 mg tablet 10 mg PO DAILY #30 tabs 09/13/24 rivaroxaban 20 mg tablet (Xarelto) 20 mg PO DAILY #90 tabs 09/13/24 blood sugar diagnostic #50 ea 09/14/24 blood-glucose meter #1 ea 09/14/24 lancets 31 gauge #100 ea 09/14/24 aspirin 81 mg tablet,delayed 81 mg PO DAILY 30 days #30 tabs 03/10/25 release clopidogrel 75 mg tablet 75 mg PO DAILY 30 days #30 tabs 03/10/25 cyclobenzaprine 10 mg tablet 5 mg (1/2 x 10 mg) PO BID PRN Neck 03/10/25 pain 5 days #10 tabs albuterol sulfate 90 mcg/actuation 1 inh inhalation QID PRN shortness 03/11/25 aerosol inhaler of breath or wheezing #6.7 grams meloxicam 7.5 mg tablet 7.5 mg PO DAILY #7 tabs 03/11/25 losartan 25 mg tablet 25 mg PO DAILY #30 tabs 03/17/25 metoprolol succinate 50 mg 50 mg PO DAILY #90 tabs 03/23/25 tablet,extended release 24 hr (Toprol XL) oxycodone 5 mg tablet 5 mg PO DAILY PRN pain #30 tabs 03/31/25 amoxicillin 875 mg-potassium 1 tab PO BID 10 days #20 tabs 04/02/25 clavulanate 125 mg tablet azithromycin 250 mg tablet 250 mg PO DAILY 4 days #4 tabs 04/02/25 cyclobenzaprine 5 mg tablet 5 mg PO TID PRN muscle spasm 5 04/02/25 days #15 tabs lidocaine 4 % topical patch 1 patch topical DAILY #5 ea 04/02/25 Allergies Allergy/AdvReac Type Severity Reaction Status Date / Time acetaminophen (From TYLENOL) Allergy Unknown Verified 03/23/25 10:04 tramadol (TRAMADOL) Allergy Unknown Verified 03/23/25 10:04 [facility] Disclaimer: The information contained in this section may have been updated after the patient was seen, as this information can be updated by other users. Medical History Noncompliance MARYURI positive Acquired hypothyroidism Screening for blood disease COPD (chronic obstructive pulmonary disease) Obesity (BMI 30-39.9) CAD (coronary artery disease) Coronary calcium score 1304 HLD (hyperlipidemia) Hypertension Diabetes GERD (gastroesophageal reflux disease) Bilateral shoulder pain Bilateral knee pain Leukocytosis NSTEMI (non-ST elevated myocardial infarction) Atrial fibrillation with RVR Paroxysmal A-fib Atrial fibrillation, new onset CVA (cerebral vascular accident) Nonadherence to medical treatment Uncontrolled diabetes mellitus Hypertensive urgency Weakness of right lower extremity Atypical angina PAD (peripheral artery disease) Onychodystrophy Acquired hammer toe of right foot Pain in both feet Coronary artery calcification seen on CAT scan Diastolic dysfunction Daytime somnolence Snoring Dyspnea Abnormal ankle brachial index (ELHAM) Claudication Abnormal EKG Neuropathy Surgical History History of tubal ligation History of total left knee replacement History of total right knee replacement History of cholecystectomy Hx of appendectomy Family History Father Diabetes Brother Brain cancer Daughter No problems noted. Sister Breast cancer Social History (Updated 03/23/25 @ 10:07 by Catherine Olmstead MA) Smoking Status: Never smoker second hand exposure: No alcohol intake: former substance use type: denies use current occupational status: retired Travel in the last 8 weeks?: None household members: children housing: house current occupational exposures/hazards: No caffeine: No Have you lived/traveled outside [place] in past 30 days?: No Contact w/someone who lives/traveled outside US past 30 days?: No Exposure to someone with infectious disease in past 14 days?: No Do you have a fever (greater than 100.4 F or 38 C)?: No Have you tested positive for COVID-19?: No Exposed to someone with COVID-19 in past 14 days?: No Do you have a sore throat?: No Do you have a cough?: No Do you have any weakness?: No Do you have any diarrhea?: No Are you experiencing any unusual bleeding?: No Do you have any muscle aches/pain?: No Do you have any abdominal pain?: No Are you experiencing loss of taste or smell?: No Other Medical History Have you received the Flu Vaccine for this season: No Have you received the Pneumonia Vaccine: No ROS Obtained: Yes All systems reviewed & no additional complaints except as documented Physical Exam General General appearance: alert, in no apparent distress and other (Appears to be in pain with any type of movement) Chest Chest inspection: Present normal inspection; Absent symmetric chest wall rise Respiratory Respiratory exam: Present normal lung sounds bilaterally; Absent respiratory distress Cardiovascular Cardiovascular exam: Present irregular rhythm Abdominal Exam Abdominal exam: Present soft; Absent distention or tenderness Back Exam Back 1 view image:  1. tednerness, not step offs or deformities 2. ttp Neurological Exam Neurological exam: Present alert and oriented X3 Medical Decision Making Medical Records Screening: Per USPSTF and CDC recommendations, given the prevalence of disease in our region, it is our hospital?s policy to screen for HIV and viral Hepatitis for all patients aged 18 and over and those with ongoing risk factors. Bob Inquiry Pt receiving controlled substance: No Vital Signs: 04/02/25 16:37 04/02/25 16:38 04/02/25 17:31 Temperature 98.9 F Temperature Source Oral Pulse Rate 73 89 Pulse Rate [Left Radial] 65 Respiratory Rate 18 Blood Pressure 142/94 H 154/94 H Blood Pressure [Right Arm] 142/94 H Blood Pressure Mean 105 Blood Pressure Mean [Right Arm] 110 02 Sat by Pulse Oximetry 96 94 L 95 Oxygen Delivery Method Room Air Room Air 04/02/25 17:45 04/02/25 18:30 04/02/25 18:45 Temperature Temperature Source Pulse Rate 113 H 100 H 107 H Pulse Rate [Left Radial] Respiratory Rate Blood Pressure 161/100 H 138/87 Blood Pressure [Right Arm] Blood Pressure Mean Blood Pressure Mean [Right Arm] 02 Sat by Pulse Oximetry 79 L 86 L 93 L Oxygen Delivery Method Room Air Lab Data Lab results reviewed: Yes I reviewed the patient's lab results. Lab Results 04/02/25 17:18: WBC 14.3 H, RBC 4.99, Hgb 13.8, Hct 42.7, MCV 85.6, MCH 27.7, MCHC 32.3, RDW 14.3, Plt Count 293, MPV 11.0 H, Neut % (Auto) 78.5, Lymph % (Auto) 13.4, O'Brien % (Auto) 6.8, Eos % (Auto) 0.3, Baso % (Auto) 0.4, Neut # (Auto) 11.2 H, Lymph # (Auto) 1.9, O'Brien # (Auto) 1.0, Eos # (Auto) 0.1, Baso # (Auto) 0.1, PT 14.0 H, INR 1.28 H, APTT 34.5 H, D-Dimer 1.09 H, Sodium 137, Potassium 4.0, Chloride 101, Carbon Dioxide 26, Anion Gap 14.0, BUN 18 H, Creatinine 1.10 H, Estimated Creat Clear 55, Estimated GFR 48 L, Est GFR ( Amer) 58 L, Glucose 134 H, Calcium 9.2, Total Bilirubin 1.5 H, AST 38 H, ALT 28, Alkaline Phosphatase 126, Total Creatine Kinase 51, Troponin I < 0.01, C-Reactive Protein 186.5 H, Total Protein 8.5 H, Albumin 4.1, Globulin 4.4 H, Albumin/Globulin Ratio 0.9 L 04/02/25 17:18 04/02/25 17:18 Orders (Tests/Meds): ED MEDICATIONS Generic Name Dose Route Start Last Admin Trade Name Freq PRN Reason Stop Dose Admin Amoxicillin/Clavulanate Potassium 1 each 04/02/25 19:17 Amoxicillin/Clavulanate Potassium 875/125mg Tablet PO 04/02/25 19:18 ONCE ONE Azithromycin 500 mg 04/02/25 19:17 Azithromycin 250mg Tablet PO 04/02/25 19:18 ONCE ONE Discontinued Medications Generic Name Dose Route Start Last Admin Trade Name Freq PRN Reason Stop Dose Admin Sodium Chloride 500 mls @ 999 mls/hr 04/02/25 16:25 04/02/25 17:43 Sod Chlor 0.9% 1000ml Bag IV 04/02/25 16:55 999 mls/hr .Q31M ONE Administration Iopamidol 70 ml 04/02/25 17:54 04/02/25 17:55 Iopamidol-370 (76%);100ml Bottle IV 04/02/25 17:55 70 ml ONCE ONE Administration Lidocaine 1 each 04/02/25 16:42 04/02/25 17:42 Lidocaine 5% Transdermal Patch TD 04/02/25 16:43 1 each ONCE ONE Administration Morphine Sulfate 4 mg 04/02/25 16:25 04/02/25 17:42 Morphine 4mg/Ml Syringe IV 04/02/25 16:26 4 mg ONCE ONE Administration Ondansetron HCl 4 mg 04/02/25 16:25 04/02/25 17:42 Ondansetron 4mg/2ml Vial IV 04/02/25 16:26 4 mg ONCE ONE Administration Sodium Chloride 10 ml 04/02/25 17:54 04/02/25 17:55 Sodium Chloride 0.9% 10ml Syr (Rad Only) IV 04/02/25 17:55 10 ml ONCE ONE Administration Sodium Chloride 50 ml 04/02/25 17:54 04/02/25 17:54 0.9 % Sodium Chloride 50 Ml Vial IV 04/02/25 17:55 50 ml ONCE ONE Administration ORDERS Category Date Time Status CT angio chest PE protocol Stat Cat Scan 04/02/25 16:[address] cervical spine wo con Stat Cat Scan 04/02/25 16:[address] thoracic spine wo con Stat Cat Scan 04/02/25 16:25 Completed CBC w/Auto Diff [Complete Blood Count Auto Diff] Stat Lab 04/02/25 17:18 Completed CK [Creatine Kinase] Stat Lab 04/02/25 17:18 Completed CMP [Comprehensive Metabolic Panel] Stat Lab 04/02/25 17:18 Completed CRP [C-Reactive Protein] Stat Lab 04/02/25 17:18 Completed D-Dimer Stat Lab 04/02/25 17:18 Completed PT/PTT Stat Lab 04/02/25 17:18 Completed Trop I [Troponin I] Stat Lab 04/02/25 17:18 Completed Troponin I Q3H Lab 04/02/25 19:30 Ordered Troponin I Q3H Lab 04/02/25 22:30 Ordered Medical Decision Narrative: Patient presented with a lot of nonspecific complaints including bilateral neck pain and pain throughout her upper thoracic spine and flank in her thoracic region as well as right upper extremity discomfort and some erythema and swelling in the distal right forearm. She had normal pulses and not concerned of any arterial insufficiency. CT scan of the patient's cervical spine and thoracic spine and CTA of the chest were performed I personally interpreted shows no acute abnormalities in the spine itself nor in the lungs. There are some groundglass opacities which are nonspecific in the lungs themselves and we will treat that is possible atypical infection. Given the fact that the patient has some questionable cellulitis the right upper extremity and this atypical infection will cover with Augmentin and azithromycin first dose is given in the emergency department this should cover both pathogens. Inflammatory markers are significantly elevated again no specific or definitive pathology identified. No DRUM ATTENDANT complaints that would suggest that she needs an emergency MRI to evaluate for possible spinal abscess or osteomyelitis those do remain on the differential but are unlikely at this point. Cannot definitively rule them out. Have alternative explanations with the possible pneumonia and the cellulitis to cause inflammatory marker elevations. She is aware that there is some diagnostic uncertainty she will follow-up close with her primary care doctor and return with any significant worsening of her symptoms. Vital signs were significantly improved upon being discharged as were the patient's symptoms. Critical Care Critical Care Time Critical Care Time: No
--- NOTE | 2025-04-02 16:40 | ECG_ITS ---
APPROVED REPORT Exam: Resting ECG HR:110 bpm ECG Measurements Heart Rate 110 AXES QRSd 78 QRS 75 QT 326 T 59 QTc 391 Conclusion ATRIAL FIBRILLATION WITH RAPID VENTRICULAR RESPONSE NONSPECIFIC ST & T-WAVE ABNORMALITY ABNORMAL RHYTHM ECG UNCONFIRMED REPORT Electronically signed by : Preet Ramires, 04/05/2025 23:15:19
[2025-04-02 17:27] LABS: Basophils # 0.1 K/mm3 (0-0.2); Basophils % 0.4 % (0.1-2.0); Eosinophils # 0.1 Kmm3 (0.0-0.4); Eosinophils % 0.3 % (0.1-12.0); Hematocrit 42.7 % (37.0-47.0); Hemoglobin 13.8 g/dL (12.2-16.2); Immature Granulocytes # 0.08 10^3uL; Immature Granulocytes % 0.6 %; Lymphocytes # 1.9 K/mm3 (0.7-4.5); Lymphocytes % 13.4 % (10-50); Mean Corpuscular HGB Conc 32.3 g/dL (31.8-35.4); Mean Corpuscular Hemoglobin 27.7 pg (27.0-31.2); Mean Corpuscular Volume 85.6 fl (81-99); Monocytes % 6.8 % (1.7-9.3); Neutrophils # 11.2 K/mm3 (1.8-7.8); Neutrophils % 78.5 % (37.0-80.0); Nucleated Red Blood Cells # 0 10^3/uL; Nucleated Red Blood Cells % 0 %; Platelet Count 293 K/mm3 (142-424); Red Blood Count 4.99 M/mm3 (4.20-5.40); Red Cell Distribution Width 14.3 % (11.5-17.5); Red Cell Distribution Width-SD 44.6 fL; White Blood Count 14.3 K/mm3 (4.8-10.8)
[2025-04-02 17:40] LABS: Activated Partial Thrombo Time 34.5 seconds (22.8-30.6); INR 1.28 (0.9-1.1)
[2025-04-02 17:42] LABS: Alanine Aminotransferase 28 U/L (12-78); Albumin Level 4.1 g/dl (3.5-5.0); Albumin/Globulin Ratio 0.9 (1.1-1.8); Alkaline Phosphatase 126 U/L (38-126); Aspartate Amino Transferase 38 U/L (14-36); Bilirubin,Total 1.5 mg/dl (0.2-1.3); Blood Urea Nitrogen 18 mg/dl (7-17); Calcium 9.2 mg/dl (8.4-10.2); Carbon Dioxide 26 mmol/L (22.0-30.0); Chloride 101 mmol/L (98-107); Creatine Kinase 51 U/L (30-135); Creatinine Clearance Estimated 55 mL/min (50-200); Estimated Glomerular Filt Rate 48 ml/min (>60); GFR (African American) 58 ML/MIN (>60); Globulin 4.4 g/dL (1.3-3.2); Glucose 134 mg/dl (74-100); Sodium 137 mmol/L (136-145); Total Protein,Serum 8.5 g/dl (6.3-8.2)
[2025-04-02] MEDS: ONDANSETRON 4MG/2ML VIAL 4 MG IV (17:42)
[2025-04-02] MEDS: LIDOCAINE 5% TRANSDERMAL PATCH 1 EACH TD (17:42)
[2025-04-02] MEDS: MORPHINE 4MG/ML SYRINGE 4 MG IV (17:42)
[2025-04-02] MEDS: 0.9 % SODIUM CHLORIDE 1000ML 500 ML 999 ML IV (17:43)
[2025-04-02 17:48] LABS: C-Reactive Protein 186.5 mg/L (0-4)
[2025-04-02 17:49] LABS: D-Dimer 1.09 ug/mL (0.0-0.5)
[2025-04-02] MEDS: 0.9 % SODIUM CHLORIDE 50 ML VIAL IV (17:54)
[2025-04-02] MEDS: SODIUM CHLORIDE 0.9% 10ML SYR (RAD ONLY) 10 ML IV (17:55)
[2025-04-02] MEDS: IOPAMIDOL-370 (76%);100ML BOTTLE 70 ML IV (17:55)
[2025-04-02 17:58] LABS: Troponin I < 0.01 ng/ml (0.00-0.034)
[2025-04-02] MEDS: AZITHROMYCIN 250MG TABLET 500 MG PO (19:21)
[2025-04-02] MEDS: AMOXICILLIN/CLAVULANATE POTASSIUM 875/125MG TABLET 1 EACH PO (19:21)
== END 2025-04-02 19:32 | disposition home or self-care (01) ==
PROVIDERS: Emergency Provider Student in an Organized Health Care Education/Training Program; PCP Family Medicine
DX: J18.9 Pneumonia, unspecified organism (principal); L03.113 Cellulitis of right upper limb; M54.2 Cervicalgia; M54.50 Low back pain, unspecified
CPT/HCPCS: 71275; 72125; 72128; 80053; 82550; 84484; 85025; 85378; 85610; 85730; 86140; 93005; 96374; 96375; 99285; J2270; J2405; J7030; Q9967

== ENCOUNTER 2025-04-13 07:36 | Outpatient (CLI) | payer MEDICARE, OTHER, SELFPAY ==
--- NOTE | 2025-04-13 | CA_ITS ---
APPROVED REPORT Exam: Pharmacologic Technologist: Azucena Cox Ht: 5 ft 4 in Wt: 183 lbs BSA: 1.88 m2 HR: 114 bpm BP: 124/82 mmHg Stress Test Details Test: Lexiscan HR Resting HR: 114 bpm Max Heart Rate (APMHR): 139.687095 bpm Max HR Achieved: 120 bpm Target HR (85% APMHR): 118.108607 bpm % of APMHR: 86.33 Recovery HR: 113 bpm BP Resting BP: 124.0/82.0 mmHg Max BP: 142.0/72.0 mmHg Recovery BP: 109.0/60.0 mmHg ECG Resting ECG: Atrial fibrillation 114 Stress ECG Conclusion Symptoms: None Arrhythmias/ectopy: Atrial fibrillation, PVCs ST-T Changes: None with Lexiscan. Atrial fibrillation Electronically signed by : Ce Estrada MD 04/13/2025 13:06:26
--- OUTSIDE RECORDS SUMMARY | 2025-04-13 07:39 | XMS_ITS | Encounter Summary ---
Author Organization Healthcare Address [address] [place] [address] Care Team Providers Care Plastering Contractor Name Role Phone Jeff Jang MD Primary Care Provider + [phone] Reason for Referral * Consultation (Routine) - Authorized Specialty Diagnoses / Procedures Referred By Contac t Referred To Contact Rheumatology Diagnoses MARYURI positive Pain in joints Rohan Evans MD [address] [place] [address] Phone: tel: fax: Referral ID Status Reason Start Date Expiration Date Visits Requested Visits Authorized [id number] Authorized Specialty Services Required 4 03/19/2026 1 1 Encounter Details Date Type Department Care Team (Late st Contact Info) Description 09/17/2024 Community [facility] [address] [place] [address] Rohan Evans MD [address] [place] [address] MARYURI positive (Primary Dx); Pain in joints Social History Tobacco Use Types Packs/Day Years Used Date Smoking Tobacco: Never Smokeless Tobacco: Never Comments Unknown Sex and Gender Information Value Date Recorded Sex Assigned at Not on file Legal Sex Female 9:45 PM EDT Gender Identity Not on file Sexual Orientation Not on file documented as of this encounter Plan of Treatment Scheduled Referrals Name Type Priority Associated Diagnoses Order Schedule Ambulatory referral to Rheumatology Outpatient Referral Routine MARYURI positive Pain in joints 1 Occurrences starting 09/17/2024 until 03/17/2026 documented as of this encounter Visit Diagnoses Diagnosis MARYURI positive- Primary Pain in joints Pain in joint, multiple sites documented in this encounter Care Teams Plastering Contractor Relationship Specialty Start Date End Date Jeff Jang MD [address] [phone] PCP - General 03/16/21 documented as of this encounter
--- OUTSIDE RECORDS SUMMARY | 2025-04-13 07:39 | XMS_ITS | Clinical Summary ---
Author Organization Healthcare Address [address] [id number] Care Team Providers Care Market Risk Manager Name Role Phone Jeff Jang MD Primary Care Provider + [phone] Allergies Active Allergy Reactions Criticality Noted Date Comments Acetaminophen Unknown - Patient st ates they do not know rxn details Low 03/30/2021 Tramadol Unknown - Patient st ates they do not know rxn details Low 03/30/2021 Medications LEVOTHYROXINE SODIUM PO TAKE 1 CAPSULE Daily 03/30/2021 Active losartan-hydroC HLOROthiazide (Hyzaar) 100-25 MG tablet TAKE 1 TABLET DAILY. 03/30/2021 Active Active Problems Problem Noted Date Diagnosed Date Diabetes mellitus, type 2 03/30/2021 Hypertension 03/30/2021 Microalbuminuria 03/30/2021 Social History Tobacco Use Types Packs/Day Years Used Date Smoking Tobacco: Never Smokeless Tobacco: Never Comments Unknown Sex and Gender Information Value Date Recorded Sex Assigned at Not on file Legal Sex Female 9:45 PM EDT Gender Identity Not on file Sexual Orientation Not on file Plan of Treatment Health Maintenance Due Date Last Done Comments [facility]-Bone Density Scan 1943 [facility]-Depression Screening 1943 [facility]-/Child/Adol SDOH Screenings 1943 [facility]- SDOH Screenings 1961 [facility]-Adult SDOH Screenings 1961 [facility]-DTaP,Tdap,and Td Vaccine s (1 - Tdap) 1962 [facility]-Zoster Vaccines (1 of 2) 1993 [facility]-RSV Vaccine: 60+ Years o r (1 - 1-dose 75+ series) 2018 [facility]-Pneumococcal Vaccine: 50 + Years (2 of 2 - PPSV23) 08/27/2019 08/27/2018 [id number] Vaccine (1 - 20 24-25 season) 2024 [facility]-Influenza Vaccine (Seas[place] n Ended) 2025 HPV Vaccines Aged Out No longer eligi ble based on patient's age to complete this topic [facility]-HIB Vaccines Aged Out No longer e ligible based on patient's age to complete this topic [facility]-Hepatitis A Vaccines Aged Out No longer eligible based on patient's age to complete this topic [facility]-IPV Vaccines Aged Out No longer e ligible based on patient's age to complete this topic [facility]-Rotavirus Vaccines Aged Out No lo nger eligible based on patient's age to complete this topic Insurance [employer] [facility] [address] Care Teams Market Risk Manager Relationship Specialty Start Date End Date Jeff Jang MD [address] [place] [address] LUZ Jimenez [id number] PCP - General 03/16/21
--- NOTE | 2025-04-13 08:00 | NM_ITS ---
APPROVED REPORT Exam: Nuclear Stress Test Indication: HTN, DM, High cholesterol Patient Location: Outpatient Stress Tech: Azucena Cox CT Tech:Alondra Ordaz, ARRT, RT (R)(N) Ht: 5 ft 4 in Wt: 183 lbs Bra Size: C HR: 104 bpm BP: 124/82 mmHg BSA: 1.88 m2 TID: 1.05 BMI: 31.4 History: HTN, DM, High cholesterol Procedure: Patient received 0.4 mg of intravenous Lexiscan, resting heart rate 104 bpm, resting blood pressure 124/82 mmHg, with Lexiscan maximum heart rate achieved was 136 bpm which is % of the maximum predicted heart rate and blood pressure was 142/72 mmHg. With Lexiscan, patient denied any complaint of chest pain. Cardiac Stress and Resting SPECT Images: Cardiac Stress and Resting SPECT images were obtained using technetium 99m Myoview 31.5 mCi stress and 10.48 mCi at rest. The patient is unable to lie on her abdomen. Therefore, prone stress imaging cannot not be performed. This may affect the diagnostic interpretation of the study findings. Resting and stress imaging in supine positions demonstrate no evidence of fixed or reversible perfusion defects. Gated imaging demonstrates moderate reduction global LV systolic function. LVEF is calculated at 36%. Of note, the right ventricle appears dilated. Correlation with new or recent TTE is suggested. Conclusion: No evidence of fixed or reversible perfusion defects. Gated imaging demonstrates moderate reduction global LV systolic function. LVEF is calculated at 36%. Of note, the right ventricle appears dilated. Correlation with new or recent TTE is suggested. Electronically signed by : Ce Estrada MD 04/13/2025 13:00:49
[2025-04-13] MEDS: ISOTOPE MYOVIEW (PER STUDY) 1 DOSE IV (09:56)
[2025-04-13] MEDS: REGADENOSON 0.4MG/5ML SYRINGE 0.4 MG IV (09:56)
[2025-04-13] MEDS: SODIUM CHLORIDE 0.9% 10ML SYR (RAD ONLY) 10 ML IV ×2 (09:56)
--- NOTE | 2025-04-13 10:30 | CA_ITS ---
APPROVED REPORT EXAM: Comprehensive 2D, Doppler, and color-flow Echocardiogram Broom Worker: Nicole Miller RVT Ht: 5 ft 4 in Wt: 189lbs BSA: 1.91 BP: 142/86 mmHg Indications: CORONARY ARTERY DISEASE,DYSPENA 2D Dimensions LA Volume 79.60 mL LA Volume Index 41.68 mL/m2 (M/F) 16-34 M-Mode Dimensions RVDd 4.50 cm (0.9-2.6) LA Diam 4.14 cm (1.9-4.0) LVDd 3.74 cm (3.5-5.7) LVDs 2.89 cm (3.5-5.7) IVSd 0.59 cm (0.6-1.1) PWd 0.34 cm (0.6-1.1) EF (Teich) 46.50% FS 22.70% EDV (Teich) 59.60 mL TAPSE 1.08 (<1.7) ESV (Teich) 31.90 mL LV Diastology E Decel Time 150 (160-240 msec) E/A Ratio 3.0 Aortic Valve WILIAN Index 1.01 cm2/m2 AoV Peak Matthias. 113.0 (50-130 cm/s) AO Peak GR. 5.10 mmHg AO Mean GR. 3.10 (<5 mmHg) AO VTI 18.3 (18-25 cm) WILIAN (VTI) 1.97 (2.5-4.5 cm2) Mitral Valve MV E Max Matthias. 72.0 (40-130 cm/s) MV A Velocity 24.0 (40-130 cm/s) E/A Ratio 2.96 MV PHT 44.0 ms Pulmonary Valve PV Peak Velocity 70.0 (50-150 cm/s) Tricuspid Valve TR P. Velocity 293.00 cm/s RAP Estimate 10.00 mmHg RVSP 44.40 mmHg Left Ventricle The left ventricle is normal size. Left ventricular systolic function is mildly decreased. There is normal left ventricular wall thickness. There is mild global hypokinesis present. Diastolic function is indeterminate. LVEF is 40-45%. Right Ventricle The right ventricle is normal size. The right ventricular systolic function is normal. Atria Left atrium is moderately dilated. The right atrium size is normal. There is no Doppler evidence of interatrial shunt. Aortic Valve The aortic valve is mildly thickened. There is no aortic valvular stenosis. Trace aortic regurgitation. Mitral Valve The mitral valve is normal in structure. No evidence of mitral valve stenosis. Mild mitral regurgitation. Tricuspid Valve Tricuspid valve is grossly normal in structure and function. Mild tricuspid regurgitation. RVSP is 35-40 mmHg. Pulmonic Valve The pulmonary valve is normal in structure. Trace pulmonic regurgitation. Great Vessels The aortic root is normal in size. IVC is normal in size and collapses >50% with inspiration. Pericardium There is no pericardial effusion. Other Information Study Quality: Fair Conclusion Mildly reduced LV systolic function (LVEF 40-45%). Moderate LA dilation. Mild MR, mild TR. Electronically signed by : Ce Estrada MD 04/23/2025 16:32:14
--- OUTSIDE RECORDS SUMMARY | 2025-05-22 20:00 | XMS_ITS | Clinical Summary ---
Author Organization Unknown Care Team Providers Care Sat Act Instructor Name Role Phone JIMY OLSEN, DAVIN Unavailable Unavailable NICOLLE RN, JAZLYN Unavailable Unavailable JANAE ECONOMIC DEVELOPMENT COORDINATOR, AGUILAR Unavailable Unavailable JAYRO PT, SANA Unavailable Unavailable KAYLIE OIL PIPE INSPECTOR HELPER, YARITZA Unavailable Unavailable JANEEN OT, BART Unavailable Unavailable KARLA ORTEGA, SHAYLA Unavailable Unavailable Payers Payer Name Policy Type Policy Number Effective Date Expira tion Date MEDICARE[facility] [id number] Problems Condition Name Condition Details Condition Category [...] 11-03 00:00: 00 ATHSCL HEART DISEASE OF [place] CORONARY ARTERY W/O ANG PCTRS Active 11-03 [...] [BMI] 33.0-33.9, ADULT Active 11-03 00:00: 00 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 Active 11-03 00:00: 00 LONG-TERM (CURRENT) USE OF ANTICOAGULAN TS Active 11-03 00:00: 00 LONG-TERM (CURRENT) USE OF ANTITHROMBOT ICS/ANTIPLAT ELETS Active [...] tablet,lea yed release 03-10 00:00: 00 Yes [id number] HEART 1 tablet DAILY 1 tablet DAILY (route: oral) Med Classific ation: Hematolog ical Agents clopidogrel 75 mg tablet 03-10 00:00: 00 Yes [id number] HEART 1 tablet DAILY 1 tablet DAILY (route: oral) Med Classific ation: Hematolog ical Agents cyclobenzap rine 10 mg tablet 03-10 00:00: 00 03-25 00:00 :00 No [id number] Per instruc tions Per instructio ns (route: oral) Med Classific ation: Locomotor System nadolol 20 mg tablet 03-10 00:00: 00 03-25 00:00 :00 No [id number] Per instruc tions Per instructio ns (route: oral) Med Classific ation: Cardiovas cular Therapy Agents atorvastati n 40 mg tablet 02-22 00:00: 00 Yes [id number] CHOLESTEROL 1 tablet AT BEDTIME 1 tablet AT BEDTIME (route: oral) Med Classific ation: Cardiovas cular Therapy Agents levothyroxi ne 50 mcg tablet 02-22 00:00: 00 03-25 00:00 :00 No [id number] Per instruc tions ONCE DAILY Per instructio ns ONCE DAILY (route: oral) Med Classific ation: Endocrine Xarelto 20 mg tablet 02-22 00:00: 00 Yes [id number] BLOOD THINNER 1 tablet ONCE DAILY 1 tablet ONCE DAILY (route: oral) Med Classific ation: Hematolog ical Agents albuterol sulfate HFA 90 mcg/actuati on aerosol inhaler 03-25 00:00: 00 Yes [id number] SOB 2 puff 4 TIMES DAILY 2 puff 4 TIMES DAILY (route: inhalation ) Med Classific ation: Respirato ry Therapy Agents cetirizine 10 mg tablet 03-25 00:00: 00 Yes [id number] ALLERGIES 1 tablet DAILY 1 tablet DAILY (route: oral) Med Classific ation: Respirato ry Therapy Agents metformin 500 mg tablet 03-25 00:00: 00 Yes [id number] DIABETES 1 tablet 2 TIMES DAILY 1 tablet 2 TIMES DAILY (route: oral) Med Classific ation: Endocrine amoxicillin 875 mg-potassiu m clavulanate 125 mg tablet 04-04 00:00: 00 Yes [id number] FOR PNEMONIA 1 tablet 2 TIMES DAILY 1 tablet 2 TIMES DAILY (route: oral) Med Classific ation: Anti-Infe ctive Agents azithromyci n 250 mg tablet 04-04 00:00: 00 Yes [id number] PNEMONIA 1 tablet DAILY 1 tablet DAILY (route: oral) Med Classific ation: Anti-Infe ctive Agents cyclobenzap rine 7.5 mg tablet 04-04 00:00: 00 Yes [id number] FOR PAIN 15 mg 3 TIMES DAILY 15 mg 3 TIMES DAILY (route: oral) Med Classific ation: Locomotor System amoxicillin 875 mg-potqianiu m clavulanate 125 mg tablet 04-03 00:00: 00 Yes [id number] ANTIBIOTIC 1 tablet 2 TIMES DAILY 1 tablet 2 TIMES DAILY (route: oral) Med Classific ation: Anti-Infe ctive Agents cyclobenzap rine 5 mg tablet 04-03 00:00: 00 Yes [id number] NEEDED FOR MUSCLE SPASM 1 tablet 3 TIMES DAILY 1 tablet 3 TIMES DAILY (route: oral) Med Classific ation: Locomotor System oxycodone 5 mg tablet 03-31 00:00: 00 Yes [id number] NEEDED FOR PAIN 1 tablet DAILY 1 tablet DAILY (route: oral) Med Classific ation: Analgesic , Anti-infl ammatory or Antipyret ic Xarelto 2.5 mg tablet 04-04 00:00: 00 Yes [id number] BLOOD CLOTS 1 tablet DAILY 1 tablet DAILY (route: oral) Med Classific ation: Hematolog ical Agents Vital Signs Vital Name Observation Time Observation Value Commen ts Temperature 2025-04-11 16:27:00.000 97.5 [degF] Temperature 2025-04-05 16:36:00.000 98.7 [degF] Temperature 2025-04-05 15:28:00.000 98.2 [degF] Temperature 2025-04-01 17:29:00.000 97.7 [degF] Temperature 2025-03-29 15:47:00.000 97.8 [degF] Temperature 2025-03-25 17:21:00.000 96.4 [degF] BMI (%) 2025-03-25 17:21:00.000 33 kg/m2 Height 2025-03-25 17:21:00.000 64 [in_us] Pulse 2025-04-11 16:27:00.000 64 /min Pulse 2025-04-05 16:36:00.000 85 /min Pulse 2025-04-05 15:28:00.000 76 /min Pulse 2025-04-01 17:29:00.000 102 /min Pulse 2025-03-29 15:47:00.000 94 /min Pulse 2025-03-25 17:21:00.000 60 /min O2 Saturation (%) 2025-04-11 16:27:00.000 96 % O2 Saturation (%) 2025-04-05 16:38:00.000 95 % O2 Saturation (%) 2025-04-05 15:28:00.000 94 % O2 Saturation (%) 2025-04-01 17:29:00.000 98 % O2 Saturation (%) 2025-03-29 15:47:00.000 94 % Respirations 2025-04-11 16:27:00.000 18 /min Respirations 2025-04-05 16:36:00.000 18 /min Respirations 2025-04-05 15:28:00.000 18 /min Respirations 2025-04-01 17:29:00.000 18 /min Respirations 2025-03-29 15:47:00.000 18 /min Respirations 2025-03-25 17:21:00.000 18 /min Weight (lbs) 2025-03-25 17:21:00.000 193 [lb_av] Systolic Blood Pressure 2025-04-11 16:27:00.000 132 mm [Hg] Systolic Blood Pressure 2025-04-05 16:36:00.000 124 mm [Hg] Systolic Blood Pressure 2025-04-05 15:28:00.000 130 mm [Hg] Systolic Blood Pressure 2025-04-01 17:29:00.000 124 mm [Hg] Systolic Blood Pressure 2025-03-29 15:47:00.000 146 mm [Hg] Systolic Blood Pressure 2025-03-25 17:21:00.000 120 mm [Hg] Diastolic Blood Pressure 2025-04-11 16:27:00.000 [...] DR MICHAEL NATION TO OBSERVE AND ASSESS, ECONOMIC DEVELOPMENT COORDINATOR/SUSTAINABILITY PROJECT COORDINATOR TO OBSERVE FOR RISK FOR FALLS AND INSTRUCT IN FALL PREVENTION, HOME SAFETY, MEDICATION MANAGEMENT, INFECTION PREVENTION, AND NUTRITION MANAGEMENT. RN/ECONOMIC DEVELOPMENT COORDINATOR/SUSTAINABILITY PROJECT COORDINATOR NURSE MAY PERFORM O2 SATURATION LEVEL ON ADMISSION AND PRN FOR SOB FOR RN TO ASSESS/ECONOMIC DEVELOPMENT COORDINATOR TO OBSERVE PATIENT, WITH NOTIFICATION TO THE PHYSICIAN IF SATURATION IS 90% IN THE ABSENCE OF MORE SPECIFIC PARAMETERS FROM THE PHYSICIAN. AGENCY MAY PERFORM A RESUMPTION OF CARE VISIT FOLLOWING ANY HOSPITAL ADMISSION. RN/ECONOMIC DEVELOPMENT COORDINATOR/SUSTAINABILITY PROJECT COORDINATOR TO MONITOR CO-MORBID CONDITIONS LISTED ON THE PLAN OF CARE AND ANY NEW CONDITIONS THAT PRESENT THEMSELVES DURING THIS EPISODE TO IDENTIFY CHANGES AND INTERVENE TO MINIMIZE COMPLICATIONS. [code = RN TO OBSERVE, ASSESS, EVALUATE, AND DEVELOP AN INDIVIDUALIZED PLAN OF CARE. AGENCY MAY ACCEPT ORDERS FROM CONSULTING PHYSICIANS DR MICHAEL NATION TO OBSERVE AND ASSESS, ECONOMIC DEVELOPMENT COORDINATOR/SUSTAINABILITY PROJECT COORDINATOR TO OBSERVE FOR RISK FOR FALLS AND INSTRUCT IN FALL PREVENTION, HOME SAFETY, MEDICATION MANAGEMENT, INFECTION PREVENTION, AND NUTRITION MANAGEMENT. RN/ECONOMIC DEVELOPMENT COORDINATOR/SUSTAINABILITY PROJECT COORDINATOR NURSE MAY PERFORM O2 SATURATION LEVEL ON ADMISSION AND PRN FOR SOB FOR RN TO ASSESS/ECONOMIC DEVELOPMENT COORDINATOR TO OBSERVE PATIENT, WITH NOTIFICATION TO THE PHYSICIAN IF SATURATION IS 90% IN THE ABSENCE OF MORE SPECIFIC PARAMETERS FROM THE PHYSICIAN. AGENCY MAY PERFORM A RESUMPTION OF CARE VISIT FOLLOWING ANY HOSPITAL ADMISSION. RN/ECONOMIC DEVELOPMENT COORDINATOR/SUSTAINABILITY PROJECT COORDINATOR TO MONITOR CO-MORBID CONDITIONS LISTED ON THE PLAN OF CARE AND ANY NEW CONDITIONS THAT PRESENT THEMSELVES DURING THIS EPISODE TO IDENTIFY CHANGES AND INTERVENE TO MINIMIZE COMPLICATIONS.] Future Scheduled Test MEDICATION MANAGEMENT; RN/ECONOMIC DEVELOPMENT COORDINATOR/SUSTAINABILITY PROJECT COORDINATOR TO REVIEW MEDICATIONS FOR INTERACTIONS, EFFECTIVENESS OF DRUG THERAPY, AND SIGNS/SYMPTOMS OF ADVERSE REACTIONS. MAY INSTRUCT AND REINFORCE MEDICATION TEACHING RELATED TO THE USE OF MEDICATIONS, DOSAGE, FREQUENCY, PURPOSE, SIDE EFFECTS, AND TO REPORT COMPLICATIONS. [code = MEDICATION MANAGEMENT; RN/ECONOMIC DEVELOPMENT COORDINATOR/SUSTAINABILITY PROJECT COORDINATOR TO REVIEW MEDICATIONS FOR INTERACTIONS, EFFECTIVENESS OF DRUG THERAPY, AND SIGNS/SYMPTOMS OF ADVERSE REACTIONS. MAY INSTRUCT AND REINFORCE MEDICATION TEACHING RELATED TO THE USE OF MEDICATIONS, DOSAGE, FREQUENCY, PURPOSE, SIDE EFFECTS, AND TO REPORT COMPLICATIONS.] Future Scheduled Test CARDIOVASC ULAR SYSTEM; RN TO ASSESS/TEACH, ECONOMIC DEVELOPMENT COORDINATOR/SUSTAINABILITY PROJECT COORDINATOR TO OBSERVE/TEACH RELATED TO ALTERED CARDIOVASCULAR STATUS TO MINIMIZE COMPLICATIONS AND REDUCE HOSPITALIZATION. [code = CARDIOVASCULAR SYSTEM; RN TO ASSESS/TEACH, ECONOMIC DEVELOPMENT COORDINATOR/SUSTAINABILITY PROJECT COORDINATOR TO OBSERVE/TEACH RELATED TO ALTERED CARDIOVASCULAR STATUS TO MINIMIZE COMPLICATIONS AND REDUCE HOSPITALIZATION.] Future Scheduled Test HYPERTENSI ON MANAGEMENT; RN TO ASSESS AND TEACH, ECONOMIC DEVELOPMENT COORDINATOR/SUSTAINABILITY PROJECT COORDINATOR TO OBSERVE AND TEACH WARNING SIGNS AND SYMPTOMS TO AVOID HOSPITALIZATION. [code = HYPERTENSION MANAGEMENT; RN TO ASSESS AND TEACH, ECONOMIC DEVELOPMENT COORDINATOR/SUSTAINABILITY PROJECT COORDINATOR TO OBSERVE AND TEACH WARNING SIGNS AND SYMPTOMS TO AVOID HOSPITALIZATION.] Future Scheduled Test ARRHYTHMIA MANAGEMENT; RN TO ASSESS AND TEACH, ECONOMIC DEVELOPMENT COORDINATOR/SUSTAINABILITY PROJECT COORDINATOR TO OBSERVE AND TEACH WARNING SIGNS AND SYMPTOMS TO AVOID HOSPITALIZATION. [code = ARRHYTHMIA MANAGEMENT; RN TO ASSESS AND TEACH, ECONOMIC DEVELOPMENT COORDINATOR/SUSTAINABILITY PROJECT COORDINATOR TO OBSERVE AND TEACH WARNING SIGNS AND SYMPTOMS TO AVOID HOSPITALIZATION.] Future Scheduled Test RESPIRATOR Y SYSTEM MANAGEMENT; RN TO ASSESS AND TEACH, ECONOMIC DEVELOPMENT COORDINATOR/SUSTAINABILITY PROJECT COORDINATOR TO OBSERVE AND TEACH RELATED TO ALTERED RESPIRATORY STATUS TO MINIMIZE COMPLICATIONS AND REDUCE HOSPITALIZATION. [code = RESPIRATORY SYSTEM MANAGEMENT; RN TO ASSESS AND TEACH, ECONOMIC DEVELOPMENT COORDINATOR/SUSTAINABILITY PROJECT COORDINATOR TO OBSERVE AND TEACH RELATED TO ALTERED RESPIRATORY STATUS TO MINIMIZE COMPLICATIONS AND REDUCE HOSPITALIZATION.] Future Scheduled Test COPD MANAG EMENT; RN TO ASSESS AND TEACH, ECONOMIC DEVELOPMENT COORDINATOR/SUSTAINABILITY PROJECT COORDINATOR TO OBSERVE AND TEACH SIGNS/SYMPTOMS OF COPD EXACERBATION AND PROVIDE EARLY INTERVENTIONS TO MINIMIZE RISK OF HOSPITALIZATION. RN/ECONOMIC DEVELOPMENT COORDINATOR/SUSTAINABILITY PROJECT COORDINATOR TO INSTRUCT ON SELF-CARE MANAGEMENT INCLUDING BREATHING TECHNIQUES, AIRWAY CLEARANCE, AND PROPER USE OF COPD MEDICATIONS. RN TO ASSESS AND TEACH, ECONOMIC DEVELOPMENT COORDINATOR/SUSTAINABILITY PROJECT COORDINATOR TO OBSERVE AND TEACH PATIENT/CAREGIVER ABILITY TO MONITOR AND RECORD VITAL SIGNS INCLUDING PULSE OXIMETRY AND BLOOD PRESSURE. PULSE OXIMETER AND BP MONITOR TO BE PROVIDED IF NEEDED [code = COPD MANAGEMENT; RN TO ASSESS AND TEACH, ECONOMIC DEVELOPMENT COORDINATOR/SUSTAINABILITY PROJECT COORDINATOR TO OBSERVE AND TEACH SIGNS/SYMPTOMS OF COPD EXACERBATION AND PROVIDE EARLY INTERVENTIONS TO MINIMIZE RISK OF HOSPITALIZATION. RN/ECONOMIC DEVELOPMENT COORDINATOR/SUSTAINABILITY PROJECT COORDINATOR TO INSTRUCT ON SELF-CARE MANAGEMENT INCLUDING BREATHING TECHNIQUES, AIRWAY CLEARANCE, AND PROPER USE OF COPD MEDICATIONS. RN TO ASSESS AND TEACH, ECONOMIC DEVELOPMENT COORDINATOR/SUSTAINABILITY PROJECT COORDINATOR TO OBSERVE AND TEACH PATIENT/CAREGIVER ABILITY TO MONITOR AND RECORD VITAL SIGNS INCLUDING PULSE OXIMETRY AND BLOOD PRESSURE. PULSE OXIMETER AND BP MONITOR TO BE PROVIDED IF NEEDED] Future Scheduled Test NEUROLOGIC AL SYSTEM MANAGEMENT; RN TO ASSESS AND TEACH, SUSTAINABILITY PROJECT COORDINATOR/ECONOMIC DEVELOPMENT COORDINATOR TO OBSERVE AND TEACH RELATED TO ALTERED NEUROLOGICAL STATUS TO MINIMIZE COMPLICATIONS AND REDUCE HOSPITALIZATION. [code = NEUROLOGICAL SYSTEM MANAGEMENT; RN TO ASSESS AND TEACH, SUSTAINABILITY PROJECT COORDINATOR/ECONOMIC DEVELOPMENT COORDINATOR TO OBSERVE AND TEACH RELATED TO ALTERED NEUROLOGICAL STATUS TO MINIMIZE COMPLICATIONS AND REDUCE HOSPITALIZATION.] Future Scheduled Test DIABETES M ANAGEMENT; RN TO ASSESS AND TEACH, SUSTAINABILITY PROJECT COORDINATOR/ECONOMIC DEVELOPMENT COORDINATOR TO OBSERVE AND TEACH INSTRUCTIONS OF DIABETIC CARE TO INCLUDE: DIET ADA SKIN CARE, SIGNS AND SYMPTOMS OF HYPO/HYPERGLYCEMIA, PROPER ADMINISTRATION OF DIABETIC MEDICATION. RN/SUSTAINABILITY PROJECT COORDINATOR/ECONOMIC DEVELOPMENT COORDINATOR TO INSTRUCT ON DIABETIC FOOT CARE AND MONITOR FOR SKIN LESIONS ON LOWER EXTREMITIES. BLOOD GLUCOSE TESTING RN TO ASSESS AND TEACH, SUSTAINABILITY PROJECT COORDINATOR/ECONOMIC DEVELOPMENT COORDINATOR TO OBSERVE AND TEACH PATIENT/CAREGIVER ABILITY TO PERFORM AND RECORD BLOOD GLUCOSE TESTING ORDERED AND TO REPORT ABNORMAL FINDINGS TO PHYSICIAN. RN/SUSTAINABILITY PROJECT COORDINATOR/ECONOMIC DEVELOPMENT COORDINATOR MAY PERFORM BLOOD GLUCOSE TEST NEEDED. RN/SUSTAINABILITY PROJECT COORDINATOR/ECONOMIC DEVELOPMENT COORDINATOR TO REPORT TO PHYSICIAN BLOOD GLUCOSE READINGS GREATER THAN 70 OR LESS THAN 350 RN/SUSTAINABILITY PROJECT COORDINATOR/ECONOMIC DEVELOPMENT COORDINATOR TO INSTRUCT PATIENT ON IMPORTANCE OF HGBA1C MONITORING, KIDNEY FUNCTION TEST, EYE AND FOOT EXAMS. [code = DIABETES MANAGEMENT; RN TO ASSESS AND TEACH, SUSTAINABILITY PROJECT COORDINATOR/ECONOMIC DEVELOPMENT COORDINATOR TO OBSERVE AND TEACH INSTRUCTIONS OF DIABETIC CARE TO INCLUDE: DIET ADA SKIN CARE, SIGNS AND SYMPTOMS OF HYPO/HYPERGLYCEMIA, PROPER ADMINISTRATION OF DIABETIC MEDICATION. RN/SUSTAINABILITY PROJECT COORDINATOR/ECONOMIC DEVELOPMENT COORDINATOR TO INSTRUCT ON DIABETIC FOOT CARE AND MONITOR FOR SKIN LESIONS ON LOWER EXTREMITIES. BLOOD GLUCOSE TESTING RN TO ASSESS AND TEACH, SUSTAINABILITY PROJECT COORDINATOR/ECONOMIC DEVELOPMENT COORDINATOR TO OBSERVE AND TEACH PATIENT/CAREGIVER ABILITY TO PERFORM AND RECORD BLOOD GLUCOSE TESTING ORDERED AND TO REPORT ABNORMAL FINDINGS TO PHYSICIAN. RN/SUSTAINABILITY PROJECT COORDINATOR/ECONOMIC DEVELOPMENT COORDINATOR MAY PERFORM BLOOD GLUCOSE TEST NEEDED. RN/SUSTAINABILITY PROJECT COORDINATOR/ECONOMIC DEVELOPMENT COORDINATOR TO REPORT TO PHYSICIAN BLOOD GLUCOSE READINGS GREATER THAN 70 OR LESS THAN 350 RN/SUSTAINABILITY PROJECT COORDINATOR/ECONOMIC DEVELOPMENT COORDINATOR TO INSTRUCT PATIENT ON IMPORTANCE OF HGBA1C MONITORING, KIDNEY FUNCTION TEST, EYE AND FOOT EXAMS.] Future Scheduled Test FALL REDUC TION MANAGEMENT; RN TO ASSESS AND OBSERVE, ECONOMIC DEVELOPMENT COORDINATOR/SUSTAINABILITY PROJECT COORDINATOR TO OBSERVE FALL RISK FACTORS AND EDUCATE PATIENT/CAREGIVER ON STRATEGIES TO MINIMIZE THE RISK OF FALLING. [code = FALL REDUCTION MANAGEMENT; RN TO ASSESS AND OBSERVE, ECONOMIC DEVELOPMENT COORDINATOR/SUSTAINABILITY PROJECT COORDINATOR TO OBSERVE FALL RISK FACTORS AND EDUCATE [...] AND ADJUSTMENT TO CARE. [code = MEDICAL COMMERCIAL BAKER HELPER FOR EVALUATION TO ASSESS SOCIAL AND EMOTIONAL FACTORS RELATED TO THE PATIENT'S ILLNESS, NEED FOR CARE, RESPONSE TO TREATMENT AND ADJUSTMENT TO CARE.] Future Scheduled Test AGENCY MAY PERFORM A RESUMPTION OF CARE VISIT FOLLOWING ANY HOSPITAL ADMISSION. OT TO EVALUATE, OBSERVE / ASSESS, AND MONITOR, MANAGER GROCERY TO OBSERVE AND MONITOR, PROVIDE SKILLED THERAPEUTIC INTERVENTION, ACTIVITY, EDUCATION, AND TRAINING TO ADDRESS; DEFICITS IN STRENGTH/BALANCE/ENDURANCE, AND TO INCREASE SAFETY AND INDEPENDENCE WITH ADLS, FUNCTIONAL TRANSFERS/MOBILITY, HOME MANAGEMENT TASKS. MD OFFICE OF DR DAVIN AHN TO BE NOTIFIED OF COMPLETION OF OCCUPATIONAL THERAPY EVALUATION AND PLAN OF CARE. BATHING/SHOWERING (OT/FERNANDO) DRESSING (OT/FERNANDO) ACTIVITIES OF DAILY LIVING (OT/MANAGER GROCERY) MEAL PREPARATION AND CLEANUP (OT/FERNANDO) BATH/SHOWER TRANSFER (OT/FERNANDO) HOME ACTIVITY / EXERCISE PROGRAM (OT/MANAGER GROCERY) OT/FERNANDO MAY EDUCATE ON PAIN MANAGEMENT CLINICALLY [...] TO EVALUATE, OBSERVE / ASSESS, AND MONITOR, MANAGER GROCERY TO OBSERVE AND MONITOR, PROVIDE SKILLED THERAPEUTIC INTERVENTION, ACTIVITY, EDUCATION, AND TRAINING TO ADDRESS; DEFICITS IN STRENGTH/BALANCE/ENDURANCE, AND TO INCREASE SAFETY AND INDEPENDENCE WITH ADLS, FUNCTIONAL TRANSFERS/MOBILITY, HOME MANAGEMENT TASKS. OFFICE OF DR DAVIN AHN TO BE NOTIFIED OF COMPLETION OF OCCUPATIONAL THERAPY EVALUATION AND PLAN OF CARE. BATHING/SHOWERING (OT/FERNANDO) DRESSING (OT/FERNANDO) ACTIVITIES OF DAILY LIVING (OT/FERNANDO) MEAL PREPARATION AND CLEANUP (OT/FERNANDO) BATH/SHOWER TRANSFER (OT/FERNANDO) HOME ACTIVITY / EXERCISE PROGRAM (OT/FERNANDO) OT/MANAGER GROCERY MAY EDUCATE ON PAIN MANAGEMENT CLINICALLY INDICATED, INCLUDING NON-PHARMACOLOGICAL PAIN REDUCTION TECHNIQUES AND USE OF CRYOTHERAPY OR HEAT UP TO 20 MIN AT A TIME FOR PAIN MANAGEMENT. OT/FERNANDO TO INSTRUCT PATIENT/CAREGIVER ON RISK FOR HOSPITALIZATION/EMERGENCY ROOM VISITS, TEACH SIGNS AND SYMPTOMS THAT PUT PATIENT AT RISK, WHEN TO NOTIFY NURSE/PHYSICIAN OF COMPLICATIONS/DECLINE, AND WHEN TO CALL 911. OT / MANAGER GROCERY TO IDENTIFY FALL RISK FACTORS; EDUCATE THE PATIENT/CAREGIVER ON WAYS TO REDUCE FALL RISK FACTORS AND ESTABLISH HOME EXERCISE PROGRAM TO MINIMIZE FALL RISK. MAY TEACH THE PATIENT FLOOR RECOVERY WHEN CLINICALLY APPROPRIATE.] Future Scheduled Test MEDICAL SO CIAL SERVICES FOR COMMUNITY RESOURCE PLANNING. [code = MEDICAL COMMERCIAL BAKER HELPER FOR COMMUNITY RESOURCE PLANNING.] Goal Patient Goal - STAY OUT OF H [...] THE PERIOD OF INDEPENDENCE IN THE HOME. Encounters Start Date/Time End Date/Time Encounter Type Admission Type Attending [facility] Care Department Encounter ID Discharge Date Discharge Status Discharge Condition Discharge Reason Percent Goals Met 2025-03-25 00:00:00 2025-05-23 00:00:00 Outpatient NEW ADMISSION JAZLYN VALVERDE [facility] [id number] 54.55
--- OUTSIDE RECORDS SUMMARY | 2025-05-22 20:00 | XMS_ITS | Clinical Summary ---
Author Organization Unknown Care Team Providers Care Manager Oncology Name Role Phone JIMY OLSEN, DAVIN Unavailable Unavailable NICOLLE RN, JAZLYN Unavailable Unavailable JANAE COMMUNITY HEALTH COUNSELOR, AGUILAR Unavailable Unavailable JAYRO PT, SANA Unavailable Unavailable KAYLIE DIRECTOR TALENT, YARITZA Unavailable Unavailable JANEEN OT, BART Unavailable Unavailable KARLA ORTEGA, SHAYLA Unavailable Unavailable Payers Payer Name Policy Type Policy Number Effective Date Expira tion Date [facility]ICARE[facility] [id number] Problems Condition Name Condition Details Condition Category [...] 11-03 00:00: 00 ATHSCL HEART DISEASE OF [place] CORONARY ARTERY W/O ANG PCTRS Active 11-03 [...] [BMI] 33.0-33.9, ADULT Active 11-03 00:00: 00 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) USE OF ORAL HYPOGLYCEMIC DRUGS Active 11-03 00:00: 00 GROUP HOME (CURRENT) USE OF ANTICOAGULAN TS Active 11-03 00:00: 00 GROUP HOME (CURRENT) USE OF ANTITHROMBOT ICS/ANTIPLAT ELETS Active [...] tablet,lea yed release 03-10 00:00: 00 Yes [id number] HEART 1 tablet DAILY 1 tablet DAILY (route: oral) Med Classific ation: Hematolog ical Agents clopidogrel 75 mg tablet 03-10 00:00: 00 Yes [id number] HEART 1 tablet DAILY 1 tablet DAILY (route: oral) Med Classific ation: Hematolog ical Agents cyclobenzap rine 10 mg tablet 03-10 00:00: 00 03-25 00:00 :00 No [id number] Per instruc tions Per instructio ns (route: oral) Med Classific ation: Locomotor System nadolol 20 mg tablet 03-10 00:00: 00 03-25 00:00 :00 No [id number] Per instruc tions Per instructio ns (route: oral) Med Classific ation: Cardiovas cular Therapy Agents atorvastati n 40 mg tablet 02-22 00:00: 00 Yes [id number] CHOLESTEROL 1 tablet AT BEDTIME 1 tablet AT BEDTIME (route: oral) Med Classific ation: Cardiovas cular Therapy Agents levothyroxi ne 50 mcg tablet 02-22 00:00: 00 03-25 00:00 :00 No [id number] Per instruc tions ONCE DAILY Per instructio ns ONCE DAILY (route: oral) Med Classific ation: Endocrine Xarelto 20 mg tablet 02-22 00:00: 00 Yes [id number] BLOOD THINNER 1 tablet ONCE DAILY 1 tablet ONCE DAILY (route: oral) Med Classific ation: Hematolog ical Agents albuterol sulfate HFA 90 mcg/actuati on aerosol inhaler 03-25 00:00: 00 Yes [id number] SOB 2 puff 4 TIMES DAILY 2 puff 4 TIMES DAILY (route: inhalation ) Med Classific ation: Respirato ry Therapy Agents cetirizine 10 mg tablet 03-25 00:00: 00 Yes [id number] ALLERGIES 1 tablet DAILY 1 tablet DAILY (route: oral) Med Classific ation: Respirato ry Therapy Agents metformin 500 mg tablet 03-25 00:00: 00 Yes [id number] DIABETES 1 tablet 2 TIMES DAILY 1 tablet 2 TIMES DAILY (route: oral) Med Classific ation: Endocrine amoxicillin 875 mg-potassiu m clavulanate 125 mg tablet 04-04 00:00: 00 Yes [id number] FOR PNEMONIA 1 tablet 2 TIMES DAILY 1 tablet 2 TIMES DAILY (route: oral) Med Classific ation: Anti-Infe ctive Agents azithromyci n 250 mg tablet 04-04 00:00: 00 Yes [id number] PNEMONIA 1 tablet DAILY 1 tablet DAILY (route: oral) Med Classific ation: Anti-Infe ctive Agents cyclobenzap rine 7.5 mg tablet 04-04 00:00: 00 Yes [id number] FOR PAIN 15 mg 3 TIMES DAILY 15 mg 3 TIMES DAILY (route: oral) Med Classific ation: Locomotor System amoxicillin 875 mg-potqianiu m clavulanate 125 mg tablet 04-03 00:00: 00 Yes [id number] ANTIBIOTIC 1 tablet 2 TIMES DAILY 1 tablet 2 TIMES DAILY (route: oral) Med Classific ation: Anti-Infe ctive Agents cyclobenzap rine 5 mg tablet 04-03 00:00: 00 Yes [id number] NEEDED FOR MUSCLE SPASM 1 tablet 3 TIMES DAILY 1 tablet 3 TIMES DAILY (route: oral) Med Classific ation: Locomotor System oxycodone 5 mg tablet 03-31 00:00: 00 Yes [id number] NEEDED FOR PAIN 1 tablet DAILY 1 tablet DAILY (route: oral) Med Classific ation: Analgesic , Anti-infl ammatory or Antipyret ic Xarelto 2.5 mg tablet 04-04 00:00: 00 Yes [id number] BLOOD CLOTS 1 tablet DAILY 1 tablet [...] DR MICHAEL NATION TO OBSERVE AND ASSESS, COMMUNITY HEALTH COUNSELOR/AIRPLANE PILOT SUPERVISOR TO OBSERVE FOR RISK FOR FALLS AND INSTRUCT IN FALL PREVENTION, HOME SAFETY, MEDICATION MANAGEMENT, INFECTION PREVENTION, AND NUTRITION MANAGEMENT. RN/COMMUNITY HEALTH COUNSELOR/AIRPLANE PILOT SUPERVISOR NURSE MAY PERFORM O2 SATURATION LEVEL ON ADMISSION AND PRN FOR SOB FOR RN TO ASSESS/COMMUNITY HEALTH COUNSELOR TO OBSERVE PATIENT, WITH NOTIFICATION TO THE PHYSICIAN IF SATURATION IS 90% IN THE ABSENCE OF MORE SPECIFIC PARAMETERS FROM THE PHYSICIAN. AGENCY MAY PERFORM A RESUMPTION OF CARE VISIT FOLLOWING ANY HOSPITAL ADMISSION. RN/COMMUNITY HEALTH COUNSELOR/AIRPLANE PILOT SUPERVISOR TO MONITOR CO-MORBID CONDITIONS LISTED ON THE PLAN OF CARE AND ANY NEW CONDITIONS THAT PRESENT THEMSELVES DURING THIS EPISODE TO IDENTIFY CHANGES AND INTERVENE TO MINIMIZE COMPLICATIONS. [code = RN TO OBSERVE, ASSESS, EVALUATE, AND DEVELOP AN INDIVIDUALIZED PLAN OF CARE. AGENCY MAY ACCEPT ORDERS FROM CONSULTING PHYSICIANS DR MICHAEL NATION TO OBSERVE AND ASSESS, COMMUNITY HEALTH COUNSELOR/AIRPLANE PILOT SUPERVISOR TO OBSERVE FOR RISK FOR FALLS AND INSTRUCT IN FALL PREVENTION, HOME SAFETY, MEDICATION MANAGEMENT, INFECTION PREVENTION, AND NUTRITION MANAGEMENT. RN/COMMUNITY HEALTH COUNSELOR/AIRPLANE PILOT SUPERVISOR NURSE MAY PERFORM O2 SATURATION LEVEL ON ADMISSION AND PRN FOR SOB FOR RN TO ASSESS/COMMUNITY HEALTH COUNSELOR TO OBSERVE PATIENT, WITH NOTIFICATION TO THE PHYSICIAN IF SATURATION IS 90% IN THE ABSENCE OF MORE SPECIFIC PARAMETERS FROM THE PHYSICIAN. AGENCY MAY PERFORM A RESUMPTION OF CARE VISIT FOLLOWING ANY HOSPITAL ADMISSION. RN/COMMUNITY HEALTH COUNSELOR/AIRPLANE PILOT SUPERVISOR TO MONITOR CO-MORBID CONDITIONS LISTED ON THE PLAN OF CARE AND ANY NEW CONDITIONS THAT PRESENT THEMSELVES DURING THIS EPISODE TO IDENTIFY CHANGES AND INTERVENE TO MINIMIZE COMPLICATIONS.] Future Scheduled Test MEDICATION MANAGEMENT; RN/COMMUNITY HEALTH COUNSELOR/AIRPLANE PILOT SUPERVISOR TO REVIEW MEDICATIONS FOR INTERACTIONS, EFFECTIVENESS OF DRUG THERAPY, AND SIGNS/SYMPTOMS OF ADVERSE REACTIONS. MAY INSTRUCT AND REINFORCE MEDICATION TEACHING RELATED TO THE USE OF MEDICATIONS, DOSAGE, FREQUENCY, PURPOSE, SIDE EFFECTS, AND TO REPORT COMPLICATIONS. [code = MEDICATION MANAGEMENT; RN/COMMUNITY HEALTH COUNSELOR/AIRPLANE PILOT SUPERVISOR TO REVIEW MEDICATIONS FOR INTERACTIONS, EFFECTIVENESS OF DRUG THERAPY, AND SIGNS/SYMPTOMS OF ADVERSE REACTIONS. MAY INSTRUCT AND REINFORCE MEDICATION TEACHING RELATED TO THE USE OF MEDICATIONS, DOSAGE, FREQUENCY, PURPOSE, SIDE EFFECTS, AND TO REPORT COMPLICATIONS.] Future Scheduled Test CARDIOVASC ULAR SYSTEM; RN TO ASSESS/TEACH, COMMUNITY HEALTH COUNSELOR/AIRPLANE PILOT SUPERVISOR TO OBSERVE/TEACH RELATED TO ALTERED CARDIOVASCULAR STATUS TO MINIMIZE COMPLICATIONS AND REDUCE HOSPITALIZATION. [code = CARDIOVASCULAR SYSTEM; RN TO ASSESS/TEACH, COMMUNITY HEALTH COUNSELOR/AIRPLANE PILOT SUPERVISOR TO OBSERVE/TEACH RELATED TO ALTERED CARDIOVASCULAR STATUS TO MINIMIZE COMPLICATIONS AND REDUCE HOSPITALIZATION.] Future Scheduled Test HYPERTENSI ON MANAGEMENT; RN TO ASSESS AND TEACH, COMMUNITY HEALTH COUNSELOR/AIRPLANE PILOT SUPERVISOR TO OBSERVE AND TEACH WARNING SIGNS AND SYMPTOMS TO AVOID HOSPITALIZATION. [code = HYPERTENSION MANAGEMENT; RN TO ASSESS AND TEACH, COMMUNITY HEALTH COUNSELOR/AIRPLANE PILOT SUPERVISOR TO OBSERVE AND TEACH WARNING SIGNS AND SYMPTOMS TO AVOID HOSPITALIZATION.] Future Scheduled Test ARRHYTHMIA MANAGEMENT; RN TO ASSESS AND TEACH, COMMUNITY HEALTH COUNSELOR/AIRPLANE PILOT SUPERVISOR TO OBSERVE AND TEACH WARNING SIGNS AND SYMPTOMS TO AVOID HOSPITALIZATION. [code = ARRHYTHMIA MANAGEMENT; RN TO ASSESS AND TEACH, COMMUNITY HEALTH COUNSELOR/AIRPLANE PILOT SUPERVISOR TO OBSERVE AND TEACH WARNING SIGNS AND SYMPTOMS TO AVOID HOSPITALIZATION.] Future Scheduled Test RESPIRATOR Y SYSTEM MANAGEMENT; RN TO ASSESS AND TEACH, COMMUNITY HEALTH COUNSELOR/AIRPLANE PILOT SUPERVISOR TO OBSERVE AND TEACH RELATED TO ALTERED RESPIRATORY STATUS TO MINIMIZE COMPLICATIONS AND REDUCE HOSPITALIZATION. [code = RESPIRATORY SYSTEM MANAGEMENT; RN TO ASSESS AND TEACH, COMMUNITY HEALTH COUNSELOR/AIRPLANE PILOT SUPERVISOR TO OBSERVE AND TEACH RELATED TO ALTERED RESPIRATORY STATUS TO MINIMIZE COMPLICATIONS AND REDUCE HOSPITALIZATION.] Future Scheduled Test COPD MANAG EMENT; RN TO ASSESS AND TEACH, COMMUNITY HEALTH COUNSELOR/AIRPLANE PILOT SUPERVISOR TO OBSERVE AND TEACH SIGNS/SYMPTOMS OF COPD EXACERBATION AND PROVIDE EARLY INTERVENTIONS TO MINIMIZE RISK OF HOSPITALIZATION. RN/COMMUNITY HEALTH COUNSELOR/AIRPLANE PILOT SUPERVISOR TO INSTRUCT ON SELF-CARE MANAGEMENT INCLUDING BREATHING TECHNIQUES, AIRWAY CLEARANCE, AND PROPER USE OF COPD MEDICATIONS. RN TO ASSESS AND TEACH, COMMUNITY HEALTH COUNSELOR/AIRPLANE PILOT SUPERVISOR TO OBSERVE AND TEACH PATIENT/CAREGIVER ABILITY TO MONITOR AND RECORD VITAL SIGNS INCLUDING PULSE OXIMETRY AND BLOOD PRESSURE. PULSE OXIMETER AND BP MONITOR TO BE PROVIDED IF NEEDED [code = COPD MANAGEMENT; RN TO ASSESS AND TEACH, COMMUNITY HEALTH COUNSELOR/AIRPLANE PILOT SUPERVISOR TO OBSERVE AND TEACH SIGNS/SYMPTOMS OF COPD EXACERBATION AND PROVIDE EARLY INTERVENTIONS TO MINIMIZE RISK OF HOSPITALIZATION. RN/COMMUNITY HEALTH COUNSELOR/AIRPLANE PILOT SUPERVISOR TO INSTRUCT ON SELF-CARE MANAGEMENT INCLUDING BREATHING TECHNIQUES, AIRWAY CLEARANCE, AND PROPER USE OF COPD MEDICATIONS. RN TO ASSESS AND TEACH, COMMUNITY HEALTH COUNSELOR/AIRPLANE PILOT SUPERVISOR TO OBSERVE AND TEACH PATIENT/CAREGIVER ABILITY TO MONITOR AND RECORD VITAL SIGNS INCLUDING PULSE OXIMETRY AND BLOOD PRESSURE. PULSE OXIMETER AND BP MONITOR TO BE PROVIDED IF NEEDED] Future Scheduled Test NEUROLOGIC AL SYSTEM MANAGEMENT; RN TO ASSESS AND TEACH, AIRPLANE PILOT SUPERVISOR/COMMUNITY HEALTH COUNSELOR TO OBSERVE AND TEACH RELATED TO ALTERED NEUROLOGICAL STATUS TO MINIMIZE COMPLICATIONS AND REDUCE HOSPITALIZATION. [code = NEUROLOGICAL SYSTEM MANAGEMENT; RN TO ASSESS AND TEACH, AIRPLANE PILOT SUPERVISOR/COMMUNITY HEALTH COUNSELOR TO OBSERVE AND TEACH RELATED TO ALTERED NEUROLOGICAL STATUS TO MINIMIZE COMPLICATIONS AND REDUCE HOSPITALIZATION.] Future Scheduled Test DIABETES M ANAGEMENT; RN TO ASSESS AND TEACH, AIRPLANE PILOT SUPERVISOR/COMMUNITY HEALTH COUNSELOR TO OBSERVE AND TEACH INSTRUCTIONS OF DIABETIC CARE TO INCLUDE: DIET ADA SKIN CARE, SIGNS AND SYMPTOMS OF HYPO/HYPERGLYCEMIA, PROPER ADMINISTRATION OF DIABETIC MEDICATION. RN/AIRPLANE PILOT SUPERVISOR/COMMUNITY HEALTH COUNSELOR TO INSTRUCT ON DIABETIC FOOT CARE AND MONITOR FOR SKIN LESIONS ON LOWER EXTREMITIES. BLOOD GLUCOSE TESTING RN TO ASSESS AND TEACH, AIRPLANE PILOT SUPERVISOR/COMMUNITY HEALTH COUNSELOR TO OBSERVE AND TEACH PATIENT/CAREGIVER ABILITY TO PERFORM AND RECORD BLOOD GLUCOSE TESTING ORDERED AND TO REPORT ABNORMAL FINDINGS TO PHYSICIAN. RN/AIRPLANE PILOT SUPERVISOR/COMMUNITY HEALTH COUNSELOR MAY PERFORM BLOOD GLUCOSE TEST NEEDED. RN/AIRPLANE PILOT SUPERVISOR/COMMUNITY HEALTH COUNSELOR TO REPORT TO PHYSICIAN BLOOD GLUCOSE READINGS GREATER THAN 70 OR LESS THAN 350 RN/AIRPLANE PILOT SUPERVISOR/COMMUNITY HEALTH COUNSELOR TO INSTRUCT PATIENT ON IMPORTANCE OF HGBA1C MONITORING, KIDNEY FUNCTION TEST, EYE AND FOOT EXAMS. [code = DIABETES MANAGEMENT; RN TO ASSESS AND TEACH, AIRPLANE PILOT SUPERVISOR/COMMUNITY HEALTH COUNSELOR TO OBSERVE AND TEACH INSTRUCTIONS OF DIABETIC CARE TO INCLUDE: DIET ADA SKIN CARE, SIGNS AND SYMPTOMS OF HYPO/HYPERGLYCEMIA, PROPER ADMINISTRATION OF DIABETIC MEDICATION. RN/AIRPLANE PILOT SUPERVISOR/COMMUNITY HEALTH COUNSELOR TO INSTRUCT ON DIABETIC FOOT CARE AND MONITOR FOR SKIN LESIONS ON LOWER EXTREMITIES. BLOOD GLUCOSE TESTING RN TO ASSESS AND TEACH, AIRPLANE PILOT SUPERVISOR/COMMUNITY HEALTH COUNSELOR TO OBSERVE AND TEACH PATIENT/CAREGIVER ABILITY TO PERFORM AND RECORD BLOOD GLUCOSE TESTING ORDERED AND TO REPORT ABNORMAL FINDINGS TO PHYSICIAN. RN/AIRPLANE PILOT SUPERVISOR/COMMUNITY HEALTH COUNSELOR MAY PERFORM BLOOD GLUCOSE TEST NEEDED. RN/AIRPLANE PILOT SUPERVISOR/COMMUNITY HEALTH COUNSELOR TO REPORT TO PHYSICIAN BLOOD GLUCOSE READINGS GREATER THAN 70 OR LESS THAN 350 RN/AIRPLANE PILOT SUPERVISOR/COMMUNITY HEALTH COUNSELOR TO INSTRUCT PATIENT ON IMPORTANCE OF HGBA1C MONITORING, KIDNEY FUNCTION TEST, EYE AND FOOT EXAMS.] Future Scheduled Test FALL REDUC TION MANAGEMENT; RN TO ASSESS AND OBSERVE, COMMUNITY HEALTH COUNSELOR/AIRPLANE PILOT SUPERVISOR TO OBSERVE FALL RISK FACTORS AND EDUCATE PATIENT/CAREGIVER ON STRATEGIES TO MINIMIZE THE RISK OF FALLING. [code = FALL REDUCTION MANAGEMENT; RN TO ASSESS AND OBSERVE, COMMUNITY HEALTH COUNSELOR/AIRPLANE PILOT SUPERVISOR TO OBSERVE FALL RISK FACTORS AND EDUCATE [...] AND ADJUSTMENT TO CARE. [code = MEDICAL COMPENSATION ANALYST FOR EVALUATION TO ASSESS SOCIAL AND EMOTIONAL FACTORS RELATED TO THE PATIENT'S ILLNESS, NEED FOR CARE, RESPONSE TO TREATMENT AND ADJUSTMENT TO CARE.] Future Scheduled Test AGENCY MAY PERFORM A RESUMPTION OF CARE VISIT FOLLOWING ANY HOSPITAL ADMISSION. OT TO EVALUATE, OBSERVE / ASSESS, AND MONITOR, AWNING FINISHER TO OBSERVE AND MONITOR, PROVIDE SKILLED THERAPEUTIC INTERVENTION, ACTIVITY, EDUCATION, AND TRAINING TO ADDRESS; DEFICITS IN STRENGTH/BALANCE/ENDURANCE, AND TO INCREASE SAFETY AND INDEPENDENCE WITH ADLS, FUNCTIONAL TRANSFERS/MOBILITY, HOME MANAGEMENT TASKS. MD OFFICE OF DR DAVIN AHN TO BE NOTIFIED OF COMPLETION OF OCCUPATIONAL THERAPY EVALUATION AND PLAN OF CARE. BATHING/SHOWERING (OT/FERNANDO) DRESSING (OT/FERNANDO) ACTIVITIES OF DAILY LIVING (OT/AWNING FINISHER) MEAL PREPARATION AND CLEANUP (OT/FERNANDO) BATH/SHOWER TRANSFER (OT/FERNANDO) HOME ACTIVITY / EXERCISE PROGRAM (OT/AWNING FINISHER) OT/FERNANDO MAY EDUCATE ON PAIN MANAGEMENT CLINICALLY [...] TO EVALUATE, OBSERVE / ASSESS, AND MONITOR, AWNING FINISHER TO OBSERVE AND MONITOR, PROVIDE SKILLED THERAPEUTIC [...] (OT/FERNANDO) HOME ACTIVITY / EXERCISE PROGRAM (OT/FERNANDO) OT/AWNING FINISHER MAY EDUCATE ON PAIN MANAGEMENT CLINICALLY INDICATED, INCLUDING NON-PHARMACOLOGICAL PAIN REDUCTION TECHNIQUES AND USE OF CRYOTHERAPY OR HEAT UP TO 20 MIN AT A TIME FOR PAIN MANAGEMENT. OT/FERNANDO TO INSTRUCT PATIENT/CAREGIVER ON RISK FOR HOSPITALIZATION/EMERGENCY ROOM VISITS, TEACH SIGNS AND SYMPTOMS THAT PUT PATIENT AT RISK, WHEN TO NOTIFY NURSE/PHYSICIAN OF COMPLICATIONS/DECLINE, AND WHEN TO CALL 911. OT / AWNING FINISHER TO IDENTIFY FALL RISK FACTORS; EDUCATE THE PATIENT/CAREGIVER ON WAYS TO REDUCE FALL RISK FACTORS AND ESTABLISH HOME EXERCISE PROGRAM TO MINIMIZE FALL RISK. MAY TEACH THE PATIENT FLOOR RECOVERY WHEN CLINICALLY APPROPRIATE.] Future Scheduled Test MEDICAL SO CIAL SERVICES FOR COMMUNITY RESOURCE PLANNING. [code = MEDICAL COMPENSATION ANALYST FOR COMMUNITY RESOURCE PLANNING.] Goal Patient Goal [...] End Date/Time Encounter Type Admission Type Attending [facility] Care Department Encounter ID Discharge Date Discharge Status Discharge Condition Discharge Reason Percent Goals Met 2025-03-25 00:00:00 2025-05-23 00:00:00 Outpatient NEW ADMISSION JAZLYN VALVERDE [facility] [id number] 54.55
== END 2025-04-13 23:59 | disposition home or self-care (01) ==
LOC: RAD 07:37
PROVIDERS: PCP Family Medicine; Visit Provider Nurse Practitioner
DX: I08.1 Rheumatic disorders of both mitral and tricuspid valves (principal); I48.0 Paroxysmal atrial fibrillation; I49.3 Ventricular premature depolarization; I16.0 Hypertensive urgency; I25.10 Atherosclerotic heart disease of native coronary artery without angina pectoris; I11.9 Hypertensive heart disease without heart failure; E11.9 Type 2 diabetes mellitus without complications; E78.00 Pure hypercholesterolemia, unspecified; R94.39 Abnormal result of other cardiovascular function study
CPT/HCPCS: 78452; 93017; 93018; 93306; A9502; J2785

== ENCOUNTER 2025-06-07 14:43 | Outpatient (CLI) | payer MEDICARE, OTHER, SELFPAY ==
--- OUTSIDE RECORDS SUMMARY | 2025-05-02 20:00 | XMS_ITS | Clinical Summary ---
Author Organization Unknown Care Team Providers Care Tie Binder Name Role Phone JIMY OLSEN, DAVIN Unavailable Unavailable NICOLLE RN, JAZLYN Unavailable Unavailable JANAE AVIATION ELECTRICAL TECHNICIAN, AGUILAR Unavailable Unavailable JAYRO PT, SANA Unavailable Unavailable KAYLIE PAYROLL AND BENEFITS SPECIALIST, YARITZA Unavailable Unavailable JANEEN OT, BART Unavailable Unavailable KARLA ORTEGA, SHAYLA Unavailable Unavailable Payers Payer Name Policy Type Policy Number Effective Date Expira tion Date MEDICARE.[facility] [id number] Problems Condition Name Condition Details Condition Category Status Onset Date Resolution Date Last Treatment Date Treating Clinician Comments ESSENTIAL (PRIMARY) HYPERTENSION Active 03-08 00:00: 00 CERVICALGIA Active 03-08 00:00: 00 PAROXYSMAL ATRIAL FIBRILLATION Active 03-08 00:00: 00 ATHEROSCLERO SIS OF RENAL ARTERY Active 03-08 00:00: 00 URINARY TRACT INFECTION, SITE NOT SPECIFIED Active 03-08 00:00: 00 KLEBSIELLA PNEUMONIAE THE CAUSE OF DISEASES CLASSD ELSWHR Active 03-08 00:00: 00 TYPE 2 DIABETES MELLITUS WITH DIABETIC NEUROPATHY, UNSP Active 11-03 00:00: 00 TYPE 2 DIABETES W DIABETIC PERIPHERAL ANGIOPATH W/O GANGRENE Active 11-03 00:00: 00 ATHSCL HEART DISEASE OF [place] CORONARY ARTERY W/O ANG PCTRS Active 11-03 00:00: 00 CHRONIC OBSTRUCTIVE PULMONARY DISEASE, UNSPECIFIED Active 11-03 00:00: 00 HYPOTHYROIDI SM, UNSPECIFIED Active 11-03 00:00: 00 OLD MYOCARDIAL INFARCTION Active 11-03 00:00: 00 HYPERLIPIDEM IA, UNSPECIFIED Active 11-03 00:00: 00 GASTRO-ESOPH AGEAL REFLUX DISEASE WITHOUT ESOPHAGITIS Active 11-03 00:00: 00 OBESITY, UNSPECIFIED Active 11-03 00:00: 00 BODY MASS INDEX [BMI] 33.0-33.9, ADULT Active 11-03 00:00: 00 ADMINISTRATIVE ASSISTANT COORDINATOR (CURRENT) USE OF ORAL HYPOGLYCEMIC DRUGS Active 11-03 00:00: 00 SHELTER (CURRENT) USE OF ANTICOAGULAN TS Active 11-03 00:00: 00 SHELTER (CURRENT) USE OF ANTITHROMBOT ICS/ANTIPLAT ELETS Active 11-03 00:00: 00 PRESENCE OF ARTIFICIAL KNEE JOINT, BILATERAL Active 11-03 00:00: 00 PERSONAL HISTORY OF NICOTINE DEPENDENCE Active 11-03 00:00: 00 PRSNL HX OF TIA (TIA), AND CEREB INFRC W/O RESID DEFICITS Active 11-03 00:00: 00 Allergies, Adverse Reactions, Alerts Allergy Name Allergy Type Status Severity Reaction(s) Onset Date Inactive Date Treating Clinician Comments LATEX, NATURAL RUBBER Propensity to adverse reactions Active 03-25 17:43: 31 ACETAMINOPHE N Propensity to adverse reactions Active 03-25 17:44: 05 TRAMADOL Propensity to adverse reactions Active 03-25 17:44: 13 Medications Ordered Medication Name Filled Medication Name Start Date Stop Date Current Medication? Ordering Clinician Indication Dosage Frequency Signature (SIG) Comments Components aspirin 81 mg tablet,lea yed release 03-10 00:00: 00 Yes [id number] HEART 1 tablet DAILY 1 tablet DAILY (route: oral) Med Classific ation: Hematolog ical Agents clopidogrel 75 mg tablet 03-10 00:00: 00 Yes [id number] HEART 1 tablet DAILY 1 tablet DAILY (route: oral) Med Classific ation: Hematolog ical Agents cyclobenzap rine 10 mg tablet 03-10 00:00: 00 03-25 00:00 :00 No [id number] Per instruc tions Per instructio ns (route: oral) Med Classific ation: Locomotor System nadolol 20 mg tablet 03-10 00:00: 00 03-25 00:00 :00 No [id number] Per instruc tions Per instructio ns (route: oral) Med Classific ation: Cardiovas cular Therapy Agents atorvastati n 40 mg tablet 02-22 00:00: 00 Yes [id number] CHOLESTEROL 1 tablet AT BEDTIME 1 tablet AT BEDTIME (route: oral) Med Classific ation: Cardiovas cular Therapy Agents levothyroxi ne 50 mcg tablet 02-22 00:00: 00 03-25 00:00 :00 No [id number] Per instruc tions ONCE DAILY Per instructio ns ONCE DAILY (route: oral) Med Classific ation: Endocrine Xarelto 20 mg tablet 02-22 00:00: 00 Yes [id number] BLOOD THINNER 1 tablet ONCE DAILY 1 tablet ONCE DAILY (route: oral) Med Classific ation: Hematolog ical Agents albuterol sulfate HFA 90 mcg/actuati on aerosol inhaler 03-25 00:00: 00 Yes [id number] SOB 2 puff 4 TIMES DAILY 2 puff 4 TIMES DAILY (route: inhalation ) Med Classific ation: Respirato ry Therapy Agents cetirizine 10 mg tablet 03-25 00:00: 00 Yes [id number] ALLERGIES 1 tablet DAILY 1 tablet DAILY (route: oral) Med Classific ation: Respirato ry Therapy Agents metformin 500 mg tablet 03-25 00:00: 00 Yes [id number] DIABETES 1 tablet 2 TIMES DAILY 1 tablet 2 TIMES DAILY (route: oral) Med Classific ation: Endocrine amoxicillin 875 mg-potassiu m clavulanate 125 mg tablet 04-04 00:00: 00 Yes [id number] FOR PNEMONIA 1 tablet 2 TIMES DAILY 1 tablet 2 TIMES DAILY (route: oral) Med Classific ation: Anti-Infe ctive Agents azithromyci n 250 mg tablet 04-04 00:00: 00 Yes [id number] PNEMONIA 1 tablet DAILY 1 tablet DAILY (route: oral) Med Classific ation: Anti-Infe ctive Agents cyclobenzap rine 7.5 mg tablet 04-04 00:00: 00 Yes [id number] FOR PAIN 15 mg 3 TIMES DAILY 15 mg 3 TIMES DAILY (route: oral) Med Classific ation: Locomotor System amoxicillin 875 mg-potqianiu m clavulanate 125 mg tablet 04-03 00:00: 00 04-13 23:59 :00 No [id number] ANTIBIOTIC 1 tablet 2 TIMES DAILY 1 tablet 2 TIMES DAILY (route: oral) Med Classific ation: Anti-Infe ctive Agents cyclobenzap rine 5 mg tablet 04-03 00:00: 00 Yes [id number] NEEDED FOR MUSCLE SPASM 1 tablet 3 TIMES DAILY 1 tablet 3 TIMES DAILY (route: oral) Med Classific ation: Locomotor System oxycodone 5 mg tablet 03-31 00:00: 00 Yes [id number] NEEDED FOR PAIN 1 tablet DAILY 1 tablet DAILY (route: oral) Med Classific ation: Analgesic , Anti-infl ammatory or Antipyret ic Xarelto 2.5 mg tablet 04-04 00:00: 00 Yes [id number] BLOOD CLOTS 1 tablet DAILY 1 tablet DAILY (route: oral) Med Classific ation: Hematolog ical Agents Vital Signs Vital Name Observation Time Observation Value Commen ts Temperature 2025-05-03 12:37:00.000 97.8 [degF] Temperature 2025-04-18 16:36:00.000 97.2 [degF] Temperature 2025-04-11 16:27:00.000 97.5 [degF] Temperature 2025-04-05 16:36:00.000 98.7 [degF] Temperature 2025-04-05 15:28:00.000 98.2 [degF] Temperature 2025-04-01 17:29:00.000 97.7 [degF] Temperature 2025-03-29 15:47:00.000 97.8 [degF] Temperature 2025-03-25 17:21:00.000 96.4 [degF] BMI (%) 2025-03-25 17:21:00.000 33 kg/m2 Height 2025-03-25 17:21:00.000 64 [in_us] Pulse 2025-05-03 12:37:00.000 66 /min Pulse 2025-04-18 16:36:00.000 72 /min Pulse 2025-04-11 16:27:00.000 64 /min Pulse 2025-04-05 16:36:00.000 85 /min Pulse 2025-04-05 15:28:00.000 76 /min Pulse 2025-04-01 17:29:00.000 102 /min Pulse 2025-03-29 15:47:00.000 94 /min Pulse 2025-03-25 17:21:00.000 60 /min O2 Saturation (%) 2025-05-03 12:38:00.000 97 % O2 Saturation (%) 2025-04-11 16:27:00.000 96 % O2 Saturation (%) 2025-04-05 16:38:00.000 95 % O2 Saturation (%) 2025-04-05 15:28:00.000 94 % O2 Saturation (%) 2025-04-01 17:29:00.000 98 % O2 Saturation (%) 2025-03-29 15:47:00.000 94 % Respirations 2025-05-03 12:37:00.000 18 /min Respirations 2025-04-18 16:36:00.000 18 /min Respirations 2025-04-11 16:27:00.000 18 /min Respirations 2025-04-05 16:36:00.000 18 /min Respirations 2025-04-05 15:28:00.000 18 /min Respirations 2025-04-01 17:29:00.000 18 /min Respirations 2025-03-29 15:47:00.000 18 /min Respirations 2025-03-25 17:21:00.000 18 /min Weight (lbs) 2025-03-25 17:21:00.000 193 [lb_av] Systolic Blood Pressure 2025-05-03 12:37:00.000 132 mm [Hg] Systolic Blood Pressure 2025-04-18 16:36:00.000 136 mm [Hg] Systolic Blood Pressure 2025-04-11 16:27:00.000 132 mm [Hg] Systolic Blood Pressure 2025-04-05 16:36:00.000 124 mm [Hg] Systolic Blood Pressure 2025-04-05 15:28:00.000 130 mm [Hg] Systolic Blood Pressure 2025-04-01 17:29:00.000 124 mm [Hg] Systolic Blood Pressure 2025-03-29 15:47:00.000 146 mm [Hg] Systolic Blood Pressure 2025-03-25 17:21:00.000 120 mm [Hg] Diastolic Blood Pressure 2025-05-03 12:37:00.000 70 mm [Hg] Diastolic Blood Pressure 2025-04-18 16:36:00.000 64 mm [Hg] Diastolic Blood Pressure 2025-04-11 16:27:00.000 84 mm [Hg] Diastolic Blood Pressure 2025-04-05 16:36:00.000 82 mm [Hg] Diastolic Blood Pressure 2025-04-05 15:28:00.000 80 mm [Hg] Diastolic Blood Pressure 2025-04-01 17:29:00.000 64 mm [Hg] Diastolic Blood Pressure 2025-03-29 15:47:00.000 88 mm [Hg] Diastolic Blood Pressure 2025-03-25 17:21:00.000 80 mm [Hg] Plan of Treatment Planned Activity Planned Date Details Comments Future Scheduled Test RN TO OBSE RVE, ASSESS, EVALUATE, AND DEVELOP AN INDIVIDUALIZED PLAN OF CARE. AGENCY MAY ACCEPT ORDERS FROM CONSULTING PHYSICIANS DR MICHAEL NATION TO OBSERVE AND ASSESS, AVIATION ELECTRICAL TECHNICIAN/ORGANIZATIONAL DEVELOPMENT MANAGER TO OBSERVE FOR RISK FOR FALLS AND INSTRUCT IN FALL PREVENTION, HOME SAFETY, MEDICATION MANAGEMENT, INFECTION PREVENTION, AND NUTRITION MANAGEMENT. RN/AVIATION ELECTRICAL TECHNICIAN/ORGANIZATIONAL DEVELOPMENT MANAGER NURSE MAY PERFORM O2 SATURATION LEVEL ON ADMISSION AND PRN FOR SOB FOR RN TO ASSESS/AVIATION ELECTRICAL TECHNICIAN TO OBSERVE PATIENT, WITH NOTIFICATION TO THE PHYSICIAN IF SATURATION IS 90% IN THE ABSENCE OF MORE SPECIFIC PARAMETERS FROM THE PHYSICIAN. AGENCY MAY PERFORM A RESUMPTION OF CARE VISIT FOLLOWING ANY HOSPITAL ADMISSION. RN/AVIATION ELECTRICAL TECHNICIAN/ORGANIZATIONAL DEVELOPMENT MANAGER TO MONITOR CO-MORBID CONDITIONS LISTED ON THE PLAN OF CARE AND ANY NEW CONDITIONS THAT PRESENT THEMSELVES DURING THIS EPISODE TO IDENTIFY CHANGES AND INTERVENE TO MINIMIZE COMPLICATIONS. [code = RN TO OBSERVE, ASSESS, EVALUATE, AND DEVELOP AN INDIVIDUALIZED PLAN OF CARE. AGENCY MAY ACCEPT ORDERS FROM CONSULTING PHYSICIANS DR MICHAEL NATION TO OBSERVE AND ASSESS, AVIATION ELECTRICAL TECHNICIAN/ORGANIZATIONAL DEVELOPMENT MANAGER TO OBSERVE FOR RISK FOR FALLS AND INSTRUCT IN FALL PREVENTION, HOME SAFETY, MEDICATION MANAGEMENT, INFECTION PREVENTION, AND NUTRITION MANAGEMENT. RN/AVIATION ELECTRICAL TECHNICIAN/ORGANIZATIONAL DEVELOPMENT MANAGER NURSE MAY PERFORM O2 SATURATION LEVEL ON ADMISSION AND PRN FOR SOB FOR RN TO ASSESS/AVIATION ELECTRICAL TECHNICIAN TO OBSERVE PATIENT, WITH NOTIFICATION TO THE PHYSICIAN IF SATURATION IS 90% IN THE ABSENCE OF MORE SPECIFIC PARAMETERS FROM THE PHYSICIAN. AGENCY MAY PERFORM A RESUMPTION OF CARE VISIT FOLLOWING ANY HOSPITAL ADMISSION. RN/AVIATION ELECTRICAL TECHNICIAN/ORGANIZATIONAL DEVELOPMENT MANAGER TO MONITOR CO-MORBID CONDITIONS LISTED ON THE PLAN OF CARE AND ANY NEW CONDITIONS THAT PRESENT THEMSELVES DURING THIS EPISODE TO IDENTIFY CHANGES AND INTERVENE TO MINIMIZE COMPLICATIONS.] Future Scheduled Test MEDICATION MANAGEMENT; RN/AVIATION ELECTRICAL TECHNICIAN/ORGANIZATIONAL DEVELOPMENT MANAGER TO REVIEW MEDICATIONS FOR INTERACTIONS, EFFECTIVENESS OF DRUG THERAPY, AND SIGNS/SYMPTOMS OF ADVERSE REACTIONS. MAY INSTRUCT AND REINFORCE MEDICATION TEACHING RELATED TO THE USE OF MEDICATIONS, DOSAGE, FREQUENCY, PURPOSE, SIDE EFFECTS, AND TO REPORT COMPLICATIONS. [code = MEDICATION MANAGEMENT; RN/AVIATION ELECTRICAL TECHNICIAN/ORGANIZATIONAL DEVELOPMENT MANAGER TO REVIEW MEDICATIONS FOR INTERACTIONS, EFFECTIVENESS OF DRUG THERAPY, AND SIGNS/SYMPTOMS OF ADVERSE REACTIONS. MAY INSTRUCT AND REINFORCE MEDICATION TEACHING RELATED TO THE USE OF MEDICATIONS, DOSAGE, FREQUENCY, PURPOSE, SIDE EFFECTS, AND TO REPORT COMPLICATIONS.] Future Scheduled Test CARDIOVASC ULAR SYSTEM; RN TO ASSESS/TEACH, AVIATION ELECTRICAL TECHNICIAN/ORGANIZATIONAL DEVELOPMENT MANAGER TO OBSERVE/TEACH RELATED TO ALTERED CARDIOVASCULAR STATUS TO MINIMIZE COMPLICATIONS AND REDUCE HOSPITALIZATION. [code = CARDIOVASCULAR SYSTEM; RN TO ASSESS/TEACH, AVIATION ELECTRICAL TECHNICIAN/ORGANIZATIONAL DEVELOPMENT MANAGER TO OBSERVE/TEACH RELATED TO ALTERED CARDIOVASCULAR STATUS TO MINIMIZE COMPLICATIONS AND REDUCE HOSPITALIZATION.] Future Scheduled Test HYPERTENSI ON MANAGEMENT; RN TO ASSESS AND TEACH, AVIATION ELECTRICAL TECHNICIAN/ORGANIZATIONAL DEVELOPMENT MANAGER TO OBSERVE AND TEACH WARNING SIGNS AND SYMPTOMS TO AVOID HOSPITALIZATION. [code = HYPERTENSION MANAGEMENT; RN TO ASSESS AND TEACH, AVIATION ELECTRICAL TECHNICIAN/ORGANIZATIONAL DEVELOPMENT MANAGER TO OBSERVE AND TEACH WARNING SIGNS AND SYMPTOMS TO AVOID HOSPITALIZATION.] Future Scheduled Test ARRHYTHMIA MANAGEMENT; RN TO ASSESS AND TEACH, AVIATION ELECTRICAL TECHNICIAN/ORGANIZATIONAL DEVELOPMENT MANAGER TO OBSERVE AND TEACH WARNING SIGNS AND SYMPTOMS TO AVOID HOSPITALIZATION. [code = ARRHYTHMIA MANAGEMENT; RN TO ASSESS AND TEACH, AVIATION ELECTRICAL TECHNICIAN/ORGANIZATIONAL DEVELOPMENT MANAGER TO OBSERVE AND TEACH WARNING SIGNS AND SYMPTOMS TO AVOID HOSPITALIZATION.] Future Scheduled Test RESPIRATOR Y SYSTEM MANAGEMENT; RN TO ASSESS AND TEACH, AVIATION ELECTRICAL TECHNICIAN/ORGANIZATIONAL DEVELOPMENT MANAGER TO OBSERVE AND TEACH RELATED TO ALTERED RESPIRATORY STATUS TO MINIMIZE COMPLICATIONS AND REDUCE HOSPITALIZATION. [code = RESPIRATORY SYSTEM MANAGEMENT; RN TO ASSESS AND TEACH, AVIATION ELECTRICAL TECHNICIAN/ORGANIZATIONAL DEVELOPMENT MANAGER TO OBSERVE AND TEACH RELATED TO ALTERED RESPIRATORY STATUS TO MINIMIZE COMPLICATIONS AND REDUCE HOSPITALIZATION.] Future Scheduled Test COPD MANAG EMENT; RN TO ASSESS AND TEACH, AVIATION ELECTRICAL TECHNICIAN/ORGANIZATIONAL DEVELOPMENT MANAGER TO OBSERVE AND TEACH SIGNS/SYMPTOMS OF COPD EXACERBATION AND PROVIDE EARLY INTERVENTIONS TO MINIMIZE RISK OF HOSPITALIZATION. RN/AVIATION ELECTRICAL TECHNICIAN/ORGANIZATIONAL DEVELOPMENT MANAGER TO INSTRUCT ON SELF-CARE MANAGEMENT INCLUDING BREATHING TECHNIQUES, AIRWAY CLEARANCE, AND PROPER USE OF COPD MEDICATIONS. RN TO ASSESS AND TEACH, AVIATION ELECTRICAL TECHNICIAN/ORGANIZATIONAL DEVELOPMENT MANAGER TO OBSERVE AND TEACH PATIENT/CAREGIVER ABILITY TO MONITOR AND RECORD VITAL SIGNS INCLUDING PULSE OXIMETRY AND BLOOD PRESSURE. PULSE OXIMETER AND BP MONITOR TO BE PROVIDED IF NEEDED [code = COPD MANAGEMENT; RN TO ASSESS AND TEACH, AVIATION ELECTRICAL TECHNICIAN/ORGANIZATIONAL DEVELOPMENT MANAGER TO OBSERVE AND TEACH SIGNS/SYMPTOMS OF COPD EXACERBATION AND PROVIDE EARLY INTERVENTIONS TO MINIMIZE RISK OF HOSPITALIZATION. RN/AVIATION ELECTRICAL TECHNICIAN/ORGANIZATIONAL DEVELOPMENT MANAGER TO INSTRUCT ON SELF-CARE MANAGEMENT INCLUDING BREATHING TECHNIQUES, AIRWAY CLEARANCE, AND PROPER USE OF COPD MEDICATIONS. RN TO ASSESS AND TEACH, AVIATION ELECTRICAL TECHNICIAN/ORGANIZATIONAL DEVELOPMENT MANAGER TO OBSERVE AND TEACH PATIENT/CAREGIVER ABILITY TO MONITOR AND RECORD VITAL SIGNS INCLUDING PULSE OXIMETRY AND BLOOD PRESSURE. PULSE OXIMETER AND BP MONITOR TO BE PROVIDED IF NEEDED] Future Scheduled Test NEUROLOGIC AL SYSTEM MANAGEMENT; RN TO ASSESS AND TEACH, ORGANIZATIONAL DEVELOPMENT MANAGER/AVIATION ELECTRICAL TECHNICIAN TO OBSERVE AND TEACH RELATED TO ALTERED NEUROLOGICAL STATUS TO MINIMIZE COMPLICATIONS AND REDUCE HOSPITALIZATION. [code = NEUROLOGICAL SYSTEM MANAGEMENT; RN TO ASSESS AND TEACH, ORGANIZATIONAL DEVELOPMENT MANAGER/AVIATION ELECTRICAL TECHNICIAN TO OBSERVE AND TEACH RELATED TO ALTERED NEUROLOGICAL STATUS TO MINIMIZE COMPLICATIONS AND REDUCE HOSPITALIZATION.] Future Scheduled Test DIABETES M ANAGEMENT; RN TO ASSESS AND TEACH, ORGANIZATIONAL DEVELOPMENT MANAGER/AVIATION ELECTRICAL TECHNICIAN TO OBSERVE AND TEACH INSTRUCTIONS OF DIABETIC CARE TO INCLUDE: DIET ADA SKIN CARE, SIGNS AND SYMPTOMS OF HYPO/HYPERGLYCEMIA, PROPER ADMINISTRATION OF DIABETIC MEDICATION. RN/ORGANIZATIONAL DEVELOPMENT MANAGER/AVIATION ELECTRICAL TECHNICIAN TO INSTRUCT ON DIABETIC FOOT CARE AND MONITOR FOR SKIN LESIONS ON LOWER EXTREMITIES. BLOOD GLUCOSE TESTING RN TO ASSESS AND TEACH, ORGANIZATIONAL DEVELOPMENT MANAGER/AVIATION ELECTRICAL TECHNICIAN TO OBSERVE AND TEACH PATIENT/CAREGIVER ABILITY TO PERFORM AND RECORD BLOOD GLUCOSE TESTING ORDERED AND TO REPORT ABNORMAL FINDINGS TO PHYSICIAN. RN/ORGANIZATIONAL DEVELOPMENT MANAGER/AVIATION ELECTRICAL TECHNICIAN MAY PERFORM BLOOD GLUCOSE TEST NEEDED. RN/ORGANIZATIONAL DEVELOPMENT MANAGER/AVIATION ELECTRICAL TECHNICIAN TO REPORT TO PHYSICIAN BLOOD GLUCOSE READINGS GREATER THAN 70 OR LESS THAN 350 RN/ORGANIZATIONAL DEVELOPMENT MANAGER/AVIATION ELECTRICAL TECHNICIAN TO INSTRUCT PATIENT ON IMPORTANCE OF HGBA1C MONITORING, KIDNEY FUNCTION TEST, EYE AND FOOT EXAMS. [code = DIABETES MANAGEMENT; RN TO ASSESS AND TEACH, ORGANIZATIONAL DEVELOPMENT MANAGER/AVIATION ELECTRICAL TECHNICIAN TO OBSERVE AND TEACH INSTRUCTIONS OF DIABETIC CARE TO INCLUDE: DIET ADA SKIN CARE, SIGNS AND SYMPTOMS OF HYPO/HYPERGLYCEMIA, PROPER ADMINISTRATION OF DIABETIC MEDICATION. RN/ORGANIZATIONAL DEVELOPMENT MANAGER/AVIATION ELECTRICAL TECHNICIAN TO INSTRUCT ON DIABETIC FOOT CARE AND MONITOR FOR SKIN LESIONS ON LOWER EXTREMITIES. BLOOD GLUCOSE TESTING RN TO ASSESS AND TEACH, ORGANIZATIONAL DEVELOPMENT MANAGER/AVIATION ELECTRICAL TECHNICIAN TO OBSERVE AND TEACH PATIENT/CAREGIVER ABILITY TO PERFORM AND RECORD BLOOD GLUCOSE TESTING ORDERED AND TO REPORT ABNORMAL FINDINGS TO PHYSICIAN. RN/ORGANIZATIONAL DEVELOPMENT MANAGER/AVIATION ELECTRICAL TECHNICIAN MAY PERFORM BLOOD GLUCOSE TEST NEEDED. RN/ORGANIZATIONAL DEVELOPMENT MANAGER/AVIATION ELECTRICAL TECHNICIAN TO REPORT TO PHYSICIAN BLOOD GLUCOSE READINGS GREATER THAN 70 OR LESS THAN 350 RN/ORGANIZATIONAL DEVELOPMENT MANAGER/AVIATION ELECTRICAL TECHNICIAN TO INSTRUCT PATIENT ON IMPORTANCE OF HGBA1C MONITORING, KIDNEY FUNCTION TEST, EYE AND FOOT EXAMS.] Future Scheduled Test FALL REDUC TION MANAGEMENT; RN TO ASSESS AND OBSERVE, AVIATION ELECTRICAL TECHNICIAN/ORGANIZATIONAL DEVELOPMENT MANAGER TO OBSERVE FALL RISK FACTORS AND EDUCATE PATIENT/CAREGIVER ON STRATEGIES TO MINIMIZE THE RISK OF FALLING. [code = FALL REDUCTION MANAGEMENT; RN TO ASSESS AND OBSERVE, AVIATION ELECTRICAL TECHNICIAN/ORGANIZATIONAL DEVELOPMENT MANAGER TO OBSERVE FALL RISK FACTORS AND EDUCATE PATIENT/CAREGIVER ON STRATEGIES TO MINIMIZE THE RISK OF FALLING.] Future Scheduled Test PHYSICAL T HERAPIST TO EVALUATE FOR STRENGTH TRAINING [code = PHYSICAL THERAPIST TO EVALUATE FOR STRENGTH TRAINING] Future Scheduled Test OCCUPATION AL THERAPIST TO EVALUATE FOR STRENGTH TRAINING [code = OCCUPATIONAL THERAPIST TO EVALUATE FOR STRENGTH TRAINING] Future Scheduled Test MEDICAL SO CIAL SERVICES FOR EVALUATION TO ASSESS SOCIAL AND EMOTIONAL FACTORS RELATED TO THE PATIENT'S ILLNESS, NEED FOR CARE, RESPONSE TO TREATMENT AND ADJUSTMENT TO CARE. [code = MEDICAL SENIOR FORMULATION SCIENTIST FOR EVALUATION TO ASSESS SOCIAL AND EMOTIONAL FACTORS RELATED TO THE PATIENT'S ILLNESS, NEED FOR CARE, RESPONSE TO TREATMENT AND ADJUSTMENT TO CARE.] Future Scheduled Test AGENCY MAY PERFORM A RESUMPTION OF CARE VISIT FOLLOWING ANY HOSPITAL ADMISSION. OT TO EVALUATE, OBSERVE / ASSESS, AND MONITOR, TANK SHOP SUPERVISOR TO OBSERVE AND MONITOR, PROVIDE SKILLED THERAPEUTIC INTERVENTION, ACTIVITY, EDUCATION, AND TRAINING TO ADDRESS; DEFICITS IN STRENGTH/BALANCE/ENDURANCE, AND TO INCREASE SAFETY AND INDEPENDENCE WITH ADLS, FUNCTIONAL TRANSFERS/MOBILITY, HOME MANAGEMENT TASKS. MD OFFICE OF DR DAVIN AHN TO BE NOTIFIED OF COMPLETION OF OCCUPATIONAL THERAPY EVALUATION AND PLAN OF CARE. BATHING/SHOWERING (OT/FERNANDO) DRESSING (OT/TANK SHOP SUPERVISOR) ACTIVITIES OF DAILY LIVING (OT/TANK SHOP SUPERVISOR) MEAL PREPARATION AND CLEANUP (OT/FERNANDO) BATH/SHOWER TRANSFER (OT/FERNANDO) HOME ACTIVITY / EXERCISE PROGRAM (OT/FERNANDO) OT/FERNANDO MAY EDUCATE ON PAIN MANAGEMENT CLINICALLY INDICATED, INCLUDING NON-PHARMACOLOGICAL PAIN REDUCTION TECHNIQUES AND USE OF CRYOTHERAPY OR HEAT UP TO 20 MIN AT A TIME FOR PAIN MANAGEMENT. OT/TANK SHOP SUPERVISOR TO INSTRUCT PATIENT/CAREGIVER ON RISK FOR HOSPITALIZATION/EMERGENCY ROOM VISITS, TEACH SIGNS AND SYMPTOMS THAT PUT PATIENT AT RISK, WHEN TO NOTIFY NURSE/PHYSICIAN OF COMPLICATIONS/DECLINE, AND WHEN TO CALL 911. OT / FERNANDO TO IDENTIFY FALL RISK FACTORS; EDUCATE THE PATIENT/CAREGIVER ON WAYS TO REDUCE FALL RISK FACTORS AND ESTABLISH HOME EXERCISE PROGRAM TO MINIMIZE FALL RISK. MAY TEACH THE PATIENT FLOOR RECOVERY WHEN CLINICALLY APPROPRIATE. [code = AGENCY MAY PERFORM A RESUMPTION OF CARE VISIT FOLLOWING ANY HOSPITAL ADMISSION. OT TO EVALUATE, OBSERVE / ASSESS, AND MONITOR, FERNANDO TO OBSERVE AND MONITOR, PROVIDE SKILLED THERAPEUTIC INTERVENTION, ACTIVITY, EDUCATION, AND TRAINING TO ADDRESS; DEFICITS IN STRENGTH/BALANCE/ENDURANCE, AND TO INCREASE SAFETY AND INDEPENDENCE WITH ADLS, FUNCTIONAL TRANSFERS/MOBILITY, HOME MANAGEMENT TASKS. MD OFFICE OF DR DAVIN AHN TO BE NOTIFIED OF COMPLETION OF OCCUPATIONAL THERAPY EVALUATION AND PLAN OF CARE. BATHING/SHOWERING (OT/TANK SHOP SUPERVISOR) DRESSING (OT/TANK SHOP SUPERVISOR) ACTIVITIES OF DAILY LIVING (OT/TANK SHOP SUPERVISOR) MEAL PREPARATION AND CLEANUP (OT/TANK SHOP SUPERVISOR) BATH/SHOWER TRANSFER (OT/FERNANDO) HOME ACTIVITY / EXERCISE PROGRAM (OT/TANK SHOP SUPERVISOR) OT/FERNANDO MAY EDUCATE ON PAIN MANAGEMENT CLINICALLY INDICATED, INCLUDING NON-PHARMACOLOGICAL PAIN REDUCTION TECHNIQUES AND USE OF CRYOTHERAPY OR HEAT UP TO 20 MIN AT A TIME FOR PAIN MANAGEMENT. OT/FERNANDO TO INSTRUCT PATIENT/CAREGIVER ON RISK FOR HOSPITALIZATION/EMERGENCY ROOM VISITS, TEACH SIGNS AND SYMPTOMS THAT PUT PATIENT AT RISK, WHEN TO NOTIFY NURSE/PHYSICIAN OF COMPLICATIONS/DECLINE, AND WHEN TO CALL 911. OT / TANK SHOP SUPERVISOR TO IDENTIFY FALL RISK FACTORS; EDUCATE THE PATIENT/CAREGIVER ON WAYS TO REDUCE FALL RISK FACTORS AND ESTABLISH HOME EXERCISE PROGRAM TO MINIMIZE FALL RISK. MAY TEACH THE PATIENT FLOOR RECOVERY WHEN CLINICALLY APPROPRIATE.] Future Scheduled Test [facility]ANNING. [code = MEDICAL SENIOR FORMULATION SCIENTIST FOR COMMUNITY RESOURCE PLANNING.] Goal 2025-05-03 Patient Goal - STAY OUT OF H OSPITAL Goal Provider Goal - A PLAN OF CARE WILL BE ESTABLISHED THAT MEETS THE PATIENTS NEEDS. PATIENT WILL DEMONSTRATE OXYGEN SATURATION WITHIN NORMAL LIMITS OR PATIENTS OPTIMAL LEVEL ESTABLISHED BY THE PHYSICIAN THROUGHOUT CARE. CHANGES TO CO-MORBID CONDITIONS AND ANY NEW CONDITIONS WILL BE IDENTIFIED AND REPORTED TO THE PHYSICIAN. Goal Provider Goal - PATIENT/CAREGIVER TO VERBALIZE, AND CONSISTENTLY DEMONSTRATE EFFECTIVE, SAFE MANAGEMENT OF MEDICATION INCLUDING KNOWLEDGE OF EFFECTIVENESS, POTENTIAL SIDE EFFECTS AND DRUG REACTIONS AND WHEN TO CONTACT THE APPROPRIATE CARE PROVIDER. PATIENT/CAREGIVER WILL BE ABLE TO VERBALIZE UNDERSTANDING OF MEDICATION REGIMEN AND ACCURATELY TAKE MEDICATIONS PRESCRIBED WITHOUT ADVERSE EFFECTS BY 4 WEEKS Goal Provider Goal - PATIENT / CAREGIVER WILL VERBALIZE/DEMONSTRATE UNDERSTANDING OF MEASURES TO MANAGE ALTERED CARDIOVASCULAR STATUS BY 4 WEEKS Goal Provider Goal - PATIENT / CAREGIVER WILL VERBALIZE/DEMONSTRATE AN ABILITY TO ADHERE TO SELF-MANAGEMENT OF HTN TO MINIMIZE COMPLICATIONS AND AVOID HOSPITALIZATION BY END OF EPISODE. Goal Provider Goal - PATIENT / CAREGIVER WILL VERBALIZE/DEMONSTRATE AN ABILITY TO ADHERE TO SELF-MANAGEMENT OF HEART ARRHYTHMIA TO MINIMIZE COMPLICATIONS AND AVOID HOSPITALIZATION BY END OF EPISODE. Goal Provider Goal - PATIENT / CAREGIVER WILL VERBALIZE/DEMONSTRATE UNDERSTANDING OF MEASURES TO MANAGE ALTERED RESPIRATORY STATUS BY END OF EPISODE. Goal Provider Goal - PATIENT / CAREGIVER WILL VERBALIZE/DEMONSTRATE AN ABILITY TO ADHERE TO SELF-MANAGEMENT OF COPD TO MINIMIZE COMPLICATIONS AND AVOID HOSPITALIZATION BY END OF EPISODE. Goal Provider Goal - PATIENT / CAREGIVER WILL VERBALIZE/DEMONSTRATE UNDERSTANDING OF MEASURES TO MANAGE ALTERED NEUROLOGICAL STATUS BY 4 WEEKS Goal Provider Goal - PATIENT / CAREGIVER WILL VERBALIZE / DEMONSTRATE AN ABILITY TO ADHERE TO SELF-MANAGEMENT OF DIABETES MANAGEMENT BY 4 WEEKS Goal Provider Goal - PATIENT/CAREGIVER WILL VERBALIZE/DEMONSTRATE UNDERSTANDING OF FALL RISK FACTORS AND IMPLEMENT STRATEGIES TO MINIMIZE FALL RISK. PATIENT/CAREGIVER WILL VERBALIZE/DEMONSTRATE AN ABILITY TO ADHERE TO FALL REDUCTION SELF-MANAGEMENT AND LIFE-STYLE CHANGES BY 4 WEEKS Goal Provider Goal - Goal Provider Goal - Goal Provider Goal - Goal Provider Goal - OT STG: PATIENT WILL DEMONSTRATE IMPROVED ABILITY TO PERFORM BATHING/SHOWERING AND REDUCE CAREGIVER BURDEN FROM MOD ASSIST TO MIN ASSIST WITHIN 4 WEEKS. OT LTG: PATIENT WILL DEMONSTRATE IMPROVED ABILITY TO PERFORM BATHING/SHOWERING AND REDUCE CAREGIVER BURDEN FROM MOD ASSIST TO INDEPENDENT WITHIN 9 WEEKS. OT STG: PATIENT WILL DEMONSTRATE IMPROVED ABILITY TO PERFORM UPPER BODY DRESSING TO REDUCE CAREGIVER BURDEN FROM CGA TO SBA WITHIN 4 WEEKS. OT LTG: PATIENT WILL DEMONSTRATE IMPROVED ABILITY TO PERFORM UPPER BODY DRESSING TO REDUCE CAREGIVER BURDEN FROM CGA TO INDEPENDENT WITHIN 9 WEEKS. OT STG: PATIENT WILL DEMONSTRATE IMPROVED ABILITY TO PERFORM LOWER BODY DRESSING TO REDUCE CAREGIVER BURDEN FROM MIN ASSIST TO CGA WITHIN 4 WEEKS. OT LTG: PATIENT WILL DEMONSTRATE IMPROVED ABILITY TO PERFORM LOWER BODY DRESSING TO REDUCE CAREGIVER BURDEN FROM MIN ASSIST TO INDEPENDENT WITHIN 9 WEEKS. OT LTG: PATIENT WILL DEMONSTRATE IMPROVEMENT IN MODIFIED GALILEO INDEX SCORE FROM 67 TO 85 INDICATING DECREASED DEPENDENCY ON CAREGIVER ASSISTANCE WITH ACTIVITIES OF DAILY LIVING WITHIN 9 WEEKS. OT STG: PATIENT WILL DEMONSTRATE THE ABILITY TO COMPLETE MEAL PREPARATION AND CLEANUP TO REDUCE CAREGIVER BURDEN FROM DEPENDENT TO MOD ASSIST WITHIN 4 WEEKS. OT LTG: PATIENT WILL DEMONSTRATE THE ABILITY TO COMPLETE MEAL PREPARATION AND CLEANUP TO REDUCE CAREGIVER BURDEN FROM DEPENDENT TO INDEPENDENT WITHIN 9 WEEKS. OT STG: PATIENT WILL DEMONSTRATE IMPROVED ABILITY AND SAFETY TO PERFORM BATH/SHOWER TRANSFER FROM MOD ASSIST TO MIN ASSIST WITHIN 4 WEEKS. OT LTG: PATIENT WILL DEMONSTRATE IMPROVED ABILITY AND SAFETY TO PERFORM BATH/SHOWER TRANSFER FROM MOD ASSIST TO INDEPENDENT WITHIN 9 WEEKS. OT STG: PATIENT WILL COMPLETE HEP OF BUE THER/EX WITH MIN ASSIST WITHIN 4 WEEKS. OT LTG: PATIENT WILL DEMONSTRATE IMPROVED STRENGTH FOR IMPROVED PARTICIPATION IN ADLS EVIDENCED BY IMPROVED BUE MMT FROM 3+/5 TO 4/5 WITHIN 9 WEEKS. OT LTG: PATIENT WILL DEMONSTRATE UNDERSTANDING OF PAIN MANAGEMENT TECHNIQUES EVIDENCED BY REDUCED PAIN. PATIENT/CAREGIVER WILL VERBALIZE UNDERSTANDING OF SIGNS AND SYMPTOMS THAT PUT THE PATIENT AT RISK FOR HOSPITALIZATION /EMERGENCY ROOM VISITS, WHEN TO NOTIFY NURSE/PHYSICIAN OF COMPLICATIONS/DECLINE AND WHEN TO CALL 911. OT LTG: PATIENT/CAREGIVER WILL BE ABLE TO IMPLEMENT RECOMMENDATIONS SPECIFIC TO FALL REDUCTION FOR IMPROVED ADL/IADL COMPLETION AND HOME SAFETY BY END OF EPISODE. Goal Provider Goal - PATIENT / CAREGIVER WILL DEMONSTRATE EFFECTIVE COMMUNITY RESOURCE PLANNING, EVIDENCED BY ACCEPTANCE OF ASSISTANCE FROM THOSE SERVICES FOR WHICH THEY ARE ELIGIBLE, EXTENDING THE PERIOD OF INDEPENDENCE IN THE HOME. Reason for Visit INDEPENDENT IN THE COMMUNITY Encounters Start Date/Time End Date/Time Encounter Type Admission Type Attending [facility] Care Department Encounter ID Discharge Date Discharge Status Discharge Condition Discharge Reason Percent Goals Met 2025-03-25 00:00:00 2025-05-03 00:00:00 Outpatient NEW ADMISSION JAZLYN VALVERDE [facility] [id number] 2025-05-03 00:00:00 DISCHARGE TO HOME OR SELF CARE INDEPENDEN T IN THE COMMUNITY HH - OTHER (PROVIDE DETAILS IN COORD NOTE) 66.67
--- OUTSIDE RECORDS SUMMARY | 2025-06-07 14:46 | XMS_ITS | Clinical Summary ---
Author Organization Healthcare Address [address] [id number] Care Team Providers Care Stiff Neck Loader Name Role Phone Jeff Jang MD Primary Care Provider + [phone] Allergies Active Allergy Reactions Criticality Noted Date [...] [facility]-Bone Density Scan 1943 [facility]-Depression Screening 1943 [facility]-Infant/Child/Adol SDOH Screenings 1943 [facility]- SDOH Screenings 1961 [facility]-Adult SDOH Screenings 1961 [facility]-DTaP,Tdap,and Td Vaccine s (1 - Tdap) 1962 [facility]-Zoster Vaccines (1 of 2) 1993 [facility]-RSV Vaccine: 60+ Years o r (1 - 1-dose 75+ series) 2018 [facility]-Pneumococcal Vaccine: 50 + Years (2 of 2 - PPSV23) 08/27/2019 08/27/2018 [id number] Vaccine (1 - 20 24-25 season) 2024 [facility]-Influenza Vaccine (#1) 2025 HPV Vaccines Aged Out No longer [...] age to complete this topic Insurance [employer] [address] Care Teams Stiff Neck Loader Relationship Specialty Start Date End Date Jeff Jang MD [address] [place] [address] LUZ Jimenez [id number] PCP - General 03/16/21
--- OUTSIDE RECORDS SUMMARY | 2025-06-07 14:46 | XMS_ITS | Encounter Summary ---
Author Organization Healthcare Address [address] [place] [address] Care Team Providers Care Ham Passer Name Role Phone Jeff Jang MD Primary Care Provider + [phone] Reason for Referral * Consultation (Routine) - Authorized Specialty Diagnoses / Procedures Referred By Contac t Referred To Contact Rheumatology Diagnoses MARYURI positive Pain in joints Rohan Evans MD [address] [place] [address] Phone: tel: fax: Referral ID Status Reason Start Date Expiration Date Visits Requested Visits Authorized [id number] Authorized Specialty Services Required 4 03/19/2026 1 1 Encounter Details Date Type Department Care Team (Late st Contact Info) Description 09/17/2024 Community [facility] [address] [place] [address] Rohan Evans MD [address] [place] [address] MARYURI positive (Primary Dx); Pain in joints [...] sites documented in this encounter Care Teams Ham Passer Relationship Specialty Start Date End Date Jeff Jang MD [address] [id number] PCP - General 03/16/21 documented as of this encounter
[2025-06-07 16:04] LABS: Chloride 103 mmol/L (98-107)
[2025-06-07 16:05] LABS: Potassium 3.6 mmoL/L (3.5-5.1); Sodium 137 mmol/L (136-145)
[2025-06-07 16:07] LABS: Alanine Aminotransferase 11 U/L (12-78); Anion Gap 8.6 mEq/L (5-15); Aspartate Amino Transferase 30 U/L (14-36); Blood Urea Nitrogen 14 mg/dl (7-17); Carbon Dioxide 29 mmol/L (22.0-30.0); Creatinine,Serum 0.80 mg/dl (0.52-1.04); Estimated Glomerular Filt Rate 69 ml/min (>60); GFR (African American) 83 ML/MIN (>60)
[2025-06-07 16:08] LABS: Alkaline Phosphatase 107 U/L (38-126); Bilirubin,Total 0.5 mg/dl (0.2-1.3); Calcium 9.1 mg/dl (8.4-10.2); Cholesterol 136 mg/dl (140-200); Glucose 131 mg/dl (74-100); HDL Cholesterol 42 mg/dl (40-60); Total Protein,Serum 6.6 g/dl (6.3-8.2); Triglycerides 118 mg/dl (30-150)
[2025-06-07 16:30] LABS: Free T4 (Free Thyroxine) 1.09 ng/dl (0.78-2.19)
[2025-06-07 16:38] LABS: Thyroid Stimulating Hormone 29.60 uIU/mL (0.465-4.68)
[2025-06-07 17:00] LABS: Vitamin B12 362 pg/mL (239-931)
[2025-06-07 17:31] LABS: 25-OH Vitamin D, Total < 12.8 ng/mL (30-100)
[2025-06-07 18:15] LABS: Albumin Level 3.0 g/dl (3.5-5.0); Albumin/Globulin Ratio 0.8 (1.1-1.8); Globulin 3.6 g/dL (1.3-3.2)
== END 2025-06-07 23:59 | disposition home or self-care (01) ==
LOC: LAB.DROPOF 14:43
PROVIDERS: PCP Internal Medicine Adolescent Medicine; Visit Provider Nurse Practitioner
DX: E11.69 Type 2 diabetes mellitus with other specified complication (principal); E78.5 Hyperlipidemia, unspecified; I10 Essential (primary) hypertension; E66.9 Obesity, unspecified; E03.9 Hypothyroidism, unspecified; E55.9 Vitamin D deficiency, unspecified
CPT/HCPCS: 99212; 80053; 80061; 82306; 82607; 84439; 84443